=== PATIENT | male | born 1940 | race Caucasian/White ===

== ENCOUNTER 2019-04-10 04:25 | Emergency (ER) | payer BC, MEDICARE ==
[2019-04-10] MEDS ORDERED: PERCOCET TABLET 5/325MG PO STA (05:02)
[2019-04-10] MEDS ORDERED: ZOFRAN ODT 4 MG PO ONE (05:02)
[2019-04-10] MEDS ORDERED: ZOFRAN ODT 4 MG ONE (05:05)
[2019-04-10] MEDS ORDERED: PERCOCET TABLET 5/325MG ONE (05:05)
--- NOTE | 2019-04-10 05:06 | ERPHSYRPT ---
- History of Present Illness Time Seen by Provider: 04/10/19 04:45 Source: patient Exam Limitations: no limitations Patient Subjective Stated Complaint: pt states he fell yesterday morning while outside. states he got tripped by a pile of gravel. states he hit the rt side of his head, denies loc Triage Nursing Assessment: pt alert and oriented, answers questions approp. pt back in wheelchair, transfers to stretcher with assist of 2. slow, unsteady gait noted. respirations nonlabored with lungs cta. pt c/o pain in lower back. lower netbackup admin to palpation. no bruising, abrasions noted. Physician History: Patient has had low back pain that has become severe since falling after tripping on gravel in the morning of 04/09/2019. Patient last tried Excedrin 9 hours ago without any relief of his pain. He also hit his head with the fall. Timing/Duration: yesterday Method of Injury: fall, slipped Quality: sharp Back Pain Location: lumbar spine Severity of Pain-Max: severe Severity of Pain-Current: severe Modifying Factors: Improves With: immobilization. Worsens With: movement Associated Symptoms: No fever, No chills, No sweating, No urinary incontinence, No loss of bowel control, No constipation, No nausea, No vomiting, No problems urinating, No light-headedness, No dizziness, No numbness in legs/feet, No weakness, No sensory/motor loss, No tingling in legs/feet, No lower back pain, No muscle spasms Previous symptoms: no prior history, no recent treatment Allergies/Adverse Reactions: codeine [Codeine] Allergy (Mild, Verified 04/04/14 12:38) Home Medications: Aspirin [Aspir 81] 81 mg PO DAILY 11/06/11 [History] Atenolol 50 mg [Tenormin 50 mg] 50 mg PO DAILY 11/06/11 [History] Finasteride 5 mg [Proscar 5 MG] 5 mg PO DAILY 11/06/11 [History] Oxybutynin Chloride 5 mg [Ditropan 5 MG] 10 mg PO HS 11/06/11 [History] Quinapril HCl 20 mg PO DAILY 11/06/11 [History] Tamsulosin HCl 0.4 mg [Flomax 0.4 MG] 0.4 mg PO DAILY 11/06/11 [History] Alprazolam 0.25 mg [xanAX 0.25 MG] 0.25 mg PO BIDPRN PRN 04/10/19 [History ] Nitroglycerin 0.4 mg/Hr [Nitro-Dur 0.4 MG/HR] 0.4 mg TOP DAILY PRN PRN 12/20 [History] Ropinirole 2Mg [Requip 2Mg Tab] 2 mg PO DAILY 04/10/19 [History] Hx Tetanus, Diphtheria Vaccination/Date Given: No Hx Influenza Vaccination/Date Given: No Hx Pneumococcal Vaccination/Date Given: No Immunizations Up to Date: No - Review of Systems Constitutional: No Fever, No Chills, No Fatigue Eyes: No Eye Pain, No Vision Changes Ears, Nose, & Throat: No Ear Pain, No Nose Pain, No Mouth Pain, No Mouth Swelling, No Throat Pain Respiratory: No Cough, No Dyspnea Cardiac: No Chest Pain, No Palpitations, No Syncope Abdominal/Gastrointestinal: No Abdominal Pain, No Nausea, No Vomiting, No Hematemesis, No Hematochezia, No Melena Genitourinary Symptoms: No Hematuria, No Urinary Retention, No Flank Pain Musculoskeletal: Back Pain, Fall, No Neck Pain, No Deformity, No Joint Pain Neurological: No Focal Weakness, No Headache, No Lethargy, No Parasthesia, No Speech Changes Psychological: No Anxiety Endocrine: No Excessive Sweating Hematologic/Lymphatic: No Easy Bleeding, No Easy Bruising All Other Systems: Reviewed and Negative - Past Medical History Pertinent Past Medical History: Yes Neurological History: No Pertinent History ENT History: No Pertinent History Cardiac History: Coronary Artery Disease, High Cholesterol, Hypertension Respiratory History: No Pertinent History, Sleep Apnea Endocrine Medical History: No Pertinent History Musculoskeletal History: Arthritis, Fractures GI Medical History: No Pertinent History History: No Pertinent History Psycho-Social History: No Pertinent History Male Reproductive Disorders: Prostate Problems - Past Surgical History Past Surgical History: Yes Neuro Surgical History: No Pertinent History Cardiac: Cardiac Catheterization Respiratory: No Pertinent History Gastrointestinal: No Pertinent History, Hernia Repair Musculoskeletal: Joint Replacement, Orthopedic Surgery Other Surgical History: right shoulder cuff,left knee replacement,left heel spur ,umbil.hernior. RIGHT TOTAL KNEE, rt femur - Social History Smoking Status: Former smoker Exposure to second hand smoke: No Drug Use: none Patient Lives Alone: No - Nursing Vital Signs Nursing Vital Signs: Initial Vital Signs Temperature 97.3 F 04/10/19 04:32 Pulse Rate 78 04/10/19 04:32 Respiratory Rate 16 04/10/19 04:32 Blood Pressure 172/87 04/10/19 04:32 O2 Sat by Pulse Oximetry 95 04/10/19 04:32 Pain Scale Pain Intensity 10 - Physical Exam General Appearance: no apparent distress, alert Eye Exam: PERRL/EOMI, eyes nml inspection, No scleral icterus Ears, Nose, Throat Exam: pharynx normal, moist mucous membranes Neck Exam: normal inspection, non-tender, supple, full range of motion, No meningismus, No Brudzinski, No limited range of motion, No midline tenderness Respiratory Exam: normal breath sounds, lungs clear, airway intact, No chest tenderness, No respiratory distress, No diminished breath sounds, No accessory muscle use, No crackles/rales, No rhonchi, No wheezing, No stridor Cardiovascular Exam: regular rate/rhythm, normal heart sounds, normal peripheral pulses, capillary refill <2 sec Gastrointestinal Exam: soft, normal bowel sounds, No tenderness, No guarding Back Exam: vertebral tenderness, decreased range of motion, point tenderness, No CVA tenderness, No rash Extremity Exam: normal inspection, normal range of motion, pelvis stable, tenderness (right lateral posterior mid thigh only), No contusions, No deformities, No lacerations, No penetrations, No swelling Peripheral Pulses: dorsalis-pedis (R): 2+, dorsalis-pedis (L): 2+ Neurologic Exam: alert, oriented x 3, cooperative, 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 claims 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 II-XII nml as tested, normal mood/affect, sensation nml Skin Exam: normal color, warm, dry, abrasion (right periocular area; nose), No rash, No petechiae, No cyanosis, No laceration SpO2 Interpretation: normal SpO2: 95 O2 Delivery: Room Air - Radiology Exams Right Femur X-ray Interpretation: Interpreted by me, Reviewed by me, No Fracture, Nml Alignment, Nml Soft Tissues, Other (athritis at the hip joint; knee arthroplasty hardware intact) - CT Exams Head CT Interpretation: Tele-radiologist Report, No Fracture, No/Intracranial Hemorrhag, Other (per radiologist's interpretation: 9: Age-related cerebral cortical volume loss. No acute intracranial hemorrhage. No intracranial mass or mass effect. The great matter is intact. Mild white matter changes involving the subcortical and periventricular regions consistent with a microvascular leukoencephalopathy. Brainstem and cerebellum are not remarkable. No ventriculomegaly. No acute fracture. Mucoperiosteal thickening of the right mmaxillary sinus. Visualized mastoid air cells are well aerated. Unremarkable soft tissue. Vascular calcification. Overall impression: No acute intracranial hemorrhage. No intracranial mass. No obstructive hydrocephalus.) Lumbar Spine CT Interpretation: Tele-radiologist Report, No Fracture, Other (radiologist's interpretation: Impression: Multilevel degenerative lumbar disc disease and facet disease. Severe central canal stenosis level of L3-L4 and L4-L5. Multilevel neural foraminal narrowing due to a combination of a diffusely bulging disc with hypertrophic changes of facet joints. Fusion of both SI joints.) Ordered Tests: Active Orders 24 hr Category Date Time Status FEMUR Stat Exams 04/10/19 05:12 Taken HEAD WITHOUT CONTRAST [CT] Stat Exams 04/10/19 05:01 Taken LUMBAR SPINE W/O [CT] Stat Exams 04/10/19 05:02 Taken Medication Summary Discontinued Medications Generic Name Dose Route Start Last Admin Trade Name Freq PRN Reason Stop Dose Admin Diphtheria/Tetanus/Acell Pertussis 0.5 ml 04/10/19 05:11 04/10/19 06:21 Adacel Vial IM 04/10/19 05:12 0.5 ml .ONCE ONE Administration Diphtheria/Tetanus/Acell Pertussis Confirm 04/10/19 05:29 Adacel Vial Administered 04/10/19 05:30 Dose 0.5 ml IM .STK-MED ONE Ondansetron HCl 4 mg 04/10/19 05:02 04/10/19 05:06 Zofran Odt 4 Mg PO 04/10/19 05:03 4 mg STAT ONE Administration Ondansetron HCl Confirm 04/10/19 05:05 Zofran Odt 4 Mg Administered 04/10/19 05:06 Dose 4 mg .ROUTE .STK-MED ONE Oxycodone/Acetaminophen 1 tab 04/10/19 05:02 04/10/19 05:06 Percocet Tablet 5/325mg PO 04/10/19 05:03 1 tab STAT STA Administration Oxycodone/Acetaminophen Confirm 04/10/19 05:05 Percocet Tablet 5/325mg Administered 04/10/19 05:06 Dose 1 tab .ROUTE .STK-MED ONE - Progress Progress: improved Progress Note: 04/10/19 06:42 Pain has decreased. Patient has no focal neurologic deficits in the lower extremities bilaterally. Counseled pt/family regarding: diagnosis, need for follow-up, rad results - Departure Departure Disposition: Home Clinical Impression: Acute low back pain due to trauma, Contusion of right thigh, initial encounter , Central stenosis of spinal canal, DDD (degenerative disc disease), lumbosacral , Neural foraminal stenosis of lumbar spine Closed head injury without loss of consciousness Qualifiers: Encounter type: initial encounter Qualified Code(s): S09.90XA - Unspecified injury of head, initial encounter Abrasion of periocular area, right Qualifiers: Encounter type: initial encounter Qualified Code(s): S00.211A - Abrasion of right eyelid and periocular area, initial encounter Condition: Good Critical Care Time: No Referrals: AURY MANZO MD [Primary Care Provider] - 04/11/19 Instructions: Low Back Pain (DC), Contusion (DC), Preventing Falls, Spinal Stenosis (DC), Spinal Stenosis Stretching Exercises, Spinal Stenosis Strengthening Exercises Additional Instructions: Your CT scan of her lumbar spine shows degenerative disc disease, facet arthropathy, central canal stenosis, and neural foraminal narrowing. Return immediately back to the emergency department if you have any new weakness in the lower extremities, loss of sensation lower extremities, difficulty going to the bathroom, he retaining any urine, diarrhea he cannot control, symptoms going down both legs, new bowel pain, or any other concerning signs or symptoms that were not present at the return visit for immediate reevaluation in the emergency department. Prescriptions: Meloxicam 7.5 mg [Mobic 7.5 MG] 7.5 mg PO DAILY PRN #14 tablet PRN Reason: Pain
[2019-04-10] MEDS ORDERED: Adacel Vial IM ONE ×2 (05:11→05:29)
[2019-04-10 06:30] VITALS: BP 141/74
[2019-04-10 06:42] VITALS: O2SAT 95
[2019-04-10 07:07] VITALS: PULSE 87
--- NOTE | 2019-04-10 09:24 | XRAY ---
Indication: Right periorbital abrasion following fall. Multiple contiguous axial images obtained through the head without contrast. Comparison: None Age-appropriate global atrophy and minimal periventricular degenerative micro-ischemia bilaterally. No acute intracranial hemorrhage, abnormal extra-axial fluid collection, or mass effect. Fourth ventricle is midline without hydrocephalus. Bony calvarium intact. There is moderate mucosal thickening of the right maxillary sinus. Impression: Nonacute senile brain. Right maxillary sinus disease. Comment: Preliminary interpretation was made by [facility]. No discrepancy. CTDI 42.19
--- NOTE | 2019-04-10 09:28 | XRAY ---
Indication: Pain following fall. Comparison: None 2 views of the right femur demonstrates osteopenia, mild hip degenerative arthropathy, small distal femur shaft bony exostosis, total knee arthroplasty with intact articulation/prosthesis, scattered vascular calcifications, and previous prostatectomy. No other bony, articular, or soft tissue abnormalities.
--- NOTE | 2019-04-10 09:50 | XRAY ---
Indication: Pain following fall. Multiple contiguous axial images obtained through the lumbar spine. Two-dimensional sagittal and coronal reformatted images obtained. Comparison: None. There is a CT abdomen/pelvis November 06, 2011. Again there is age-related osteopenia with mild progressive worsening multilevel thoracolumbar degenerative spondylosis and L5-S1 degenerative vacuum disc phenomena. New L3-L4 degenerative vacuum disc phenomena and new L3-L5 spinal canal stenosis due to broad-based disc bulge and degenerative facet/ligamentum flavum hypertrophy. Stable L3 vertebral body sclerotic lesion favored to be benign given stability over the years. Sagittal and coronal reformatted images demonstrates normal alignment with vertebral body heights/disc spaces maintained. New incompletely visualized T11 vertebral body fracture with mild sclerotic margins suggesting at least subacute process. No acute compression fracture or subluxation. Visualized noncontrasted soft tissues again demonstrates bilateral renal cysts again largest on the right measuring 5 cm. There remains scattered aortoiliac calcifications. Impression: 1. Incompletely visualized T11 vertebral body fracture probably subacute. 2. Again multilevel degenerative spondylosis worsened at the L3-L5 levels. 3. Stable osteopenia, benign L3 sclerotic lesion, and bilateral renal cysts. Comment: Preliminary interpretation was made by [facility] who does not report T11 fracture and also incidental L3 sclerotic lesion and renal cysts. Telephone report was given to Dr. Kelsey in the ER at 0935 hrs. on April 10, 2019. CT DI 28.98
== END 2019-04-10 07:06 | disposition home or self-care (01) ==
LOC: ED 04:25
DX: S09.90XA Unspecified injury of head, initial encounter (principal); S00.211A Abrasion of right eyelid and periocular area, initial encounter; W01.198A Fall on same level from slipping, tripping and stumbling with subsequent striking against other object, initial encounter; Z79.899 Other long term (current) drug therapy; I25.10 Atherosclerotic heart disease of native coronary artery without angina pectoris; E78.00 Pure hypercholesterolemia, unspecified; I10 Essential (primary) hypertension; M54.5 Low back pain; M79.651 Pain in right thigh
CPT/HCPCS: 70450; 72131; 73552; 90471; 90715; 99284; Q0162; A9270-GY

== ENCOUNTER 2020-06-10 16:48 | Emergency (ER) | payer MEDICARE ==
--- NOTE | 2020-06-10 16:55 | ERPHSYRPT ---
- History of Present Illness Time Seen by Provider: 06/10/20 16:54 Historian: patient Exam Limitations: no limitations Physician History: This is an 79-year-old white male who does have a history of intermittent chest pain as well as hypertension. He is obese. 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 In fact, patient has a cardiac catheterization scheduled for Wednesday, June 24, 2020. Dr. Manzo is the patient's PCP. Patient states that he had sudden onset of left anterior chest pain that radiated into his shoulder. It was sharp in description. Patient states that the pain relieved prior to her arrival to the emergency department. However, he was concerned enough to have it looked at. Again, he has no chest pain at this time. Patient took 2 baby aspirin at home. He is not on any other anticoagulation therapy. Patient denies shortness of breath. He has no nausea or vomiting. He has no abdominal pain. Patient states that he had a recent Covid test that was negative. Timing/Duration: today Activities at Onset: none Quality: sharpness Location: other (Left anterior chest) Chest Pain Radiation: arm (Left shoulder) Severity of Pain-Max: moderate Severity of Pain-Current: none Modifying Factors: Improves With: nothing Associated Symptoms: denies symptoms Aspirin Treatment Today: 81 mg x 2, provided at home Allergies/Adverse Reactions: codeine [Codeine] Allergy (Mild, Verified 06/10/20 17:00) Home Medications: Aspirin [Aspir 81] 81 mg PO DAILY 11/06/11 [History] Atenolol 50 mg [Tenormin 50 mg] 50 mg PO DAILY 11/06/11 [History] Finasteride 5 mg [Proscar 5 MG] 5 mg PO DAILY 11/06/11 [History] Oxybutynin Chloride 5 mg [Ditropan 5 MG] 10 mg PO HS 11/06/11 [History] Quinapril HCl 20 mg PO DAILY 11/06/11 [History] Tamsulosin HCl 0.4 mg [Flomax 0.4 MG] 0.4 mg PO DAILY 11/06/11 [History] Alprazolam 0.25 mg [xanAX 0.25 MG] 0.25 mg PO BIDPRN PRN 11/07/19 [History] Nitroglycerin 0.4 mg/Hr [Nitro-Dur 0.4 MG/HR] 0.4 mg TOP DAILY PRN PRN 04/10/19 [History] Ropinirole 2Mg [Requip 2Mg Tab] 2 mg PO DAILY 04/10/19 [History] Amlodipine Besylate 2.5 mg PO DAILY 06/10/20 [History] Furosemide 20 mg [Lasix 20 mg] 20 mg PO DAILY 06/10/20 [History] Hx Tetanus, Diphtheria Vaccination/Date Given: No Hx Influenza Vaccination/Date Given: No Hx Pneumococcal Vaccination/Date Given: No Travel Risk - International Travel Have you traveled outside of the country in past 3 weeks: No - Coronavirus Screening Are you exhibiting any of the following symptoms?: No Close contact with a COVID-19 positive Pt in past 14-21 Days: No - Review of Systems Constitutional: No Symptoms Eyes: No Symptoms Ears, Nose, & Throat: No Symptoms Respiratory: No Symptoms Cardiac: Chest Pain Abdominal/Gastrointestinal: No Symptoms Genitourinary Symptoms: No Symptoms Musculoskeletal: No Symptoms Skin: No Symptoms Neurological: No Symptoms Psychological: No Symptoms Endocrine: No Symptoms Hematologic/Lymphatic: No Symptoms Immunological/Allergic: No Symptoms All Other Systems: Reviewed and Negative - Past Medical History Pertinent Past Medical History: Yes Neurological History: Other ENT History: No Pertinent History Cardiac History: Hypertension Respiratory History: Sleep Apnea Endocrine Medical History: No Pertinent History Musculoskeletal History: Osteoarthritis GI Medical History: No Pertinent History History: No Pertinent History Psycho-Social History: No Pertinent History Male Reproductive Disorders: Prostate Problems Other Medical History: neuropathy in hands, Pt uses a C-PAP, B TKA - Past Surgical History Past Surgical History: Yes Neuro Surgical History: No Pertinent History Cardiac: Cardiac Catheterization Respiratory: No Pertinent History Gastrointestinal: No Pertinent History, Hernia Repair Musculoskeletal: Joint Replacement, Orthopedic Surgery Other Surgical History: right shoulder cuff,left knee replacement,left heel spur,umbil.hernior. RIGHT TOTAL KNEE, rt femur - Social History Smoking Status: Former smoker Exposure to second hand smoke: No Drug Use: none Patient Lives Alone: No - Nursing Vital Signs Nursing Vital Signs: Initial Vital Signs Temperature 98.2 F 06/10/20 16:49 Pulse Rate 90 06/10/20 16:49 Respiratory Rate 20 06/10/20 16:49 Blood Pressure 133/74 06/10/20 16:49 O2 Sat by Pulse Oximetry 95 06/10/20 16:49 Pain Scale Pain Intensity 0 - Physical Exam General Appearance: no apparent distress, alert, anxiety, obese Eye Exam: PERRL/EOMI, eyes nml inspection Ears, Nose, Throat Exam: normal ENT inspection, moist mucous membranes Neck Exam: normal inspection, non-tender, supple, full range of motion Respiratory Exam: normal breath sounds, lungs clear, airway intact, No chest tenderness, No respiratory distress Cardiovascular Exam: regular rate/rhythm, normal heart sounds, normal peripheral pulses Gastrointestinal/Abdomen Exam: soft, normal bowel sounds, No tenderness Rectal Exam: not done Back Exam: normal inspection, normal range of motion, No CVA tenderness, No vertebral tenderness Extremity Exam: normal inspection, normal range of motion, pelvis stable Neurologic Exam: alert, oriented x 3, cooperative, supervisor filter 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 There is no change from a comparison EKG dated 04/04/2014.) Ordered Tests: Active Orders 24 hr Category Date Time Status Torque Tester STAT Care 06/10/20 16:57 Active EKG-ER Only STAT Care 06/10/20 16:57 Active IV Insertion STAT Care 06/10/20 16:57 Active Pulse Oximetry (ED) STAT Care 06/10/20 16:57 Active CHEST 1 VIEW (PORTABLE) Stat Exams 06/10/20 16:57 Taken CHEST WITH CONTRAST [CT] Stat Exams 06/10/20 18:04 Taken CBC W DIFF Stat Lab 06/10/20 17:15 Completed CMP Stat Lab 06/10/20 17:15 Completed D-DIMER QUANTITATIVE Stat Lab 06/10/20 17:15 Completed NT PRO BNP Stat Lab 06/10/20 17:15 Completed TROPONIN Q3H Lab 06/10/20 17:30 Completed TROPONIN Q3H Lab 06/10/20 20:00 Ordered TROPONIN Q3H Lab 06/10/20 23:00 Ordered TROPONIN Q3H Lab 06/11/20 02:00 Ordered TROPONIN Q3H Lab 06/11/20 05:00 Ordered Medication Summary Discontinued Medications Generic Name Dose Route Start Last Admin Trade Name Juliette PRN Reason Stop Dose Admin Aspirin 162 mg 06/10/20 16:57 06/10/20 17:00 Baby Aspirin 81 Mg Chew PO 06/10/20 16:58 162 mg STAT ONE Administration Aspirin Confirm 06/10/20 17:00 Baby Aspirin 81 Mg Chew Administered 06/10/20 17:01 Dose 162 mg .ROUTE .STK-MED ONE Sodium Chloride 500 mls @ 500 mls/hr 06/10/20 18:04 06/10/20 18:07 Sodium Chloride 0.9% 500 Ml IV 06/10/20 19:03 500 mls/hr .Q1H ONE Administration Sodium Chloride Confirm 06/10/20 18:06 Sodium Chloride 0.9% 500 Ml Administered 06/10/20 18:07 Dose 500 mls @ ud IV .STK-MED ONE Lab/Rad Data: Laboratory Result Diagrams 06/10/20 17:15 06/10/20 17:15 Laboratory Results 06/10/20 06/10/20 06/10/20 Range/Units 17:30 17:15 17:15 WBC (4.0-10.5) K/mm3 RBC (4.1-5.6) M/mm3 Hgb (12.5-18.0) gm/dl Hct (42-50) % MCV (78-100) fl MCH (26-32) pg MCHC (32-36) g/dl RDW (11.5-14.0) % Plt Count (150-450) K/mm3 MPV (7.5-11.0) fl Gran % (36.0-66.0) % Eos # (Auto) (0-0.5) Absolute Lymphs (auto) (1.0-4.6) Absolute Monos (auto) (0.0-1.3) Lymphocytes % (24.0-44.0) % Monocytes % (0.0-12.0) % Eosinophils % (0.00-5.0) % Basophils % (0.0-0.4) % Absolute Granulocytes (1.4-6.9) Basophils # (0-0.4) D-Dimer 790 H* (215-500) ng/mL Sodium 136 L (137-145) mmol/L Potassium 4.7 (3.5-5.1) mmol/L Chloride 100 (98-107) mmol/L Carbon Dioxide 29 (22-30) mmol/L Anion Gap 11.3 (5-15) MEQ/L BUN 28 H (9-20) mg/dL Creatinine 0.97 (0.66-1.25) mg/dL Estimated GFR > 60.0 ML/MIN Glucose 142 H (74-106) mg/dL Calcium 9.3 (8.4-10.2) mg/dL Total Bilirubin 0.50 (0.2-1.3) mg/dL AST 26 (17-59) U/L ALT 15 (0-50) U/L Alkaline Phosphatase 94 (38-126) U/L Troponin I < 0.012 (0.000-0.034) ng/mL NT-Pro-B Natriuret Pep 134 (0-1800) pg/mL Serum Total Protein 7.5 (6.3-8.2) g/dL Albumin 4.0 (3.5-5.0) g/dL 06/10/20 Range/Units 17:15 WBC 8.6 (4.0-10.5) K/mm3 RBC 4.59 (4.1-5.6) M/mm3 Hgb 14.7 (12.5-18.0) gm/dl Hct 45.0 (42-50) % MCV 98.0 (78-100) fl MCH 32.0 (26-32) pg MCHC 32.7 (32-36) g/dl RDW 12.6 (11.5-14.0) % Plt Count 300 (150-450) K/mm3 MPV 10.2 (7.5-11.0) fl Gran % 57.1 (36.0-66.0) % Eos # (Auto) 0.29 (0-0.5) Absolute Lymphs (auto) 2.49 (1.0-4.6) Absolute Monos (auto) 0.88 (0.0-1.3) Lymphocytes % 29.1 (24.0-44.0) % Monocytes % 10.3 (0.0-12.0) % Eosinophils % 3.4 (0.00-5.0) % Basophils % 0.1 (0.0-0.4) % Absolute Granulocytes 4.88 (1.4-6.9) Basophils # 0.01 (0-0.4) D-Dimer (215-500) ng/mL Sodium (137-145) mmol/L Potassium (3.5-5.1) mmol/L Chloride (98-107) mmol/L Carbon Dioxide (22-30) mmol/L Anion Gap (5-15) MEQ/L BUN (9-20) mg/dL Creatinine (0.66-1.25) mg/dL Estimated GFR ML/MIN Glucose (74-106) mg/dL Calcium (8.4-10.2) mg/dL Total Bilirubin (0.2-1.3) mg/dL AST (17-59) U/L ALT (0-50) U/L Alkaline Phosphatase (38-126) U/L Troponin I (0.000-0.034) ng/mL NT-Pro-B Natriuret Pep (0-1800) pg/mL Serum Total Protein (6.3-8.2) g/dL Albumin (3.5-5.0) g/dL - Progress Progress: re-examined, unchanged Air Movement: good Progress Note: 06/10/20 17:59 Chest x-ray shows no acute cardiopulmonary process. 06/10/20 19:21 cta chest-no pulm emboli; no acute process 06/10/20 19:36 Medical decision making: This patient had sudden onset sharp stabbing left anterior chest pain that went into his left shoulder. Patient has a cardiac catheterization scheduled for SundayJune 14, 2020. The pain completely resolved but he was concerned enough that he wanted to have things l ooked at this afternoon. His troponin was normal. His D-dimer was slightly elevated and a CAT scan of the chest with contrast reveals no pulmonary emboli or acute cardiopulmonary process. Patient's electrolytes are also within normal limits. He has no chest pain and has not had chest pain since he has been in this emergency department. I spoke with his refining machine operator, Dr. Quinn, and reviewed the patient's condition, EKG findings, CTA of the chest findings and results of his work-up from the laboratory standpoint. Dr. Quinn feels that the patient can be discharged to home. He is to return to the emergency department if his symptoms recur. He is to continue his medication as prescribed Blood Culture(s) Obtained: No Antibiotics given: No Counseled pt/family regarding: lab results, diagnosis, need for follow-up, rad results - Departure Departure Disposition: Home Clinical Impression: Chest pain Condition: Stable Critical Care Time: No Referrals: AURY MANZO MD [Primary Care Provider] - Additional Instructions: Continue your medication as prescribed. Return to the emergency department if your symptoms recur. If you continue to feel well, keep your appointment on June [address] Quinn for your cardiac catheterization.
[2020-06-10] MEDS ORDERED: BABY ASPIRIN 81 MG CHEW PO ONE (16:57)
[2020-06-10] MEDS ORDERED: BABY ASPIRIN 81 MG CHEW ONE (17:00)
[2020-06-10 17:25] LABS: Absolute Neutrophil Ct (ANC) 4.88 (1.4-6.9); BASOPHIL % 0.1 % (0.0-0.4); Basophil (Absolute #) 0.01 (0-0.4); Eosinophil % 3.4 % (0.00-5.0); Eosinophil (Absolute #) 0.29 (0-0.5); Hemoglobin 14.7 gm/dl (12.5-18.0); Lymphocyte (Absolute #) 2.49 (1.0-4.6); Lymphocytes % 29.1 % (24.0-44.0); Mean Corpuscular Hgb Concent. 32.7 g/dl (32-36); Mean Platelet Volume 10.2 fl (7.5-11.0); Monocyte (Absolute #) 0.88 (0.0-1.3); Monocytes % 10.3 % (0.0-12.0); Neutrophil % 57.1 % (36.0-66.0); Platelet Count 300 K/mm3 (150-450); Red Blood Count 4.59 M/mm3 (4.1-5.6); Red Cell Distribution Width 12.6 % (11.5-14.0); White Blood Count 8.6 K/mm3 (4.0-10.5)
[2020-06-10 17:44] LABS: ALKALINE PHOSPHATASE 94 U/L (38-126); ANION GAP 11.3 MEQ/L (5-15); BLOOD UREA NITROGEN 28 mg/dL (9-20); CHLORIDE 100 mmol/L (98-107); Calcium 9.3 mg/dL (8.4-10.2); Carbon Dioxide 29 mmol/L (22-30); Creatinine 1 0.97 mg/dL (0.66-1.25); EST GLOMERULAR FILTRATION RATE > 60.0 ML/MIN; Glucose 142 mg/dL (74-106); NT PRO BNP 134 pg/mL (0-1800); Potassium 4.7 mmol/L (3.5-5.1); SGOT/AST 26 U/L (17-59); SGPT/ALT 15 U/L (0-50); SODIUM 136 mmol/L (137-145); Total Protein 7.5 g/dL (6.3-8.2)
[2020-06-10] MEDS ORDERED: Sodium Chloride 0.9% 500 ML 500 ML IV ONE ×2 (18:04→18:06)
[2020-06-10 19:39] VITALS: BP 137/74; PULSE 86; O2SAT 94
--- NOTE | 2020-06-11 08:42 | XRAY ---
Indication: Left chest pain. Comparison: May 31, 2020. Portable chest remains hyperinflated and clear. Heart is not enlarged. No new/acute findings.
--- NOTE | 2020-06-11 08:42 | XRAY ---
Indication: Chest pain. Elevated d-dimer. Multiple contiguous axial images obtained through the chest using 100 cc Isovue 370 contrast and PE protocol. Comparison: June 03, 2020. There is good opacification of the pulmonary arteries to include the lobar and segmental branches. No pulmonary embolus. Heart is not enlarged. Aorta remains mildly arteriosclerotic without aneurysm/dissection. No pathologic mediastinal/hilar lymphadenopathy. Lungs inflated with stable 7 mm indeterminant left upper lobe noncalcified nodule and right upper lobe bleb. No infiltrate, consolidation, or effusion. Bony thorax intact again with osteopenia, flowing osteophytes throughout the spine, and old right 5 rib fracture. Limited upper abdomen again demonstrates bilateral renal cysts. Impression: 1. Negative pulmonary embolus. No new/acute findings. 2. Stable indeterminant left upper lobe noncalcified micronodule, bilateral renal cysts, and chronic bony findings.
== END 2020-06-10 19:52 | disposition home or self-care (01) ==
LOC: ED 16:48
DX: R07.89 Other chest pain (principal); I10 Essential (primary) hypertension; E66.9 Obesity, unspecified; Z79.899 Other long term (current) drug therapy
CPT/HCPCS: 36000; 36415; 71045; 71260; 80053; 83880; 84484; 85025; 85379; 93005; 93041; 94760; 99284; A9270-GY

== ENCOUNTER 2021-12-18 19:27 | Emergency (ER) | payer MEDICARE ==
[2021-12-18 20:13] LABS: Appearance CLEAR (CLEAR); Bilirubin NEGATIVE (NEGATIVE); Glucose 250 mg/dL (NEGATIVE); Ketones NEGATIVE (NEGATIVE); RBC TRACE-INTACT Ery/ul (0-5); Specific Gravity 1.025 (1.005-1.025)
[2021-12-18 20:14] LABS: Dipstick done @ ? MAIN LAB; Mucus SLIGHT /HPF (NEGATIVE); Nitrite NEGATIVE (NEGATIVE); Ph 5.5 (5-6); Protein,Urine Dip 30 (Negative); Urobilinogen 0.2 mg/dL (0-1)
[2021-12-18 20:15] LABS: Urine Cultured Indicated? YES
[2021-12-18] MEDS ORDERED: KEFLEX 500 MG PO ONE (21:01)
--- NOTE | 2021-12-18 21:04 | ERPHSYRPT ---
- History of Present Illness Time Seen by Provider: 12/18/21 19:30 Source: patient Exam Limitations: no limitations Patient Subjective Stated Complaint: pt states he has been urinating in small amts and does not feel like he is emptying his bladder. rates pain / Triage Nursing Assessment: pt alert and oriented, answers questions approp. pt ambulatory with slow steady gait noted. respirations nonlabored. skin warm and dry. pt reports dribbling. voided small amt of clear yellow urine Physician History: 81 years old male with history of prostate surgery in the past presented in the ER with difficulty urination since yesterday and since afternoon he is dribbling and having suprapubic discomfort with distention. Patient denies any fever chills nausea or vomiting. Timing/Duration: today, constant, gradual onset, worse Onset Location: suprapubic Pain Radiation: none Severity of Pain-Max: moderate Severity of Pain-Current: moderate Modifying Factors: Improves With: nothing Sexual intercourse history: non-contributory Allergies/Adverse Reactions: codeine [Codeine] Allergy (Mild, Verified 12/18/21 20:00) Home Medications: Aspirin [Aspir 81] 81 mg PO DAILY 11/06/11 [History] Atenolol 50 mg [Tenormin 50 mg] 50 mg PO DAILY 11/06/11 [History] Finasteride 5 mg [Proscar 5 MG] 5 mg PO DAILY 11/06/11 [History] Oxybutynin Chloride 5 mg [Ditropan 5 MG] 10 mg PO HS 11/06/11 [History] Quinapril HCl 20 mg PO DAILY 11/06/11 [History] Tamsulosin HCl 0.4 mg [Flomax 0.4 MG] 0.4 mg PO DAILY 11/06/11 [History] ALPRAZolam 0.25 MG [xanAX 0.25 MG] 0.25 mg PO BIDPRN PRN 04/10/19 [History] Nitroglycerin 0.4 mg/Hr [Nitro-Dur 0.4 MG/HR] 0.4 mg TOP DAILY PRN PRN 04/10/19 [History] Ropinirole 2Mg [Requip 2Mg Tab] 2 mg PO DAILY 04/10/19 [History] Amlodipine Besylate 2.5 mg PO DAILY 06/10/20 [History] Furosemide 20 mg [Lasix 20 mg] 20 mg PO DAILY 06/10/20 [History] Hx Tetanus, Diphtheria Vaccination/Date Given: No Hx Influenza Vaccination/Date Given: No Hx Pneumococcal Vaccination/Date Given: No Immunizations Up to Date: No Travel Risk - International Travel Have you traveled outside of the country in past 3 weeks: No - Coronavirus Screening Are you exhibiting any of the following symptoms?: No Close contact with a COVID-19 positive Pt in past 14-21 Days: No - Vaccine Status Have you recieved a Covid-19 vaccination: Yes 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 - Vaccination Dates Dates if Unknown: 2020 - Past Medical History Pertinent Past Medical History: Yes Neurological History: Other ENT History: No Pertinent History Cardiac History: High Cholesterol, Hypertension Respiratory History: Sleep Apnea Endocrine Medical History: No Pertinent History Musculoskeletal History: Osteoarthritis GI Medical History: No Pertinent History History: No Pertinent History Psycho-Social History: No Pertinent History Male Reproductive Disorders: Prostate Problems Other Medical History: neuropathy in hands, Pt uses a C-PAP, B TKA - Past Surgical History Past Surgical History: Yes Neuro Surgical History: No Pertinent History Cardiac: Cardiac Catheterization Respiratory: No Pertinent History Gastrointestinal: No Pertinent History, Hernia Repair Musculoskeletal: Joint Replacement, Orthopedic Surgery Other Surgical History: right shoulder cuff,left knee replacement,left heel spur,umbil.hernior. RIGHT TOTAL KNEE, rt femur - Social History Smoking Status: Former smoker Exposure to second hand smoke: No Drug Use: none Patient Lives Alone: No - Review of Systems Constitutional: No Symptoms Ears, Nose, & Throat: No Symptoms Respiratory: No Symptoms Cardiac: No Symptoms Abdominal/Gastrointestinal: Abdominal Pain Genitourinary Symptoms: Urinary Retention Musculoskeletal: No Symptoms Neurological: No Symptoms Endocrine: No Symptoms Hematologic/Lymphatic: No Symptoms Immunological/Allergic: No Symptoms - Nursing Vital Signs Nursing Vital Signs: Initial Vital Signs Temperature 98.0 F 12/18/21 19:44 Pulse Rate 98 H 12/18/21 19:44 Respiratory Rate 18 12/18/21 19:44 Blood Pressure 179/97 12/18/21 19:44 O2 Sat by Pulse Oximetry 93 L 12/18/21 19:44 Pain Scale Pain Intensity 10 - Physical Exam General Appearance: no apparent distress, alert Neck Exam: normal inspection, full range of motion Respiratory Exam: normal breath sounds, lungs clear Cardiovascular Exam: regular rate/rhythm, normal heart sounds Gastrointestinal/Abdomen Exam: soft, normal bowel sounds, tenderness (Suprapubic with palpable bladder) Back Exam: normal inspection, normal range of motion Extremity Exam: normal inspection, normal range of motion Neurologic Exam: alert, oriented x 3, cooperative Skin Exam: normal color SpO2 Interpretation: normal SpO2: 92 O2 Delivery: Room Air Ordered Tests: Active Orders 24 hr Category Date Time Status CULTURE,URINE Stat Lab 12/18/21 20:07 Received UA W/RFX CULTURE Stat Lab 12/18/21 20:07 Completed Lab/Rad Data: Laboratory Results 12/18/21 Range/Units 20:07 Urinalys Dipstick Clnc MAIN LAB Urine Color YELLOW (YELLOW) Urine Appearance CLEAR (CLEAR) Urine pH 5.5 (5-6) Ur Specific [place] 1.025 (1.005-1.025) POC Urine Protein Conf 30 (Negative) Urine Ketones NEGATIVE (NEGATIVE) Urine Nitrite NEGATIVE (NEGATIVE) Urine Bilirubin NEGATIVE (NEGATIVE) Urine Urobilinogen 0.2 (0-1) mg/dL Urine Leukocytes NEGATIVE (NEGATIVE) Urine WBC (Auto) NONE (0-5) /HPF Urine RBC (Auto) NONE (0-2) /HPF U Epithel Cells (Auto) NONE (FEW) /HPF Urine Bacteria (Auto) NONE (NEGATIVE) /HPF Urine RBC TRACE-INTACT (0-5) Yong/ul Urine Mucus (Auto) SLIGHT (NEGATIVE) /HPF Ur Culture Indicated? YES Urine Glucose 250 (NEGATIVE) mg/dL - Progress Progress: improved Progress Note: 12/18/21 21:02 Nunes catheter is placed in with almost 1000 urine output. Pain is relieved. Distention is improved. Started on Keflex and outpatient urology follow-up recommended. Counseled pt/family regarding: lab results, diagnosis, need for follow-up - Departure Departure Disposition: Home Clinical Impression: Acute urinary retention Condition: Stable Critical Care Time: No Referrals: AURY MANZO MD [Primary Care Provider] - Follow up/PCP as directed (1-2 days for reevaluation) JENNA RIZZO [COURTESY STAFF] - Follow up/PCP as directed (1-2 days for reevaluation and catheter removal) Instructions: Urinary Retention (DC) Additional Instructions: Take Tylenol as needed. Follow-up with urology for reevaluation. Return to ER for difficulty urination/fever chills etc. Prescriptions: Cephalexin Mh 500 mg [Keflex 500 mg] 500 mg PO TID #21 cap
[2021-12-18] MEDS ORDERED: KEFLEX 500 MG ONE (21:05)
[2021-12-18 21:11] VITALS: BP 135/67; PULSE 87; O2SAT 91
== END 2021-12-18 21:35 | disposition home or self-care (01) ==
LOC: ED 19:27
DX: R33.9 Retention of urine, unspecified (principal); R10.2 Pelvic and perineal pain; E78.5 Hyperlipidemia, unspecified; I10 Essential (primary) hypertension; Z79.899 Other long term (current) drug therapy
CPT/HCPCS: 81015; 87086; 99282; A9270-GY

== ENCOUNTER 2021-12-22 00:08 | Emergency (ER) | payer MEDICARE ==
--- NOTE | 2021-12-22 00:17 | ERPHSYRPT ---
- History of Present Illness Time Seen by Provider: 12/22/21 00:17 Source: patient Exam Limitations: no limitations Physician History: This is an 81-year-old white male patient of Dr. Manzo who does have history of prostate issues in the past. He presents with urinary retention. Patient was seen here on 12/18/2021 with similar symptoms. It required placement of a Nunes catheter which she was sent home with. Patient was also given a prescription for 1 weeks worth of Keflex 500 mg. He still has 3 to 4 days remaining. Patient was seen by his urologist today, Dr. Castro. The Nunes catheter was removed earlier in the day on 12/21/2021. However by the evening patient was having some suprapubic cramping and recurrent urinary retention. Timing/Duration: today Activites at Onset: none Quality: cramping Onset Location: suprapubic (Prepubic) Severity of Pain-Max: moderate Severity of Pain-Current: moderate Associated Symptoms: abdominal pain Sexual intercourse history: non-contributory (Suprapubic cramping) Allergies/Adverse Reactions: codeine [Codeine] Allergy (Mild, Verified 12/18/21 20:00) Home Medications: Aspirin [Aspir 81] 81 mg PO DAILY 11/06/11 [History] Atenolol 50 mg [Tenormin 50 mg] 50 mg PO DAILY 11/06/11 [History] Finasteride 5 mg [Proscar 5 MG] 5 mg PO DAILY 11/06/11 [History] Oxybutynin Chloride 5 mg [Ditropan 5 MG] 10 mg PO HS 11/06/11 [History] Quinapril HCl 20 mg PO DAILY 11/06/11 [History] Tamsulosin HCl 0.4 mg [Flomax 0.4 MG] 0.4 mg PO DAILY 11/06/11 [History] ALPRAZolam 0.25 MG [xanAX 0.25 MG] 0.25 mg PO BIDPRN PRN 04/10/19 [History] Nitroglycerin 0.4 mg/Hr [Nitro-Dur 0.4 MG/HR] 0.4 mg TOP DAILY PRN PRN 04/10/19 [History] Ropinirole 2Mg [Requip 2Mg Tab] 2 mg PO DAILY 04/10/19 [History] Amlodipine Besylate 2.5 mg PO DAILY 06/10/20 [History] Furosemide 20 mg [Lasix 20 mg] 20 mg PO DAILY 06/10/20 [History] Hx Tetanus, Diphtheria Vaccination/Date Given: No Hx Influenza Vaccination/Date Given: No Hx Pneumococcal Vaccination/Date Given: No Travel Risk - International Travel Have you traveled outside of the country in past 3 weeks: No - Coronavirus Screening Are you exhibiting any of the following symptoms?: No Close contact with a COVID-19 positive Pt in past 14-21 Days: No - Vaccine Status Have you recieved a Covid-19 vaccination: Yes 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 - Vaccination Dates Dates if Unknown: 2020 - Past Medical History Pertinent Past Medical History: Yes Neurological History: Other ENT History: No Pertinent History Cardiac History: High Cholesterol, Hypertension Respiratory History: Sleep Apnea Endocrine Medical History: No Pertinent History Musculoskeletal History: Osteoarthritis GI Medical History: No Pertinent History History: No Pertinent History Psycho-Social History: No Pertinent History Male Reproductive Disorders: Prostate Problems Other Medical History: neuropathy in hands, Pt uses a C-PAP, B TKA - Past Surgical History Past Surgical History: Yes Neuro Surgical History: No Pertinent History Cardiac: Cardiac Catheterization Respiratory: No Pertinent History Gastrointestinal: No Pertinent History, Hernia Repair Musculoskeletal: Joint Replacement, Orthopedic Surgery Other Surgical History: right shoulder cuff,left knee replacement,left heel spur,umbil.hernior. RIGHT TOTAL KNEE, rt femur - Social History Smoking Status: Former smoker Exposure to second hand smoke: No Drug Use: none Patient Lives Alone: No - Review of Systems Constitutional: No Symptoms Eyes: No Symptoms Ears, Nose, & Throat: No Symptoms Respiratory: No Symptoms Cardiac: No Symptoms Abdominal/Gastrointestinal: Abdominal Pain (Suprapubic cramping) Genitourinary Symptoms: Urinary Retention Musculoskeletal: No Symptoms Skin: No Symptoms Neurological: No Symptoms Psychological: No Symptoms Endocrine: No Symptoms Hematologic/Lymphatic: No Symptoms Immunological/Allergic: No Symptoms All Other Systems: Reviewed and Negative - Physical Exam General Appearance: no apparent distress, alert, anxiety Eye Exam: PERRL/EOMI, eyes nml inspection Ears, Nose, Throat Exam: normal ENT inspection, moist mucous membranes Neck Exam: normal inspection, non-tender, supple, full range of motion Respiratory Exam: airway intact, No chest tenderness, No respiratory distress Gastrointestinal/Abdomen Exam: soft, normal bowel sounds, tenderness (Mild suprapubic pressure) Rectal Exam: not done Back Exam: normal inspection, normal range of motion, No CVA tenderness, No vertebral tenderness Extremity Exam: normal inspection, normal range of motion, pelvis stable Neurologic Exam: alert, oriented x 3, cooperative, demand inspector II-XII nml as tested, normal mood/affect, nml cerebellar function, nml station & gait, sensation nml Skin Exam: normal color, warm, dry Lymphatic Exam: No adenopathy SpO2 Interpretation: normal O2 Delivery: Room Air - Course Nursing assessment & vital signs reviewed: Yes - Progress Progress: improved Progress Note: 12/22/21 00:33 Patient had a Nunes catheter placed. There was immediate return of approximately 500 mL of urine. There is significant improvement in the patient's symptoms of pain. I did not repeat a urinalysis because the patient was just here on 18 December 2021. He still has 3 to 4 days of antibiotics remaining to take. Counseled pt/family regarding: diagnosis, need for follow-up - Departure Departure Disposition: Home Clinical Impression: Urinary retention Condition: Stable Critical Care Time: No Referrals: AURY MANZO MD [Primary Care Provider] - Follow up/PCP as directed Additional Instructions: Drink plenty of fluids. Take your antibiotics as prescribed. Call your urologist today, 12/22/2021, to make arrangements for a follow-up appointment for further evaluation and management.
[2021-12-22 00:33] VITALS: O2SAT 97
[2021-12-22 00:57] VITALS: BP 146/79; PULSE 67
== END 2021-12-22 00:59 | disposition home or self-care (01) ==
LOC: ED 00:08
DX: R33.9 Retention of urine, unspecified (principal); R10.2 Pelvic and perineal pain; E78.5 Hyperlipidemia, unspecified; I10 Essential (primary) hypertension; Z79.899 Other long term (current) drug therapy
CPT/HCPCS: 51702; 99283

== ENCOUNTER 2022-01-17 07:58 | Day surgery (SDC) | payer MEDICARE ==
[2022-01-17] MEDS ORDERED: LIDOCAINE HCL 1% 50 MG/5 ML VL PF IJ ONE (07:59)
[2022-01-17] MEDS ORDERED: Epinephrine Preservative Free 1 MG/ML IJ ONE (07:59)
[2022-01-17] MEDS ORDERED: cefUROXime sodium 0.005 GM in Sodium Chloride Flush 30 ML*** 0.5 ML IJ ONE (08:00)
[2022-01-17] MEDS ORDERED: Lactated Ringers 1,000 ML IV SCH (08:00)
[2022-01-17] MEDS ORDERED: TETRACAINE 0.5% STERI-UNIT SOL OP ONE ×2 (08:00)
[2022-01-17] MEDS ORDERED: BETADINE 5% OPHTHALMIC 30 ML OP ONE (08:00)
[2022-01-17] MEDS ORDERED: Ak-Dilate OPHTHALMIC*** 1.065 ML, Cyclogyl 1% OPHTH SOL 1.065 ML, GATIFLOXACIN 0.5% OPH... OP ONE ×4 (08:00)
[2022-01-17] MEDS ORDERED: NON-FORMULARY ITEM OP ONE (08:00)
[2022-01-17] MEDS ORDERED: Lactated Ringers 1,000 ML IV ONE (09:28)
[2022-01-17] MEDS ORDERED: ACETAZOLAMIDE 250 MG TABLET PO ONE (10:00)
[2022-01-17] MEDS ORDERED: Zofran 4 MG/2 ML VIAL IV PRN (10:00)
[2022-01-17 12:00] VITALS: O2SAT 93
[2022-01-17 12:08] VITALS: BP 108/63; PULSE 65
== END 2022-01-17 12:08 | disposition home or self-care (01) ==
LOC: SDC 07:58
PROVIDERS: ATTEND Ophthalmology
DX: H25.811 Combined forms of age-related cataract, right eye (principal); E11.9 Type 2 diabetes mellitus without complications
CPT/HCPCS: 82947; C1780; J0171; J2001; A9270-GY

== ENCOUNTER 2023-03-29 22:21 | Observation (INO) | payer MEDICARE ==
[2023-03-29 23:09] LABS: BASOPHIL % 0.1 % (0.0-0.4); Basophil (Absolute #) 0.01 x10^3/uL (0-0.4); Eosinophil % 0.3 % (0.00-5.0); Eosinophil (Absolute #) 0.02 x10^3/uL (0-0.5); Hematocrit 34.2 % (42-50); Hemoglobin 10.8 g/dL (12.5-18.0); IMMATURE GRAN # 0.01 x10^3u/L (0.00-0.03); IMMATURE GRAN % 0.1 % (0.00-0.4); Lymphocyte (Absolute #) 0.62 x10^3/uL (1.0-4.6); Lymphocytes % 9.1 % (24.0-44.0); Mean Cell Volume 93.2 fL (78-100); Mean Corpuscular Hemoglobin 29.4 pg (26-32); Mean Corpuscular Hgb Concent. 31.6 g/dL (32-36); Mean Platelet Volume 9.4 fL (7.5-11.0); Monocyte (Absolute #) 0.88 x10^3/uL (0.0-1.3); Monocytes % 12.9 % (0.0-12.0); Neutrophil % 77.5 % (36.0-66.0); Platelet Count 224 x10^3/uL (150-450); Red Blood Count 3.67 x10^6/uL (4.1-5.6); White Blood Count 6.8 x10^3/uL (4.0-10.5)
--- NOTE | 2023-03-29 23:13 | ERPHSYRPT ---
- History of Present Illness Source: patient, EMS, other (Spouse) Patient Subjective Stated Complaint: pt states fever at home of 101 Triage Nursing Assessment: pt came into the er via ambulance; pt was transferred to cot per ems staff; pt is axo x3; c/o fever; pt was afebrile on arrival, 99.3 oral; coarse lung sounds in tania upper lobes; active bowel sounds in all quads; pt denies N/V/D; pt states last BM was 03/29/23; skin is PDW; no respiratory distress present; no cough present; O2 on arrival was 89% on room air; pt was put on 2L via NC; pt O2 is now 95% on 2L; hypertensive Physician History: Patient is a 82-year-old white male who complains of lethargy and fever starting today. Patient has a mildly productive cough, and nausea and vomiting due to phlegm. He denies chest pain, abdominal pain, dysuria, and hematuria. Patient is mildly short of breath requiring 2 L O2 nasal cannula upon ER presentation. Patient denies any focal weakness. Melena hematochezia are also denied. Additional history per . Timing/Duration: today Fever Severity: mild Fever Therapy JUSTICE COURT JUDGE: none Associated Symptoms: denies symptoms Allergies/Adverse Reactions: codeine [Codeine] Allergy (Mild, Verified 03/29/23 22:23) Home Medications: Aspirin [Aspir 81] 81 mg PO DAILY 11/06/11 [History] Atenolol 50 mg [Tenormin 50 mg] 50 mg PO DAILY 11/06/11 [History] Quinapril HCl 20 mg PO DAILY 11/06/11 [History] Amlodipine Besylate 2.5 mg PO DAILY 06/10/20 [History] Furosemide 20 mg [Lasix 20 mg] 20 mg PO DAILY 06/10/20 [History] Glipizide 5 mg [Glucotrol 5 MG] 5 mg PO DAILY 01/09/22 [History] Metformin HCl 500 mg [Glucophage 500 MG] 500 mg PO BID 01/09/22 [History] Potassium Chloride 10 meq PO DAILY 01/09/22 [History] Pravastatin Sodium 80 mg PO DAILY 01/09/22 [History] Hx Tetanus, Diphtheria Vaccination/Date Given: Yes Hx Influenza Vaccination/Date Given: No (2022) Hx Pneumococcal Vaccination/Date Given: Yes Travel Risk - International Travel Have you traveled outside of the country in past 3 weeks: No - Coronavirus Screening Are you exhibiting any of the following symptoms?: Yes Symptoms: Fever Close contact with a COVID-19 positive Pt in past 14-21 Days: No - Vaccine Status Have you recieved a Covid-19 vaccination: Yes Phosphoric Acid Operator: Moderna - Vaccination Dates Date of 2cond Vaccination (if applicable): 08/02/20 Dates if Unknown: 2020 - Review of Systems Constitutional: No Symptoms, Fever, Chills, Fatigue, Lethargy, Malaise Eyes: No Symptoms Ears, Nose, & Throat: No Symptoms Respiratory: No Symptoms, Cough Cardiac: No Symptoms Abdominal/Gastrointestinal: No Symptoms Genitourinary Symptoms: No Symptoms Musculoskeletal: No Symptoms Skin: No Symptoms Neurological: No Symptoms Psychological: No Symptoms Endocrine: No Symptoms Hematologic/Lymphatic: No Symptoms Immunological/Allergic: No Symptoms - Past Medical History Pertinent Past Medical History: Yes Neurological History: No Pertinent History ENT History: No Pertinent History Cardiac History: Hypertension Respiratory History: No Pertinent History, Sleep Apnea Endocrine Medical History: Diabetes Type II Musculoskeletal History: Osteoarthritis GI Medical History: No Pertinent History History: No Pertinent History Psycho-Social History: No Pertinent History Male Reproductive Disorders: Prostate Problems Other Medical History: RECENT X-RAYS WERE NORMAL - Past Surgical History Past Surgical History: Yes Neuro Surgical History: No Pertinent History Cardiac: Cardiac Catheterization Respiratory: No Pertinent History Gastrointestinal: No Pertinent History, Hernia Repair Genitourinary: No Pertinent History Musculoskeletal: Joint Replacement, Orthopedic Surgery Male Surgical History: Prostate Surgery Other Surgical History: right shoulder cuff,left knee replacement,left heel spur,umbil.hernior. RIGHT TOTAL KNEE, rt femur - Social History Smoking Status: Former smoker Exposure to second hand smoke: No Drug Use: none Patient Lives Alone: No - Nursing Vital Signs Nursing Vital Signs: Initial Vital Signs Temperature 99.3 F 03/29/23 22:21 Pulse Rate 99 H 03/29/23 22:21 Respiratory Rate 14 03/29/23 22:21 Blood Pressure 141/59 03/29/23 22:21 O2 Sat by Pulse Oximetry 89 L 03/29/23 22:21 Pain Scale Pain Intensity 0 Hypertensive/Borderline sats - Physical Exam General Appearance: no apparent distress Eye Exam: PERRL/EOMI, eyes nml inspection ENT Exam: normal ENT inspection, no apparent trauma, hearing grossly normal, TMs normal, pharynx normal, No nasal congestion, No nasal drainage Neck Exam: normal inspection, non-tender, supple, full range of motion, trachea midline Respiratory Exam: no respiratory distress, decreased breath sounds (Decreased BS bases B) Cardiovascular/Chest Exam: normal heart sounds, murmur (2/6 KATIE) Gastrointestinal/Abdominal Exam: soft, non tender, no distention Extremity Exam: non-tender, normal range of motion, normal inspection, normal capillary refill Neurologic Exam: alert, oriented x 3, cooperative, barrel rifler button II-XII nml as tested, normal mood/affect, sensation nml Skin Exam: normal color, warm, dry Lymphatic: No adenopathy SpO2 Interpretation: borderline oxygenation SpO2: 89 O2 Delivery: Room Air - Course Nursing assessment & vital signs reviewed: Yes - CT Exams Chest CT Interpretation: Tele-radiologist Report (Nothing acute) Ordered Tests: Active Orders 24 hr Category Date Time Status Heart-Healthy Diet Diet 03/30/23 Breakfast Active CHEST WITHOUT CONTRAST [CT] Stat Exams 03/29/23 23:40 Completed CBC W DIFF Stat Lab 03/29/23 23:05 Completed CMP Stat Lab 03/29/23 23:05 Completed Lactic Acid Stat Lab 03/29/23 23:10 Completed PROTIME WITH INR Stat Lab 03/29/23 23:05 Completed PTT Stat Lab 03/29/23 23:05 Completed TROPONIN Q4H Lab 03/29/23 23:05 Completed TROPONIN Q4H Lab 03/30/23 02:45 Ordered TROPONIN Q4H Lab 03/30/23 06:45 Ordered UA W/RFX UR CULTURE Stat Lab 03/29/23 23:05 Completed Transfer Order Routine Transfer 03/30/23 Completed Medication Summary Discontinued Medications Generic Name Dose Route Start Last Admin Trade Name Freq PRN Reason Stop Dose Admin Dexamethasone Sodium Phosphate 10 mg 03/30/23 00:29 03/30/23 00:31 Dexamethasone Sod Phosphate 10 Mg/Ml IV 03/30/23 00:30 10 mg STAT ONE Administration Dexamethasone Sodium Phosphate Confirm 03/30/23 00:31 Dexamethasone Sod Phosphate 10 Mg/Ml Administered 03/30/23 00:32 Dose 10 mg .ROUTE .[facility] Lab/Rad Data: Laboratory Result Diagrams 03/29/23 23:05 10/26/23 23:05 Laboratory Results 03/29/23 03/29/23 03/29/23 Range/Units 23:10 23:05 23:05 WBC (4.0-10.5) x10^3/uL RBC (4.1-5.6) x10^6/uL Hgb (12.5-18.0) g/dL Hct (42-50) % MCV (78-100) fL MCH (26-32) pg MCHC (32-36) g/dL RDW (11.5-14.0) % Plt Count (150-450) x10^3/uL MPV (7.5-11.0) fL Gran % (36.0-66.0) % Immature Gran % (Auto) (0.00-0.4) % Nucleat RBC Rel Count (0.00-0.1) % Eos # (Auto) (0-0.5) x10^3/uL Immature Gran # (Auto) (0.00-0.03) x10^3u/L Absolute Lymphs (auto) (1.0-4.6) x10^3/uL Absolute Monos (auto) (0.0-1.3) x10^3/uL Absolute Nucleated RBC (0.00-0.01) x10^3u/L Lymphocytes % (24.0-44.0) % Monocytes % (0.0-12.0) % Eosinophils % (0.00-5.0) % Basophils % (0.0-0.4) % Absolute Granulocytes (1.4-6.9) x10^3/uL Basophils # (0-0.4) x10^3/uL PT (9.4-12.5) SECONDS INR (0.8-3.0) APTT 32.3 (25.1-36.5) SECONDS Sodium (137-145) mmol/L Potassium (3.5-5.1) mmol/L Chloride (98-107) mmol/L Carbon Dioxide (22-30) mmol/L Anion Gap (5-15) MEQ/L BUN (9-20) mg/dL Creatinine (0.66-1.25) mg/dL Estimated GFR ML/MIN Glucose (74-106) mg/dL Lactic Acid 1.3 (0.4-2.0) Calcium (8.4-10.2) mg/dL Total Bilirubin (0.2-1.3) mg/dL AST (17-59) U/L ALT (0-50) U/L Alkaline Phosphatase (38-126) U/L Troponin I (0.000-0.034) ng/mL Serum Total Protein (6.3-8.2) g/dL Albumin (3.5-5.0) g/dL Urine Color (Yellow) Urine Appearance (Clear) Urine pH (4.6-8.0) Ur Specific Bat[place]lor (1.005-1.030) Urine Protein (Negative) Urine Glucose (UA) (Negative) mg/dL Urine Ketones (Negative) Urine Blood (Negative) Urine Nitrite (Negative) Urine Bilirubin (Negative) Urine Urobilinogen (0.2) mg/dL Ur Leukocyte Esterase (Negative) U Hyaline Cast (Auto) (0-2) /LPF Urine Microscopic RBC (0-5) /HPF Urine Microscopic WBC (0-5) /HPF Ur Epithelial Cells (None Seen) /HPF Urine Bacteria (None Seen) /HPF Urine Culture Reflexed (NO) Influenza Type A Ag NEGATIVE (NEGATIVE) Influenza Type B Ag NEGATIVE (NEGATIVE) RSV (PCR) NEGATIVE (NEGATIVE) SARS-CoV-2 (PCR) POSITIVE A (NEGATIVE) 03/29/23 03/29/23 03/29/23 Range/Units 23:05 23:05 23:05 WBC (4.0-10.5) x10^3/uL RBC (4.1-5.6) x10^6/uL Hgb (12.5-18.0) g/dL Hct (42-50) % MCV (78-100) fL MCH (26-32) pg MCHC (32-36) g/dL RDW (11.5-14.0) % Plt Count (150-450) x10^3/uL MPV (7.5-11.0) fL Gran % (36.0-66.0) % Immature Gran % (Auto) (0.00-0.4) % Nucleat RBC Rel Count (0.00-0.1) % Eos # (Auto) (0-0.5) x10^3/uL Immature Gran # (Auto) (0.00-0.03) x10^3u/L Absolute Lymphs (auto) (1.0-4.6) x10^3/uL Absolute Monos (auto) (0.0-1.3) x10^3/uL Absolute Nucleated RBC (0.00-0.01) x10^3u/L Lymphocytes % (24.0-44.0) % Monocytes % (0.0-12.0) % Eosinophils % (0.00-5.0) % Basophils % (0.0-0.4) % Absolute Granulocytes (1.4-6.9) x10^3/uL Basophils # (0-0.4) x10^3/uL PT 11.5 (9.4-12.5) SECONDS INR 1.06 (0.8-3.0) APTT (25.1-36.5) SECONDS Sodium (137-145) mmol/L Potassium (3.5-5.1) mmol/L Chloride (98-107) mmol/L Carbon Dioxide (22-30) mmol/L Anion Gap (5-15) MEQ/L BUN (9-20) mg/dL Creatinine (0.66-1.25) mg/dL Estimated GFR ML/MIN Glucose (74-106) mg/dL Lactic Acid (0.4-2.0) Calcium (8.4-10.2) mg/dL Total Bilirubin (0.2-1.3) mg/dL AST (17-59) U/L ALT (0-50) U/L Alkaline Phosphatase (38-126) U/L Troponin I 0.055 H* (0.000-0.034) ng/mL Serum Total Protein (6.3-8.2) g/dL Albumin (3.5-5.0) g/dL Urine Color Yellow (Yellow) Urine Appearance Clear (Clear) Urine pH 7.0 (4.6-8.0) Ur Specific [place]lor 1.015 (1.005-1.030) Urine Protein 100 A (Negative) Urine Glucose (UA) Negative (Negative) mg/dL Urine Ketones Trace A (Negative) Urine Blood Negative (Negative) Urine Nitrite Negative (Negative) Urine Bilirubin Negative (Negative) Urine Urobilinogen 1.0 A (0.2) mg/dL Ur Leukocyte Esterase Negative (Negative) U Hyaline Cast (Auto) NONE SEEN (0-2) /LPF Urine Microscopic RBC 0-2 (0-5) /HPF Urine Microscopic WBC 0-2 (0-5) /HPF Ur Epithelial Cells None Seen (None Seen) /HPF Urine Bacteria None Seen (None Seen) /HPF Urine Culture Reflexed NO (NO) Influenza Type A Ag (NEGATIVE) Influenza Type B Ag (NEGATIVE) RSV (PCR) (NEGATIVE) SARS-CoV-2 (PCR) (NEGATIVE) 03/29/23 03/29/23 Range/Units 23:05 23:05 WBC 6.8 (4.0-10.5) x10^3/uL RBC 3.67 L (4.1-5.6) x10^6/uL Hgb 10.8 L (12.5-18.0) g/dL Hct 34.2 L (42-50) % MCV 93.2 (78-100) fL MCH 29.4 (26-32) pg MCHC 31.6 L (32-36) g/dL RDW 14.0 (11.5-14.0) % Plt Count 224 (150-450) x10^3/uL MPV 9.4 (7.5-11.0) fL Gran % 77.5 H (36.0-66.0) % Immature Gran % (Auto) 0.1 (0.00-0.4) % Nucleat RBC Rel Count 0.0 (0.00-0.1) % Eos # (Auto) 0.02 (0-0.5) x10^3/uL Immature Gran # (Auto) 0.01 (0.00-0.03) x10^3u/L Absolute Lymphs (auto) 0.62 L (1.0-4.6) x10^3/uL Absolute Monos (auto) 0.88 (0.0-1.3) x10^3/uL Absolute Nucleated RBC 0.00 (0.00-0.01) x10^3u/L Lymphocytes % 9.1 L (24.0-44.0) % Monocytes % 12.9 H (0.0-12.0) % Eosinophils % 0.3 (0.00-5.0) % Basophils % 0.1 (0.0-0.4) % Absolute Granulocytes 5.30 (1.4-6.9) x10^3/uL Basophils # 0.01 (0-0.4) x10^3/uL PT (9.4-12.5) SECONDS INR (0.8-3.0) APTT (25.1-36.5) SECONDS Sodium 136 L (137-145) mmol/L Potassium 4.6 (3.5-5.1) mmol/L Chloride 104 (98-107) mmol/L Carbon Dioxide 25 (22-30) mmol/L Anion Gap 12.1 (5-15) MEQ/L BUN 22 H (9-20) mg/dL Creatinine 1.26 H (0.66-1.25) mg/dL Estimated GFR 58.0 ML/MIN Glucose 110 H (74-106) mg/dL Lactic Acid (0.4-2.0) Calcium 8.3 L (8.4-10.2) mg/dL Total Bilirubin 0.40 (0.2-1.3) mg/dL AST 40 (17-59) U/L ALT 20 (0-50) U/L Alkaline Phosphatase 113 (38-126) U/L Troponin I (0.000-0.034) ng/mL Serum Total Protein 7.0 (6.3-8.2) g/dL Albumin 3.9 (3.5-5.0) g/dL Urine Color (Yellow) Urine Appearance (Clear) Urine pH (4.6-8.0) Ur Specific [place] (1.005-1.030) Urine Protein (Negative) Urine Glucose (UA) (Negative) mg/dL Urine Ketones (Negative) Urine Blood (Negative) Urine Nitrite (Negative) Urine Bilirubin (Negative) Urine Urobilinogen (0.2) mg/dL Ur Leukocyte Esterase (Negative) U Hyaline Cast (Auto) (0-2) /LPF Urine Microscopic RBC (0-5) /HPF Urine Microscopic WBC (0-5) /HPF Ur Epithelial Cells (None Seen) /HPF Urine Bacteria (None Seen) /HPF Urine Culture Reflexed (NO) Influenza Type A Ag (NEGATIVE) Influenza Type B Ag (NEGATIVE) RSV (PCR) (NEGATIVE) SARS-CoV-2 (PCR) (NEGATIVE) - Progress Progress Note: 03/30/23 01:54 Nursing note and vital signs reviewed. No food or housing insecurities noted. Additional history per and later daughter. All lab results reviewed and shared with patient and family. CT of chest result reviewed and shared with patient. Patient has COVID-19 with mild hypoxia requiring 2 L O2 nasal cannula to achieve adequate sats. Obs admit per Dr. Menard. Patient given 10 mg IV Decadron before admit. He is also full code. Counseled pt/family regarding: lab results, diagnosis, rad results Medical Desision Making - Independent Historian Additional History obtained from: Spouse, Child - Discussion of managment Care discussed with:: hospitalist Reviewed:: Test results, Need for additional workup Agreed on:: Treatment plan, place in obs Will see patient: in hospital - Diagnostic Testing Diagnostic test were ordered, analyzed, and reviewed by me: Yes Radiological Interpretation: Reviewed by me - Risk of complications The pt has a high risk of morbidity or mortality based on: Drug therapy requiring intensive monitoring for toxicity - Departure Departure Disposition: Home Clinical Impression: COVID-19, Hypoxia Condition: Stable Critical Care Time: No
[2023-03-29 23:18] LABS: Appearance Clear (Clear); Bacteria None Seen /HPF (None Seen); Bilirubin Negative (Negative); Blood Negative (Negative); Epithelial Cells None Seen /HPF (None Seen); Glucose, Urine Negative (Negative); Hyaline Casts NONE SEEN /LPF (0-2); Ketones Trace (Negative); Leukocyte Esterase Negative (Negative); Nitrite Negative (Negative); Protein,Urine Dip 100 (Negative); RBC 0-2 /HPF (0-5); Specific Gravity 1.015 (1.005-1.030); WBC 0-2 /HPF (0-5)
[2023-03-29 23:22] LABS: ADD URINE CULTURE? NO (NO)
[2023-03-29 23:25] LABS: ALBUMIN 3.9 g/dL (3.5-5.0); ANION GAP 12.1 MEQ/L (5-15); BILIRUBIN,TOTAL 0.4 mg/dL (0.2-1.3); Calcium 8.3 mg/dL (8.4-10.2); Creatinine 1 1.26 mg/dL (0.66-1.25); Potassium 4.6 mmol/L (3.5-5.1)
[2023-03-29 23:27] LABS: INR 1.06 (0.8-3.0); PROTIME 11.5 SECONDS (9.4-12.5)
[2023-03-29 23:46] LABS: INFLUENZA A NEGATIVE (NEGATIVE); INFLUENZA B NEGATIVE (NEGATIVE); RESPIRATORY SYNCTIAL VIRUS NEGATIVE (NEGATIVE)
[2023-03-29 23:51] LABS: SARS-CoV-2 Xpert Express POSITIVE (NEGATIVE)
--- NOTE | 2023-03-30 00:04 | XRAY ---
CLINICAL HISTORY:Fever/cough COMPARISON:02/28/2022 TECHNIQUE:Contiguous 3.[address] images of the chest were acquired without contrast. Coronal and sagittal reconstructions were obtained. FINDINGS: A stable 6 mm soft tissue density nodule was seen in the anterior segment of the left upper lobe. Stable air-filled cyst in the right apex. Interval development of mild posterior pleural thickening in bilateral lower lobes. No definite consolidative lesions. No free or encysted pleural effusion. Heart size is normal, and there is no pericardial effusion. No pathologically enlarged mediastinal, hilar, or axillary lymph node was identified. The thoracic spine shows degenerative changes. Mild osteophyte-related fibrosis was seen in the medial basal segment of the right lower lobe. There is no definite mass lesion in the chest wall. Scanned upper abdomen few bilateral simple renal cortical cysts. IMPRESSION: No definite consolidative lesions. A stable 6 mm soft tissue density nodule was seen in the anterior segment of the left upper lobe. Suggested interval follow-up, high risk as per Fleischner Society guidelines Stable air-filled cyst in the right apex. Interval development of mild posterior pleural thickening in bilateral lower lobes. Electronically Signed by: Jonh Chinchilla MD. (03/29/2023 23:02:45 FRONT [employer])
[2023-03-30] MEDS ORDERED: DECADRON 10MG INJ. IV ONE (00:29)
[2023-03-30] MEDS ORDERED: DECADRON 10MG INJ. ONE (00:31)
--- NOTE | 2023-03-30 02:42 | PCM.HP ---
History of Present Illness - Chief Complaint Chief Complaint: Covid19 Date: 03/23/23 History of Present Illness: Mr. Junior is an 82 year-old gentleman with DM2, HTN, HLD, and CKD who presents with acute hypoxemic respiratory failure and COVID-19. He states having malaise, fatigue, shortness of breath, and cough for a day, and upon arrival to [place], he was noted to be mildly hypoxic in the setting of a positive COVID test, Cr 1.26, and troponin of 0.055 on laboratory data. Imaging data was unrevealing. On my examination, he is on 2L oxygen denying any current fevers, chills, nausea, vomiting, diarrhea, syncope, presyncope, visual changes, orthopnea, PND, odynophagia, dysphagia, chest pain, shortness of breath, belly pain, dysuria, hematuria, melena, hematochezia, or neurological changes. All other systems were reviewed and were negative. - Review of Systems Constitutional: Other ( PER HPI) Medications & Allergies Home Medications: Home Medication List Aspirin [Aspir 81] 81 mg PO DAILY 11/06/11 [History Confirmed 03/29/23] Atenolol 50 mg [Tenormin 50 mg] 50 mg PO DAILY 11/06/11 [History Confirmed 03/29/23] Quinapril HCl 20 mg PO DAILY 11/06/11 [History Confirmed 03/29/23] Amlodipine Besylate 2.5 mg PO DAILY 06/10/20 [History Confirmed 03/29/23] Furosemide 20 mg [Lasix 20 mg] 20 mg PO DAILY 06/10/20 [History Confirmed 03/29/23] Glipizide 5 mg [Glucotrol 5 MG] 5 mg PO DAILY 01/09/22 [History Confirmed 03/29/23] Metformin HCl 500 mg [Glucophage 500 MG] 500 mg PO BID 01/09/22 [History Confirmed 03/29/23] Potassium Chloride 10 meq PO DAILY 01/09/22 [History Confirmed 03/29/23] Pravastatin Sodium 80 mg PO DAILY 01/09/22 [History Confirmed 03/29/23] Allergies/Adverse Reactions: Allergies Allergy/AdvReac Type Severity Reaction Status Date / Time codeine [Codeine] Allergy Mild Verified 03/29/23 22:23 - Past Medical History Past Medical History: Yes Neurological History: No Pertinent History ENT History: No Pertinent History Cardiac History: Hypertension Respiratory History: No Pertinent History, Sleep Apnea Endocrine Medical History: Diabetes Type II Musculoskelatal History: Osteoarthritis GI Medical History: No Pertinent History History: No Pertinent History Pyscho-Social History: No Pertinent History Male Reproductive Disorders: Prostate Problems Comment: RECENT X-RAYS WERE NORMAL - Past Surgical History Past Surgical History: Yes Neuro Surgical History: No Pertinent History Cardiac History: Cardiac Catheterization Respiratory Surgery: No Pertinent History GI Surgical History: No Pertinent History, Hernia Repair Genitourinary Surgical Hx: No Pertinent History Musculskeletal Surgical Hx: Joint Replacement, Orthopedic Surgery Male Surgical History: Prostate Surgery Other Surgical History: right shoulder cuff,left knee replacement,left heel spur,umbil.hernior. RIGHT TOTAL KNEE, rt femur - Social History Smoking Status: Former smoker Exposure to second hand smoke: No Alcohol: None Drug Use: none - Physical Exam Vital Signs: Vital Signs - 24 hr Temp Pulse Resp BP BP Pulse Ox 03/30/23 02:00 16 03/30/23 01:57 89 L 03/30/23 01:00 96 03/30/23 00:53 102.3 F 99 H 160/72 96 03/30/23 00:00 102 H 145/66 97 03/29/23 23:47 134/65 97 03/29/23 23:00 92 H 124/59 96 03/29/23 22:21 99.3 F 99 H 14 141/59 89 L General Appearance: no apparent distress, alert Neurologic Exam: alert, oriented x 3, cooperative, normal mood/affect, nml cerebellar function, nml station & gait, sensation nml, No motor deficits Eye Exam: PERRL/EOMI, eyes nml inspection Ears, Nose, Throat Exam: normal ENT inspection, TMs normal, pharynx normal, moist mucous membranes Neck Exam: normal inspection, non-tender, supple, full range of motion Respiratory Exam: normal breath sounds, lungs clear, No respiratory distress Cardiovascular Exam: regular rate/rhythm, normal heart sounds, normal peripheral pulses Gastrointestinal/Abdomen Exam: soft, normal bowel sounds, No tenderness, No mass Back Exam: normal inspection, normal range of motion, No CVA tenderness, No vertebral tenderness Extremity Exam: normal inspection, normal range of motion, pelvis stable Skin Exam: normal color, warm, dry, No rash Lymphatic Exam: No adenopathy Results - Labs Lab/Micro Results: Lab Results-Last 24 Hours 03/29/23 03/29/23 03/29/23 Range/Units 23:05 23:05 23:05 WBC 6.8 (4.0-10.5) x10^3/uL RBC 3.67 L (4.1-5.6) x10^6/uL Hgb 10.8 L (12.5-18.0) g/dL Hct 34.2 L (42-50) % MCV 93.2 (78-100) fL MCH 29.4 (26-32) pg MCHC 31.6 L (32-36) g/dL RDW 14.0 (11.5-14.0) % Plt Count 224 (150-450) x10^3/uL MPV 9.4 (7.5-11.0) fL Gran % 77.5 H (36.0-66.0) % Immature Gran % (Auto) 0.1 (0.00-0.4) % Nucleat RBC Rel Count 0.0 (0.00-0.1) % Eos # (Auto) 0.02 (0-0.5) x10^3/uL Immature Gran # (Auto) 0.01 (0.00-0.03) x10^3u/L Absolute Lymphs (auto) 0.62 L (1.0-4.6) x10^3/uL Absolute Monos (auto) 0.88 (0.0-1.3) x10^3/uL Absolute Nucleated RBC 0.00 (0.00-0.01) x10^3u/L Lymphocytes % 9.1 L (24.0-44.0) % Monocytes % 12.9 H (0.0-12.0) % Eosinophils % 0.3 (0.00-5.0) % Basophils % 0.1 (0.0-0.4) % Absolute Granulocytes 5.30 (1.4-6.9) x10^3/uL Basophils # 0.01 (0-0.4) x10^3/uL PT 11.5 (9.4-12.5) SECONDS INR 1.06 (0.8-3.0) APTT (25.1-36.5) SECONDS Sodium 136 L (137-145) mmol/L Potassium 4.6 (3.5-5.1) mmol/L Chloride 104 (98-107) mmol/L Carbon Dioxide 25 (22-30) mmol/L Anion Gap 12.1 (5-15) MEQ/L BUN 22 H (9-20) mg/dL Creatinine 1.26 H (0.66-1.25) mg/dL Estimated GFR 58.0 ML/MIN Glucose 110 H (74-106) mg/dL Lactic Acid (0.4-2.0) Calcium 8.3 L (8.4-10.2) mg/dL Total Bilirubin 0.40 (0.2-1.3) mg/dL AST 40 (17-59) U/L ALT 20 (0-50) U/L Alkaline Phosphatase 113 (38-126) U/L Troponin I (0.000-0.034) ng/mL Serum Total Protein 7.0 (6.3-8.2) g/dL Albumin 3.9 (3.5-5.0) g/dL Urine Color (Yellow) Urine Appearance (Clear) Urine pH (4.6-8.0) Ur Specific [place] (1.005-1.030) Urine Protein (Negative) Urine Glucose (UA) (Negative) mg/dL Urine Ketones (Negative) Urine Blood (Negative) Urine Nitrite (Negative) Urine Bilirubin (Negative) Urine Urobilinogen (0.2) mg/dL Ur Leukocyte Esterase (Negative) U Hyaline Cast (Auto) (0-2) /LPF Urine Microscopic RBC (0-5) /HPF Urine Microscopic WBC (0-5) /HPF Ur Epithelial Cells (None Seen) /HPF Urine Bacteria (None Seen) /HPF Urine Culture Reflexed (NO) Influenza Type A Ag (NEGATIVE) Influenza Type B Ag (NEGATIVE) RSV (PCR) (NEGATIVE) SARS-CoV-2 (PCR) (NEGATIVE) 03/29/23 03/29/23 03/29/23 Range/Units 23:05 23:05 23:05 WBC (4.0-10.5) x10^3/uL RBC (4.1-5.6) x10^6/uL Hgb (12.5-18.0) g/dL Hct (42-50) % MCV (78-100) fL MCH (26-32) pg MCHC (32-36) g/dL RDW (11.5-14.0) % Plt Count (150-450) x10^3/uL MPV (7.5-11.0) fL Gran % (36.0-66.0) % Immature Gran % (Auto) (0.00-0.4) % Nucleat RBC Rel Count (0.00-0.1) % Eos # (Auto) (0-0.5) x10^3/uL Immature Gran # (Auto) (0.00-0.03) x10^3u/L Absolute Lymphs (auto) (1.0-4.6) x10^3/uL Absolute Monos (auto) (0.0-1.3) x10^3/uL Absolute Nucleated RBC (0.00-0.01) x10^3u/L Lymphocytes % (24.0-44.0) % Monocytes % (0.0-12.0) % Eosinophils % (0.00-5.0) % Basophils % (0.0-0.4) % Absolute Granulocytes (1.4-6.9) x10^3/uL Basophils # (0-0.4) x10^3/uL PT (9.4-12.5) SECONDS INR (0.8-3.0) APTT (25.1-36.5) SECONDS Sodium (137-145) mmol/L Potassium (3.5-5.1) mmol/L Chloride (98-107) mmol/L Carbon Dioxide (22-30) mmol/L Anion Gap (5-15) MEQ/L BUN (9-20) mg/dL Creatinine (0.66-1.25) mg/dL Estimated GFR ML/MIN Glucose (74-106) mg/dL Lactic Acid (0.4-2.0) Calcium (8.4-10.2) mg/dL Total Bilirubin (0.2-1.3) mg/dL AST (17-59) U/L ALT (0-50) U/L Alkaline Phosphatase (38-126) U/L Troponin I 0.055 H* (0.000-0.034) ng/mL Serum Total Protein (6.3-8.2) g/dL Albumin (3.5-5.0) g/dL Urine Color Yellow (Yellow) Urine Appearance Clear (Clear) Urine pH 7.0 (4.6-8.0) Ur Specific [place] 1.015 (1.005-1.030) Urine Protein 100 A (Negative) Urine Glucose (UA) Negative (Negative) mg/dL Urine Ketones Trace A (Negative) Urine Blood Negative (Negative) Urine Nitrite Negative (Negative) Urine Bilirubin Negative (Negative) Urine Urobilinogen 1.0 A (0.2) mg/dL Ur Leukocyte Esterase Negative (Negative) U Hyaline Cast (Auto) NONE SEEN (0-2) /LPF Urine Microscopic RBC 0-2 (0-5) /HPF Urine Microscopic WBC 0-2 (0-5) /HPF Ur Epithelial Cells None Seen (None Seen) /HPF Urine Bacteria None Seen (None Seen) /HPF Urine Culture Reflexed NO (NO) Influenza Type A Ag NEGATIVE (NEGATIVE) Influenza Type B Ag NEGATIVE (NEGATIVE) RSV (PCR) NEGATIVE (NEGATIVE) SARS-CoV-2 (PCR) POSITIVE A (NEGATIVE) 03/29/23 03/29/23 Range/Units 23:05 23:10 WBC (4.0-10.5) x10^3/uL RBC (4.1-5.6) x10^6/uL Hgb (12.5-18.0) g/dL Hct (42-50) % MCV (78-100) fL MCH (26-32) pg MCHC (32-36) g/dL RDW (11.5-14.0) % Plt Count (150-450) x10^3/uL MPV (7.5-11.0) fL Gran % (36.0-66.0) % Immature Gran % (Auto) (0.00-0.4) % Nucleat RBC Rel Count (0.00-0.1) % Eos # (Auto) (0-0.5) x10^3/uL Immature Gran # (Auto) (0.00-0.03) x10^3u/L Absolute Lymphs (auto) (1.0-4.6) x10^3/uL Absolute Monos (auto) (0.0-1.3) x10^3/uL Absolute Nucleated RBC (0.00-0.01) x10^3u/L Lymphocytes % (24.0-44.0) % Monocytes % (0.0-12.0) % Eosinophils % (0.00-5.0) % Basophils % (0.0-0.4) % Absolute Granulocytes (1.4-6.9) x10^3/uL Basophils # (0-0.4) x10^3/uL PT (9.4-12.5) SECONDS INR (0.8-3.0) APTT 32.3 (25.1-36.5) SECONDS Sodium (137-145) mmol/L Potassium (3.5-5.1) mmol/L Chloride (98-107) mmol/L Carbon Dioxide (22-30) mmol/L Anion Gap (5-15) MEQ/L BUN (9-20) mg/dL Creatinine (0.66-1.25) mg/dL Estimated GFR ML/MIN Glucose (74-106) mg/dL Lactic Acid 1.3 (0.4-2.0) Calcium (8.4-10.2) mg/dL Total Bilirubin (0.2-1.3) mg/dL AST (17-59) U/L ALT (0-50) U/L Alkaline Phosphatase (38-126) U/L Troponin I (0.000-0.034) ng/mL Serum Total Protein (6.3-8.2) g/dL Albumin (3.5-5.0) g/dL Urine Color (Yellow) Urine Appearance (Clear) Urine pH (4.6-8.0) Ur Specific [place] (1.005-1.030) Urine Protein (Negative) Urine Glucose (UA) (Negative) mg/dL Urine Ketones (Negative) Urine Blood (Negative) Urine Nitrite (Negative) Urine Bilirubin (Negative) Urine Urobilinogen (0.2) mg/dL Ur Leukocyte Esterase (Negative) U Hyaline Cast (Auto) (0-2) /LPF Urine Microscopic RBC (0-5) /HPF Urine Microscopic WBC (0-5) /HPF Ur Epithelial Cells (None Seen) /HPF Urine Bacteria (None Seen) /HPF Urine Culture Reflexed (NO) Influenza Type A Ag (NEGATIVE) Influenza Type B Ag (NEGATIVE) RSV (PCR) (NEGATIVE) SARS-CoV-2 (PCR) (NEGATIVE) - Radiology Impressions Radiology Exams & Impressions: Radiology Procedures Category Date Time Status CHEST WITHOUT CONTRAST [CT] Stat Exams 03/29/23 23:40 Completed - Other Procedures and Tests Respiratory Therapy 03/30/23 00:25 Oxygen Nasal Cannula 2 lpm Respiratory Therapy Consult ONCE Assessment/Plan (1) Hypoxia Current Visit: Yes Status: Acute Assessment & Plan: ASSESSMENT 1. Acute Hypoxemic Respiratory Failure 2. SARS-Cov-2 3. Acute Kidney Injury 4. Hypertension 5. Hyperlipidemia 6. Type II Diabetes Mellitus 7. Chronic Anemia PLAN 1. Wean oxygen to maintain SaO2 > 90%; currently on 2L 2. IV steroids 3. Paxlovid 4. Duonebs 5. Will need follow-up CT in 6-8 weeks given RUL fluid filled cyst Lovenox/PPI Critical Care Time: 60 Minutes The entirety of this encounter was done via telemedicine Vel Menard MD Pulmonary and Critical Care Medicine Code(s): R09.02 - HYPOXEMIA Telemedicine Encounter - Telemedicine Encounter Telemedicine Encounter: The entirety of this encounter was performed via Telemedicine"
[2023-03-30] MEDS: Lactated Ringers 1,000 ML IV SCH ×2 (02:50→12:00)
[2023-03-30] MEDS ORDERED: DUONEB 0.5-3 MG/3 ml Neb IH SCH (03:00)
[2023-03-30 06:40] LABS: Absolute Neutrophil Ct (ANC) 4.83 x10^3/uL (1.4-6.9); BASOPHIL % 0.2 % (0.0-0.4); Basophil (Absolute #) 0.01 x10^3/uL (0-0.4); Eosinophil (Absolute #) 0 x10^3/uL (0-0.5); Hemoglobin 10.5 g/dL (12.5-18.0); IMMATURE GRAN # 0.02 x10^3u/L (0.00-0.03); IMMATURE GRAN % 0.4 % (0.00-0.4); Lymphocyte (Absolute #) 0.38 x10^3/uL (1.0-4.6); Lymphocytes % 7.1 % (24.0-44.0); Mean Cell Volume 91.9 fL (78-100); Mean Corpuscular Hemoglobin 29.2 pg (26-32); Mean Corpuscular Hgb Concent. 31.8 g/dL (32-36); Mean Platelet Volume 9.5 fL (7.5-11.0); Monocyte (Absolute #) 0.12 x10^3/uL (0.0-1.3); Monocytes % 2.2 % (0.0-12.0); Neutrophil % 90.1 % (36.0-66.0); Platelet Count 228 x10^3/uL (150-450); Red Blood Count 3.59 x10^6/uL (4.1-5.6); Red Cell Distribution Width 13.9 % (11.5-14.0); White Blood Count 5.4 x10^3/uL (4.0-10.5)
[2023-03-30 07:05] LABS: ALBUMIN 3.7 g/dL (3.5-5.0); ALKALINE PHOSPHATASE 104 U/L (38-126); ANION GAP 15.7 MEQ/L (5-15); BLOOD UREA NITROGEN 22 mg/dL (9-20); CHLORIDE 104 mmol/L (98-107); Calcium 8.2 mg/dL (8.4-10.2); Carbon Dioxide 21 mmol/L (22-30); Creatinine 1 1.14 mg/dL (0.66-1.25); EST GLOMERULAR FILTRATION RATE > 60.0 ML/MIN; Glucose 136 mg/dL (74-106); Potassium 4.4 mmol/L (3.5-5.1); SGOT/AST 40 U/L (17-59); SGPT/ALT 22 U/L (0-50); SODIUM 137 mmol/L (137-145); Total Protein 6.8 g/dL (6.3-8.2)
[2023-03-30 07:54] LABS: Slide Review 1 YES
[2023-03-30] MEDS ORDERED: MEDICATION INTERVENTION MC SCH (09:15)
[2023-03-30] MEDS ORDERED: HUMALOG SQ PRN (09:42)
[2023-03-30] MEDS: ECOTRIN 81 MG PO SCH (09:45)
[2023-03-30] MEDS: TENORMIN 50 MG PO SCH (09:45)
[2023-03-30] MEDS: Glucotrol 5 MG PO SCH (09:45)
[2023-03-30] MEDS: Glucophage 500 MG PO SCH ×2 (09:45→21:16)
[2023-03-30] MEDS: NORVASC 5 MG PO SCH (09:45)
[2023-03-30] MEDS: Zestril 20 MG PO SCH (09:47)
[2023-03-30] MEDS: solu-MEDROL 60 MG, Sterile H2O 10 ml 2 ML IV SCH ×4 (09:47→21:16)
[2023-03-30] MEDS: PAXLOVID 300-100 MG PACK (EUA) PO SCH ×2 (09:49→21:16)
[2023-03-30] MEDS: ENOXAPARIN SODIUM SQ SCH (09:50)
[2023-03-30] MEDS ORDERED: QUINAPRIL HCL 20 MG PO SCH (10:00)
[2023-03-30] MEDS ORDERED: NON-FORMULARY ITEM (Amlodipine Besylate [Amlodipine Besylate] 2.5 MG Tablet) PO SCH (10:00)
[2023-03-30] MEDS ORDERED: NON-FORMULARY ITEM (Pravastatin Sodium [Pravastatin Sodium] 40 MG Tablet) PO SCH (10:00)
[2023-03-30] MEDS: PATIENT OWN MEDICATION PO SCH (12:43)
[2023-03-30] MEDS: APRESOLINE 20 MG/ML INJ IV PRN ×2 (14:29→19:10)
[2023-03-30] MEDS: VENTOLIN COMMON CANISTER IH PRN (18:50)
[2023-03-30] MEDS: Vibramycin 100 MG PO SCH (21:16)
[2023-03-31] MEDS: APRESOLINE 20 MG/ML INJ IV PRN (04:56)
[2023-03-31] MEDS: VENTOLIN COMMON CANISTER IH PRN (06:35)
[2023-03-31 06:39] LABS: Hematocrit 36.9 % (42-50); Mean Cell Volume 91.3 fL (78-100); Mean Corpuscular Hemoglobin 29.7 pg (26-32); Mean Corpuscular Hgb Concent. 32.5 g/dL (32-36); Platelet Count 286 x10^3/uL (150-450); Red Blood Count 4.04 x10^6/uL (4.1-5.6); Red Cell Distribution Width 13.7 % (11.5-14.0); White Blood Count 12.1 x10^3/uL (4.0-10.5)
[2023-03-31 06:57] LABS: ALKALINE PHOSPHATASE 99 U/L (38-126); ANION GAP 14.4 MEQ/L (5-15); BLOOD UREA NITROGEN 26 mg/dL (9-20); CHLORIDE 105 mmol/L (98-107); Calcium 8.6 mg/dL (8.4-10.2); Carbon Dioxide 22 mmol/L (22-30); Creatinine 1 0.95 mg/dL (0.66-1.25); EST GLOMERULAR FILTRATION RATE > 60.0 ML/MIN; Glucose 105 mg/dL (74-106); SGOT/AST 66 U/L (17-59); SGPT/ALT 25 U/L (0-50); SODIUM 137 mmol/L (137-145); Total Protein 7.2 g/dL (6.3-8.2)
[2023-03-31] MEDS: ENOXAPARIN SODIUM SQ SCH (09:10)
[2023-03-31] MEDS: Vibramycin 100 MG PO SCH (09:14)
[2023-03-31] MEDS: Glucotrol 5 MG PO SCH (09:14)
[2023-03-31] MEDS: ECOTRIN 81 MG PO SCH (09:14)
[2023-03-31] MEDS: TENORMIN 50 MG PO SCH (09:14)
[2023-03-31] MEDS: Glucophage 500 MG PO SCH (09:14)
[2023-03-31] MEDS: PAXLOVID 300-100 MG PACK (EUA) PO SCH (09:15)
[2023-03-31] MEDS: Zestril 20 MG PO SCH (09:15)
[2023-03-31] MEDS: NORVASC 5 MG PO SCH (09:15)
[2023-03-31] MEDS: PATIENT OWN MEDICATION PO SCH (09:16)
[2023-03-31] MEDS: solu-MEDROL 60 MG, Sterile H2O 10 ml 2 ML IV SCH ×2 (09:17)
--- NOTE | 2023-03-31 09:58 | PCM.DS ---
Discharge Summary Date of Admission: 03/30/23 00:45 Date of Discharge: 03/31/23 Admitting Physician: BROOKLYN OLMEDO MD Primary Care Provider: AURY MANZO Allergies Allergies codeine [Codeine] Allergy (Mild, Verified 03/29/23 22:23) Hospital Summary - Hospital Course Hospital Course: 03/30/23 Mr. Junior is an 82 year-old gentleman with DM2, HTN, HLD, and CKD who presents with acute hypoxemic respiratory failure and COVID-19. He states having malaise, fatigue, shortness of breath, and cough for a day, and upon arrival to [place], he was noted to be mildly hypoxic in the setting of a positive COVID test, Cr 1.26, and troponin of 0.055 on laboratory data. Imaging data was unrevealing. On my examination, he is on 2L oxygen denying any current fevers, chills, nausea, vomiting, diarrhea, syncope, presyncope, visual changes, orthopnea, PND, odynophagia, dysphagia, chest pain, shortness of breath, belly pain, dysuria, hematuria, melena, hematochezia, or neurological changes. All other systems were reviewed and were negative. 03/31/23 Pt resting in bed. He explains he feels much better and is ready to go home. He has no SOB or wheezing today. He is no longer requiring oxygen. Echo from yesterday shows EJ 74%.Pt is on an aspirin and statin. trops trended down. Pt will need to f/u with cardiology OP. Will continue antibiotics and steroids OP. Will not continue paxlovid as he cannot take the full amount of amlodipine due to interaction and he apparently needs this. He denies CP, SOB, Abd pain, N/V/D. - Vitals & Intake/Output Vital Signs: Vital Signs Temperature 97.3 F 03/31/23 07:20 Pulse Rate 86 03/31/23 09:14 Respiratory Rate 18 03/31/23 09:50 Blood Pressure 162/69 03/31/23 09:14 O2 Sat by Pulse Oximetry 92 L 03/31/23 08:57 Intake & Output: Intake & Output 03/28/23 03/29/23 03/30/23 03/31/23 11:59 11:59 11:59 11:59 Intake Total 462 2027 Output Total 300 350 Balance 162 1678 Weight 85 kg - Lab Result Diagrams: 03/31/23 06:30 03/31/23 06:30 Lab Results-Last 24 Hrs: Lab Results-Last 24 Hours 03/30/23 03/30/23 03/30/23 Range/Units 11:43 15:56 20:40 WBC (4.0-10.5) x10^3/uL RBC (4.1-5.6) x10^6/uL Hgb (12.5-18.0) g/dL Hct (42-50) % MCV (78-100) fL MCH (26-32) pg MCHC (32-36) g/dL RDW (11.5-14.0) % Plt Count (150-450) x10^3/uL MPV (7.5-11.0) fL Sodium (137-145) mmol/L Potassium (3.5-5.1) mmol/L Chloride (98-107) mmol/L Carbon Dioxide (22-30) mmol/L Anion Gap (5-15) MEQ/L BUN (9-20) mg/dL Creatinine (0.66-1.25) mg/dL Estimated GFR ML/MIN Glucose (74-106) mg/dL POC Glucometer 131 H 126 H 139 H (74 to 106) mg/dL Calcium (8.4-10.2) mg/dL Total Bilirubin (0.2-1.3) mg/dL AST (17-59) U/L ALT (0-50) U/L Alkaline Phosphatase (38-126) U/L Serum Total Protein (6.3-8.2) g/dL Albumin (3.5-5.0) g/dL 03/31/23 03/31/23 03/31/23 Range/Units 06:30 06:30 07:10 WBC 12.1 H (4.0-10.5) x10^3/uL RBC 4.04 L (4.1-5.6) x10^6/uL Hgb 12.0 L (12.5-18.0) g/dL Hct 36.9 L (42-50) % MCV 91.3 (78-100) fL MCH 29.7 (26-32) pg MCHC 32.5 (32-36) g/dL RDW 13.7 (11.5-14.0) % Plt Count 286 (150-450) x10^3/uL MPV 10.0 (7.5-11.0) fL Sodium 137 (137-145) mmol/L Potassium 4.0 (3.5-5.1) mmol/L Chloride 105 (98-107) mmol/L Carbon Dioxide 22 (22-30) mmol/L Anion Gap 14.4 (5-15) MEQ/L BUN 26 H (9-20) mg/dL Creatinine 0.95 (0.66-1.25) mg/dL Estimated GFR > 60.0 ML/MIN Glucose 105 (74-106) mg/dL POC Glucometer 107 H (74 to 106) mg/dL Calcium 8.6 (8.4-10.2) mg/dL Total Bilirubin 0.50 (0.2-1.3) mg/dL AST 66 H (17-59) U/L ALT 25 (0-50) U/L Alkaline Phosphatase 99 (38-126) U/L Serum Total Protein 7.2 (6.3-8.2) g/dL Albumin 4.0 (3.5-5.0) g/dL Micro Results-Entire Visit: Accuchecks Date 03/31/23 Date 03/31/23 Date 03/30/23 Date 03/30/23 Date 03/30/23 Time 07:10 Time 07:10 Time 20:45 Time 16:29 Time 12:09 - Radiology Exams Ordered Rad Exams-Entire Visit: Radiology Procedures Category Date Time Status CHEST WITHOUT CONTRAST [CT] Stat Exams 03/29/23 23:40 Completed ECHO W/2D AND DOPPLER [US] Routine Exams 03/30/23 12:10 Taken - Procedures and Test Procedures and Tests throughout Hospitalization: Therapy Orders & Screens 03/30/23 00:25 Oxygen Nasal Cannula 2 lpm Comment: Respiratory Therapy Consult ONCE Comment: Reason For Exam: Discharge Exam General Appearance: no apparent distress, alert Neurologic Exam: alert, oriented x 3, cooperative, normal mood/affect, nml cerebellar function, sensation nml, No motor deficits Eye Exam: PERRL, EOMI, eyes nml inspection Ears, Nose, Throat Exam: normal ENT inspection, pharynx normal, moist mucous membranes Neck Exam: normal inspection, non-tender, supple, full range of motion Respiratory Exam: normal breath sounds, lungs clear, No respiratory distress Cardiovascular Exam: regular rate/rhythm, normal heart sounds Gastrointestinal/Abdomen Exam: soft, No tenderness, No mass Male Genitalia Exam: deferred Rectal Exam: deferred Back Exam: normal inspection, normal range of motion, No CVA tenderness, No vertebral tenderness Extremity Exam: normal inspection, normal range of motion Skin Exam: normal color, warm, dry Final Diagnosis/Problem List - Final Discharge Diagnosis/Problem (1) COVID-19 Current Visit: Yes Status: Acute Assessment & Plan: - Paxlovid - steriods - natanael d/c home with doxy and steriods - Pt did qualify for home o2 when up and walking by RT - Home oxygen ordered Code(s): U07.1 - COVID-19 (2) Elevated troponin Current Visit: Yes Status: Acute Assessment & Plan: - trended down 0.055, 0.044, 0.039 - 2:2 COVID - Pt on ASA and statin - denies CP - EJ 74%- Echo completed and yet to be read by Dr. Hdez - F/U with Dr. Hdez ( cardiology) Op as he does not consult here. Code(s): R79.89 - OTHER SPECIFIED ABNORMAL FINDINGS OF BLOOD CHEMISTRY (3) HTN (hypertension) Current Visit: Yes Status: Acute Assessment & Plan: - PRN hydralizine - Amlodipine 1/2 dose gave IP due to interaction with paxlovid - Will resume home dose OP and stop paxlovid Code(s): I10 - ESSENTIAL (PRIMARY) HYPERTENSION (4) Hypoxia Current Visit: Yes Status: Acute Assessment & Plan: - resolved -pt requires O2 PRN - Rt evalauted and did qualify - Sitting in bed. He is RA and 92% Code(s): R09.02 - HYPOXEMIA (5) Hyperlipidemia Current Visit: Yes Status: Acute Assessment & Plan: - continue statin Code(s): E78.5 - HYPERLIPIDEMIA, UNSPECIFIED (6) Diabetes Current Visit: Yes Status: Acute Assessment & Plan: - oral med controlled- continue Code(s): E11.9 - TYPE 2 DIABETES MELLITUS WITHOUT COMPLICATIONS - Discharge Discharge Date: 03/31/23 Disposition: Home, Self-Care Condition: Stable Prescriptions: New Doxycycline Hyclate 100 mg [Vibramycin 100 MG] 100 mg PO BID 5 Days #10 tablet Dexamethasone 4 mg [Decadron 4 MG] 6 mg PO DAILY 7 Days #7 tablet Continue Aspirin [Aspir 81] 81 mg PO DAILY Atenolol 50 mg [Tenormin 50 mg] 50 mg PO DAILY Quinapril HCl 20 mg PO DAILY Furosemide 20 mg [Lasix 20 mg] 20 mg PO DAILY Amlodipine Besylate 2.5 mg PO DAILY Potassium Chloride 10 meq PO DAILY Metformin HCl 500 mg [Glucophage 500 MG] 500 mg PO BID Glipizide 5 mg [Glucotrol 5 MG] 5 mg PO DAILY Pravastatin Sodium 80 mg PO DAILY Instructions: COVID-19 (DC) Follow up with: AURY MANZO MD [Primary Care Provider] - 04/09/23 10:45 am SHRADDHA AUSTIN [CONSULTING PHYSICIAN] - Call for Appointment (CALL FOR FOLLOW-UP APPOINTMENT.)
[2023-03-31 11:27] VITALS: BP 149/75; TEMP 97.6
[2023-03-31 12:12] VITALS: PULSE 87; RESP 21; O2SAT 92
--- NOTE | 2023-04-03 13:05 | ECHO ---
Transthoracic echocardiographic examination and color Doppler was done on 03/30/2023. INDICATION: Elevated troponin I. Positive COVID. IMPRESSION: 1) NO REGIONAL WALL MOTION ABNORMALITY. ESTIMATED GLOBAL LEFT VENTRICULAR EJECTION FRACTION BETWEEN 65 TO 70%. 2) MILD MITRAL REGURGITATION. 3) SCLEROTIC AORTIC VALVE WITH A PEAK TRANSAORTIC GRADIENT OF 15 MM OF MERCURY. 4) MILD TO MODERATE AORTIC REGURGITATION. 5) MILD TRICUSPID REGURGITATION. RIGHT VENTRICULAR SYSTOLIC PRESSURE OF 23 MM OF MERCURY. 6) LEFT ATRIAL ENLARGEMENT. 7) LEFT VENTRICULAR HYPERTROPHY. 8) LEFT VENTRICLE DIASTOLIC DYSFUNCTION. The left ventricle is visualized and demonstrated adequate motion of all the segments. Estimated global left ventricular ejection fraction between 65 to 70%. The concentric left ventricular hypertrophy. The mitral valve is sclerotic but opens adequately. There is mild mitral regurgitation. Left atrium is enlarged. Tissue Doppler study of the lateral mitral annulus is suggestive of left ventricle diastolic dysfunction. The aortic valve is sclerotic. The peak gradient across the aortic valve is 15 mm of Mercury. There is associated mild to moderate aortic regurgitation. The right side chambers are normal. There is mild tricuspid regurgitation. The right ventricular systolic pressure of 23 mm of Mercury.
== END 2023-03-31 13:55 | disposition home or self-care (01) ==
LOC: ED 22:21 → MED SURG 03-30 00:45
PROVIDERS: ADMIT Internal Medicine Critical Care Medicine; ATTEND Internal Medicine Critical Care Medicine
DX: U07.1 COVID-19 (principal); E11.22 Type 2 diabetes mellitus with diabetic chronic kidney disease; I12.9 Hypertensive chronic kidney disease with stage 1 through stage 4 chronic kidney disease, or unspecified chronic kidney disease; N18.9 Chronic kidney disease, unspecified; N17.9 Acute kidney failure, unspecified; J96.01 Acute respiratory failure with hypoxia; R79.89 Other specified abnormal findings of blood chemistry; E78.5 Hyperlipidemia, unspecified; Z79.899 Other long term (current) drug therapy; D64.9 Anemia, unspecified
CPT/HCPCS: 0241U; 36415; 71250; 80053; 81001; 82947; 83605; 84484; 85025; 85027; 85610; 85730; 93268; 93306; 94640; 94762; 96374; 99284; G0378; J0360; J1100; J1650; J2930; Q3014; A9270-GY

== ENCOUNTER 2023-04-13 05:39 | Emergency (ER) | payer MEDICARE ==
[2023-04-13 06:04] VITALS: TEMP 96.9
[2023-04-13] MEDS ORDERED: Sodium Chloride 0.9% 1000 ML 1,000 ML ONE (06:28)
[2023-04-13] MEDS ORDERED: Sodium Chloride 0.9% 1000 ML 1,000 ML IV SCH (06:30)
--- NOTE | 2023-04-13 06:45 | ERPHSYRPT ---
<ALISE YOUNG - Last Filed: 04/13/23 06:39> - History of Present Illness Time Seen by Provider: 04/13/23 05:50 Historian: patient, family Exam Limitations: no limitations Patient Subjective Stated Complaint: pt states that he woke up from a bad dream and had chest pain Triage Nursing Assessment: pt came into the er via ambulance; pt was transferred to cot per ems staff; c/o chest pain; pt is resting comfortably on the cot; pt denies CP or any other pain Physician History: Patient is an 82-year-old white male very pleasant who presents after he awoke from sleep with a nightmare and had chest pain. He describes the pain as burning. 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 Chest pain did not right radiate he has no heart history. He did have Cardizem a week ago and is still not been eating or drinking well and has had some abdominal pain. He is also been having a decrease in bowel movements. He does have obstructive obstructive sleep apnea but because of the COVID and weight loss he has been unable to use it for a while. His did administer a nitroglycerin and his Xanax after he awoke but they did not seem to be of much help.He does complain of some lower abdominal pain. Timing/Duration: today Activities at Onset: sleep Quality: burning Location: substernal Chest Pain Radiation: no radiation Nitro Today/Relief: 0.4 mg x 1 Aspirin Treatment Today: no aspirin today Allergies/Adverse Reactions: codeine [Codeine] Allergy (Mild, Verified 03/29/23 22:23) Home Medications: Aspirin [Aspir 81] 81 mg PO DAILY 11/06/11 [History] Atenolol 50 mg [Tenormin 50 mg] 50 mg PO DAILY 11/06/11 [History] Quinapril HCl 20 mg PO DAILY 11/06/11 [History] Amlodipine Besylate 2.5 mg PO DAILY 06/10/20 [History] Furosemide 20 mg [Lasix 20 mg] 20 mg PO DAILY 06/10/20 [History] Glipizide 5 mg [Glucotrol 5 MG] 5 mg PO DAILY 01/09/22 [History] Metformin HCl 500 mg [Glucophage 500 MG] 500 mg PO BID 01/09/22 [History] Potassium Chloride 10 meq PO DAILY 01/09/22 [History] Pravastatin Sodium 80 mg PO DAILY 01/09/22 [History] Hx Tetanus, Diphtheria Vaccination/Date Given: Yes Hx Influenza Vaccination/Date Given: No (2022) Hx Pneumococcal Vaccination/Date Given: Yes Travel Risk - International Travel Have you traveled outside of the country in past 3 weeks: No - Coronavirus Screening Are you exhibiting any of the following symptoms?: No Close contact with a COVID-19 positive Pt in past 14-21 Days: No - Vaccine Status Have you recieved a Covid-19 vaccination: Yes [employer]: Moderna - Vaccination Dates Date of 2cond Vaccination (if applicable): 08/02/20 Dates if Unknown: 2020 - Review of Systems Constitutional: No Fever, No Chills Eyes: No Symptoms Ears, Nose, & Throat: No Symptoms Respiratory: No Cough, No Dyspnea Cardiac: Chest Pain, No Edema, No Syncope Abdominal/Gastrointestinal: Abdominal Pain, Nausea, Constipation, No Vomiting, No Diarrhea Genitourinary Symptoms: No Dysuria Musculoskeletal: No Back Pain, No Neck Pain Skin: No Rash Neurological: No Dizziness, No Focal Weakness, No Sensory Changes Psychological: No Symptoms Endocrine: No Symptoms All Other Systems: Reviewed and Negative - Past Medical History Pertinent Past Medical History: Yes Neurological History: No Pertinent History ENT History: No Pertinent History Cardiac History: Hypertension Respiratory History: No Pertinent History, Sleep Apnea Endocrine Medical History: Diabetes Type II Musculoskeletal History: Osteoarthritis GI Medical History: No Pertinent History History: No Pertinent History Psycho-Social History: No Pertinent History Male Reproductive Disorders: Prostate Problems Other Medical History: RECENT X-RAYS WERE NORMAL - Past Surgical History Past Surgical History: Yes Neuro Surgical History: No Pertinent History Cardiac: Cardiac Catheterization Respiratory: No Pertinent History Gastrointestinal: No Pertinent History, Hernia Repair Genitourinary: No Pertinent History Musculoskeletal: Joint Replacement, Orthopedic Surgery Male Surgical History: Prostate Surgery Other Surgical History: right shoulder cuff,left knee replacement,left heel spur ,umbil.hernior. RIGHT TOTAL KNEE, rt femur - Social History Smoking Status: Former smoker Exposure to second hand smoke: No Drug Use: none Patient Lives Alone: No - Physical Exam General Appearance: mild distress, alert Eye Exam: PERRL/EOMI, eyes nml inspection Ears, Nose, Throat Exam: normal ENT inspection, moist mucous membranes Neck Exam: normal inspection, non-tender, supple, full range of motion Respiratory Exam: normal breath sounds, lungs clear, No respiratory distress Cardiovascular Exam: regular rate/rhythm, normal heart sounds Gastrointestinal/Abdomen Exam: normal bowel sounds, tenderness (Tenderness in the lower quadrants bilaterally), No mass Back Exam: normal inspection, No CVA tenderness, No vertebral tenderness Extremity Exam: normal inspection, normal range of motion Neurologic Exam: alert, oriented x 3, cooperative, normal mood/affect, sensation nml, No motor deficits Skin Exam: normal color, warm, dry SpO2 Interpretation: normal SpO2: 97 O2 Delivery: Room Air - Course Nursing assessment & vital signs reviewed: Yes EKG Interpreted by Me: RATE (87), Sinus Rhythm, LAFB, Right Bundle Branch Block, Non-specific ST Changes Medical Desision Making - Independent Historian Additional History obtained from: Spouse - Departure Clinical Impression: NSTEMI (non-ST elevated myocardial infarction) Condition: Stable Critical Care Time: No Referrals: AURY MANZO MD [Primary Care Provider] - Follow up/PCP as directed Instructions: Heart Attack (DC) <JULIEN ALARCON - Last Filed: 04/13/23 09:55> - Nursing Vital Signs Nursing Vital Signs: Initial Vital Signs Temperature 96.9 F 04/13/23 05:41 Pulse Rate 88 04/13/23 05:41 Respiratory Rate 20 04/13/23 05:41 Blood Pressure 102/49 04/13/23 05:41 O2 Sat by Pulse Oximetry 97 04/13/23 05:41 Pain Scale Pain Intensity 0 Ordered Tests: Active Orders 24 hr Category Date Time Status EKG-ER Only STAT Care 04/13/23 06:23 Active EKG-ER Only STAT Care 04/13/23 08:28 Active IV Insertion STAT Care 04/13/23 06:23 Active ABDOMEN AND PELVIS W CONTRAST [CT] Stat Exams 04/13/23 06:54 Ordered CHEST 1 VIEW (PORTABLE) Stat Exams 04/13/23 06:37 Completed CHEST WITH CONTRAST [CT] Stat Exams 04/13/23 06:53 Ordered CBC Q48H Lab 04/14/23 06:00 Ordered CBC Q48H Lab 04/16/23 06:00 Ordered CBC Q48H Lab 04/18/23 06:00 Ordered CBC Q48H Lab 04/20/23 06:00 Ordered CBC Q48H Lab 04/22/23 06:00 Ordered CBC Q48H Lab 04/24/23 06:00 Ordered CBC Q48H Lab 04/26/23 06:00 Ordered CBC W DIFF Stat Lab 04/13/23 07:55 Completed CMP Stat Lab 04/13/23 07:55 Completed D-DIMER QUANTITATIVE Stat Lab 04/13/23 06:00 Completed LIPASE Stat Lab 04/13/23 07:55 Completed Lactic Acid Stat Lab 04/13/23 07:55 Completed MAGNESIUM Stat Lab 04/13/23 07:55 Completed NT PRO BNPII Stat Lab 04/13/23 07:55 Completed PROTIME WITH INR Stat Lab 04/13/23 07:55 Completed PTT Q4H Lab 04/13/23 13:00 Ordered PTT Q4H Lab 04/13/23 17:00 Ordered PTT Q4H Lab 04/13/23 21:00 Ordered PTT Q4H Lab 04/14/23 01:00 Ordered PTT Q4H Lab 04/14/23 05:00 Ordered PTT Q4H Lab 04/14/23 09:00 Ordered PTT Q4H Lab 04/14/23 13:00 Ordered PTT Q4H Lab 04/14/23 17:00 Ordered PTT Q4H Lab 04/14/23 21:00 Ordered PTT Q4H Lab 04/15/23 01:00 Ordered PTT Q4H Lab 04/15/23 05:00 Ordered PTT Stat Lab 04/13/23 07:55 Completed TROPONIN Q4H Lab 04/13/23 07:55 Completed TROPONIN Q4H Lab 04/13/23 10:30 Ordered TROPONIN Q4H Lab 04/13/23 14:30 Ordered UA W/RFX UR CULTURE Stat Lab 04/13/23 08:59 Completed Medication Summary Generic Name Dose Route Start Last Admin Trade Name Freq PRN Reason Stop Dose Admin Sodium Chloride 1,000 mls @ 200 mls/hr 04/13/23 06:30 04/13/23 06:28 Sodium Chloride 0.9% 1000 Ml IV 05/13/23 06:29 200 mls/hr .Q5H TERENCE Administration Heparin Sodium/Dextrose 25,000 units in 250 mls @ 10 mls/hr 04/13/23 09:00 04/13/23 09:06 Heparin 25,000 Units/D5w: Use Order Set Rekha IV 05/13/23 08:59 1,000 units/hr .Q24H TERENCE 10 mls/hr Administration Protocol 1,000 UNITS/HR Discontinued Medications Generic Name Dose Route Start Last Admin Trade Name Juliette PRN Reason Stop Dose Admin Aspirin 324 mg 04/13/23 08:31 04/13/23 08:33 Aspirin 81 Mg Tab.Chew PO 04/13/23 08:32 324 mg STAT ONE Administration Aspirin Confirm 04/13/23 08:32 Aspirin 81 Mg Tab.Chew Administered 04/13/23 08:33 Dose 324 mg .ROUTE .STK-MED ONE Heparin Sodium (Beef Lung) 5,000 unit 04/13/23 08:50 04/13/23 09:04 Heparin 5000 Units/0.5 Ml 5,000 Unit/0.5 Ml Syr IV 04/13/23 08:51 5,000 unit STAT ONE Administration Heparin Sodium (Beef Lung) Confirm 04/13/23 09:02 Heparin 5000 Units/0.5 Ml 5,000 Unit/0.5 Ml Syr Administered 04/13/23 09:03 Dose 5,000 unit .ROUTE .STK-MED ONE Lab/Rad Data: Laboratory Result Diagrams 04/13/23 07:55 04/13/23 07:55 Laboratory Results 04/13/23 04/13/23 04/13/23 Range/Units 08:59 07:55 07:55 WBC (4.0-10.5) x10^3/uL RBC (4.1-5.6) x10^6/uL Hgb (12.5-18.0) g/dL Hct (42-50) % MCV (78-100) fL MCH (26-32) pg MCHC (32-36) g/dL RDW (11.5-14.0) % Plt Count (150-450) x10^3/uL MPV (7.5-11.0) fL Gran % (36.0-66.0) % Immature Gran % (Auto) (0.00-0.4) % Nucleat RBC Rel Count (0.00-0.1) % Eos # (Auto) (0-0.5) x10^3/uL Immature Gran # (Auto) (0.00-0.03) x10^3u/L Absolute Lymphs (auto) (1.0-4.6) x10^3/uL Absolute Monos (auto) (0.0-1.3) x10^3/uL Absolute Nucleated RBC (0.00-0.01) x10^3u/L Lymphocytes % (24.0-44.0) % Monocytes % (0.0-12.0) % Eosinophils % (0.00-5.0) % Basophils % (0.0-0.4) % Absolute Granulocytes (1.4-6.9) x10^3/uL Basophils # (0-0.4) x10^3/uL PT 10.3 (9.4-12.5) SECONDS INR 0.94 (0.8-3.0) APTT 26.4 (25.1-36.5) SECONDS D-Dimer (0.0-0.50) mg/L Sodium (137-145) mmol/L Potassium (3.5-5.1) mmol/L Chloride (98-107) mmol/L Carbon Dioxide (22-30) mmol/L Anion Gap (5-15) MEQ/L BUN (9-20) mg/dL Creatinine (0.66-1.25) mg/dL Estimated GFR ML/MIN Glucose (74-106) mg/dL Lactic Acid (0.4-2.0) Calcium (8.4-10.2) mg/dL Magnesium (1.6-2.3) mg/dL Total Bilirubin (0.2-1.3) mg/dL AST (17-59) U/L ALT (0-50) U/L Alkaline Phosphatase (38-126) U/L Troponin I 1.850 H* (0.000-0.034) ng/mL NT-Pro-B Natriuret Pep (<300) pg/mL Serum Total Protein (6.3-8.2) g/dL Albumin (3.5-5.0) g/dL Lipase (23-300) U/L Urine Color Yellow (Yellow) Urine Appearance Clear (Clear) Urine pH 5.0 (4.6-8.0) Ur Specific [place] 1.015 (1.005-1.030) Urine Protein 30 (Negative) Urine Glucose (UA) Negative (Negative) mg/dL Urine Ketones Negative (Negative) Urine Blood Negative (Negative) Urine Nitrite Negative (Negative) Urine Bilirubin Negative (Negative) Urine Urobilinogen 0.2 (0.2) mg/dL Ur Leukocyte Esterase Negative (Negative) U Hyaline Cast (Auto) NONE SEEN (0-2) /LPF Urine Microscopic RBC 0-2 (0-5) /HPF Urine Microscopic WBC 0-2 (0-5) /HPF Ur Epithelial Cells None Seen (None Seen) /HPF Urine Bacteria None Seen (None Seen) /HPF Urine Culture Reflexed NO (NO) 04/13/23 04/13/23 04/13/23 Range/Units 07:55 07:55 07:55 WBC 11.4 H (4.0-10.5) x10^3/uL RBC 3.03 L (4.1-5.6) x10^6/uL Hgb 9.1 L (12.5-18.0) g/dL Hct 29.0 L (42-50) % MCV 95.7 (78-100) fL MCH 30.0 (26-32) pg MCHC 31.4 L (32-36) g/dL RDW 14.7 H (11.5-14.0) % Plt Count 291 (150-450) x10^3/uL MPV 10.3 (7.5-11.0) fL Gran % 83.4 H (36.0-66.0) % Immature Gran % (Auto) 0.4 (0.00-0.4) % Nucleat RBC Rel Count 0.0 (0.00-0.1) % Eos # (Auto) 0.07 (0-0.5) x10^3/uL Immature Gran # (Auto) 0.05 H (0.00-0.03) x10^3u/L Absolute Lymphs (auto) 0.81 L (1.0-4.6) x10^3/uL Absolute Monos (auto) 0.96 (0.0-1.3) x10^3/uL Absolute Nucleated RBC 0.00 (0.00-0.01) x10^3u/L Lymphocytes % 7.1 L (24.0-44.0) % Monocytes % 8.4 (0.0-12.0) % Eosinophils % 0.6 (0.00-5.0) % Basophils % 0.1 (0.0-0.4) % Absolute Granulocytes 9.50 H (1.4-6.9) x10^3/uL Basophils # 0.01 (0-0.4) x10^3/uL PT (9.4-12.5) SECONDS INR (0.8-3.0) APTT (25.1-36.5) SECONDS D-Dimer (0.0-0.50) mg/L Sodium 134 L (137-145) mmol/L Potassium 4.8 (3.5-5.1) mmol/L Chloride 108 H (98-107) mmol/L Carbon Dioxide 23 (22-30) mmol/L Anion Gap 8.1 (5-15) MEQ/L BUN 44 H (9-20) mg/dL Creatinine 1.46 H (0.66-1.25) mg/dL Estimated GFR 47.1 ML/MIN Glucose 107 H (74-106) mg/dL Lactic Acid 1.1 (0.4-2.0) Calcium 8.3 L (8.4-10.2) mg/dL Magnesium 2.4 H (1.6-2.3) mg/dL Total Bilirubin 0.40 (0.2-1.3) mg/dL AST 32 (17-59) U/L ALT 18 (0-50) U/L Alkaline Phosphatase 108 (38-126) U/L Troponin I (0.000-0.034) ng/mL NT-Pro-B Natriuret Pep 1030 (<300) pg/mL Serum Total Protein 5.7 L (6.3-8.2) g/dL Albumin 2.9 L (3.5-5.0) g/dL Lipase 288 (23-300) U/L Urine Color (Yellow) Urine Appearance (Clear) Urine pH (4.6-8.0) Ur Specific [place] (1.005-1.030) Urine Protein (Negative) Urine Glucose (UA) (Negative) mg/dL Urine Ketones (Negative) Urine Blood (Negative) Urine Nitrite (Negative) Urine Bilirubin (Negative) Urine Urobilinogen (0.2) mg/dL Ur Leukocyte Esterase (Negative) U Hyaline Cast (Auto) (0-2) /LPF Urine Microscopic RBC (0-5) /HPF Urine Microscopic WBC (0-5) /HPF Ur Epithelial Cells (None Seen) /HPF Urine Bacteria (None Seen) /HPF Urine Culture Reflexed (NO) 04/13/23 Range/Units 06:00 WBC (4.0-10.5) x10^3/uL RBC (4.1-5.6) x10^6/uL Hgb (12.5-18.0) g/dL Hct (42-50) % MCV (78-100) fL MCH (26-32) pg MCHC (32-36) g/dL RDW (11.5-14.0) % Plt Count (150-450) x10^3/uL MPV (7.5-11.0) fL Gran % (36.0-66.0) % Immature Gran % (Auto) (0.00-0.4) % Nucleat RBC Rel Count (0.00-0.1) % Eos # (Auto) (0-0.5) x10^3/uL Immature Gran # (Auto) (0.00-0.03) x10^3u/L Absolute Lymphs (auto) (1.0-4.6) x10^3/uL Absolute Monos (auto) (0.0-1.3) x10^3/uL Absolute Nucleated RBC (0.00-0.01) x10^3u/L Lymphocytes % (24.0-44.0) % Monocytes % (0.0-12.0) % Eosinophils % (0.00-5.0) % Basophils % (0.0-0.4) % Absolute Granulocytes (1.4-6.9) x10^3/uL Basophils # (0-0.4) x10^3/uL PT (9.4-12.5) SECONDS INR (0.8-3.0) APTT (25.1-36.5) SECONDS D-Dimer 0.95 H* (0.0-0.50) mg/L Sodium (137-145) mmol/L Potassium (3.5-5.1) mmol/L Chloride (98-107) mmol/L Carbon Dioxide (22-30) mmol/L Anion Gap (5-15) MEQ/L BUN (9-20) mg/dL Creatinine (0.66-1.25) mg/dL Estimated GFR ML/MIN Glucose (74-106) mg/dL Lactic Acid (0.4-2.0) Calcium (8.4-10.2) mg/dL Magnesium (1.6-2.3) mg/dL Total Bilirubin (0.2-1.3) mg/dL AST (17-59) U/L ALT (0-50) U/L Alkaline Phosphatase (38-126) U/L Troponin I (0.000-0.034) ng/mL NT-Pro-B Natriuret Pep (<300) pg/mL Serum Total Protein (6.3-8.2) g/dL Albumin (3.5-5.0) g/dL Lipase (23-300) U/L Urine Color (Yellow) Urine Appearance (Clear) Urine pH (4.6-8.0) Ur Specific [place] (1.005-1.030) Urine Protein (Negative) Urine Glucose (UA) (Negative) mg/dL Urine Ketones (Negative) Urine Blood (Negative) Urine Nitrite (Negative) Urine Bilirubin (Negative) Urine Urobilinogen (0.2) mg/dL Ur Leukocyte Esterase (Negative) U Hyaline Cast (Auto) (0-2) /LPF Urine Microscopic RBC (0-5) /HPF Urine Microscopic WBC (0-5) /HPF Ur Epithelial Cells (None Seen) /HPF Urine Bacteria (None Seen) /HPF Urine Culture Reflexed (NO) - Progress Progress Note: 04/13/23 07:41 Assume care at 7 AM of 82-year-old male who woke up at 3 AM with chest pain he said it was 9 out of 10 and burning. Pain was midsternal with radiation to his back. He denies any nausea vomiting diaphoresis or dyspnea. Nothing s eems to make the pain better or worse. Patient has a history of hypertension, hyperlipidemia, and smoked 2 packs a day until 1991. He denies any stents, bypass surgery, diabetes, or SC. EKG demonstrates a normal sinus rhythm/rate of 87/normal QT but prolonged QTc/right bundle branch block/left anterior fascicular block/nonspecific ST-T wave changes. Patient was diagnosed with COVID 7 to 10 days ago in clinic. Patient is alert and oriented x3 Lungs clear to auscultation bilaterally Heart regular rate and rhythm with 2/6 systolic ejection murmur Abdomen soft/nontender to palpation/normal abdominal sounds. No no cyanosis, clubbing, edema No focal weakness noted/cranial nerves II through XII normal/reflexes symmetric bilaterally 04/13/23 09:02 There is a significant delay in drawing patient's labs and due to inability obtain blood. When labs able to draw blood, his troponin was elevated. EKG repeated demonstrating normal sinus rhythm/rate 84/prolonged QTc/ST segment depression V4 through V5 which is new compared to previous EKG from earlier this morning. Patient given aspirin 324 mg p.o. chewable 1 lab, possible elevated troponin which they later confirmed. Heparin 5000 unit bolus given. Heparin drip started at 1000 units/h. Patient's med list double check to make sure he was not on any anticoagulant. 04/13/23 09:[address] Dominguez at [facility]. Patient is stable at this time without any chest pain. Counseled pt/family regarding: lab results, diagnosis, rad results - Departure Departure Disposition: Transfer Critical Care Time: Yes Critical Care Time(excluding separately billable procedures): Critical 30-74 mins
[2023-04-13 07:56] LABS: BASOPHIL % 0.1 % (0.0-0.4); Basophil (Absolute #) 0.01 x10^3/uL (0-0.4); Eosinophil % 0.6 % (0.00-5.0); Eosinophil (Absolute #) 0.07 x10^3/uL (0-0.5); Hemoglobin 9.1 g/dL (12.5-18.0); IMMATURE GRAN # 0.05 x10^3u/L (0.00-0.03); IMMATURE GRAN % 0.4 % (0.00-0.4); Lymphocyte (Absolute #) 0.81 x10^3/uL (1.0-4.6); Lymphocytes % 7.1 % (24.0-44.0); Mean Cell Volume 95.7 fL (78-100); Mean Corpuscular Hgb Concent. 31.4 g/dL (32-36); Mean Platelet Volume 10.3 fL (7.5-11.0); Monocyte (Absolute #) 0.96 x10^3/uL (0.0-1.3); Monocytes % 8.4 % (0.0-12.0); Neutrophil % 83.4 % (36.0-66.0); Platelet Count 291 x10^3/uL (150-450); Red Blood Count 3.03 x10^6/uL (4.1-5.6); Red Cell Distribution Width 14.7 % (11.5-14.0); White Blood Count 11.4 x10^3/uL (4.0-10.5)
[2023-04-13 08:12] LABS: INR 0.94 (0.8-3.0); PROTIME 10.3 SECONDS (9.4-12.5); PTT 26.4 SECONDS (25.1-36.5)
[2023-04-13 08:19] LABS: ALBUMIN 2.9 g/dL (3.5-5.0); ANION GAP 8.1 MEQ/L (5-15); BILIRUBIN,TOTAL 0.4 mg/dL (0.2-1.3); Calcium 8.3 mg/dL (8.4-10.2); Creatinine 1 1.46 mg/dL (0.66-1.25); EST GLOMERULAR FILTRATION RATE 47.1 ML/MIN; MAGNESIUM 2.4 mg/dL (1.6-2.3); Potassium 4.8 mmol/L (3.5-5.1); Total Protein 5.7 g/dL (6.3-8.2)
[2023-04-13] MEDS ORDERED: BABY ASPIRIN 81 MG CHEW PO ONE (08:31)
[2023-04-13] MEDS ORDERED: BABY ASPIRIN 81 MG CHEW ONE (08:32)
--- NOTE | 2023-04-13 08:45 | XRAY ---
Indication: Chest pain. Comparison: April 09, 2023 Portable apical lordotic chest again hyperinflated and clear. Heart not enlarged for AP portable technique. Bony thorax intact again with osteopenia and mild degenerative changes. Impression: Continued nonacute chest with chronic features.
[2023-04-13] MEDS ORDERED: HEPARIN 5000 UNITS/0.5 ML (HIGH RISK MED) IV ONE (08:50)
[2023-04-13] MEDS ORDERED: Heparin 25,000 units/D5W: USE ORDER SET PROTO 25,000 UNITS/250 ML BAG IV SCH (09:00)
[2023-04-13] MEDS ORDERED: HEPARIN 5000 UNITS/0.5 ML (HIGH RISK MED) ONE (09:02)
[2023-04-13] MEDS ORDERED: Heparin 25,000 units/D5W: USE ORDER SET PROTO 25,000 UNITS/250 ML BAG IV ONE (09:02)
[2023-04-13 09:06] LABS: Appearance Clear (Clear); Bacteria None Seen /HPF (None Seen); Bilirubin Negative (Negative); Blood Negative (Negative); Epithelial Cells None Seen /HPF (None Seen); Glucose, Urine Negative (Negative); Hyaline Casts NONE SEEN /LPF (0-2); Ketones Negative (Negative); Leukocyte Esterase Negative (Negative); Nitrite Negative (Negative); Protein,Urine Dip 30 (Negative); RBC 0-2 /HPF (0-5); Specific Gravity 1.015 (1.005-1.030); Urobilinogen 0.2 mg/dL (0.2); WBC 0-2 /HPF (0-5)
[2023-04-13 09:13] LABS: ADD URINE CULTURE? NO (NO)
[2023-04-13 09:17] VITALS: O2SAT 98
[2023-04-13 10:02] VITALS: BP 136/78; PULSE 86; RESP 21
== END 2023-04-13 10:29 | disposition short-term general hospital (02) ==
LOC: ED 05:39
DX: I21.4 Non-ST elevation (NSTEMI) myocardial infarction (principal); R07.9 Chest pain, unspecified; R10.9 Unspecified abdominal pain; I10 Essential (primary) hypertension; E11.9 Type 2 diabetes mellitus without complications; Z79.84 Long term (current) use of oral hypoglycemic drugs; Z79.899 Other long term (current) drug therapy
CPT/HCPCS: 36000; 36415; 71045; 80053; 81001; 83605; 83690; 83735; 83880; 84484; 85025; 85379; 85610; 85730; 93005; 96365; 96374; 99285; 99291; J1644; A9270-GY

== ENCOUNTER 2023-04-22 15:36 | Emergency (ER) | payer MEDICARE ==
[2023-04-22 16:44] VITALS: TEMP 97.4
[2023-04-22] MEDS ORDERED: Sodium Chloride 0.9% 1000 ML 1,000 ML IV SCH (16:45)
--- NOTE | 2023-04-22 17:00 | ERPHSYRPT ---
- History of Present Illness Time Seen by Provider: 04/22/23 15:38 Historian: patient, family Exam Limitations: no limitations Patient Subjective Stated Complaint: C/O abdominal pain that started today after drinking coffee. States pain has been constant since then. Denies N/V but states no appetite. Had a normal bowel movement today; denies diarrhea or constipation. Triage Nursing Assessment: Patient brought back to ER in a W/C. He is alert and oriented. Hard of hearing; hearing aids present. Patient is pale. Left side of abdomen is tender to palpation. Physician History: 82 years old male with history of hypertension, hyperlipidemia with a recent COVID-19, chronic anemia presented to the ER with chief complaint of left-sided abdominal pain since morning. Patient reports dull aching nonradiating without any significant aggravating or relieving factors moderate intensity. Denies associated nausea or vomiting or diarrhea. Did have a bowel movement this morning. Denies any chest pain palpitations or shortness of breath. Allergies/Adverse Reactions: codeine [Codeine] Allergy (Mild, Verified 04/22/23 16:20) Home Medications: Atenolol 50 mg [Tenormin 50 mg] 50 mg PO DAILY 11/06/11 [History] Quinapril HCl 20 mg PO DAILY 11/06/11 [History] Amlodipine Besylate 2.5 mg PO DAILY 06/10/20 [History] Glipizide 5 mg [Glucotrol 5 MG] 5 mg PO DAILY 01/09/22 [History] Metformin HCl 500 mg [Glucophage 500 MG] 500 mg PO BID 01/09/22 [History] Pravastatin Sodium 80 mg PO DAILY 01/09/22 [History] Aspirin 81 gm Chew [Baby Aspirin 81 mg Chew] 2 tab PO DAILY 04/22/23 [History] Tamsulosin HCl 0.4 mg [Flomax 0.4 MG] 1 cap PO DAILY 04/22/23 [History] Hx Tetanus, Diphtheria Vaccination/Date Given: Yes Hx Influenza Vaccination/Date Given: Yes Hx Pneumococcal Vaccination/Date Given: Yes Immunizations Up to Date: Yes Travel Risk - International Travel Have you traveled outside of the country in past 3 weeks: No - Coronavirus Screening Are you exhibiting any of the following symptoms?: No Close contact with a COVID-19 positive Pt in past 14-21 Days: No - Vaccine Status Have you recieved a Covid-19 vaccination: Yes Serials Librarian: Moderna - Vaccination Dates Date of 2cond Vaccination (if applicable): 08/02/20 Dates if Unknown: 2020 - Review of Systems Constitutional: No Symptoms Eyes: No Symptoms Ears, Nose, & Throat: No Symptoms Respiratory: No Symptoms Cardiac: No Symptoms Abdominal/Gastrointestinal: Abdominal Pain Genitourinary Symptoms: No Symptoms Musculoskeletal: Arthralgias Skin: No Symptoms Neurological: No Symptoms Endocrine: No Symptoms - Past Medical History Pertinent Past Medical History: Yes Neurological History: No Pertinent History ENT History: Cataracts Cardiac History: Hypertension Respiratory History: No Pertinent History, Sleep Apnea Endocrine Medical History: Diabetes Type II Musculoskeletal History: Osteoarthritis GI Medical History: Hernia History: No Pertinent History Psycho-Social History: No Pertinent History Male Reproductive Disorders: Prostate Problems Other Medical History: RECENT X-RAYS WERE NORMAL - Past Surgical History Past Surgical History: Yes Neuro Surgical History: No Pertinent History Cardiac: Cardiac Catheterization Respiratory: No Pertinent History Gastrointestinal: No Pertinent History, Hernia Repair Genitourinary: No Pertinent History Musculoskeletal: Joint Replacement, Orthopedic Surgery Male Surgical History: Prostate Surgery Other Surgical History: right shoulder cuff,left knee replacement,left heel spur,umbil.hernior. RIGHT TOTAL KNEE, rt femur - Social History Smoking Status: Former smoker Exposure to second hand smoke: No Drug Use: none Patient Lives Alone: No - Nursing Vital Signs Nursing Vital Signs: Initial Vital Signs Temperature 97.4 F 04/22/23 16:25 Pulse Rate 91 H 04/22/23 16:25 Respiratory Rate 27 H 04/22/23 16:25 Blood Pressure 91/51 04/22/23 16:25 O2 Sat by Pulse Oximetry 96 04/22/23 16:25 Pain Scale Pain Intensity 3 - Physical Exam General Appearance: no apparent distress Eye Exam: PERRL/EOMI Ears, Nose, Throat Exam: pharynx normal Neck Exam: normal inspection Respiratory Exam: normal breath sounds, lungs clear Cardiovascular Exam: regular rate/rhythm, normal heart sounds Gastrointestinal/Abdomen Exam: soft, normal bowel sounds, tenderness (Mild left lower quadrant tenderness. No guarding or rebound tenderness.) Extremity Exam: normal inspection, normal range of motion Neurologic Exam: alert, oriented x 3, cooperative Skin Exam: normal color SpO2 Interpretation: normal SpO2: 95 O2 Delivery: Room Air Ordered Tests: Active Orders 24 hr Category Date Time Status IV Insertion STAT Care 04/22/23 16:45 Active NPO (ED) STAT Care 04/22/23 16:45 Active ABDOMEN AND PELVIS W/0 CONTRAS [CT] Stat Exams 04/22/23 16:45 Completed CBC W DIFF Stat Lab 04/22/23 16:50 Completed CMP Stat Lab 04/22/23 16:50 Completed LIPASE Stat Lab 04/22/23 16:50 Completed Lactic Acid Stat Lab 04/22/23 16:44 Completed UA W/RFX UR CULTURE Stat Lab 04/22/23 18:30 Completed Medication Summary Generic Name Dose Route Start Last Admin Trade Name Freq PRN Reason Stop Dose Admin Sodium Chloride 1,000 mls @ 100 mls/hr 04/22/23 16:45 04/22/23 18:13 Sodium Chloride 0.9% 1000 Ml IV 05/22/23 16:44 100 mls/hr .Q10H [facility] Infusion Lab/Rad Data: Laboratory Result Diagrams 04/22/23 16:50 04/22/23 16:50 Laboratory Results 04/22/23 04/22/23 04/22/23 Range/Units 18:30 16:50 16:50 WBC 4.1 (4.0-10.5) x10^3/uL RBC 2.57 L (4.1-5.6) x10^6/uL Hgb 7.7 L (12.5-18.0) g/dL Hct 24.7 L (42-50) % MCV 96.1 (78-100) fL MCH 30.0 (26-32) pg MCHC 31.2 L (32-36) g/dL RDW 15.6 H (11.5-14.0) % Plt Count 231 (150-450) x10^3/uL MPV 9.9 (7.5-11.0) fL Gran % 67.6 H (36.0-66.0) % Immature Gran % (Auto) 0.2 (0.00-0.4) % Nucleat RBC Rel Count 0.0 (0.00-0.1) % Eos # (Auto) 0.11 (0-0.5) x10^3/uL Immature Gran # (Auto) 0.01 (0.00-0.03) x10^3u/L Absolute Lymphs (auto) 0.77 L (1.0-4.6) x10^3/uL Absolute Monos (auto) 0.44 (0.0-1.3) x10^3/uL Absolute Nucleated RBC 0.00 (0.00-0.01) x10^3u/L Lymphocytes % 18.6 L (24.0-44.0) % Monocytes % 10.7 (0.0-12.0) % Eosinophils % 2.7 (0.00-5.0) % Basophils % 0.2 (0.0-0.4) % Absolute Granulocytes 2.79 (1.4-6.9) x10^3/uL Basophils # 0.01 (0-0.4) x10^3/uL Sodium 136 L (137-145) mmol/L Potassium 4.9 (3.5-5.1) mmol/L Chloride 107 (98-107) mmol/L Carbon Dioxide 21 L (22-30) mmol/L Anion Gap 12.9 (5-15) MEQ/L BUN 29 H (9-20) mg/dL Creatinine 1.17 (0.66-1.25) mg/dL Estimated GFR 61.5 ML/MIN Glucose 97 (74-106) mg/dL Lactic Acid (0.4-2.0) Calcium 8.7 (8.4-10.2) mg/dL Total Bilirubin 0.30 (0.2-1.3) mg/dL AST 38 (17-59) U/L ALT 39 (0-50) U/L Alkaline Phosphatase 110 (38-126) U/L Serum Total Protein 6.2 L (6.3-8.2) g/dL Albumin 3.1 L (3.5-5.0) g/dL Lipase 146 (23-300) U/L Urine Color Yellow (Yellow) Urine Appearance Clear (Clear) Urine pH 5.0 (4.6-8.0) Ur Specific [place] 1.020 (1.005-1.030) Urine Protein 100 A (Negative) Urine Glucose (UA) Negative (Negative) mg/dL Urine Ketones Trace A (Negative) Urine Blood Negative (Negative) Urine Nitrite Negative (Negative) Urine Bilirubin Negative (Negative) Urine Urobilinogen 0.2 (0.2) mg/dL Ur Leukocyte Esterase Negative (Negative) U Hyaline Cast (Auto) NONE SEEN (0-2) /LPF Urine Microscopic RBC 0-2 (0-5) /HPF Urine Microscopic WBC 0-2 (0-5) /HPF Ur Epithelial Cells None Seen (None Seen) /HPF Urine Bacteria None Seen (None Seen) /HPF Urine Culture Reflexed NO (NO) 04/22/23 Range/Units 16:44 WBC (4.0-10.5) x10^3/uL RBC (4.1-5.6) x10^6/uL Hgb (12.5-18.0) g/dL Hct (42-50) % MCV (78-100) fL MCH (26-32) pg MCHC (32-36) g/dL RDW (11.5-14.0) % Plt Count (150-450) x10^3/uL MPV (7.5-11.0) fL Gran % (36.0-66.0) % Immature Gran % (Auto) (0.00-0.4) % Nucleat RBC Rel Count (0.00-0.1) % Eos # (Auto) (0-0.5) x10^3/uL Immature Gran # (Auto) (0.00-0.03) x10^3u/L Absolute Lymphs (auto) (1.0-4.6) x10^3/uL Absolute Monos (auto) (0.0-1.3) x10^3/uL Absolute Nucleated RBC (0.00-0.01) x10^3u/L Lymphocytes % (24.0-44.0) % Monocytes % (0.0-12.0) % Eosinophils % (0.00-5.0) % Basophils % (0.0-0.4) % Absolute Granulocytes (1.4-6.9) x10^3/uL Basophils # (0-0.4) x10^3/uL Sodium (137-145) mmol/L Potassium (3.5-5.1) mmol/L Chloride (98-107) mmol/L Carbon Dioxide (22-30) mmol/L Anion Gap (5-15) MEQ/L BUN (9-20) mg/dL Creatinine (0.66-1.25) mg/dL Estimated GFR ML/MIN Glucose (74-106) mg/dL Lactic Acid 1.8 (0.4-2.0) Calcium (8.4-10.2) mg/dL Total Bilirubin (0.2-1.3) mg/dL AST (17-59) U/L ALT (0-50) U/L Alkaline Phosphatase (38-126) U/L Serum Total Protein (6.3-8.2) g/dL Albumin (3.5-5.0) g/dL Lipase (23-300) U/L Urine Color (Yellow) Urine Appearance (Clear) Urine pH (4.6-8.0) Ur Specific [place] (1.005-1.030) Urine Protein (Negative) Urine Glucose (UA) (Negative) mg/dL Urine Ketones (Negative) Urine Blood (Negative) Urine Nitrite (Negative) Urine Bilirubin (Negative) Urine Urobilinogen (0.2) mg/dL Ur Leukocyte Esterase (Negative) U Hyaline Cast (Auto) (0-2) /LPF Urine Microscopic RBC (0-5) /HPF Urine Microscopic WBC (0-5) /HPF Ur Epithelial Cells (None Seen) /HPF Urine Bacteria (None Seen) /HPF Urine Culture Reflexed (NO) - Progress Progress: improved, re-examined Progress Note: 04/22/23 19:09 82 years old male is evaluated in the ER for left-sided abdominal pain since morning. Patient has mild tenderness on the left lower quadrant area. Not in any distress. He is offered pain medication but declined. Bowel sounds are positive in all 4 quadrants. No peritoneal signs on repeated evaluations. Work-up showed normal white count, hemoglobin of 7.7 and last time he was discharged from [facility] was 8.0 per daughter. Patient is supposed to take iron pills. Patient chemistries are fairly unremarkable. No UTI. I updated him CT abdomen pelvis without contrast which showed diverticulosis without diverticulitis and does have moderate stool load in left side/sigmoid area. I believe patient has constipation causing him pain. Recommended taking stool softener and MiraLAX daily and outpatient follow-up. Discussed signs symptoms of worsening needing return to ER which he seems understanding. I have discussed the results of work-up with patient and family and plan of discharge and outpatient follow-up which they understand and agree. Also understand the signs symptoms of worsening needing return to ER. Counseled pt/family regarding: lab results, diagnosis, need for follow-up, rad results Medical Desision Making - Independent Historian Additional History obtained from: Spouse, Child - Diagnostic Testing Diagnostic test were ordered, analyzed, and reviewed by me: Yes Radiological Interpretation: Reviewed by me, Teleradiologist Report - Departure Departure Disposition: Home Clinical Impression: Left sided abdominal pain, Constipation Condition: Stable Critical Care Time: No Referrals: AURY MANZO MD [Primary Care Provider] - Follow up with PCP 1 day Instructions: Severe Abdominal Pain, Adult (DC) Additional Instructions: Follow-up with primary care for reevaluation. Daily MiraLAX and stool softener. Return to ER for intractable abdominal pain/vomiting/fever chills/diarrhea etc. Prescriptions: Polyethylene Glycol 3350 17 gm [Miralax Powder 17GM PACKET] 17 gm PO DAILY #30 packet
[2023-04-22 17:05] LABS: Absolute Neutrophil Ct (ANC) 2.79 x10^3/uL (1.4-6.9); BASOPHIL % 0.2 % (0.0-0.4); Basophil (Absolute #) 0.01 x10^3/uL (0-0.4); Eosinophil % 2.7 % (0.00-5.0); Eosinophil (Absolute #) 0.11 x10^3/uL (0-0.5); Hematocrit 24.7 % (42-50); Hemoglobin 7.7 g/dL (12.5-18.0); IMMATURE GRAN # 0.01 x10^3u/L (0.00-0.03); IMMATURE GRAN % 0.2 % (0.00-0.4); Lymphocyte (Absolute #) 0.77 x10^3/uL (1.0-4.6); Lymphocytes % 18.6 % (24.0-44.0); Mean Cell Volume 96.1 fL (78-100); Mean Corpuscular Hgb Concent. 31.2 g/dL (32-36); Mean Platelet Volume 9.9 fL (7.5-11.0); Monocyte (Absolute #) 0.44 x10^3/uL (0.0-1.3); Monocytes % 10.7 % (0.0-12.0); Neutrophil % 67.6 % (36.0-66.0); Platelet Count 231 x10^3/uL (150-450); Red Blood Count 2.57 x10^6/uL (4.1-5.6); Red Cell Distribution Width 15.6 % (11.5-14.0); White Blood Count 4.1 x10^3/uL (4.0-10.5)
[2023-04-22] MEDS ORDERED: Sodium Chloride 0.9% 1000 ML 1,000 ML ONE (17:08)
[2023-04-22 17:24] LABS: ALBUMIN 3.1 g/dL (3.5-5.0); ANION GAP 12.9 MEQ/L (5-15); BILIRUBIN,TOTAL 0.3 mg/dL (0.2-1.3); Calcium 8.7 mg/dL (8.4-10.2); Creatinine 1 1.17 mg/dL (0.66-1.25); EST GLOMERULAR FILTRATION RATE 61.5 ML/MIN; Potassium 4.9 mmol/L (3.5-5.1); Total Protein 6.2 g/dL (6.3-8.2)
--- NOTE | 2023-04-22 17:44 | XRAY ---
CLINICAL HISTORY:left side abd pain , colitis ? COMPARISON:None. TECHNIQUE:A CT scan of the abdomen and pelvis was performed without IV contrast. No oral contrast. Coronal and sagittal reconstructive images were also obtained. CTDI 6.65 mGy, DLP 377.0 mGycm. FINDINGS: Limited organ parenchymal evaluation within the limitations of non-contrast study. A scan through the lower chest reveals unremarkable lung bases and heart. Abdomen: The liver is of average size and measures 16 cm. No focal or diffuse parenchymal abnormality. The portal vein, intrahepatic biliary radicals, and the bile ducts are normal. The gallbladder is distended and shows no definite stones. There is no evidence of wall thickening/ pericholecystic collection. The spleen, pancreas, and adrenal glands are unremarkable. The kidneys are normal in size and shape. There are bilateral round-shaped hypodense areas, most likely corresponding to simple cysts, dominants measuring on the right side 4.8 X 3.7 X 4.2 cm, and on the left side 5.0 X 4.7 X 3.6 cm, and 3.1 X 3.0 X 2.7 cm. There is a tiny exophytic cortical calcification in the left kidney measuring 0.5 cm, nonspecific. No calculi or hydronephrosis. The stomach and the visualized small bowel loops are unremarkable. There is no evidence of significant mesenteric or retroperitoneal lymph node enlargement. No free fluid. Pelvis: The urinary bladder is unremarkable. There are a few focal calcifications noted at the interface between the urinary bladder and the prostate, cannot accurately identify exact location in this non-contrast study. Colonic diverticulosis without CT evidence of acute diverticulitis. No evidence of bowel obstruction. Fecal load in the sigmoid colon. No evidence of colitis in this non-contrast study. Enlarged prostate, measuring 5.8 X 5.8 X 5.4 cm, estimated weight of 94.5 grams. Atherosclerotic calcification of the aorta and major abdominal arteries seen. No evidence of pelvic lymphadenopathy. No definite bony abnormalities could be depicted. Degenerative changes in the visualized spine, with marginal osteophytes. Lumbar multilevel vacuum disc phenomena present. IMPRESSION: 1. Colonic diverticulosis, without acute CT findings of diverticulitis. No CT findings suggesting colitis. Sigmoid colon with fecal load. 2. Enlarged prostate measuring 5.8 X 5.8 X 5.4 cm, estimated weight of 94.5 grams. Further evaluation with Ultrasound and laboratory is recommended. 3. There are a few focal calcifications noted at the interface between the urinary bladder and the prostate, cannot accurately identify exact location in this non-contrast study. 4. Hypodense renal areas, most likely simple cysts. Electronically Signed by: Jonh Chinchilla MD. (04/22/2023 16:42:54 [employer])
[2023-04-22 18:47] LABS: Appearance Clear (Clear); Bacteria None Seen /HPF (None Seen); Bilirubin Negative (Negative); Blood Negative (Negative); Epithelial Cells None Seen /HPF (None Seen); Glucose, Urine Negative (Negative); Hyaline Casts NONE SEEN /LPF (0-2); Ketones Trace (Negative); Leukocyte Esterase Negative (Negative); Nitrite Negative (Negative); Protein,Urine Dip 100 (Negative); RBC 0-2 /HPF (0-5); Urobilinogen 0.2 mg/dL (0.2); WBC 0-2 /HPF (0-5)
[2023-04-22 18:51] LABS: ADD URINE CULTURE? NO (NO)
[2023-04-22 19:38] VITALS: BP 99/58; PULSE 84; RESP 20; O2SAT 98
== END 2023-04-22 19:40 | disposition home or self-care (01) ==
LOC: ED 15:36
DX: K59.00 Constipation, unspecified (principal); R10.12 Left upper quadrant pain; R10.32 Left lower quadrant pain; I10 Essential (primary) hypertension; E78.5 Hyperlipidemia, unspecified; E11.9 Type 2 diabetes mellitus without complications; Z79.84 Long term (current) use of oral hypoglycemic drugs; Z79.899 Other long term (current) drug therapy
CPT/HCPCS: 36000; 36415; 74176; 80053; 81001; 83605; 83690; 85025; 99284

== ENCOUNTER 2023-04-29 17:09 | Emergency (ER) | payer MEDICARE ==
[2023-04-29 18:20] VITALS: TEMP 97.9
[2023-04-29] MEDS ORDERED: Sodium Chloride 0.9% 1000 ML 1,000 ML IV STA (18:38)
[2023-04-29] MEDS ORDERED: SUBLIMAZE 100 MCG/2 ML IV ONE (18:38)
[2023-04-29] MEDS ORDERED: Zofran 4 MG/2 ML VIAL IV ONE (18:38)
--- NOTE | 2023-04-29 18:38 | ERPHSYRPT ---
- History of Present Illness Time Seen by Provider: 04/29/23 18:27 Historian: patient Patient Subjective Stated Complaint: Pt was here on Sunday (5 days ago) and found diverticulitis and fecal matter and gave him polyethylene. pt is still constipated and is having abdominal pain Triage Nursing Assessment: Pt brought to the ER by his , hypotensive, rates pain as 8-9/10, when pt tried to go to the restroom he stated that he was straining hard and caused a lot of pain in his abdomen and back, pt's last bowel movement was yesterday and it was a very small one, active bowel sounds on the right and hypoactive sounds on the left, pulses normal, skin n/w/d, no difficu lty with breathing, required a wheelchair to get him into the ER room Physician History: ., 82 years old male past medical history of type 2 diabetes, hypertension, presenting to the emergency room complaining of abdominal pain nausea and vomiting that started today. The patient states his pain is severe rating it 8 out of 10, crampy and intermittent no relieving or exacerbating factors. He has been having it since 3 PM today The patient has history of constipation, he was seen at our emergency room a week ago and had a CAT scan of abdomen and pelvis, per his he was told that he had a bowel obstruction?. On checking the patient CAT scan results were was no mention of bowel obstruction but only for constipation The patient was prescribed the MiraLAX, he is taking daily basis, he only had a bowel movement 2 days ago which was normal. He is denying any bleeding per rectum. Denies any fever or chills. He is denying any urinary symptoms. Allergies/Adverse Reactions: codeine [Codeine] Allergy (Mild, Verified 04/29/23 18:20) Home Medications: Atenolol 50 mg [Tenormin 50 mg] 50 mg PO DAILY 11/06/11 [History] Quinapril HCl 20 mg PO DAILY 11/06/11 [History] Amlodipine Besylate 2.5 mg PO DAILY 06/10/20 [History] Glipizide 5 mg [Glucotrol 5 MG] 5 mg PO DAILY 01/09/22 [History] Metformin HCl 500 mg [Glucophage 500 MG] 500 mg PO BID 01/09/22 [History] Pravastatin Sodium 80 mg PO DAILY 01/09/22 [History] Aspirin 81 gm Chew [Baby Aspirin 81 mg Chew] 2 tab PO DAILY 04/22/23 [History] Tamsulosin HCl 0.4 mg [Flomax 0.4 MG] 1 cap PO DAILY 04/22/23 [History] Hx Tetanus, Diphtheria Vaccination/Date Given: Yes Hx Influenza Vaccination/Date Given: Yes Hx Pneumococcal Vaccination/Date Given: Yes Travel Risk - International Travel Have you traveled outside of the country in past 3 weeks: No - Coronavirus Screening Are you exhibiting any of the following symptoms?: No Close contact with a COVID-19 positive Pt in past 14-21 Days: No - Vaccine Status Have you recieved a Covid-19 vaccination: Yes Comb Tender: Moderna - Vaccination Dates Date of 2cond Vaccination (if applicable): 08/02/20 Dates if Unknown: 2020 - Review of Systems Constitutional: No Symptoms Eyes: No Symptoms Ears, Nose, & Throat: No Symptoms Respiratory: No Cough, No Dyspnea Cardiac: No Chest Pain, No Edema, No Syncope Abdominal/Gastrointestinal: Abdominal Pain, Nausea, Constipation, No Vomiting, No Diarrhea Genitourinary Symptoms: No Dysuria Musculoskeletal: No Back Pain, No Neck Pain Skin: No Rash Neurological: No Dizziness, No Focal Weakness, No Sensory Changes Psychological: No Symptoms Endocrine: No Symptoms All Other Systems: Reviewed and Negative - Past Medical History Pertinent Past Medical History: Yes Neurological History: No Pertinent History ENT History: Cataracts Cardiac History: Hypertension Respiratory History: No Pertinent History, Sleep Apnea Endocrine Medical History: Diabetes Type II Musculoskeletal History: Osteoarthritis GI Medical History: Hernia History: No Pertinent History Psycho-Social History: No Pertinent History Male Reproductive Disorders: Prostate Problems Other Medical History: . - Past Surgical History Past Surgical History: Yes Neuro Surgical History: No Pertinent History Cardiac: Cardiac Catheterization Respiratory: No Pertinent History Gastrointestinal: No Pertinent History, Hernia Repair Genitourinary: No Pertinent History Musculoskeletal: Joint Replacement, Orthopedic Surgery Male Surgical History: Prostate Surgery Other Surgical History: right shoulder cuff,left knee replacement,left heel spur,umbil.hernior. RIGHT TOTAL KNEE, rt femur - Social History Smoking Status: Former smoker Exposure to second hand smoke: No Drug Use: none Patient Lives Alone: No - Nursing Vital Signs Nursing Vital Signs: Initial Vital Signs Temperature 97.9 F 04/29/23 18:04 Pulse Rate 92 H 04/29/23 18:04 Respiratory Rate 22 04/29/23 18:04 Blood Pressure 90/44 04/29/23 18:04 O2 Sat by Pulse Oximetry 94 L 04/29/23 18:04 Pain Scale Pain Intensity 9 - Physical Exam General Appearance: no apparent distress, alert Eye Exam: PERRL/EOMI, eyes nml inspection Ears, Nose, Throat Exam: normal ENT inspection, pharynx normal, moist mucous membranes Neck Exam: normal inspection, non-tender, supple, full range of motion Respiratory Exam: normal breath sounds, lungs clear, No respiratory distress Cardiovascular Exam: regular rate/rhythm, normal heart sounds Gastrointestinal/Abdomen Exam: soft, tenderness (Left lower quadrant tenderness right upper quadrant tenderness no rebound no guarding no rigidity), No mass Back Exam: normal inspection, normal range of motion, No CVA tenderness, No vertebral tenderness Extremity Exam: normal inspection, normal range of motion, pelvis stable Neurologic Exam: alert, oriented x 3, cooperative, normal mood/affect, nml cerebellar function, sensation nml, No motor deficits Skin Exam: normal color, warm, dry SpO2: 94 Ordered Tests: Active Orders 24 hr Category Date Time Status IV Insertion STAT Care 04/29/23 18:38 Active NPO (ED) STAT Care 04/29/23 18:38 Active ABDOMEN AND PELVIS W/0 CONTRAS [CT] Stat Exams 04/29/23 19:45 Completed CBC W DIFF Stat Lab 04/29/23 19:35 Completed CMP Stat Lab 04/29/23 19:35 Completed LIPASE Stat Lab 04/29/23 19:35 Completed Lactic Acid Stat Lab 04/29/23 19:32 Completed UA W/RFX UR CULTURE Stat Lab 04/29/23 18:38 Ordered Medication Summary Discontinued Medications Generic Name Dose Route Start Last Admin Trade Name Freq PRN Reason Stop Dose Admin Bisacodyl 10 mg 04/29/23 22:00 04/29/23 22:57 Bisacodyl 10 Mg Supp.Rect MO 04/29/23 22:01 10 mg STAT ONE Administration Fentanyl Citrate 50 mcg 04/29/23 18:38 04/29/23 22:27 Fentanyl Citrate 100 Mcg/2 Ml* Vial IV 04/29/23 18:39 Not Given STAT ONE Hydromorphone HCl 0.5 mg 04/29/23 22:01 04/29/23 22:56 Hydromorphone 1 Mg/1ml Inj IM 04/29/23 22:02 0.5 mg STAT ONE Administration Hydromorphone HCl Confirm 04/29/23 22:50 Hydromorphone 1 Mg/1ml Inj Administered 04/29/23 22:51 Dose 1 mg .ROUTE .STK-MED ONE Sodium Chloride 1,000 mls @ 999 mls/hr 04/29/23 18:38 04/29/23 22:27 Sodium Chloride 0.9% 1000 Ml IV 04/29/23 19:38 Not Given .Q1H1M STA Ondansetron HCl 4 mg 04/29/23 18:38 04/29/23 22:28 Ondansetron Hcl 4 Mg/2 Ml Vial IV 04/29/23 18:39 Not Given STAT ONE Lab/Rad Data: Laboratory Result Diagrams 04/29/23 19:35 04/29/23 19:35 Laboratory Results 04/29/23 04/29/23 04/29/23 Range/Units 19:35 19:35 19:32 WBC 5.0 (4.0-10.5) x10^3/uL RBC 2.55 L (4.1-5.6) x10^6/uL Hgb 7.5 L (12.5-18.0) g/dL Hct 23.8 L (42-50) % MCV 93.3 (78-100) fL MCH 29.4 (26-32) pg MCHC 31.5 L (32-36) g/dL RDW 15.0 H (11.5-14.0) % Plt Count 531 H (150-450) x10^3/uL MPV 9.2 (7.5-11.0) fL Gran % 64.9 (36.0-66.0) % Immature Gran % (Auto) 1.0 H (0.00-0.4) % Nucleat RBC Rel Count 0.0 (0.00-0.1) % Eos # (Auto) 0.08 (0-0.5) x10^3/uL Immature Gran # (Auto) 0.05 H (0.00-0.03) x10^3u/L Absolute Lymphs (auto) 0.58 L (1.0-4.6) x10^3/uL Absolute Monos (auto) 1.02 (0.0-1.3) x10^3/uL Absolute Nucleated RBC 0.00 (0.00-0.01) x10^3u/L Lymphocytes % 11.7 L (24.0-44.0) % Monocytes % 20.6 H (0.0-12.0) % Eosinophils % 1.6 (0.00-5.0) % Basophils % 0.2 (0.0-0.4) % Absolute Granulocytes 3.21 (1.4-6.9) x10^3/uL Basophils # 0.01 (0-0.4) x10^3/uL Sodium 131 L (137-145) mmol/L Potassium 4.4 (3.5-5.1) mmol/L Chloride 102 (98-107) mmol/L Carbon Dioxide 21 L (22-30) mmol/L Anion Gap 12.7 (5-15) MEQ/L BUN 19 (9-20) mg/dL Creatinine 1.14 (0.66-1.25) mg/dL Estimated GFR 63.4 ML/MIN Glucose 117 H (74-106) mg/dL Lactic Acid 0.9 (0.4-2.0) Calcium 8.4 (8.4-10.2) mg/dL Total Bilirubin 0.30 (0.2-1.3) mg/dL AST 18 (17-59) U/L ALT 30 (0-50) U/L Alkaline Phosphatase 130 H (38-126) U/L Serum Total Protein 6.3 (6.3-8.2) g/dL Albumin 3.1 L (3.5-5.0) g/dL Lipase 171 (23-300) U/L - Progress Progress: improved Progress Note: 82 years old male past medical history of type 2 diabetes, hypertension, presenting to the emergency room complaining of abdominal pain nausea and vomiting that started today. The patient states his pain is severe rating it 8 out of 10, crampy and intermittent no relieving or exacerbating factors. He has been having it since 3 PM today The patient has history of constipation, he was seen at our emergency room a week ago and had a CAT scan of abdomen and pelvis, per his he was told that he had a bowel obstruction?. On checking the patient CAT scan results were was no mention of bowel obstruction but only for constipation The patient was prescribed the MiraLAX, he is taking daily basis, he only had a bowel movement 2 days ago which was normal. He is denying any bleeding per rectum. Denies any fever or chills. He is denying any urinary symptoms. Emergency room course and medical decision making The patient will be started on IV fluids, for the pain, he will be given Fentanyl 50 mcg IV, Zofran 4 mg for the nausea Will check CBC, CMP, lipase, UA, repeat CT scan of abdomen pelvis with IV contrast. 04/29/23 18:53 04/29/23 22:02 We can The patient's workup revealed a stable hemoglobin at 7.5 The patient has history of anemia currently on iron probably that is causing his constipation. Normal white blood cell count, normal CMP and lipase. CT scan of abdomen and pelvis revealed in comparison to previous study in April 13 no significant interval change is noted. He has colonic diverticulosis but no diverticulitis. There is bilateral renal cortical cyst largest at the upper pole of right kidney measuring 48 x 40 mm and the largest 1 on the left midpole 48 x 35 mm. There is hypertensive and area 24 x 20 mm lower pole of the right kidney might be hemorrhagic cyst. Enlarged prostate. At present the patient is feeling hungry wants something to eat his pain is less he will be given a sandwich and some juice. I will also give him Dulcolax suppository and Dilaudid 0.5 mg IM. The above findings were discussed with the family at bedside both his , and his daughter. 04/29/23 23:39 Patient is feeling better after the Dilaudid shot. He had a Dulcolax suppository but no bowel movement. His vitals are stable he is wanting to go home. His abdominal pain/back pain could be secondary to the large kidney cysts that he has on both kidneys. I did recommend that the patient follow-up with a urologist. He will be prescribed Madison 5 mg to be taken 3 times a day as needed for severe pain only, he is aware that this medication can cause constipation. He will also be given a prescription for both Dulcolax tablets and Dulcolax suppositories to be taken on daily basis so that he can have regular bowel movements. The patient is to follow-up with his family physician, urologist. Follow-up as needed for any worsening symptoms - Departure Clinical Impression: Abdominal pain in male, Constipation by delayed colonic transit, Kidney cysts Condition: Stable Critical Care Time: No Referrals: AURY MANZO MD [Primary Care Provider] - Follow up/PCP as directed Instructions: Severe Abdominal Pain, Adult (DC) Additional Instructions: Rest Follow-up with your urologist in regard to the kidney cyst. Madison 5 mg/325 1 tablet every 6 hours as needed for severe pain for 3 days only. Dulcolax suppository and tablets for the constipation Prescriptions: Hydrocodone/Acetaminophen [Hydrocodone-Acetamin 5-325 mg] 1 tab PO Q6HPRN PRN #12 tablet MDD 4 PRN Reason: Pain Bisacodyl 10 mg [Dulcolax 10 MG SUPP] 10 mg MO STAT #12 supp.rect Bisacodyl 5 mg [Dulcolax 5 mg] 5 mg PO BID PRN 15 Days #30 PRN Reason: Constipation
[2023-04-29 19:37] LABS: Absolute Neutrophil Ct (ANC) 3.21 x10^3/uL (1.4-6.9); BASOPHIL % 0.2 % (0.0-0.4); Basophil (Absolute #) 0.01 x10^3/uL (0-0.4); Eosinophil % 1.6 % (0.00-5.0); Eosinophil (Absolute #) 0.08 x10^3/uL (0-0.5); Hematocrit 23.8 % (42-50); Hemoglobin 7.5 g/dL (12.5-18.0); IMMATURE GRAN # 0.05 x10^3u/L (0.00-0.03); Lymphocyte (Absolute #) 0.58 x10^3/uL (1.0-4.6); Lymphocytes % 11.7 % (24.0-44.0); Mean Cell Volume 93.3 fL (78-100); Mean Corpuscular Hemoglobin 29.4 pg (26-32); Mean Corpuscular Hgb Concent. 31.5 g/dL (32-36); Mean Platelet Volume 9.2 fL (7.5-11.0); Monocyte (Absolute #) 1.02 x10^3/uL (0.0-1.3); Monocytes % 20.6 % (0.0-12.0); Neutrophil % 64.9 % (36.0-66.0); Platelet Count 531 x10^3/uL (150-450); Red Blood Count 2.55 x10^6/uL (4.1-5.6)
[2023-04-29 19:51] LABS: ALBUMIN 3.1 g/dL (3.5-5.0); ANION GAP 12.7 MEQ/L (5-15); BILIRUBIN,TOTAL 0.3 mg/dL (0.2-1.3); Calcium 8.4 mg/dL (8.4-10.2); Creatinine 1 1.14 mg/dL (0.66-1.25); EST GLOMERULAR FILTRATION RATE 63.4 ML/MIN; Potassium 4.4 mmol/L (3.5-5.1); Total Protein 6.3 g/dL (6.3-8.2)
--- NOTE | 2023-04-29 21:03 | XRAY ---
CLINICAL HISTORY:Abdominal pain COMPARISON:Previous CT dated 04/22/2023. TECHNIQUE:CT scan of the abdomen and pelvis was performed without IV contrast. Coronal and sagittal reconstructions were also obtained. FINDINGS: Liver is normal size and shape and with regular margins. It measures 15.5 cm. No focal or diffuse parenchymal abnormality. No hepatic mass is identified. The portal vein, intrahepatic biliary radicals and the bile ducts are normal. Gall bladder appears normal with wall thickness. No radio opaque calculus or pericholecystic fluid is identified. Common bile duct appears normal. Pancreas appears normal. No peripancreatic fat stranding, pancreatic pseudocyst or peripancreatic fluid collection. Spleen normal in size, no mass seen. Both adrenal glands are unremarkable. Both kidneys are normal in size, shape and orientation. Both kidneys show simole unilocular cortical cysts, largest at the upper pole of right kidney measures 48 x 40 mm and the largest one on left at mid pole measures 48 x35 mm. A hyperdense area measuring 24 x 20 mm is noted along lower pole of right kidney medially, it might be a hemorrhagic cyst. An indeterminate 11 mm calcific density along upper pole of left kidney is visualized again. No calculi, mass or hydronephrosis seen on either side. Both ureters and urinary bladder appear normal. Stomach and small bowel loops are unremarkable. Caecum and ileocecal junction appear normal. Uncomplicated diverticulosis, no evidence of bowel obstruction or abnormal wall thickening. Prostate gland appears enlarged measuring 5.8 x 5.8 x 6.2 cm. Multiple phleboliths are identified again in pelvis. No evidence of significant enlargement of the mesenteric or retroperitoneal lymph nodes. Visualized thoracic and lumbar spine show marked degenerative changes in the form of extensive osteophyte formation and vacum phenomenon. No lytic or sclerotic bone lesions in visualized bones. Visualized lung bases are unremarkable. No pleural or pericardial effusion seen. Incidental note is made of marked atherosclerotic changes in major vessels. IMPRESSION: 1. In comparison to previous study dated 04/13/2023, no significant interval cahnge is noted in the radiological findings. 2. Colinic diverticulosis without signs of diverticulitis. 3. Bilateral renal cortical cysts are identified again, largest at upper pole of right kidney measures 48 x 40 mm and the largest one on left at mid pole measures 48 x35 mm. A hyperdense area measuring 24 x 20 mm is noted along lower pole of right kidney medially, it might be a hemorrhagic cyst. US correlation is suggested. 4. Enlarged prostate visualized again measuring 5.8 x 5.8 x 6.2 cm. Please correlate with US. 5. No acute abnormality noted in abdomen and pelvis. Electronically Signed by: Jonh Chinchilla MD. (04/29/2023 20:59:00 EST)
[2023-04-29] MEDS ORDERED: Dulcolax 10 MG SUPP PR ONE (22:00)
[2023-04-29] MEDS ORDERED: Hydromorphone 1 mg/ml Injection IM ONE (22:01)
[2023-04-29] MEDS ORDERED: Hydromorphone 1 mg/ml Injection ONE (22:50)
[2023-04-30 00:01] VITALS: BP 93/56; PULSE 91; RESP 20; O2SAT 90
== END 2023-04-30 00:10 | disposition home or self-care (01) ==
LOC: ED 17:09
DX: K59.01 Slow transit constipation (principal); R10.9 Unspecified abdominal pain; Q61.02 Congenital multiple renal cysts; R11.2 Nausea with vomiting, unspecified; E11.9 Type 2 diabetes mellitus without complications; I10 Essential (primary) hypertension; Z79.84 Long term (current) use of oral hypoglycemic drugs; Z79.891 Long term (current) use of opiate analgesic; Z79.899 Other long term (current) drug therapy
CPT/HCPCS: 36415; 74176; 80053; 83605; 83690; 85025; 96372; 99284; J1170; A9270-GY

== ENCOUNTER 2023-07-28 15:49 | Emergency (ER) | payer MEDICARE ==
--- NOTE | 2023-07-28 15:52 | ERPHSYRPT ---
- History of Present Illness Time Seen by Provider: 07/28/23 15:52 Source: patient, family Exam Limitations: no limitations Physician History: This is an 82-year-old white male patient of Dr. Manzo who was seen by [facility] urgent care earlier today and wrist x-ray and orbit x-ray were performed. I reviewed these outside urgent care facility x-rays. The right wrist x-ray is normal and it was read by the radiologist. The orbit x-ray with also read by the radiologist and I reviewed the report. Suspected fracture of the right zygomatic bone and anterior wall of maxillary sinus. There is right maxillary sinus opacification present. Patient denies any significant headache pain. However he does have ecchymosis around his right periorbital area and the right cheekbone. There is no obvious deformity present. Patient is sent to us to perform CT scan of the head and facial bones. Patient has a history of hypertension, hyperlipidemia, diabetes and prostate issues. Occurred: yesterday Reason for Fall: slipped, fell from standing pos Injuries/Pain Location: head, face Loss of Consciousness: no loss of consciousness Severity of Pain-Max: mild Severity of Pain-Current: mild Modifying Factors: Improves With: nothing Associated Symptoms (Fall): denies symptoms Allergies/Adverse Reactions: codeine [Codeine] Allergy (Mild, Verified 07/28/23 16:00) Home Medications: Atenolol 50 mg [Tenormin 50 mg] 50 mg PO DAILY 11/06/11 [History] Quinapril HCl 20 mg PO DAILY 11/06/11 [History] Amlodipine Besylate 2.5 mg PO DAILY 06/10/20 [History] Glipizide 5 mg [Glucotrol 5 MG] 5 mg PO DAILY 01/09/22 [History] Metformin HCl 500 mg [Glucophage 500 MG] 500 mg PO BID 01/09/22 [History] Pravastatin Sodium 80 mg PO DAILY 01/09/22 [History] Aspirin 81 gm Chew [Baby Aspirin 81 mg Chew] 2 tab PO DAILY 04/22/23 [History] Tamsulosin HCl 0.4 mg [Flomax 0.4 MG] 1 cap PO DAILY 04/22/23 [History] Hx Tetanus, Diphtheria Vaccination/Date Given: Yes Hx Influenza Vaccination/Date Given: Yes Hx Pneumococcal Vaccination/Date Given: Yes Travel Risk - International Travel Have you traveled outside of the country in past 3 weeks: No - Coronavirus Screening Are you exhibiting any of the following symptoms?: No Close contact with a COVID-19 positive Pt in past 14-21 Days: No - Vaccine Status Have you recieved a Covid-19 vaccination: Yes Contamination Consultant: Moderna - Vaccination Dates Date of 2cond Vaccination (if applicable): 08/02/20 Dates if Unknown: 2020 - Review of Systems Constitutional: No Symptoms Eyes: No Symptoms Ears, Nose, & Throat: No Symptoms Respiratory: No Symptoms Cardiac: No Symptoms Abdominal/Gastrointestinal: No Symptoms Genitourinary Symptoms: No Symptoms Musculoskeletal: No Symptoms Skin: Other (Right periorbital and right cheek ecchymosis without deformity) Neurological: No Symptoms Psychological: No Symptoms Endocrine: No Symptoms Hematologic/Lymphatic: No Symptoms Immunological/Allergic: No Symptoms All Other Systems: Reviewed and Negative - Past Medical History Pertinent Past Medical History: Yes Neurological History: No Pertinent History ENT History: Cataracts Cardiac History: Hypertension Respiratory History: No Pertinent History, Sleep Apnea Endocrine Medical History: Diabetes Type II Musculoskeletal History: Osteoarthritis GI Medical History: Hernia History: No Pertinent History Psycho-Social History: No Pertinent History Male Reproductive Disorders: Prostate Problems Other Medical History: . - Past Surgical History Past Surgical History: Yes Neuro Surgical History: No Pertinent History Cardiac: Cardiac Catheterization Respiratory: No Pertinent History Gastrointestinal: No Pertinent History, Hernia Repair Genitourinary: No Pertinent History Musculoskeletal: Joint Replacement, Orthopedic Surgery Male Surgical History: Prostate Surgery Other Surgical History: right shoulder cuff,left knee replacement,left heel spur,umbil.hernior. RIGHT TOTAL KNEE, rt femur - Social History Smoking Status: Former smoker Exposure to second hand smoke: No Drug Use: none Patient Lives Alone: No - Nursing Vital Signs Nursing Vital Signs: Initial Vital Signs Temperature 97.7 F 07/28/23 16:01 Pulse Rate 76 07/28/23 16:01 Respiratory Rate 19 07/28/23 16:01 Blood Pressure 133/53 07/28/23 16:01 O2 Sat by Pulse Oximetry 98 07/28/23 16:01 Pain Scale Pain Intensity 0 - [place] Coma Score Best Eye Response ([place]): (4) open spontaneously Best Verbal Response ([place]): (5) oriented Best Motor Response ([place]): (6) obeys commands [place] Total: 15 - Physical Exam General Appearance: no apparent distress, alert, anxiety Head Injury: no evidence of injury Eye Exam: PERRL/EOMI, eyes nml inspection, other (No evidence of eye muscle entrapment) ENT Exam: airway nml, evidence of ENT injury (Skin overlying the right periorbital and right zygomatic arch area shows ecchymosis without deformity) Neck Exam: supple, trachea midline, full range of motion, normal alignment, normal inspection Respiratory/Chest Exam: No chest tenderness, No respiratory distress Gastrointestinal Exam: No tenderness Rectal Exam: not done Back Exam: normal inspection, normal range of motion, No CVA tenderness, No vertebral tenderness Extremity Exam: normal inspection, normal range of motion, capillary refill <3 sec, pelvis stable Neurologic Exam: alert, oriented x 3, cooperative, keg header II-XII nml as tested, normal mood/affect, nml cerebellar function, nml station & gait, sensation nml Skin Exam: warm, dry, ecchymosis (Of the skin around the right periorbital region and overlying the right zygomatic arch) SpO2 Interpretation: normal O2 Delivery: Room Air - Course Nursing assessment & vital signs reviewed: Yes Ordered Tests: Active Orders 24 hr Category Date Time Status FACIAL BONES WO CONTRAST [CT] Stat Exams 07/28/23 15:54 Completed HEAD WITHOUT CONTRAST [CT] Stat Exams 07/28/23 15:54 Completed - Progress Progress: unchanged, re-examined Progress Note: 07/28/23 16:27 This patient's medical issue is 1 of low to moderate complexity. The level of complexity and the workup performed is based on review of the patient's past medical history, review of the patient's medication list, review the patient drug allergy list, history of present illness and physical findings on examination. CAT scan of the head and facial bones without contrast have been ordered. 07/28/23 17:[address] scan of the head and CT scan of the facial bones, both without contrast, were interpreted by the radiologist and I reviewed the impressions: CT scan of the head shows no intracranial abnormality. There is no skull fractures present. There is evidence of right chronic sinusitis. CT scan of facial bones shows no definite acute fracture of any facial bones. There is a lipoma of the left parotid gland and evidence of chronic mastoiditis. Counseled pt/family regarding: diagnosis, need for follow-up, rad results Medical Desision Making - Independent Historian Additional History obtained from: Spouse - Diagnostic Testing Diagnostic test were ordered, analyzed, and reviewed by me: Yes Radiological Interpretation: Reviewed by me, Teleradiologist Report - Risk of complications The pt has a mod risk of morbidity or mortality based on: Need for prescription drug management - Departure Departure Disposition: Home Clinical Impression: Opacification of right maxillary sinus, Chronic mastoiditis of both sides Condition: Stable Critical Care Time: No Referrals: AURY MANZO MD [Primary Care Provider] - Follow up/PCP as directed Additional Instructions: Take your antibiotics and other medication as prescribed. Call your primary care provider's office on 07/30/2023, to make arrangements for further evaluation management. Prescriptions: Amoxicillin 500 mg Cap [Amoxil 500 mg] 500 mg PO TID #30 cap
[2023-07-28 16:08] VITALS: RESP 19; TEMP 97.7
[2023-07-28 17:13] VITALS: BP 107/59; PULSE 90; O2SAT 95
--- NOTE | 2023-07-28 17:20 | XRAY ---
CLINICAL HISTORY: Fall injury TECHNIQUE: An axial non-contrast CT scan of the brain was performed from the skull base to the high parietal region. COMPARISON: Dx orbits dated 07-28-2023. FINDINGS: Prominent ventricles and extra-axial CSF spaces consistent with age-appropriate brain involutional changes. Bilateral hypodense areas are noted in the subcortical white matter, suggestive of microvascular ischemic changes. The rest of the cerebral parenchyma exhibits normal attenuation. [place]-white differentiation is well preserved. No midline shift was seen. The brainstem and cerebellum are normal in morphology and attenuation. No fracture was seen. 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 Mucosal thickening of the right maxillary sinus is noted, with associated thickening of the abreu. Decreased aeration of the bilateral mastoid cells with sclerotic changes consistent with chronic mastoiditis. IMPRESSION: 1. No acute intra-cranial findings 2. Age-appropriate brain involutional changes with white matter microvascular ischemic changes. 3. 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 4. Mucosal thickening of the right maxillary sinus with thickened abreu, consistent with chronic sinusitis. 5. Decreased aeration of the bilateral mastoid cells, consistent with chronic mastoiditis. Electronically Signed by: Jonh Chinchilla MD. (07/28/2023 17:15:16 EST)
--- NOTE | 2023-07-28 17:30 | XRAY ---
CLINICAL HISTORY: Fall injury TECHNIQUE: A non-contrast CT scan of the paranasal sinuses-facial bones was performed, with sagittal and coronal multiplanar reconstruction. COMPARISON: Dx orbits dated 07-28-2023 FINDINGS: Facial Bones: Unremarkable. Nasal Septum: Midline Turbinates: Thickening of the mucosa covering the left inferior turbinate. No evidence of elias bullosa or paradoxical curvature Uncinate Processes: No deviation or bulla formation O-M UNIT: Infundibula and hiatus semilunaris are widely patent. SINUSES: The frontal, sphenoid, left maxillary sinuses and ethmoid air cells are well pneumatized. Fovea Ethmoidalis: Normal position. Fovea ethmoidalis and cribriform plate are not low-lying Nasopharynx: Unremarkable. 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 Mucosal thickening of the right maxillary sinus is noted with thickened abreu. 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 No definite evidence of acute fracture 2. A well-defined incidental fat density lesion posterior to the left parotid gland, suggestive of lipoma. 3. Mucosal thickening of the right maxillary sinus 4. Decreased aeration of the bilateral mastoid cells, consistent with chronic mastoiditis 5. 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 (07/28/2023 17:25:27 EST)
== END 2023-07-28 17:50 | disposition home or self-care (01) ==
LOC: ED 15:49
DX: H70.13 Chronic mastoiditis, bilateral (principal); R93.0 Abnormal findings on diagnostic imaging of skull and head, not elsewhere classified; I10 Essential (primary) hypertension; E78.5 Hyperlipidemia, unspecified; E11.9 Type 2 diabetes mellitus without complications; Z79.84 Long term (current) use of oral hypoglycemic drugs; Z79.899 Other long term (current) drug therapy
CPT/HCPCS: 70450; 70486; 99283

== ENCOUNTER 2024-01-20 11:00 | Emergency (ER) | payer MEDICARE ==
[2024-01-20 11:26] VITALS: TEMP 98
--- NOTE | 2024-01-20 11:45 | ERPHSYRPT ---
- History of Present Illness Time Seen by Provider: 01/20/24 11:40 Historian: patient, family Exam Limitations: no limitations Patient Subjective Stated Complaint: pt states he has been having a burning sensation to his neck to his abd. pt states it is worse at night Triage Nursing Assessment: pt ambulated into the er; pt is axo x3; c/o epigastri c pain; pt states 1/10 burning pain to epigastric region; pt denies N/V/D; abd round, soft, nontender; active bowel sounds in all quads; skin PDW; no respiratory distress present; Physician History: pt had symptoms diagnosed with reflux after cardiac workup late last year with family reports negative cath for CAD. Saw pulmonary and placed on meds also for COPD. He is on omeprazole and finds that tums relieves this every time it happens. he had again today and resolved with no pain now. No N/V. No sobreath. CHest is clear Ht reg without M<. Abd soft nontender without peritoneal signs or masses, non distended. Tr edema ext. . Spouse is in ER as independent source for Hx confirmation. discussed risks/benefits of testing/Treatment with pt and spouse including EKG, CBC CMP, D Dimer, Trop, BNP, Lactate, lipase, IV, pepcid and protonix, and they wish to [proceed. they wish to [proceed, tehse are ordered. results discussed with pt and family. Timing/Duration: today Activities at Onset: none Quality: burning Abdominal Pain Onset Location: epigastric Severity of Pain-Max: moderate Severity of Pain-Current: none Modifying Factors: Improves With: antacids Previous symptoms: same symptoms as today, recently seen, recently treated Allergies/Adverse Reactions: codeine [Codeine] Allergy (Mild, Verified 01/20/24 11:16) Home Medications: Atenolol 50 mg [Tenormin 50 mg] 50 mg PO DAILY 11/06/11 [History] Quinapril HCl 20 mg PO DAILY 11/06/11 [History] Amlodipine Besylate 2.5 mg PO DAILY 06/10/20 [History] Glipizide 5 mg [Glucotrol 5 MG] 5 mg PO DAILY 01/09/22 [History] Metformin HCl 500 mg [Glucophage 500 MG] 500 mg PO BID 01/09/22 [History] Pravastatin Sodium 80 mg PO DAILY 01/09/22 [History] Aspirin 81 gm Chew [Baby Aspirin 81 mg Chew] 2 tab PO DAILY 04/22/23 [History] Tamsulosin HCl 0.4 mg [Flomax 0.4 MG] 1 cap PO DAILY 04/22/23 [History] Hx Tetanus, Diphtheria Vaccination/Date Given: Yes Hx Influenza Vaccination/Date Given: Yes Hx Pneumococcal Vaccination/Date Given: Yes Immunizations Up to Date: No Travel Risk - International Travel Have you traveled outside of the country in past 3 weeks: No - Emerging Infectious Disease Are you exhibiting symptoms associated with any current EIDs: Yes Symptoms: Abdominal Pain - Review of Systems Constitutional: No Fever, No Chills Eyes: No Symptoms Ears, Nose, & Throat: No Symptoms Respiratory: No Cough, No Dyspnea Cardiac: No Chest Pain, No Edema, No Syncope Abdominal/Gastrointestinal: No Abdominal Pain, No Nausea, No Vomiting, No Diarrhea Genitourinary Symptoms: No Dysuria Musculoskeletal: No Back Pain, No Neck Pain Skin: No Rash Neurological: No Dizziness, No Focal Weakness, No Sensory Changes Psychological: No Symptoms Endocrine: No Symptoms Hematologic/Lymphatic: No Symptoms Immunological/Allergic: No Symptoms All Other Systems: Reviewed and Negative - Past Medical History Pertinent Past Medical History: Yes Neurological History: No Pertinent History ENT History: Cataracts Cardiac History: Hypertension Respiratory History: No Pertinent History, Sleep Apnea Endocrine Medical History: Diabetes Type II Musculoskeletal History: Osteoarthritis GI Medical History: Hernia History: No Pertinent History Psycho-Social History: No Pertinent History Male Reproductive Disorders: Prostate Problems Other Medical History: . - Past Surgical History Past Surgical History: Yes Neuro Surgical History: No Pertinent History Cardiac: Cardiac Catheterization Respiratory: No Pertinent History Gastrointestinal: No Pertinent History, Hernia Repair Genitourinary: No Pertinent History Musculoskeletal: Joint Replacement, Orthopedic Surgery Male Surgical History: Prostate Surgery Other Surgical History: right shoulder cuff,left knee replacement,left heel spur,umbil.hernior. RIGHT TOTAL KNEE, rt femur - Social History Smoking Status: Former smoker Exposure to second hand smoke: No Drug Use: none Patient Lives Alone: No - Social Determinants of Health Will the patient participate in the screening: Yes Do you worry about a steady place to live?: No Do you have any problems with any of the following?: No known problems In the past 12 months,have you had to go without utilities?: No Transportation Issues: No Has anyone in your support network made you feel unsafe?: No Have you or anyone in your house had to go without enough: No - Nursing Vital Signs Nursing Vital Signs: Initial Vital Signs Temperature 98 F 01/20/24 11:17 Pulse Rate 91 H 01/20/24 11:17 Respiratory Rate 18 01/20/24 11:17 Blood Pressure 145/55 01/20/24 11:17 O2 Sat by Pulse Oximetry 98 01/20/24 11:17 Pain Scale Pain Intensity 0 - Physical Exam General Appearance: no apparent distress, alert Eye Exam: PERRL/EOMI, eyes nml inspection Ears, Nose, Throat Exam: normal ENT inspection, pharynx normal, moist mucous membranes Neck Exam: normal inspection, non-tender, supple, full range of motion Respiratory Exam: normal breath sounds, lungs clear, No respiratory distress Cardiovascular Exam: regular rate/rhythm, normal heart sounds Gastrointestinal/Abdomen Exam: soft, No tenderness, No mass Rectal Exam: deferred Back Exam: normal inspection, normal range of motion, No CVA tenderness, No vertebral tenderness Extremity Exam: normal inspection, normal range of motion, pelvis stable Neurologic Exam: alert, oriented x 3, cooperative, normal mood/affect, nml cerebellar function, sensation nml, No motor deficits Skin Exam: normal color, warm, dry SpO2 Interpretation: normal SpO2: 98 O2 Delivery: Room Air - Course Nursing assessment & vital signs reviewed: Yes EKG Interpreted by Me: Sinus Rhythm, Right [place] Deviation, LAFB, Right Bundle Branch Block, Non-specific ST Changes, Other (similar to EKG 2022 with some normalization of t waves now) Ordered Tests: Active Orders 24 hr Category Date Time Status EKG-ER Only STAT Care 01/20/24 11:51 Active IV Insertion STAT Care 01/20/24 11:51 Active BNPII [NT PRO BNPII] Stat Lab 01/20/24 12:10 Completed CBC W DIFF Stat Lab 01/20/24 12:10 Completed CMP Stat Lab 01/20/24 12:10 Completed D-DIMER QUANTITATIVE Stat Lab 01/20/24 12:10 Completed LIPASE Stat Lab 01/20/24 12:10 Completed Lactic Acid Stat Lab 01/20/24 11:51 Completed TROPONIN Q4H Lab 01/20/24 12:10 Completed TROPONIN Q4H Lab 01/20/24 16:00 Ordered TROPONIN Q4H Lab 01/20/24 20:00 Ordered Medication Summary Generic Name Dose Route Start Last Admin Trade Name Juliette PRN Reason Stop Dose Admin Sodium Chloride 1,000 mls @ 50 mls/hr 01/20/24 12:00 01/20/24 12:10 Sodium Chloride 0.9% 1000 Ml IV 02/19/24 11:59 50 mls/hr .Q20H TERENCE Administration Discontinued Medications Generic Name Dose Route Start Last Admin Trade Name Juliette PRN Reason Stop Dose Admin Famotidine 20 mg 01/20/24 11:51 01/20/24 12:10 Famotidine 20 Mg/1 Vial IV 01/20/24 11:52 20 mg STAT ONE Administration Famotidine Confirm 01/20/24 12:00 Famotidine 20 Mg/1 Vial Administered 01/20/24 12:01 Dose 20 mg IV .STK-MED ONE Pantoprazole Sodium 40 mg 01/20/24 11:51 01/20/24 12:10 Pantoprazole 40 Mg Vial IV 01/20/24 11:52 40 mg STAT ONE Administration Pantoprazole Sodium Confirm 01/20/24 12:00 Pantoprazole 40 Mg Vial Administered 01/20/24 12:01 Dose 40 mg IV .STK-MED ONE Lab/Rad Data: Laboratory Result Diagrams 01/20/24 12:10 01/20/24 12:10 Laboratory Results 01/20/24 01/20/24 01/20/24 Range/Units 12:10 12:10 12:10 WBC (4.23-9.07) x10^3/uL RBC (4.63-6.08) x10^6/uL Hgb (13.7-17.5) g/dL Hct (40.1-51.0) % MCV (79.0-92.2) fL MCH (25.7-32.2) pg MCHC (32.3-36.5) g/dL RDW (11.6-14.4) % Plt Count (163-337) x10^3/uL MPV (9.4-12.4) fL Gran % (34.0-67.9) % Immature Gran % (Auto) (0.001-0.429) % Nucleat RBC Rel Count (0.00-0.2) % Eos # (Auto) (0.04-0.54) x10^3/uL Immature Gran # (Auto) (0.001-0.031) x10^3u/L Absolute Lymphs (auto) (1.32-3.57) x10^3/uL Absolute Monos (auto) (0.30-0.82) x10^3/uL Absolute Nucleated RBC (0.00-0.012) x10^3u/L Lymphocytes % (21.8-53.1) % Monocytes % (5.3-12.2) % Eosinophils % (0.8-7.0) % Basophils % (0.2-1.2) % Absolute Granulocytes (1.78-5.38) x10^3/uL Basophils # (0.01-0.08) x10^3/uL D-Dimer 0.87 H* (0.0-0.50) mg/L Sodium (135-145) mmol/L Potassium (3.5-5.1) mmol/L Chloride (98-107) mmol/L Carbon Dioxide (22-30) mmol/L Anion Gap (5-15) MEQ/L BUN (9-20) mg/dL Creatinine (0.66-1.25) mg/dL Estimated GFR ML/MIN Glucose (74-106) mg/dL Lactic Acid (0.4-2.0) Calcium (8.4-10.2) mg/dL Total Bilirubin (0.2-1.3) mg/dL AST (17-59) U/L ALT (0-50) U/L Alkaline Phosphatase (38-126) U/L Troponin I 0.022 (0.000-0.033) ng/mL NT-Pro-B Natriuret Pep 1600 (<300) pg/mL Serum Total Protein (6.3-8.2) g/dL Albumin (3.5-5.0) g/dL Lipase (23-300) U/L 01/20/24 01/20/24 01/20/24 Range/Units 12:10 12:10 11:51 WBC 5.8 (4.23-9.07) x10^3/uL RBC 2.43 L (4.63-6.08) x10^6/uL Hgb 7.8 L (13.7-17.5) g/dL Hct 25.0 L (40.1-51.0) % MCV 102.9 H (79.0-92.2) fL MCH 32.1 (25.7-32.2) pg MCHC 31.2 L (32.3-36.5) g/dL RDW 14.6 H (11.6-14.4) % Plt Count 240 (163-337) x10^3/uL MPV 9.5 (9.4-12.4) fL Gran % 75.8 H (34.0-67.9) % Immature Gran % (Auto) 0.2 (0.001-0.429) % Nucleat RBC Rel Count 0.0 (0.00-0.2) % Eos # (Auto) 0.11 (0.04-0.54) x10^3/uL Immature Gran # (Auto) 0.01 (0.001-0.031) x10^3u/L Absolute Lymphs (auto) 0.91 L (1.32-3.57) x10^3/uL Absolute Monos (auto) 0.35 (0.30-0.82) x10^3/uL Absolute Nucleated RBC 0.00 (0.00-0.012) x10^3u/L Lymphocytes % 15.8 L (21.8-53.1) % Monocytes % 6.1 (5.3-12.2) % Eosinophils % 1.9 (0.8-7.0) % Basophils % 0.2 (0.2-1.2) % Absolute Granulocytes 4.38 (1.78-5.38) x10^3/uL Basophils # 0.01 (0.01-0.08) x10^3/uL D-Dimer (0.0-0.50) mg/L Sodium 139 (135-145) mmol/L Potassium 4.0 (3.5-5.1) mmol/L Chloride 109 H (98-107) mmol/L Carbon Dioxide 21 L (22-30) mmol/L Anion Gap 13.4 (5-15) MEQ/L BUN 38 H (9-20) mg/dL Creatinine 1.58 H (0.66-1.25) mg/dL Estimated GFR 42.6 ML/MIN Glucose 198 H (74-106) mg/dL Lactic Acid 1.8 (0.4-2.0) Calcium 9.1 (8.4-10.2) mg/dL Total Bilirubin 0.20 (0.2-1.3) mg/dL AST 23 (17-59) U/L ALT 15 (0-50) U/L Alkaline Phosphatase 85 (38-126) U/L Troponin I (0.000-0.033) ng/mL NT-Pro-B Natriuret Pep (<300) pg/mL Serum Total Protein 6.3 (6.3-8.2) g/dL Albumin 3.8 (3.5-5.0) g/dL Lipase 93 (23-300) U/L - Progress Progress: improved, re-examined Progress Note: 01/20/24 14:16 Discussed with pt and family elevated trop D dimer and BNP - he has no symptoms now and the trop has been at these levels previously and also may be affected by the RFTs and he has no shortness of breath to correlate to the BNP or D Dimer elevations. I have advised them that even with the hx of cath not requiring interventions and the cp relieved consistently by antacids there still could be a cardiac or PE or other serious cause, so further w/u and at least f/u is advised. They voice understanding and accept this risk in choosing oputpt f/u rather that further w/u in hospital or ER and have the capcity to make these choices. They decline additional GERD meds also at this time and prefer to f/u with their 01/20/24 14:30 Counseled pt/family regarding: lab results, diagnosis, need for follow-up Medical Desision Making - Independent Historian Additional History obtained from: Spouse - Discussion of managment Reviewed:: Test results, Need for additional workup Agreed on:: Treatment plan, need for follow-up - Diagnostic Testing Diagnostic test were ordered, analyzed, and reviewed by me: Yes - Risk of complications The pt has a mod risk of morbidity or mortality based on: Need for prescription drug management The pt has a high risk of morbidity or mortality based on: Decision regarding hospitilization or escalation of hosp level of care - Departure Departure Disposition: Home Clinical Impression: CHest pain resolved, Elevated troponin, Diabetes, Hx of gastroesophageal reflux (GERD) Condition: Good Critical Care Time: No Referrals: AURY MANZO MD [Primary Care Provider] - Follow up/PCP as directed Instructions: Dyspepsia (DC), Chest Pain, Adult ED, Acid Reflux, Adult and Adolescent ED, Chronic kidney disease Additional Instructions: Although you have the history of GERD and it fits the symptoms you have had, we have not yet determined the exact cause for your symptoms today and even though the heart workup has been good by your history, followup is important FAUSTO since that could have changed or another important condition might be found. SOme of the heart tests were elevated but have been before and should be followed up along with the kidney testing. You also should talk to your Dr. about additional meds to help control the stomach / reflux problem better. followup for your blood pressure as well and diabetes. Return meantime if symptoms return of if any other symptoms of concern occur.
[2024-01-20] MEDS ORDERED: Pepcid 20 MG VIAL IV ONE (12:00)
[2024-01-20] MEDS ORDERED: Sodium Chloride 0.9% 1000 ML 1,000 ML ONE (12:00)
[2024-01-20] MEDS ORDERED: PROTONIX 40 MG IV IV ONE (12:00)
[2024-01-20] MEDS: Pepcid 20 MG VIAL IV ONE (12:10)
[2024-01-20] MEDS: Sodium Chloride 0.9% 1000 ML 1,000 ML IV SCH (12:10)
[2024-01-20] MEDS: PROTONIX 40 MG IV IV ONE (12:10)
[2024-01-20 12:12] LABS: Absolute Neutrophil Ct (ANC) 4.38 x10^3/uL (1.78-5.38); BASOPHIL % 0.2 % (0.2-1.2); Basophil (Absolute #) 0.01 x10^3/uL (0.01-0.08); Eosinophil % 1.9 % (0.8-7.0); Eosinophil (Absolute #) 0.11 x10^3/uL (0.04-0.54); Hemoglobin 7.8 g/dL (13.7-17.5); IMMATURE GRAN # 0.01 x10^3u/L (0.001-0.031); IMMATURE GRAN % 0.2 % (0.001-0.429); Lymphocyte (Absolute #) 0.91 x10^3/uL (1.32-3.57); Lymphocytes % 15.8 % (21.8-53.1); Mean Cell Volume 102.9 fL (79.0-92.2); Mean Corpuscular Hemoglobin 32.1 pg (25.7-32.2); Mean Corpuscular Hgb Concent. 31.2 g/dL (32.3-36.5); Mean Platelet Volume 9.5 fL (9.4-12.4); Monocyte (Absolute #) 0.35 x10^3/uL (0.30-0.82); Monocytes % 6.1 % (5.3-12.2); Neutrophil % 75.8 % (34.0-67.9); Platelet Count 240 x10^3/uL (163-337); Red Blood Count 2.43 x10^6/uL (4.63-6.08); Red Cell Distribution Width 14.6 % (11.6-14.4); White Blood Count 5.8 x10^3/uL (4.23-9.07)
[2024-01-20 12:26] LABS: ALBUMIN 3.8 g/dL (3.5-5.0); ANION GAP 13.4 MEQ/L (5-15); BILIRUBIN,TOTAL 0.2 mg/dL (0.2-1.3); Calcium 9.1 mg/dL (8.4-10.2); Creatinine 1 1.58 mg/dL (0.66-1.25); EST GLOMERULAR FILTRATION RATE 42.6 ML/MIN; Total Protein 6.3 g/dL (6.3-8.2)
[2024-01-20 13:05] VITALS: RESP 16
[2024-01-20 14:22] VITALS: O2SAT 98
[2024-01-20 14:36] VITALS: BP 149/69; PULSE 80
== END 2024-01-20 14:50 | disposition home or self-care (01) ==
LOC: ED 11:00
DX: R07.9 Chest pain, unspecified (principal); R77.8 Other specified abnormalities of plasma proteins; E11.9 Type 2 diabetes mellitus without complications; K21.9 Gastro-esophageal reflux disease without esophagitis; I10 Essential (primary) hypertension; Z79.84 Long term (current) use of oral hypoglycemic drugs; Z79.899 Other long term (current) drug therapy
CPT/HCPCS: 36000; 36415; 80053; 83605; 83690; 83880; 84484; 85025; 85379; 93005; 96374; 96375; 99284

== ENCOUNTER 2024-02-04 04:08 | Emergency (ER) | payer MEDICARE ==
[2024-02-04 04:27] VITALS: TEMP 97
[2024-02-04] MEDS ORDERED: BABY ASPIRIN 81 MG CHEW ONE (04:29)
[2024-02-04] MEDS ORDERED: NITRO-BID 2% UD PACKETS ONE (04:30)
--- NOTE | 2024-02-04 04:32 | ERPHSYRPT ---
- History of Present Illness Time Seen by Provider: 02/04/24 04:20 Historian: patient Exam Limitations: no limitations Physician History: 83yo m presents via private vehicle for retrosternal chest pain. 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 Pt reportedly was seen 1wk ago for cp sx, was t ransferred to and had balloon vavluloplasty procedure, pt's daughter reports they were unable to place a stent b/c of the location of the blockage. Pt does endorse one episode of vomiting and diarrhea yesterday, does endorse some diaphoresis today. Timing/Duration: today Activities at Onset: rest Quality: dullness, sharpness Location: substernal Chest Pain Radiation: neck, back Severity of Pain-Max: moderate Severity of Pain-Current: moderate Modifying Factors: Improves With: nothing Prior Chest Pain/Cardiac Workup: cardiac cath, recently seen/treated, recent hospitalization Nitro Today/Relief: no nitro taken today Aspirin Treatment Today: no aspirin today Allergies/Adverse Reactions: codeine [Codeine] Allergy (Mild, Verified 02/04/24 04:27) Home Medications: Atenolol 50 mg [Tenormin 50 mg] 50 mg PO DAILY 11/06/11 [History] Quinapril HCl 20 mg PO DAILY 11/06/11 [History] Amlodipine Besylate 2.5 mg PO DAILY 06/10/20 [History] Glipizide 5 mg [Glucotrol 5 MG] 5 mg PO DAILY 01/09/22 [History] Metformin HCl 500 mg [Glucophage 500 MG] 500 mg PO BID 01/09/22 [History] Pravastatin Sodium 80 mg PO DAILY 01/09/22 [History] Aspirin 81 gm Chew [Baby Aspirin 81 mg Chew] 2 tab PO DAILY 04/22/23 [History] Tamsulosin HCl 0.4 mg [Flomax 0.4 MG] 1 cap PO DAILY 04/22/23 [History] Clopidogrel Bisulfate [Plavix] 75 mg PO DAILY 02/04/24 [History] Ferrous Sulfate 325 mg [Feosol 325 mg] 325 mg PO DAILY 02/04/24 [History] Nitroglycerin 0.4 mg (Ed) [Nitrostat 0.4 MG (ED)] 0.4 mg SL DAILY PRN PRN 02/04/24 [History] Hx Tetanus, Diphtheria Vaccination/Date Given: Yes Hx Influenza Vaccination/Date Given: Yes Hx Pneumococcal Vaccination/Date Given: Yes Travel Risk - Emerging Infectious Disease Are you exhibiting symptoms associated with any current EIDs: Yes Symptoms: Abdominal Pain - Review of Systems Constitutional: No Symptoms Respiratory: No Dyspnea, No Stridor, No Wheezing Cardiac: Chest Pain, No Edema, No Palpitations, No Syncope Abdominal/Gastrointestinal: Vomiting, Diarrhea, No Nausea - Past Medical History Pertinent Past Medical History: Yes Neurological History: No Pertinent History ENT History: Cataracts Cardiac History: Hypertension Respiratory History: No Pertinent History, Sleep Apnea Endocrine Medical History: Diabetes Type II Musculoskeletal History: Osteoarthritis GI Medical History: Hernia History: No Pertinent History Psycho-Social History: No Pertinent History Male Reproductive Disorders: Prostate Problems Other Medical History: . - Past Surgical History Past Surgical History: Yes Neuro Surgical History: No Pertinent History Cardiac: Cardiac Catheterization Respiratory: No Pertinent History Gastrointestinal: No Pertinent History, Hernia Repair Genitourinary: No Pertinent History Musculoskeletal: Joint Replacement, Orthopedic Surgery Male Surgical History: Prostate Surgery Other Surgical History: right shoulder cuff,left knee replacement,left heel spur,umbil.hernior. RIGHT TOTAL KNEE, rt femur - Social History Smoking Status: Former smoker Exposure to second hand smoke: No Drug Use: none Patient Lives Alone: No - Social Determinants of Health Will the patient participate in the screening: Yes Do you worry about a steady place to live?: No In the past 12 months,have you had to go without utilities?: No Transportation Issues: No Has anyone in your support network made you feel unsafe?: No Have you or anyone in your house had to go without enough: No - Nursing Vital Signs Nursing Vital Signs: Initial Vital Signs Temperature 97 F 02/04/24 04:09 Pulse Rate 96 H 02/04/24 04:09 Blood Pressure 131/67 02/04/24 04:09 O2 Sat by Pulse Oximetry 99 02/04/24 04:09 Pain Scale Pain Intensity 6 - Physical Exam General Appearance: no apparent distress, alert Respiratory Exam: normal breath sounds, lungs clear, airway intact, No chest tenderness, No respiratory distress Cardiovascular Exam: normal heart sounds, normal peripheral pulses, tachycardia Gastrointestinal/Abdomen Exam: soft, normal bowel sounds, No tenderness, No distention - Course EKG Interpreted by Me: RATE (99), Sinus Tach, Ischemic ST-T changes (depressions in leads I, V3, V4, V5, V6), Other (qtcb [id number]) Ordered Tests: Active Orders 24 hr Category Date Time Status CHEST 1 VIEW (PORTABLE) Stat Exams 02/04/24 04:25 Taken CBC W DIFF Stat Lab 02/04/24 04:30 Completed CMP Stat Lab 02/04/24 04:30 Completed MAGNESIUM Stat Lab 02/04/24 04:40 Completed NT PRO BNPII Stat Lab 02/04/24 04:30 Completed PROTIME WITH INR Stat Lab 02/04/24 04:30 Completed PTT Q4H Lab 02/04/24 09:15 Ordered PTT Q4H Lab 02/04/24 13:15 Ordered PTT Q4H Lab 02/04/24 17:15 Ordered PTT Q4H Lab 02/04/24 21:15 Ordered PTT Stat Lab 02/04/24 04:30 Completed TROPONIN Q4H Lab 02/04/24 04:30 Completed TROPONIN Q4H Lab 02/04/24 08:30 Ordered TROPONIN Q4H Lab 02/04/24 12:30 Ordered Medication Summary Discontinued Medications Generic Name Dose Route Start Last Admin Trade Name Santosq PRN Reason Stop Dose Admin Aspirin 324 mg 02/04/24 04:24 02/04/24 04:34 Aspirin 81 Mg Tab.Chew PO 02/04/24 04:25 324 mg STAT ONE Administration Aspirin Confirm 02/04/24 04:29 Aspirin 81 Mg Tab.Chew Administered 02/04/24 04:30 Dose 324 mg .ROUTE .STK-MED ONE Heparin Sodium (Beef Lung) 4,800 unit 02/04/24 05:13 02/04/24 05:19 Heparin 5000 Units/0.5 Ml 5,000 Unit/0.5 Ml Syr 60 unit/kg (4800 unit) 02/04/24 05:14 4,800 unit IV Administration STAT STA Heparin Sodium (Beef Lung) Confirm 02/04/24 05:16 Heparin 5000 Units/0.5 Ml 5,000 Unit/0.5 Ml Syr Administered 02/04/24 05:17 Dose 5,000 unit .ROUTE .STK-MED ONE Heparin Sodium/Dextrose 25,000 units in 250 mls @ 9.516 mls/hr 02/04/24 05:30 02/04/24 05:20 Heparin 25,000 Units/D5w: Use Order Set Rekha IV 03/05/24 05:29 12 units/kg/hr .Q24H TERENCE 9.516 mls/hr Administration Protocol 12 UNITS/KG/HR Heparin Sodium/Dextrose Confirm 02/04/24 05:16 Heparin 25,000 Units/D5w: Use Order Set Rekha Administered 02/04/24 05:17 Dose 25,000 units in 250 mls @ ud IV .STK-MED ONE Nitroglycerin 1 gm 02/04/24 04:24 02/04/24 04:38 Nitroglycerin 1 Gm Packet TOP 02/04/24 04:25 1 gm STAT ONE Administration Nitroglycerin Confirm 02/04/24 04:30 Nitroglycerin 1 Gm Packet Administered 02/04/24 04:31 Dose 1 gm .ROUTE .STK-MED ONE Lab/Rad Data: Laboratory Result Diagrams 02/04/24 04:30 02/04/24 04:30 Laboratory Results 02/04/24 02/04/24 02/04/24 Range/Units 04:40 04:30 04:30 WBC (4.23-9.07) x10^3/uL RBC (4.63-6.08) x10^6/uL Hgb (13.7-17.5) g/dL Hct (40.1-51.0) % MCV (79.0-92.2) fL MCH (25.7-32.2) pg MCHC (32.3-36.5) g/dL RDW (11.6-14.4) % Plt Count (163-337) x10^3/uL MPV (9.4-12.4) fL Gran % (34.0-67.9) % Immature Gran % (Auto) (0.001-0.429) % Nucleat RBC Rel Count (0.00-0.2) % Eos # (Auto) (0.04-0.54) x10^3/uL Immature Gran # (Auto) (0.001-0.031) x10^3u/L Absolute Lymphs (auto) (1.32-3.57) x10^3/uL Absolute Monos (auto) (0.30-0.82) x10^3/uL Absolute Nucleated RBC (0.00-0.012) x10^3u/L Lymphocytes % (21.8-53.1) % Monocytes % (5.3-12.2) % Eosinophils % (0.8-7.0) % Basophils % (0.2-1.2) % Absolute Granulocytes (1.78-5.38) x10^3/uL Basophils # (0.01-0.08) x10^3/uL PT 11.1 (9.4-12.5) SECONDS INR 1.02 (0.8-3.0) APTT 28.2 (25.1-36.5) SECONDS Sodium (135-145) mmol/L Potassium (3.5-5.1) mmol/L Chloride (98-107) mmol/L Carbon Dioxide (22-30) mmol/L Anion Gap (5-15) MEQ/L BUN (9-20) mg/dL Creatinine (0.66-1.25) mg/dL Estimated GFR ML/MIN Glucose (74-106) mg/dL Calcium (8.4-10.2) mg/dL Magnesium 1.8 (1.6-2.3) mg/dL Total Bilirubin (0.2-1.3) mg/dL AST (17-59) U/L ALT (0-50) U/L Alkaline Phosphatase (38-126) U/L Troponin I 0.398 H* (0.000-0.033) ng/mL NT-Pro-B Natriuret Pep 4780 (<300) pg/mL Serum Total Protein (6.3-8.2) g/dL Albumin (3.5-5.0) g/dL 02/04/24 02/04/24 Range/Units 04:30 04:30 WBC 9.7 H (4.23-9.07) x10^3/uL RBC 2.27 L (4.63-6.08) x10^6/uL Hgb 7.1 L (13.7-17.5) g/dL Hct 22.5 L (40.1-51.0) % MCV 99.1 H (79.0-92.2) fL MCH 31.3 (25.7-32.2) pg MCHC 31.6 L (32.3-36.5) g/dL RDW 13.8 (11.6-14.4) % Plt Count 300 (163-337) x10^3/uL MPV 9.7 (9.4-12.4) fL Gran % 62.4 (34.0-67.9) % Immature Gran % (Auto) 0.3 (0.001-0.429) % Nucleat RBC Rel Count 0.0 (0.00-0.2) % Eos # (Auto) 0.16 (0.04-0.54) x10^3/uL Immature Gran # (Auto) 0.03 (0.001-0.031) x10^3u/L Absolute Lymphs (auto) 2.36 (1.32-3.57) x10^3/uL Absolute Monos (auto) 1.06 H (0.30-0.82) x10^3/uL Absolute Nucleated RBC 0.00 (0.00-0.012) x10^3u/L Lymphocytes % 24.4 (21.8-53.1) % Monocytes % 11.0 (5.3-12.2) % Eosinophils % 1.7 (0.8-7.0) % Basophils % 0.2 (0.2-1.2) % Absolute Granulocytes 6.04 H (1.78-5.38) x10^3/uL Basophils # 0.02 (0.01-0.08) x10^3/uL PT (9.4-12.5) SECONDS INR (0.8-3.0) APTT (25.1-36.5) SECONDS Sodium 137 (135-145) mmol/L Potassium 5.0 (3.5-5.1) mmol/L Chloride 107 (98-107) mmol/L Carbon Dioxide 18 L (22-30) mmol/L Anion Gap 16.8 H (5-15) MEQ/L BUN 35 H (9-20) mg/dL Creatinine 1.50 H (0.66-1.25) mg/dL Estimated GFR 45.3 ML/MIN Glucose 105 (74-106) mg/dL Calcium 8.8 (8.4-10.2) mg/dL Magnesium (1.6-2.3) mg/dL Total Bilirubin 0.40 (0.2-1.3) mg/dL AST 24 (17-59) U/L ALT 20 (0-50) U/L Alkaline Phosphatase 111 (38-126) U/L Troponin I (0.000-0.033) ng/mL NT-Pro-B Natriuret Pep (<300) pg/mL Serum Total Protein 5.7 L (6.3-8.2) g/dL Albumin 3.5 (3.5-5.0) g/dL - Progress Progress Note: 02/04/24 04:48 pt given 324mg aspirin, 1 inch nitro paste 02/04/24 05:00 initial trop elevated at 0.395 02/04/24 05:14 diagnosed w/ NSTEMI - i discussed ER to ER transfer w/ Dr Chinchilla at [facility] who accepts order placed for weight based heparin bolus and drip will arrange transfer at this time Medical Desision Making - Diagnostic Testing Diagnostic test were ordered, analyzed, and reviewed by me: Yes Radiological Interpretation: Interpreted by me, Reviewed by me - Risk of complications The pt has a high risk of morbidity or mortality based on: Decision regarding hospitilization or escalation of hosp level of care - Departure Departure Disposition: Transfer Clinical Impression: NSTEMI (non-ST elevated myocardial infarction) Anemia Qualifiers: Anemia type: unspecified type Qualified Code(s): D64.9 - Anemia, unspecified Condition: Stable Critical Care Time: No Referrals: AURY MANZO MD [Primary Care Provider] - Follow up/PCP as directed
[2024-02-04 04:33] LABS: Absolute Neutrophil Ct (ANC) 6.04 x10^3/uL (1.78-5.38); BASOPHIL % 0.2 % (0.2-1.2); Basophil (Absolute #) 0.02 x10^3/uL (0.01-0.08); Eosinophil % 1.7 % (0.8-7.0); Eosinophil (Absolute #) 0.16 x10^3/uL (0.04-0.54); Hematocrit 22.5 % (40.1-51.0); Hemoglobin 7.1 g/dL (13.7-17.5); IMMATURE GRAN # 0.03 x10^3u/L (0.001-0.031); IMMATURE GRAN % 0.3 % (0.001-0.429); Lymphocyte (Absolute #) 2.36 x10^3/uL (1.32-3.57); Lymphocytes % 24.4 % (21.8-53.1); Mean Cell Volume 99.1 fL (79.0-92.2); Mean Corpuscular Hemoglobin 31.3 pg (25.7-32.2); Mean Corpuscular Hgb Concent. 31.6 g/dL (32.3-36.5); Mean Platelet Volume 9.7 fL (9.4-12.4); Monocyte (Absolute #) 1.06 x10^3/uL (0.30-0.82); Neutrophil % 62.4 % (34.0-67.9); Platelet Count 300 x10^3/uL (163-337); Red Blood Count 2.27 x10^6/uL (4.63-6.08); Red Cell Distribution Width 13.8 % (11.6-14.4); White Blood Count 9.7 x10^3/uL (4.23-9.07)
[2024-02-04] MEDS: BABY ASPIRIN 81 MG CHEW PO ONE (04:34)
[2024-02-04] MEDS: NITRO-BID 2% UD PACKETS TOP ONE (04:38)
[2024-02-04 04:48] LABS: ALBUMIN 3.5 g/dL (3.5-5.0); ANION GAP 16.8 MEQ/L (5-15); BILIRUBIN,TOTAL 0.4 mg/dL (0.2-1.3); Calcium 8.8 mg/dL (8.4-10.2); Creatinine 1 1.5 mg/dL (0.66-1.25); EST GLOMERULAR FILTRATION RATE 45.3 ML/MIN; Total Protein 5.7 g/dL (6.3-8.2)
[2024-02-04 04:49] LABS: INR 1.02 (0.8-3.0); PROTIME 11.1 SECONDS (9.4-12.5); PTT 28.2 SECONDS (25.1-36.5)
[2024-02-04] MEDS ORDERED: HEPARIN 5000 UNITS/0.5 ML (HIGH RISK MED) ONE (05:16)
[2024-02-04] MEDS ORDERED: Heparin 25,000 units/D5W: USE ORDER SET PROTO 25,000 UNITS/250 ML BAG IV ONE (05:16)
[2024-02-04] MEDS: HEPARIN 5000 UNITS/0.5 ML (HIGH RISK MED) IV STA (05:19)
[2024-02-04] MEDS: Heparin 25,000 units/D5W: USE ORDER SET PROTO 25,000 UNITS/250 ML BAG IV SCH (05:20)
[2024-02-04 05:23] LABS: TROPONIN 0.398 ng/mL (0.000-0.033)
[2024-02-04 06:08] VITALS: BP 112/55; PULSE 92; RESP 27; O2SAT 99
--- NOTE | 2024-02-04 08:18 | XRAY ---
Indication: Chest pain. Comparison: November 29, 2023 Portable chest remains hyperinflated with new minimal left costophrenic angle subsegmental atelectasis/scarring. Remaining heart and right lung unremarkable. Bony thorax intact again with osteopenia, degenerative changes, and old left rib fractures.
== END 2024-02-04 06:34 | disposition short-term general hospital (02) ==
LOC: ED 04:08
DX: I21.4 Non-ST elevation (NSTEMI) myocardial infarction (principal); D64.9 Anemia, unspecified; R07.9 Chest pain, unspecified; I10 Essential (primary) hypertension; E11.9 Type 2 diabetes mellitus without complications; Z79.02 Long term (current) use of antithrombotics/antiplatelets; Z79.84 Long term (current) use of oral hypoglycemic drugs; Z79.899 Other long term (current) drug therapy
CPT/HCPCS: 36415; 71045; 80053; 83735; 83880; 84484; 85025; 85610; 85730; 96374; 99284; J1644; A9270-GY

== ENCOUNTER 2024-03-05 13:32 | Emergency (ER) | payer MEDICARE ==
--- NOTE | 2024-03-05 13:38 | ERPHSYRPT ---
- History of Present Illness Time Seen by Provider: 03/05/24 13:38 Source: patient, family, old records Exam Limitations: no limitations Physician History: This is an obese 83-year-old white male patient of Dr. Manzo who arrives by private vehicle escorted by his . Patient had labs drawn today and was found to have a hemoglobin of 6.1. On 02/22/2024 the patient's hemoglobin was 8.9. I reviewed those outpatient study results. I also reviewed the chest x- ray report from 02/04/2024 and twelve-lead EKG report from 02/05/2024. The patient did notice yesterday an episode of significant central sharp substernal chest pain that did not radiate. He took a nitroglycerin and it resolved his pain and the pain has not returned in his chest. He has no abdominal pain but he did notice a very dark loose stool today. Patient was notified that his hemoglobin was now 6.1. His white blood cell count was normal as was his platelet count. Patient does have a history of chronic anemia. Approximately 2 weeks ago the patient had a gastric ulcer which was repaired surgically per his report. He was then transferred to another hospital ([facility]) where colonoscopy was performed and there was a "cluster" of tissue requiring cauterization. Patient's hemoglobin at discharge was 8.2. In the last 2 to 3 weeks he has received blood transfusions. Patient has a history of hyperlipidemia and hypertension. He is on iron sulfate. He has also been on Plavix in the past. Timing/Duration: today Severity: moderate Associated Symptoms: chest pain (Last night but none today), weakness, No nausea, No vomiting, No abdominal pain, No shortness of breath Allergies/Adverse Reactions: codeine [Codeine] Allergy (Mild, Verified 03/05/24 14:10) Home Medications: Atenolol 50 mg [Tenormin 50 mg] 25 mg PO DAILY 11/06/11 [History] Metformin HCl 500 mg [Glucophage 500 MG] 500 mg PO BID 01/09/22 [History] Aspirin 81 gm Chew [Baby Aspirin 81 mg Chew] 81 mg PO DAILY 04/22/23 [History] Tamsulosin HCl 0.4 mg [Flomax 0.4 MG] 1 cap PO DAILY 04/22/23 [History] Clopidogrel Bisulfate [Plavix] 75 mg PO DAILY 02/04/24 [History] Nitroglycerin 0.4 mg (Ed) [Nitrostat 0.4 MG (ED)] 0.4 mg SL DAILY PRN PRN 02/04/24 [History] Albuterol Sulfate [Proair Digihaler] 2 inh PO Q4H PRN 03/05/24 [History] Atorvastatin Calcium [Lipitor] 80 mg PO DAILY 03/05/24 [History] Docusate Sodium 100 mg PO DAILY 03/05/24 [History] Ferrous Sulfate 325 mg [Feosol 325 mg] 325 mg PO BID 03/05/24 [History] Loratadine 10 mg [Claritin 10 mg] 10 mg PO DAILY 03/05/24 [History] PANTOPRAZOLE 40 mg Tablet [Protonix 40MG Tablet] 40 mg PO BID 03/05/24 [History] Potassium Chloride 10 meq PO DAILY 03/05/24 [History] Sucralfate 1 gm [Carafate 1 GM] 1 g PO QID 03/05/24 [History] Hx Tetanus, Diphtheria Vaccination/Date Given: Yes Hx Influenza Vaccination/Date Given: Yes Hx Pneumococcal Vaccination/Date Given: Yes Travel Risk - International Travel Have you traveled outside of the country in past 3 weeks: No - Emerging Infectious Disease Are you exhibiting symptoms associated with any current EIDs: Yes Symptoms: Abdominal Pain - Review of Systems Constitutional: Weakness (Mild) Eyes: No Symptoms Ears, Nose, & Throat: No Symptoms Respiratory: No Symptoms Cardiac: Chest Pain (Last night but none today) Abdominal/Gastrointestinal: No Symptoms Genitourinary Symptoms: No Symptoms Musculoskeletal: No Symptoms Skin: No Symptoms Neurological: No Symptoms Psychological: No Symptoms Endocrine: No Symptoms Hematologic/Lymphatic: No Symptoms Immunological/Allergic: No Symptoms All Other Systems: Reviewed and Negative - Past Medical History Pertinent Past Medical History: Yes Neurological History: No Pertinent History ENT History: Cataracts Cardiac History: Hypertension Respiratory History: No Pertinent History, Sleep Apnea Endocrine Medical History: Diabetes Type II Musculoskeletal History: Osteoarthritis GI Medical History: Hernia History: No Pertinent History Psycho-Social History: No Pertinent History Male Reproductive Disorders: Prostate Problems Other Medical History: . - Past Surgical History Past Surgical History: Yes Neuro Surgical History: No Pertinent History Cardiac: Cardiac Catheterization Respiratory: No Pertinent History Gastrointestinal: No Pertinent History, Hernia Repair Genitourinary: No Pertinent History Musculoskeletal: Joint Replacement, Orthopedic Surgery Male Surgical History: Prostate Surgery Other Surgical History: right shoulder cuff,left knee replacement,left heel spur,umbil.hernior. RIGHT TOTAL KNEE, rt femur - Social History Smoking Status: Former smoker Exposure to second hand smoke: No Drug Use: none Patient Lives Alone: No - Social Determinants of Health Will the patient participate in the screening: Yes Do you worry about a steady place to live?: No In the past 12 months,have you had to go without utilities?: No Transportation Issues: No Has anyone in your support network made you feel unsafe?: No Have you or anyone in your house had to go without enough: No - Nursing Vital Signs Nursing Vital Signs: Initial Vital Signs Temperature 97.6 F 03/05/24 13:58 Pulse Rate 95 H 03/05/24 13:58 Respiratory Rate 21 03/05/24 13:58 Blood Pressure 119/70 03/05/24 13:58 O2 Sat by Pulse Oximetry 100 03/05/24 13:58 Pain Scale Pain Intensity 0 - Physical Exam General Appearance: no apparent distress, alert, obese Eye Exam: PERRL/EOMI, eyes nml inspection Ears, Nose, Throat Exam: normal ENT inspection, moist mucous membranes Neck Exam: normal inspection, non-tender, supple, full range of motion Respiratory Exam: normal breath sounds, lungs clear, airway intact, No chest tenderness, No respiratory distress Cardiovascular Exam: regular rate/rhythm, normal heart sounds, normal peripheral pulses Gastrointestinal/Abdomen Exam: soft, normal bowel sounds, No tenderness Rectal Exam: not done Back Exam: normal inspection, normal range of motion, No CVA tenderness, No vertebral tenderness Extremity Exam: normal inspection, normal range of motion, pelvis stable Neurologic Exam: alert, oriented x 3, cooperative, oncology physician II-XII nml as tested, sensation nml Skin Exam: normal color, warm, dry Lymphatic Exam: No adenopathy SpO2 Interpretation: normal O2 Delivery: Room Air - Course Nursing assessment & vital signs reviewed: Yes EKG Interpreted by Me: RATE (98), LAFB, prolonged QT interval, Right Bundle Branch Block, Other (Accelerated junctional rhythm. QTc 614. No acute ischemic changes. No change from twelve-lead EKG dated 02/04/2024) Ordered Tests: Active Orders 24 hr Category Date Time Status IV Insertion STAT Care 03/05/24 14:04 Active ABDOMEN AND PELVIS W/0 CONTRAS [CT] Stat Exams 03/05/24 14:19 Completed CBC W DIFF Stat Lab 03/05/24 14:40 Completed CMP Stat Lab 03/05/24 14:40 Completed Occult Blood-Fecal Screen (Diagnostic) [OB-FECAL SCREEN Lab 03/05/24 Ordered ] Stat PROTIME WITH INR Stat Lab 03/05/24 15:45 Completed TROPONIN Q4H Lab 03/05/24 14:30 Completed TROPONIN Q4H Lab 03/05/24 18:30 Ordered TROPONIN Q4H Lab 03/05/24 22:30 Ordered UA W/RFX UR CULTURE Stat Lab 03/05/24 16:29 Completed Medication Summary Generic Name Dose Route Start Last Admin Trade Name Freq PRN Reason Stop Dose Admin Sodium Chloride 1,000 mls @ 50 mls/hr 03/05/24 14:15 Sodium Chloride 0.9% 1000 Ml IV 04/04/24 14:14 .Q20H TERENCE Discontinued Medications Generic Name Dose Route Start Last Admin Trade Name Freq PRN Reason Stop Dose Admin Pantoprazole Sodium 40 mg 03/05/24 18:02 Pantoprazole 40 Mg Vial IV 03/05/24 18:03 STAT ONE Lab/Rad Data: Laboratory Result Diagrams 03/05/24 14:40 03/05/24 14:40 Laboratory Results 03/05/24 03/05/24 03/05/24 Range/Units 16:29 15:50 15:50 WBC (4.23-9.07) x10^3/uL RBC (4.63-6.08) x10^6/uL Hgb (13.7-17.5) g/dL Hct (40.1-51.0) % MCV (79.0-92.2) fL MCH (25.7-32.2) pg MCHC (32.3-36.5) g/dL RDW (11.6-14.4) % Plt Count (163-337) x10^3/uL MPV (9.4-12.4) fL Gran % (34.0-67.9) % Immature Gran % (Auto) (0.001-0.429) % Nucleat RBC Rel Count (0.00-0.2) % Eos # (Auto) (0.04-0.54) x10^3/uL Immature Gran # (Auto) (0.001-0.031) x10^3u/L Absolute Lymphs (auto) (1.32-3.57) x10^3/uL Absolute Monos (auto) (0.30-0.82) x10^3/uL Absolute Nucleated RBC (0.00-0.012) x10^3u/L Lymphocytes % (21.8-53.1) % Monocytes % (5.3-12.2) % Eosinophils % (0.8-7.0) % Basophils % (0.2-1.2) % Absolute Granulocytes (1.78-5.38) x10^3/uL Basophils # (0.01-0.08) x10^3/uL PT (9.4-12.5) SECONDS INR (0.8-3.0) Sodium (135-145) mmol/L Potassium (3.5-5.1) mmol/L Chloride (98-107) mmol/L Carbon Dioxide (22-30) mmol/L Anion Gap (5-15) MEQ/L BUN (9-20) mg/dL Creatinine (0.66-1.25) mg/dL Estimated GFR ML/MIN Glucose (74-106) mg/dL Calcium (8.4-10.2) mg/dL Total Bilirubin (0.2-1.3) mg/dL AST (17-59) U/L ALT (0-50) U/L Alkaline Phosphatase (38-126) U/L Troponin I (0.000-0.033) ng/mL Serum Total Protein (6.3-8.2) g/dL Albumin (3.5-5.0) g/dL Urine Color Yellow (Yellow) Urine Appearance Clear (Clear) Urine pH 5.0 (4.6-8.0) Ur Specific Napoleon 1.015 (1.005-1.030) Urine Protein 30 (Negative) Urine Glucose (UA) Negative (Negative) mg/dL Urine Ketones Negative (Negative) Urine Blood Negative (Negative) Urine Nitrite Negative (Negative) Urine Bilirubin Negative (Negative) Urine Urobilinogen 0.2 (0.2) mg/dL Ur Leukocyte Esterase Negative (Negative) U Hyaline Cast (Auto) NONE SEEN (0-2) /LPF Urine Microscopic RBC 0-2 (0-5) /HPF Urine Microscopic WBC 0-2 (0-5) /HPF Ur Epithelial Cells None Seen (None Seen) /HPF Urine Bacteria None Seen (None Seen) /HPF Urine Culture Reflexed NO (NO) ABO Group Rh Factor Antibody Screen (NEGATIVE) Crossmatch COMPATIBLE COMPATIBLE (COMPATIBLE) 03/05/24 03/05/24 03/05/24 Range/Units 15:50 15:45 14:40 WBC (4.23-9.07) x10^3/uL RBC (4.63-6.08) x10^6/uL Hgb (13.7-17.5) g/dL Hct (40.1-51.0) % MCV (79.0-92.2) fL MCH (25.7-32.2) pg MCHC (32.3-36.5) g/dL RDW (11.6-14.4) % Plt Count (163-337) x10^3/uL MPV (9.4-12.4) fL Gran % (34.0-67.9) % Immature Gran % (Auto) (0.001-0.429) % Nucleat RBC Rel Count (0.00-0.2) % Eos # (Auto) (0.04-0.54) x10^3/uL Immature Gran # (Auto) (0.001-0.031) x10^3u/L Absolute Lymphs (auto) (1.32-3.57) x10^3/uL Absolute Monos (auto) (0.30-0.82) x10^3/uL Absolute Nucleated RBC (0.00-0.012) x10^3u/L Lymphocytes % (21.8-53.1) % Monocytes % (5.3-12.2) % Eosinophils % (0.8-7.0) % Basophils % (0.2-1.2) % Absolute Granulocytes (1.78-5.38) x10^3/uL Basophils # (0.01-0.08) x10^3/uL PT 11.1 (9.4-12.5) SECONDS INR 1.02 (0.8-3.0) Sodium 143 (135-145) mmol/L Potassium 4.1 (3.5-5.1) mmol/L Chloride 116 H (98-107) mmol/L Carbon Dioxide 15 L* (22-30) mmol/L Anion Gap 15.4 H (5-15) MEQ/L BUN 42 H (9-20) mg/dL Creatinine 1.52 H (0.66-1.25) mg/dL Estimated GFR 44.6 ML/MIN Glucose 115 H (74-106) mg/dL Calcium 9.0 (8.4-10.2) mg/dL Total Bilirubin 0.40 (0.2-1.3) mg/dL AST 19 (17-59) U/L ALT 21 (0-50) U/L Alkaline Phosphatase 97 (38-126) U/L Troponin I (0.000-0.033) ng/mL Serum Total Protein 5.7 L (6.3-8.2) g/dL Albumin 3.4 L (3.5-5.0) g/dL Urine Color (Yellow) Urine Appearance (Clear) Urine pH (4.6-8.0) Ur Specific Napoleon (1.005-1.030) Urine Protein (Negative) Urine Glucose (UA) (Negative) mg/dL Urine Ketones (Negative) Urine Blood (Negative) Urine Nitrite (Negative) Urine Bilirubin (Negative) Urine Urobilinogen (0.2) mg/dL Ur Leukocyte Esterase (Negative) U Hyaline Cast (Auto) (0-2) /LPF Urine Microscopic RBC (0-5) /HPF Urine Microscopic WBC (0-5) /HPF Ur Epithelial Cells (None Seen) /HPF Urine Bacteria (None Seen) /HPF Urine Culture Reflexed (NO) ABO Group O Rh Factor POSITIVE Antibody Screen NEGATIVE (NEGATIVE) Crossmatch COMPATIBLE (COMPATIBLE) 03/05/24 03/05/24 Range/Units 14:40 14:30 WBC 7.1 (4.23-9.07) x10^3/uL RBC 1.83 L (4.63-6.08) x10^6/uL Hgb 5.5 L* (13.7-17.5) g/dL Hct 17.6 L (40.1-51.0) % MCV 96.2 H (79.0-92.2) fL MCH 30.1 (25.7-32.2) pg MCHC 31.3 L (32.3-36.5) g/dL RDW 15.1 H (11.6-14.4) % Plt Count 319 (163-337) x10^3/uL MPV 10.4 (9.4-12.4) fL Gran % 74.9 H (34.0-67.9) % Immature Gran % (Auto) 0.4 (0.001-0.429) % Nucleat RBC Rel Count 0.0 (0.00-0.2) % Eos # (Auto) 0.16 (0.04-0.54) x10^3/uL Immature Gran # (Auto) 0.03 (0.001-0.031) x10^3u/L Absolute Lymphs (auto) 1.00 L (1.32-3.57) x10^3/uL Absolute Monos (auto) 0.58 (0.30-0.82) x10^3/uL Absolute Nucleated RBC 0.00 (0.00-0.012) x10^3u/L Lymphocytes % 14.1 L (21.8-53.1) % Monocytes % 8.2 (5.3-12.2) % Eosinophils % 2.3 (0.8-7.0) % Basophils % 0.1 L (0.2-1.2) % Absolute Granulocytes 5.30 (1.78-5.38) x10^3/uL Basophils # 0.01 (0.01-0.08) x10^3/uL PT (9.4-12.5) SECONDS INR (0.8-3.0) Sodium (135-145) mmol/L Potassium (3.5-5.1) mmol/L Chloride (98-107) mmol/L Carbon Dioxide (22-30) mmol/L Anion Gap (5-15) MEQ/L BUN (9-20) mg/dL Creatinine (0.66-1.25) mg/dL Estimated GFR ML/MIN Glucose (74-106) mg/dL Calcium (8.4-10.2) mg/dL Total Bilirubin (0.2-1.3) mg/dL AST (17-59) U/L ALT (0-50) U/L Alkaline Phosphatase (38-126) U/L Troponin I 0.041 H* (0.000-0.033) ng/mL Serum Total Protein (6.3-8.2) g/dL Albumin (3.5-5.0) g/dL Urine Color (Yellow) Urine Appearance (Clear) Urine pH (4.6-8.0) Ur Specific Napoleon (1.005-1.030) Urine Protein (Negative) Urine Glucose (UA) (Negative) mg/dL Urine Ketones (Negative) Urine Blood (Negative) Urine Nitrite (Negative) Urine Bilirubin (Negative) Urine Urobilinogen (0.2) mg/dL Ur Leukocyte Esterase (Negative) U Hyaline Cast (Auto) (0-2) /LPF Urine Microscopic RBC (0-5) /HPF Urine Microscopic WBC (0-5) /HPF Ur Epithelial Cells (None Seen) /HPF Urine Bacteria (None Seen) /HPF Urine Culture Reflexed (NO) ABO Group Rh Factor Antibody Screen (NEGATIVE) Crossmatch (COMPATIBLE) - Progress Progress: unchanged Progress Note: 03/05/24 14:51 My medical decision making of the assignment of moderate to high complexity was based on review of the patient's past medical history, review of outpatient laboratory data results, review of the patient's medication list, reviewed patient drug allergy list, history present illness and physical findings on examination. The workup in this patient includes placement of intravenous line, infusion of low rate intravenous fluid, type and cross for 3 units of packed red blood cells, CBC, CMP, PT/INR, twelve-lead EKG, troponin level and CT scan of the abdomen pelvis without contrast. In addition we will do a occult fecal blood test. The differential diagnosis includes but is not limited to gastric ulcer bleed, colonic bleed, effects of anticoagulation therapy, liver disease 03/05/24 17:29 I interpreted the patient's laboratory data results. Based on the laboratory data results, the patient has a emergent finding of hemoglobin of 5.5. The patient has been taking Plavix per patient's daughter report who arrived later in the emergency department stay. She also states she wants the patient to be transferred to [facility] for further evaluation management and monitoring. The CT scan of the abdomen pelvis without contrast was interpreted by the radiologist and I reviewed the impression. The impression states new, mild diffuse fecal stasis. There is persistent nonspecific hepatic hypodense lesion. There is no free fluid or free air. There is no abdominal aortic aneurysm. No acute findings in this noncontrasted exam 03/05/24 18:[address] Leonard, the director content marketing on-call for at [facility] in [place]. I reviewed the patient history, presenting complaint and physical findings on this patient as well as the workup results. Dr. Leonard was able to review the notes of the most recent hospitalization. He accepts the patient in transfer. However, we need to await the call from the [facility] hospitalist. 03/05/24 18:35 I spoke with nurse practitioner Carmela, from the hospitalist group at [facility]. I reviewed this patient's presenting complaint current vital signs, and results of the workup. She accepts the patient in transfer. The transfer center will contact us when the bed becomes available. Counseled pt/family regarding: lab results, diagnosis, need for follow-up, rad results Medical Desision Making - Independent Historian Additional History obtained from: Spouse, Family - Risk of complications The pt has a high risk of morbidity or mortality based on: Decision regarding hospitilization or escalation of hosp level of care - Departure Departure Disposition: Transfer Clinical Impression: Symptomatic anemia Condition: Fair Critical Care Time: Yes Critical Care Time(excluding separately billable procedures): Critical 30-74 mins Referrals: AURY MANZO MD [Primary Care Provider] - Follow up/PCP as directed
[2024-03-05 15:05] LABS: ALBUMIN 3.4 g/dL (3.5-5.0); ANION GAP 15.4 MEQ/L (5-15); BILIRUBIN,TOTAL 0.4 mg/dL (0.2-1.3); Creatinine 1 1.52 mg/dL (0.66-1.25); EST GLOMERULAR FILTRATION RATE 44.6 ML/MIN; Potassium 4.1 mmol/L (3.5-5.1); Total Protein 5.7 g/dL (6.3-8.2)
[2024-03-05 15:57] LABS: BASOPHIL % 0.1 % (0.2-1.2); Basophil (Absolute #) 0.01 x10^3/uL (0.01-0.08); Eosinophil % 2.3 % (0.8-7.0); Eosinophil (Absolute #) 0.16 x10^3/uL (0.04-0.54); Hematocrit 17.6 % (40.1-51.0); IMMATURE GRAN # 0.03 x10^3u/L (0.001-0.031); IMMATURE GRAN % 0.4 % (0.001-0.429); Lymphocytes % 14.1 % (21.8-53.1); Mean Cell Volume 96.2 fL (79.0-92.2); Mean Corpuscular Hemoglobin 30.1 pg (25.7-32.2); Mean Corpuscular Hgb Concent. 31.3 g/dL (32.3-36.5); Mean Platelet Volume 10.4 fL (9.4-12.4); Monocyte (Absolute #) 0.58 x10^3/uL (0.30-0.82); Monocytes % 8.2 % (5.3-12.2); Neutrophil % 74.9 % (34.0-67.9); Platelet Count 319 x10^3/uL (163-337); Red Blood Count 1.83 x10^6/uL (4.63-6.08); Red Cell Distribution Width 15.1 % (11.6-14.4); White Blood Count 7.1 x10^3/uL (4.23-9.07)
[2024-03-05 15:59] LABS: Hemoglobin 5.5 g/dL (13.7-17.5)
[2024-03-05 16:06] LABS: INR 1.02 (0.8-3.0); PROTIME 11.1 SECONDS (9.4-12.5)
[2024-03-05 16:51] LABS: ABO TYPING O; RH TYPING POSITIVE
[2024-03-05 16:52] LABS: Antibody Screen NEGATIVE (NEGATIVE)
[2024-03-05 16:54] LABS: CROSS MATCH (PRBC) COMPATIBLE (COMPATIBLE)
[2024-03-05 16:56] LABS: CROSS MATCH (PRBC) COMPATIBLE (COMPATIBLE)
[2024-03-05 16:57] LABS: CROSS MATCH (PRBC) COMPATIBLE (COMPATIBLE)
[2024-03-05] MEDS ORDERED: Sodium Chloride 0.9% 1000 ML 1,000 ML ONE (17:03)
--- NOTE | 2024-03-05 17:13 | XRAY ---
Indication: Diarrhea. Multiple contiguous axial images obtained through the abdomen and pelvis without contrast. Comparison: April 29, 2023 Lung bases again demonstrates minimal peripheral fibrosis/scarring. No infiltrate or effusion. Heart not enlarged again with extensive coronary calcifications. Noncontrasted stomach and bowel loops appear nonobstructed with normal appendix. There is now mild diffuse colonic fecal debris throughout including rectum. Again sigmoid and lesser degree descending diverticulosis without diverticulitis. Lateral right lobe liver again demonstrates 1.6 x 2.3 cm nonspecific hypodense lesion unchanged. Stable bilateral renal cysts including right mid renal viscous/hemorrhagic cyst. Again enlarged prostate impresses on base of bladder. No free fluid/air. Remaining liver, gallbladder, pancreas, spleen, adrenal glands, kidneys, ureters, and bladder are unremarkable for noncontrast exam. There remains moderate scattered aortoiliac calcification without AAA. Osseous structures intact again with osteopenia, moderate degenerative changes throughout the spine, and mild degenerative changes both hips. No ventral or inguinal hernias. Impression: 1. New mild diffuse fecal stasis. 2. Again chronic findings including diverticulosis, nonspecific hepatic hypodense lesion, bilateral simple/complex renal cysts, enlarged prostate gland, arteriosclerotic disease, and chronic bony findings. 3. No acute findings on this noncontrast exam.
[2024-03-05 17:22] LABS: Appearance Clear (Clear); Bacteria None Seen /HPF (None Seen); Bilirubin Negative (Negative); Blood Negative (Negative); Epithelial Cells None Seen /HPF (None Seen); Glucose, Urine Negative (Negative); Hyaline Casts NONE SEEN /LPF (0-2); Ketones Negative (Negative); Leukocyte Esterase Negative (Negative); Nitrite Negative (Negative); Protein,Urine Dip 30 (Negative); RBC 0-2 /HPF (0-5); Specific Gravity 1.015 (1.005-1.030); Urobilinogen 0.2 mg/dL (0.2); WBC 0-2 /HPF (0-5)
[2024-03-05] MEDS ORDERED: PROTONIX 40 MG IV IV ONE (20:03)
[2024-03-05] MEDS: PROTONIX 40 MG IV IV ONE (20:22)
[2024-03-05] MEDS: Sodium Chloride 0.9% 1000 ML 1,000 ML IV SCH (20:22)
[2024-03-05 20:51] VITALS: TEMP 97.2
[2024-03-05 22:01] VITALS: BP 101/52; PULSE 90; RESP 15; O2SAT 97
== END 2024-03-05 21:45 | disposition short-term general hospital (02) ==
LOC: ED 13:32
DX: D64.9 Anemia, unspecified (principal); K92.2 Gastrointestinal hemorrhage, unspecified; E78.5 Hyperlipidemia, unspecified; I10 Essential (primary) hypertension; E11.9 Type 2 diabetes mellitus without complications; Z79.02 Long term (current) use of antithrombotics/antiplatelets; Z79.84 Long term (current) use of oral hypoglycemic drugs; Z79.899 Other long term (current) drug therapy
CPT/HCPCS: 36410; 36415; 36430; 74176; 80053; 81001; 84484; 85025; 85610; 86850; 86900; 86901; 86922; 96360; 96374; 99291; P9016; 99285

== ENCOUNTER 2024-04-03 13:11 | Observation (INO) | payer MEDICARE ==
--- NOTE | 2024-04-03 13:20 | ERPHSYRPT ---
- History of Present Illness Time Seen by Provider: 04/03/24 13:19 Source: patient, family Exam Limitations: no limitations Physician History: This is an 83-year-old white male patient of Dr. Manzo who was brought to the emergency room by private vehicle escorted by his because of concern primarily of weakness but also the states that she took his temperature at home and it was 103 F. She also stated that the home health nurse, on her examination, heard crackles in the left lower base of his lungs. The patient and patient's spouse wanted him evaluated. Patient's room air oxygen saturation was 96% and his heart rate is in the mid to high 80s on the monitor. The patient denies chest pain. He has no abdominal pain. He has had no vomiting or diarrhea symptoms. Patient is afebrile upon arrival to the emergency department without intervention. Per patient's spouse report, within the last several weeks the patient has had a few episodes of GI bleed requiring transfusion and endoscopy. Patient also, according to the spouse, had at least 2 myocardial infarction's during this timeframe. I reviewed outside/outpatient labs that were drawn in the last 10 days. On 03/24/2024 the hemoglobin was 9.4. On 03/31/2024, the hemoglobin was 9.2. Patient has a history of gastroesophageal reflux disease, hyperlipidemia, diabetes, osteoarthritis, prostate issues. Patient denies hemoptysis. Patient denies hematuria. Patient states that he is taking iron. His bowel movements have been alternating between brown and black. Timing/Duration: today Fever Severity: gone Fever Therapy RENTAL SALESPERSON: none Associated Symptoms: weakness, No abdominal pain, No chest pain, No cough, No diaphoresis, No shortness of breath Allergies/Adverse Reactions: codeine [Codeine] Allergy (Mild, Verified 04/03/24 13:27) Home Medications: Atenolol 50 mg [Tenormin 50 mg] 50 mg PO DAILY 11/06/11 [History] Tamsulosin HCl 0.4 mg [Flomax 0.4 MG] 0.4 mg PO DAILY 04/22/23 [History] Clopidogrel Bisulfate [Plavix] 75 mg PO DAILY 02/04/24 [History] Albuterol Sulfate [Proair Digihaler] 2 inh PO Q4H PRN 03/05/24 [History] Atorvastatin Calcium [Lipitor] 80 mg PO DAILY 03/05/24 [History] Docusate Sodium 100 mg PO DAILY 03/05/24 [History] Ferrous Sulfate 325 mg [Feosol 325 mg] 325 mg PO BID 03/05/24 [History] PANTOPRAZOLE 40 mg Tablet [Protonix 40MG Tablet] 40 mg PO BID 03/05/24 [History] Acetaminophen 325 mg [Tylenol 325 mg] 650 mg PO Q4H PRN 04/03/24 [History] Fluticasone/Umeclidin/Vilanter [Trelegy Ellipta 200-62.5-25] 1 inh PO DAILY 04/03/24 [History] Hx Tetanus, Diphtheria Vaccination/Date Given: Yes Hx Influenza Vaccination/Date Given: Yes Hx Pneumococcal Vaccination/Date Given: Yes Travel Risk - International Travel Have you traveled outside of the country in past 3 weeks: No - Emerging Infectious Disease Are you exhibiting symptoms associated with any current EIDs: Yes Symptoms: Abdominal Pain - Review of Systems Constitutional: Weakness Eyes: No Symptoms Ears, Nose, & Throat: No Symptoms Respiratory: No Symptoms Cardiac: No Symptoms Abdominal/Gastrointestinal: No Symptoms Genitourinary Symptoms: No Symptoms Musculoskeletal: No Symptoms Skin: No Symptoms Neurological: No Symptoms Psychological: No Symptoms Endocrine: No Symptoms Hematologic/Lymphatic: No Symptoms Immunological/Allergic: No Symptoms All Other Systems: Reviewed and Negative - Past Medical History Pertinent Past Medical History: Yes Neurological History: No Pertinent History ENT History: Cataracts Cardiac History: Hypertension Respiratory History: No Pertinent History, Sleep Apnea Endocrine Medical History: Diabetes Type II Musculoskeletal History: Osteoarthritis GI Medical History: Hernia History: No Pertinent History Psycho-Social History: No Pertinent History Male Reproductive Disorders: Prostate Problems Other Medical History: . - Past Surgical History Past Surgical History: Yes Neuro Surgical History: No Pertinent History Cardiac: Cardiac Catheterization Respiratory: No Pertinent History Gastrointestinal: No Pertinent History, Hernia Repair Genitourinary: No Pertinent History Musculoskeletal: Joint Replacement, Orthopedic Surgery Male Surgical History: Prostate Surgery Other Surgical History: right shoulder cuff,left knee replacement,left heel spur,umbil.hernior. RIGHT TOTAL KNEE, rt femur - Social History Smoking Status: Former smoker Exposure to second hand smoke: No Drug Use: none Patient Lives Alone: No - Social Determinants of Health Will the patient participate in the screening: Yes Do you worry about a steady place to live?: No In the past 12 months,have you had to go without utilities?: No Transportation Issues: No Has anyone in your support network made you feel unsafe?: No Have you or anyone in your house had to go without enough: No - Nursing Vital Signs Nursing Vital Signs: Initial Vital Signs Temperature 98.3 F 04/03/24 13:16 Pulse Rate 103 H 04/03/24 13:16 Blood Pressure 143/71 04/03/24 13:16 O2 Sat by Pulse Oximetry 95 04/03/24 13:16 Pain Scale Pain Intensity 0 - Physical Exam General Appearance: no apparent distress, alert Eye Exam: PERRL/EOMI, eyes nml inspection ENT Exam: normal ENT inspection, no apparent trauma, hearing grossly normal Neck Exam: normal inspection, non-tender, supple, full range of motion Respiratory Exam: normal breath sounds, lungs clear, no respiratory distress, no accessory muscle use, No chest non-tender, No decreased breath sounds, No respiratory distress, No crackles/rales, No rhonchi, No wheezing Cardiovascular/Chest Exam: normal heart sounds, regular rate/rhythm Gastrointestinal/Abdominal Exam: soft, non tender, no distention, no mass, no guarding, no ecchymosis, no organomegaly, no pulsatile mass, normal bowel sounds Rectal Exam: not done Extremity Exam: non-tender, normal range of motion, normal inspection, normal capillary refill, no calf tenderness, no pedal edema, pelvis stable Neurologic Exam: alert, oriented x 3, cooperative, reimbursement auditor II-XII nml as tested, nml cerebellar function, nml station & gait, sensation nml Skin Exam: normal color, warm, dry Lymphatic: No adenopathy SpO2 Interpretation: normal O2 Delivery: Room Air - Course Nursing assessment & vital signs reviewed: Yes EKG Interpreted by Me: RATE (95), Sinus Rhythm, LAFB, NORMAL INTERVALS, Right Bundle Branch Block, Other (No acute ischemic changes on today's twelve-lead EKG. The QTc is 502.) Ordered Tests: Active Orders 24 hr Category Date Time Status EKG-ER Only STAT Care 04/03/24 13:35 Active IV Insertion STAT Care 04/03/24 13:35 Active CHEST 1 VIEW (PORTABLE) Stat Exams 04/03/24 15:01 Completed BLOOD CULTURE Stat Lab 04/03/24 14:00 Received CBC W DIFF Stat Lab 04/03/24 14:00 Completed CMP Stat Lab 04/03/24 14:00 Completed Lactic Acid Stat Lab 04/03/24 13:45 Completed MAGNESIUM Stat Lab 04/03/24 14:00 Completed MONO SCREEN Stat Lab 04/03/24 14:09 Completed NT PRO BNPII Stat Lab 04/03/24 14:00 Completed TROPONIN Q4H Lab 04/03/24 14:00 Completed TROPONIN Q4H Lab 04/03/24 17:45 Ordered TROPONIN Q4H Lab 04/03/24 21:45 Ordered UA W/RFX UR CULTURE Stat Lab 04/03/24 14:29 Completed Medication Summary Generic Name Dose Route Start Last Admin Trade Name Freq PRN Reason Stop Dose Admin Ceftriaxone Sodium 1 gm in 100 mls @ 200 mls/hr 04/03/24 15:40 Rocephin 1 Gm / 100 Ml Nacl IV 04/03/24 16:09 STAT ONE Discontinued Medications Generic Name Dose Route Start Last Admin Trade Name Freq PRN Reason Stop Dose Admin Furosemide 40 mg 04/03/24 15:40 Furosemide 40 Mg/4 Ml Vial IV 04/03/24 15:41 STAT ONE Lab/Rad Data: Laboratory Result Diagrams 04/03/24 14:00 04/03/24 14:00 Laboratory Results 04/03/24 04/03/24 04/03/24 Range/Units 14:29 14:10 14:09 WBC (4.23-9.07) x10^3/uL RBC (4.63-6.08) x10^6/uL Hgb (13.7-17.5) g/dL Hct (40.1-51.0) % MCV (79.0-92.2) fL MCH (25.7-32.2) pg MCHC (32.3-36.5) g/dL RDW (11.6-14.4) % Plt Count (163-337) x10^3/uL MPV (9.4-12.4) fL Gran % (34.0-67.9) % Immature Gran % (Auto) (0.001-0.429) % Nucleat RBC Rel Count (0.00-0.2) % Eos # (Auto) (0.04-0.54) x10^3/uL Immature Gran # (Auto) (0.001-0.031) x10^3u/L Absolute Lymphs (auto) (1.32-3.57) x10^3/uL Absolute Monos (auto) (0.30-0.82) x10^3/uL Absolute Nucleated RBC (0.00-0.012) x10^3u/L Lymphocytes % (21.8-53.1) % Monocytes % (5.3-12.2) % Eosinophils % (0.8-7.0) % Basophils % (0.2-1.2) % Absolute Granulocytes (1.78-5.38) x10^3/uL Basophils # (0.01-0.08) x10^3/uL Sodium (135-145) mmol/L Potassium (3.5-5.1) mmol/L Chloride (98-107) mmol/L Carbon Dioxide (22-30) mmol/L Anion Gap (5-15) MEQ/L BUN (9-20) mg/dL Creatinine (0.66-1.25) mg/dL Estimated GFR ML/MIN Glucose (74-106) mg/dL Lactic Acid (0.4-2.0) Calcium (8.4-10.2) mg/dL Magnesium (1.6-2.3) mg/dL Total Bilirubin (0.2-1.3) mg/dL AST (17-59) U/L ALT (0-50) U/L Alkaline Phosphatase (38-126) U/L Troponin I (0.000-0.033) ng/mL NT-Pro-B Natriuret Pep (<300) pg/mL Serum Total Protein (6.3-8.2) g/dL Albumin (3.5-5.0) g/dL Urine Color Yellow (Yellow) Urine Appearance Clear (Clear) Urine pH 7.0 (4.6-8.0) Ur Specific [place] 1.010 (1.005-1.030) Urine Protein 30 (Negative) Urine Glucose (UA) Negative (Negative) mg/dL Urine Ketones Negative (Negative) Urine Blood Negative (Negative) Urine Nitrite Negative (Negative) Urine Bilirubin Negative (Negative) Urine Urobilinogen 0.2 (0.2) mg/dL Ur Leukocyte Esterase Negative (Negative) U Hyaline Cast (Auto) NONE SEEN (0-2) /LPF Urine Microscopic RBC 0-2 (0-5) /HPF Urine Microscopic WBC 0-2 (0-5) /HPF Ur Epithelial Cells None Seen (None Seen) /HPF Urine Bacteria None Seen (None Seen) /HPF Urine Culture Reflexed NO (NO) Monoscreen NEGATIVE (NEGATIVE) Influenza Type A Ag NEGATIVE (NEGATIVE) Influenza Type B Ag NEGATIVE (NEGATIVE) RSV (PCR) NEGATIVE (NEGATIVE) SARS-CoV-2 (PCR) NEGATIVE (NEGATIVE) 04/03/24 04/03/24 04/03/24 Range/Units 14:00 14:00 14:00 WBC 9.0 (4.23-9.07) x10^3/uL RBC 3.01 L (4.63-6.08) x10^6/uL Hgb 9.4 L (13.7-17.5) g/dL Hct 29.4 L (40.1-51.0) % MCV 97.7 H (79.0-92.2) fL MCH 31.2 (25.7-32.2) pg MCHC 32.0 L (32.3-36.5) g/dL RDW 16.1 H (11.6-14.4) % Plt Count 245 (163-337) x10^3/uL MPV 10.5 (9.4-12.4) fL Gran % 79.7 H (34.0-67.9) % Immature Gran % (Auto) 0.3 (0.001-0.429) % Nucleat RBC Rel Count 0.0 (0.00-0.2) % Eos # (Auto) 0.06 (0.04-0.54) x10^3/uL Immature Gran # (Auto) 0.03 (0.001-0.031) x10^3u/L Absolute Lymphs (auto) 0.70 L (1.32-3.57) x10^3/uL Absolute Monos (auto) 1.02 H (0.30-0.82) x10^3/uL Absolute Nucleated RBC 0.00 (0.00-0.012) x10^3u/L Lymphocytes % 7.8 L (21.8-53.1) % Monocytes % 11.3 (5.3-12.2) % Eosinophils % 0.7 L (0.8-7.0) % Basophils % 0.2 (0.2-1.2) % Absolute Granulocytes 7.18 H (1.78-5.38) x10^3/uL Basophils # 0.02 (0.01-0.08) x10^3/uL Sodium 141 (135-145) mmol/L Potassium 4.2 (3.5-5.1) mmol/L Chloride 106 (98-107) mmol/L Carbon Dioxide 25 (22-30) mmol/L Anion Gap 14.0 (5-15) MEQ/L BUN 16 (9-20) mg/dL Creatinine 1.31 H (0.66-1.25) mg/dL Estimated GFR 53.3 ML/MIN Glucose 101 (74-106) mg/dL Lactic Acid (0.4-2.0) Calcium 8.9 (8.4-10.2) mg/dL Magnesium 1.7 (1.6-2.3) mg/dL Total Bilirubin 0.80 (0.2-1.3) mg/dL AST 15 L (17-59) U/L ALT 13 (0-50) U/L Alkaline Phosphatase 127 H (38-126) U/L Troponin I 0.032 (0.000-0.033) ng/mL NT-Pro-B Natriuret Pep 52227 (<300) pg/mL Serum Total Protein 5.8 L (6.3-8.2) g/dL Albumin 3.5 (3.5-5.0) g/dL Urine Color (Yellow) Urine Appearance (Clear) Urine pH (4.6-8.0) Ur Specific [place] (1.005-1.030) Urine Protein (Negative) Urine Glucose (UA) (Negative) mg/dL Urine Ketones (Negative) Urine Blood (Negative) Urine Nitrite (Negative) Urine Bilirubin (Negative) Urine Urobilinogen (0.2) mg/dL Ur Leukocyte Esterase (Negative) U Hyaline Cast (Auto) (0-2) /LPF Urine Microscopic RBC (0-5) /HPF Urine Microscopic WBC (0-5) /HPF Ur Epithelial Cells (None Seen) /HPF Urine Bacteria (None Seen) /HPF Urine Culture Reflexed (NO) Monoscreen (NEGATIVE) Influenza Type A Ag (NEGATIVE) Influenza Type B Ag (NEGATIVE) RSV (PCR) (NEGATIVE) SARS-CoV-2 (PCR) (NEGATIVE) 04/03/24 Range/Units 13:45 WBC (4.23-9.07) x10^3/uL RBC (4.63-6.08) x10^6/uL Hgb (13.7-17.5) g/dL Hct (40.1-51.0) % MCV (79.0-92.2) fL MCH (25.7-32.2) pg MCHC (32.3-36.5) g/dL RDW (11.6-14.4) % Plt Count (163-337) x10^3/uL MPV (9.4-12.4) fL Gran % (34.0-67.9) % Immature Gran % (Auto) (0.001-0.429) % Nucleat RBC Rel Count (0.00-0.2) % Eos # (Auto) (0.04-0.54) x10^3/uL Immature Gran # (Auto) (0.001-0.031) x10^3u/L Absolute Lymphs (auto) (1.32-3.57) x10^3/uL Absolute Monos (auto) (0.30-0.82) x10^3/uL Absolute Nucleated RBC (0.00-0.012) x10^3u/L Lymphocytes % (21.8-53.1) % Monocytes % (5.3-12.2) % Eosinophils % (0.8-7.0) % Basophils % (0.2-1.2) % Absolute Granulocytes (1.78-5.38) x10^3/uL Basophils # (0.01-0.08) x10^3/uL Sodium (135-145) mmol/L Potassium (3.5-5.1) mmol/L Chloride (98-107) mmol/L Carbon Dioxide (22-30) mmol/L Anion Gap (5-15) MEQ/L BUN (9-20) mg/dL Creatinine (0.66-1.25) mg/dL Estimated GFR ML/MIN Glucose (74-106) mg/dL Lactic Acid 1.5 (0.4-2.0) Calcium (8.4-10.2) mg/dL Magnesium (1.6-2.3) mg/dL Total Bilirubin (0.2-1.3) mg/dL AST (17-59) U/L ALT (0-50) U/L Alkaline Phosphatase (38-126) U/L Troponin I (0.000-0.033) ng/mL NT-Pro-B Natriuret Pep (<300) pg/mL Serum Total Protein (6.3-8.2) g/dL Albumin (3.5-5.0) g/dL Urine Color (Yellow) Urine Appearance (Clear) Urine pH (4.6-8.0) Ur Specific [place] (1.005-1.030) Urine Protein (Negative) Urine Glucose (UA) (Negative) mg/dL Urine Ketones (Negative) Urine Blood (Negative) Urine Nitrite (Negative) Urine Bilirubin (Negative) Urine Urobilinogen (0.2) mg/dL Ur Leukocyte Esterase (Negative) U Hyaline Cast (Auto) (0-2) /LPF Urine Microscopic RBC (0-5) /HPF Urine Microscopic WBC (0-5) /HPF Ur Epithelial Cells (None Seen) /HPF Urine Bacteria (None Seen) /HPF Urine Culture Reflexed (NO) Monoscreen (NEGATIVE) Influenza Type A Ag (NEGATIVE) Influenza Type B Ag (NEGATIVE) RSV (PCR) (NEGATIVE) SARS-CoV-2 (PCR) (NEGATIVE) - Progress Progress: improved, re-examined Progress Note: 04/03/24 14:40 My medical decision making and the assignment of at least moderate complexity to this patient's medical issue today is based on review of the patient's past medical history, review the patient's medication list, reviewed patient drug allergy list, history present illness and physical findings on examination. The workup includes placement of intravenous line, CBC, CMP, urinalysis, chest x- ray, viral swabs, twelve-lead EKG, monotest, BNP level, troponin level. Differential diagnosis includes but is not limited to symptomatic anemia, myocardial infarction, electrolyte abnormalities, dehydration, urinary tract infection, arrhythmias 04/03/24 15:42 I interpreted the patient's laboratory data results. Based on the laboratory data results, the patient has evidence of chronic, stable anemia with a hemoglobin 9.4. He also has evidence of CHF with a significantly elevated BNP of over 13,000. His troponin level is within normal limits. The chest x-ray was interpreted by the radiologist and I reviewed the impression. The impression states developing borderline cardiomegaly with mild bibasilar infiltrate/atelectasis. There is small left pleural effusion. Pneumonia cannot be entirely excluded. 04/03/24 15:51 Spoke with the telehospitalist Dr. Tovar. I reviewed the patient history, presenting complaint, physical findings, the workup and the workup results with him. He agrees that we will place this patient in observation for diuresis and intravenous antibiotics. Counseled pt/family regarding: lab results, diagnosis, rad results Medical Desision Making - Independent Historian Additional History obtained from: Spouse - Diagnostic Testing Diagnostic test were ordered, analyzed, and reviewed by me: Yes Radiological Interpretation: Reviewed by me, Teleradiologist Report - Risk of complications The pt has a high risk of morbidity or mortality based on: Decision regarding hospitilization or escalation of hosp level of care - Departure Departure Disposition: Observation Clinical Impression: CHF (congestive heart failure), Chronic blood loss anemia, Infiltrate of lung present on chest x-ray, Weakness Condition: Stable Critical Care Time: No Referrals: ARUY MANZO MD [Primary Care Provider] - Follow up/PCP as directed Instructions: Heart Failure
[2024-04-03 14:13] LABS: Absolute Neutrophil Ct (ANC) 7.18 x10^3/uL (1.78-5.38); BASOPHIL % 0.2 % (0.2-1.2); Basophil (Absolute #) 0.02 x10^3/uL (0.01-0.08); Eosinophil % 0.7 % (0.8-7.0); Eosinophil (Absolute #) 0.06 x10^3/uL (0.04-0.54); Hematocrit 29.4 % (40.1-51.0); Hemoglobin 9.4 g/dL (13.7-17.5); IMMATURE GRAN # 0.03 x10^3u/L (0.001-0.031); IMMATURE GRAN % 0.3 % (0.001-0.429); Lymphocytes % 7.8 % (21.8-53.1); Mean Cell Volume 97.7 fL (79.0-92.2); Mean Corpuscular Hemoglobin 31.2 pg (25.7-32.2); Mean Platelet Volume 10.5 fL (9.4-12.4); Monocyte (Absolute #) 1.02 x10^3/uL (0.30-0.82); Monocytes % 11.3 % (5.3-12.2); Neutrophil % 79.7 % (34.0-67.9); Platelet Count 245 x10^3/uL (163-337); Red Blood Count 3.01 x10^6/uL (4.63-6.08); Red Cell Distribution Width 16.1 % (11.6-14.4)
[2024-04-03 14:36] LABS: ALBUMIN 3.5 g/dL (3.5-5.0); BILIRUBIN,TOTAL 0.8 mg/dL (0.2-1.3); Calcium 8.9 mg/dL (8.4-10.2); Creatinine 1 1.31 mg/dL (0.66-1.25); EST GLOMERULAR FILTRATION RATE 53.3 ML/MIN; MAGNESIUM 1.7 mg/dL (1.6-2.3); Potassium 4.2 mmol/L (3.5-5.1); Total Protein 5.8 g/dL (6.3-8.2)
[2024-04-03 14:45] LABS: Appearance Clear (Clear); Bacteria None Seen /HPF (None Seen); Bilirubin Negative (Negative); Blood Negative (Negative); Epithelial Cells None Seen /HPF (None Seen); Glucose, Urine Negative (Negative); Hyaline Casts NONE SEEN /LPF (0-2); Ketones Negative (Negative); Leukocyte Esterase Negative (Negative); Nitrite Negative (Negative); Protein,Urine Dip 30 (Negative); RBC 0-2 /HPF (0-5); Urobilinogen 0.2 mg/dL (0.2); WBC 0-2 /HPF (0-5)
[2024-04-03 14:49] LABS: INFLUENZA A NEGATIVE (NEGATIVE); INFLUENZA B NEGATIVE (NEGATIVE); RESPIRATORY SYNCTIAL VIRUS NEGATIVE (NEGATIVE); SARS-CoV-2 Xpert Express NEGATIVE (NEGATIVE)
--- NOTE | 2024-04-03 15:29 | XRAY ---
Indication: Short of breath. Comparison: February 04, 2024 Portable chest demonstrates developing borderline cardiomegaly and mild bibasilar infiltrates/atelectasis and small left effusion. Rule out cardiac decompensation/CHF. Superimposed pneumonia not completely excluded. Bony thorax intact.
[2024-04-03] MEDS ORDERED: ROCEPHIN 1 GM / 100 ML NaCl 1 GM/100 ML IVPB IV ONE (16:25)
[2024-04-03] MEDS: ROCEPHIN 1 GM / 100 ML NaCl 1 GM/100 ML IVPB IV ONE (16:28)
[2024-04-03] MEDS ORDERED: Lasix 40 MG/4 ML ONE (16:44)
[2024-04-03] MEDS: Lasix 40 MG/4 ML IV ONE (16:45)
--- NOTE | 2024-04-03 16:48 | PCM.HP ---
History of Present Illness - Chief Complaint Chief Complaint: fever Date: 04/03/24 History of Present Illness: is a 83 year old male with a pmhx of DMII, COPD (RA at baseline), OA, HUBERT, GERD,HTN,CAD, CHF, HLD, prostate issues, AL, and GI bleed who presented to the ED 04/03/24 with complaints of weakness, shortness of breath, [employer] cough, abdominal pain, and fever. Patient states that symptoms began last night with aching in his abdomen. He states the pain is epigastric with no radiation. No alleviating/aggravating factors. Patient states currently his pain level is at a 0/10. His spouse reports that patient had a temperature of 103 and became so weak he was unable to ambulate. He reports a cough a few ago. Exertional shortness of breath. His spouse and daughter are present during the interview and report that over the past month patient was treated at [facility] for a bleeding ulcer. Following that hospitalization patient had multiple episode of anemia requiring transfusion and was evaluated at [facility] ED and transferred to [facility] for evaluation of GI bleed. During that hospitalization patient had a "cluster" of tissue cauterized and has been stable since. Patient also, according to the spouse, had at least 2 myocardial infarction's during this timeframe. Patient underwent balloon angioplasty. Patient follows with Dr. Quinn - cardiology. Upon exam patient appears comfortable, afebrile, on RA, with noted with 1+ pitting BLE edema. Denies cp, HERNANDEZ, hematuria, dizziness, N/V/D. He does report dark stools -is on ferrous sulfate. No rubén blood or active bleeding. Upon arrival to ED patient tachycardic and tachypneic. EKG NS, RBBB. CXR with developing borderline cardiomegaly with mild bibasilar infiltrates/atelectais and small left effusion with possible superimposed pneumonia. Lab findings remarkable for microcytic anemia with hgb at 9.4., [place] [address], and elevated creat at 1.31 (baseline around 1.3). Trop x 1 negative. Respiratory panel negative. Patient given lasix and Rocephin in ED. Admit for CHF exacerbation and pneumonia. Plan for diuresis and abx. - Review of Systems Constitutional: Fever, Weakness Eyes: No Symptoms Ears, Nose, & Throat: No Symptoms Respiratory: Cough, Short Of Breath Cardiac: No Symptoms Abdominal/Gastrointestinal: Abdominal Pain, Melena Genitourinary Symptoms: No Symptoms Musculoskeletal: No Symptoms Skin: No Symptoms Neurological: No Symptoms Psychological: No Symptoms Endocrine: No Symptoms Hematologic/Lymphatic: Anemia Immunological/Allergic: No Symptoms Medications & Allergies Home Medications: Home Medication List Atenolol 50 mg [Tenormin 50 mg] 50 mg PO DAILY 11/06/11 [History Confirmed 04/03/24] Tamsulosin HCl 0.4 mg [Flomax 0.4 MG] 0.4 mg PO DAILY 04/22/23 [History Confirmed 04/03/24] Clopidogrel Bisulfate [Plavix] 75 mg PO DAILY 02/04/24 [History Confirmed 04/03/24] Albuterol Sulfate [Proair Digihaler] 2 inh PO Q4H PRN 03/05/24 [History Confirmed 04/03/24] Atorvastatin Calcium [Lipitor] 80 mg PO DAILY 03/05/24 [History Confirmed ] Docusate Sodium 100 mg PO DAILY 03/05/24 [History Confirmed 04/03/24] Ferrous Sulfate 325 mg [Feosol 325 mg] 325 mg PO BID 03/05/24 [History Confirmed 04/03/24] PANTOPRAZOLE 40 mg Tablet [Protonix 40MG Tablet] 40 mg PO BID 03/05/24 [History Confirmed 04/03/24] Acetaminophen 325 mg [Tylenol 325 mg] 650 mg PO Q4H PRN 04/03/24 [History Confirmed 04/03/24] Fluticasone/Umeclidin/Vilanter [Trelegy Ellipta 200-62.5-25] 1 inh PO DAILY 04/03/24 [History Confirmed 04/03/24] Allergies/Adverse Reactions: Allergies Allergy/AdvReac Type Severity Reaction Status Date / Time codeine [Codeine] Allergy Mild Verified 04/03/24 13:27 - Past Medical History Past Medical History: Yes Neurological History: No Pertinent History ENT History: Cataracts Cardiac History: Congestive Heart Failure, Coronary Artery Disease, High Cholesterol, Hypertension, Myocardial Infarction (AL) Respiratory History: No Pertinent History, CHF, COPD, Sleep Apnea Endocrine Medical History: Diabetes Type II Musculoskelatal History: Osteoarthritis GI Medical History: GERD, GI Bleed, Hernia History: No Pertinent History Pyscho-Social History: No Pertinent History Male Reproductive Disorders: Prostate Problems Comment: . - Past Surgical History Past Surgical History: Yes Neuro Surgical History: No Pertinent History Cardiac History: Cardiac Catheterization Respiratory Surgery: No Pertinent History GI Surgical History: No Pertinent History, Hernia Repair Genitourinary Surgical Hx: No Pertinent History Musculskeletal Surgical Hx: Joint Replacement, Orthopedic Surgery Male Surgical History: Prostate Surgery Other Surgical History: right shoulder cuff,left knee replacement,left heel spur,umbil.hernior. RIGHT TOTAL KNEE, rt femur Significant Family History: other (Parkinsons) - Social History Smoking Status: Former smoker Exposure to second hand smoke: No Alcohol: None Drug Use: none - Social Determinants of Health Will the patient participate in the screening: Yes Do you worry about a steady place to live?: No Do you have any problems with any of the following?: No known problems In the past 12 months,have you had to go without utilities?: No Have you or anyone in your house had to go without enough: No Transportation Issues: No Has anyone in your support network made you feel unsafe?: No Does the patient want assistance with any of the above?: No - Physical Exam Vital Signs: Vital Signs - 24 hr Temp Pulse Resp BP BP Pulse Ox 04/03/24 16:00 88 22 134/70 04/03/24 15:30 91 H 27 H 140/66 04/03/24 15:17 88 25 H 140/71 04/03/24 15:00 92 H 22 138/74 95 04/03/24 14:30 88 26 H 144/73 04/03/24 14:00 96 H 27 H 146/79 04/03/24 13:30 96 H 31 H 139/72 93 L 04/03/24 13:16 98.3 F 103 H 143/71 95 General Appearance: no apparent distress Neurologic Exam: alert, oriented x 3, cooperative Eye Exam: PERRL/EOMI Ears, Nose, Throat Exam: normal ENT inspection Neck Exam: normal inspection Respiratory Exam: normal breath sounds, lungs clear Cardiovascular Exam: regular rate/rhythm, normal heart sounds Gastrointestinal/Abdomen Exam: soft, normal bowel sounds Rectal Exam: deferred Extremity Exam: swelling (BLE +1 pitting) Skin Exam: pale Results - Labs Lab/Micro Results: Lab Results-Last 24 Hours 04/03/24 04/03/24 04/03/24 Range/Units 13:45 14:00 14:00 WBC 9.0 (4.23-9.07) x10^3/uL RBC 3.01 L (4.63-6.08) x10^6/uL Hgb 9.4 L (13.7-17.5) g/dL Hct 29.4 L (40.1-51.0) % MCV 97.7 H (79.0-92.2) fL MCH 31.2 (25.7-32.2) pg MCHC 32.0 L (32.3-36.5) g/dL RDW 16.1 H (11.6-14.4) % Plt Count 245 (163-337) x10^3/uL MPV 10.5 (9.4-12.4) fL Gran % 79.7 H (34.0-67.9) % Immature Gran % (Auto) 0.3 (0.001-0.429) % Nucleat RBC Rel Count 0.0 (0.00-0.2) % Eos # (Auto) 0.06 (0.04-0.54) x10^3/uL Immature Gran # (Auto) 0.03 (0.001-0.031) x10^3u/L Absolute Lymphs (auto) 0.70 L (1.32-3.57) x10^3/uL Absolute Monos (auto) 1.02 H (0.30-0.82) x10^3/uL Absolute Nucleated RBC 0.00 (0.00-0.012) x10^3u/L Lymphocytes % 7.8 L (21.8-53.1) % Monocytes % 11.3 (5.3-12.2) % Eosinophils % 0.7 L (0.8-7.0) % Basophils % 0.2 (0.2-1.2) % Absolute Granulocytes 7.18 H (1.78-5.38) x10^3/uL Basophils # 0.02 (0.01-0.08) x10^3/uL Sodium 141 (135-145) mmol/L Potassium 4.2 (3.5-5.1) mmol/L Chloride 106 (98-107) mmol/L Carbon Dioxide 25 (22-30) mmol/L Anion Gap 14.0 (5-15) MEQ/L BUN 16 (9-20) mg/dL Creatinine 1.31 H (0.66-1.25) mg/dL Estimated GFR 53.3 ML/MIN Glucose 101 (74-106) mg/dL Lactic Acid 1.5 (0.4-2.0) Calcium 8.9 (8.4-10.2) mg/dL Magnesium 1.7 (1.6-2.3) mg/dL Total Bilirubin 0.80 (0.2-1.3) mg/dL AST 15 L (17-59) U/L ALT 13 (0-50) U/L Alkaline Phosphatase 127 H (38-126) U/L Troponin I (0.000-0.033) ng/mL NT-Pro-B Natriuret Pep 00833 (<300) pg/mL Serum Total Protein 5.8 L (6.3-8.2) g/dL Albumin 3.5 (3.5-5.0) g/dL Urine Color (Yellow) Urine Appearance (Clear) Urine pH (4.6-8.0) Ur Specific [place] (1.005-1.030) Urine Protein (Negative) Urine Glucose (UA) (Negative) mg/dL Urine Ketones (Negative) Urine Blood (Negative) Urine Nitrite (Negative) Urine Bilirubin (Negative) Urine Urobilinogen (0.2) mg/dL Ur Leukocyte Esterase (Negative) U Hyaline Cast (Auto) (0-2) /LPF Urine Microscopic RBC (0-5) /HPF Urine Microscopic WBC (0-5) /HPF Ur Epithelial Cells (None Seen) /HPF Urine Bacteria (None Seen) /HPF Urine Culture Reflexed (NO) Monoscreen (NEGATIVE) Influenza Type A Ag (NEGATIVE) Influenza Type B Ag (NEGATIVE) RSV (PCR) (NEGATIVE) SARS-CoV-2 (PCR) (NEGATIVE) 04/03/24 04/03/24 04/03/24 Range/Units 14:00 14:09 14:10 WBC (4.23-9.07) x10^3/uL RBC (4.63-6.08) x10^6/uL Hgb (13.7-17.5) g/dL Hct (40.1-51.0) % MCV (79.0-92.2) fL MCH (25.7-32.2) pg MCHC (32.3-36.5) g/dL RDW (11.6-14.4) % Plt Count (163-337) x10^3/uL MPV (9.4-12.4) fL Gran % (34.0-67.9) % Immature Gran % (Auto) (0.001-0.429) % Nucleat RBC Rel Count (0.00-0.2) % Eos # (Auto) (0.04-0.54) x10^3/uL Immature Gran # (Auto) (0.001-0.031) x10^3u/L Absolute Lymphs (auto) (1.32-3.57) x10^3/uL Absolute Monos (auto) (0.30-0.82) x10^3/uL Absolute Nucleated RBC (0.00-0.012) x10^3u/L Lymphocytes % (21.8-53.1) % Monocytes % (5.3-12.2) % Eosinophils % (0.8-7.0) % Basophils % (0.2-1.2) % Absolute Granulocytes (1.78-5.38) x10^3/uL Basophils # (0.01-0.08) x10^3/uL Sodium (135-145) mmol/L Potassium (3.5-5.1) mmol/L Chloride (98-107) mmol/L Carbon Dioxide (22-30) mmol/L Anion Gap (5-15) MEQ/L BUN (9-20) mg/dL Creatinine (0.66-1.25) mg/dL Estimated GFR ML/MIN Glucose (74-106) mg/dL Lactic Acid (0.4-2.0) Calcium (8.4-10.2) mg/dL Magnesium (1.6-2.3) mg/dL Total Bilirubin (0.2-1.3) mg/dL AST (17-59) U/L ALT (0-50) U/L Alkaline Phosphatase (38-126) U/L Troponin I 0.032 (0.000-0.033) ng/mL NT-Pro-B Natriuret Pep (<300) pg/mL Serum Total Protein (6.3-8.2) g/dL Albumin (3.5-5.0) g/dL Urine Color (Yellow) Urine Appearance (Clear) Urine pH (4.6-8.0) Ur Specific [place]hler (1.005-1.030) Urine Protein (Negative) Urine Glucose (UA) (Negative) mg/dL Urine Ketones (Negative) Urine Blood (Negative) Urine Nitrite (Negative) Urine Bilirubin (Negative) Urine Urobilinogen (0.2) mg/dL Ur Leukocyte Esterase (Negative) U Hyaline Cast (Auto) (0-2) /LPF Urine Microscopic RBC (0-5) /HPF Urine Microscopic WBC (0-5) /HPF Ur Epithelial Cells (None Seen) /HPF Urine Bacteria (None Seen) /HPF Urine Culture Reflexed (NO) Monoscreen NEGATIVE (NEGATIVE) Influenza Type A Ag NEGATIVE (NEGATIVE) Influenza Type B Ag NEGATIVE (NEGATIVE) RSV (PCR) NEGATIVE (NEGATIVE) SARS-CoV-2 (PCR) NEGATIVE (NEGATIVE) 04/03/24 Range/Units 14:29 WBC (4.23-9.07) x10^3/uL RBC (4.63-6.08) x10^6/uL Hgb (13.7-17.5) g/dL Hct (40.1-51.0) % MCV (79.0-92.2) fL MCH (25.7-32.2) pg MCHC (32.3-36.5) g/dL RDW (11.6-14.4) % Plt Count (163-337) x10^3/uL MPV (9.4-12.4) fL Gran % (34.0-67.9) % Immature Gran % (Auto) (0.001-0.429) % Nucleat RBC Rel Count (0.00-0.2) % Eos # (Auto) (0.04-0.54) x10^3/uL Immature Gran # (Auto) (0.001-0.031) x10^3u/L Absolute Lymphs (auto) (1.32-3.57) x10^3/uL Absolute Monos (auto) (0.30-0.82) x10^3/uL Absolute Nucleated RBC (0.00-0.012) x10^3u/L Lymphocytes % (21.8-53.1) % Monocytes % (5.3-12.2) % Eosinophils % (0.8-7.0) % Basophils % (0.2-1.2) % Absolute Granulocytes (1.78-5.38) x10^3/uL Basophils # (0.01-0.08) x10^3/uL Sodium (135-145) mmol/L Potassium (3.5-5.1) mmol/L Chloride (98-107) mmol/L Carbon Dioxide (22-30) mmol/L Anion Gap (5-15) MEQ/L BUN (9-20) mg/dL Creatinine (0.66-1.25) mg/dL Estimated GFR ML/MIN Glucose (74-106) mg/dL Lactic Acid (0.4-2.0) Calcium (8.4-10.2) mg/dL Magnesium (1.6-2.3) mg/dL Total Bilirubin (0.2-1.3) mg/dL AST (17-59) U/L ALT (0-50) U/L Alkaline Phosphatase (38-126) U/L Troponin I (0.000-0.033) ng/mL NT-Pro-B Natriuret Pep (<300) pg/mL Serum Total Protein (6.3-8.2) g/dL Albumin (3.5-5.0) g/dL Urine Color Yellow (Yellow) Urine Appearance Clear (Clear) Urine pH 7.0 (4.6-8.0) Ur Specific [place] 1.010 (1.005-1.030) Urine Protein 30 (Negative) Urine Glucose (UA) Negative (Negative) mg/dL Urine Ketones Negative (Negative) Urine Blood Negative (Negative) Urine Nitrite Negative (Negative) Urine Bilirubin Negative (Negative) Urine Urobilinogen 0.2 (0.2) mg/dL Ur Leukocyte Esterase Negative (Negative) U Hyaline Cast (Auto) NONE SEEN (0-2) /LPF Urine Microscopic RBC 0-2 (0-5) /HPF Urine Microscopic WBC 0-2 (0-5) /HPF Ur Epithelial Cells None Seen (None Seen) /HPF Urine Bacteria None Seen (None Seen) /HPF Urine Culture Reflexed NO (NO) Monoscreen (NEGATIVE) Influenza Type A Ag (NEGATIVE) Influenza Type B Ag (NEGATIVE) RSV (PCR) (NEGATIVE) SARS-CoV-2 (PCR) (NEGATIVE) - Radiology Impressions Radiology Exams & Impressions: Radiology Procedures Category Date Time Status CHEST 1 VIEW (PORTABLE) Stat Exams 04/03/24 15:01 Completed Assessment/Plan (1) CHF exacerbation Current Visit: Yes Status: Acute Assessment & Plan: -No recent echo on file -ECHO -CXR demonstrating CHF with possible superimposed pneumonia -RA at baseline - supplemental oxygen with goal spo2 > 92% -Lasix 40mg bid -elevate HOB/daily weights/strict I&O -Monitor renal and lytes -tele Code(s): I50.9 - HEART FAILURE, UNSPECIFIED (2) Infiltrate noted on imaging study Current Visit: Yes Status: Acute Assessment & Plan: -RT eval supplemental oxygen with goal spo2>92% -lactic acid WNL - procal -sputum culture -Blood cultures pending -Ceftriaxone/azithromycin -Respiratory viral panel negative Code(s): R93.89 - ABNORMAL FINDINGS ON DX IMAGING OF OTH BODY STRUCTURES (3) HLD (hyperlipidemia) Current Visit: Yes Status: Acute Assessment & Plan: -continue home statin Code(s): E78.5 - HYPERLIPIDEMIA, UNSPECIFIED (4) Type II diabetes mellitus Current Visit: Yes Status: Acute Assessment & Plan: -ADA diet -SSI -A1c (5) BPH (benign prostatic hyperplasia) Current Visit: Yes Status: Acute Assessment & Plan: -continue home flomax Code(s): N40.0 - BENIGN PROSTATIC HYPERPLASIA WITHOUT LOWER URINRY TRACT SYMP (6) Chronic blood loss anemia Current Visit: Yes Status: Acute Assessment & Plan: -Hemoglobin reviewed from 03/05;03/10;03/24; 03/31 and 04/03-stable at 9.4 - trend if hgb< 7 transfuse -Continue ferrous sulfate -iron studies Code(s): D50.0 - IRON DEFICIENCY ANEMIA SECONDARY TO BLOOD LOSS (CHRONIC) (7) Weakness Current Visit: Yes Status: Acute Assessment & Plan: -Secondary to infection -PT/OT eval \\ Code(s): R53.1 - WEAKNESS (8) CAD (coronary artery disease) Current Visit: Yes Status: Acute Assessment & Plan: -Dr. Quinn - cardiology -s/p balloon angioplasty -continue home meds -No chest pain on exam -EKG with LAFB, prolonged QT interval, Right Bundle Branch Block, Other (Accelerated junctional rhythm. QTc 614. No acute ischemic changes. No change from twelve-lead EKG dated 02/04/2024) Code(s): I25.10 - ATHSCL HEART DISEASE OF [place] CORONARY ARTERY W/O ANG PCTRS (9) History of GI bleed Current Visit: Yes Status: Acute Assessment & Plan: -s/p endoscopy with cauterization -continue home meds -monitor hgb closely -stools for occult blood Code(s): Z87.19 - PERSONAL HISTORY OF OTHER DISEASES OF THE DIGESTIVE SYSTEM (10) CKD (chronic kidney disease) Current Visit: Yes Status: Acute Assessment & Plan: -Reviewed previous and current labs, creat baseline around 1.3-1.5 - patient at baseline at 1.31 -Avoid nephrotoxic medications -monitor renal/lytes daily Code(s): N18.9 - CHRONIC KIDNEY DISEASE, UNSPECIFIED (11) COPD (chronic obstructive pulmonary disease) Current Visit: Yes Status: Acute Assessment & Plan: -RA at baseline -continue home trelegy -Supplemental oxygen with goal spo2 > 91% -Nebs prn -ceftriaxone/azith for infiltrates on CXR VTE: plavix PPI: protonix Dispo: 1-2 days Code status: full Telemedicine Encounter - Telemedicine Encounter Telemedicine Encounter: "The entirety of this encounter was performed via Telemedicine" This visit was performed using real-time audio and video connection between my location and thepatients locationwith the assistance of a surrogateat the patients location. Written or verbal consent was obtained from the patient/guardian to perform this visit using[facility] technology. Any patient questions regarding the telemedicine interaction were answered.
[2024-04-03] MEDS ORDERED: HUMALOG SQ PRN (18:02)
[2024-04-03] MEDS ORDERED: NON-FORMULARY ITEM (Albuterol Sulfate [Proair Digihaler] 90 MCG Aer.Pw.Bas) PO PRN (18:11)
[2024-04-03 18:44] LABS: Iron 37 ug/dL (49-181); Iron Saturation 11 % (20-39); TIBC 326 ug/dL (261-497)
[2024-04-03] MEDS ORDERED: VENTOLIN COMMON CANISTER IH PRN (19:00)
[2024-04-03 19:42] LABS: Ferritin 21.7 ng/mL (17.9-464); Folate (Folic Acid) 10.4 ng/mL (2.76 - >20)
[2024-04-03] MEDS: TYLENOL 325 MG PO PRN (19:51)
[2024-04-03] MEDS: Lasix 40 MG/4 ML IV SCH (19:53)
[2024-04-03] MEDS: FEOSOL 325 MG PO SCH (21:39)
[2024-04-03] MEDS: ZOCOR 20MG PO SCH (21:39)
[2024-04-03] MEDS: Protonix 40MG Tablet PO SCH (21:39)
[2024-04-03] MEDS: Docusate Sodium 100 MG PO SCH (21:41)
[2024-04-03] MEDS ORDERED: NON-FORMULARY ITEM (Docusate Sodium 100 MG Capsule) PO SCH (22:00)
[2024-04-03] MEDS ORDERED: NON-FORMULARY ITEM (Atorvastatin Calcium [Lipitor] 80 MG Tablet) PO SCH (22:00)
[2024-04-04 04:39] LABS: Absolute Neutrophil Ct (ANC) 5.74 x10^3/uL (1.78-5.38); BASOPHIL % 0.3 % (0.2-1.2); Basophil (Absolute #) 0.02 x10^3/uL (0.01-0.08); Eosinophil % 2.1 % (0.8-7.0); Eosinophil (Absolute #) 0.16 x10^3/uL (0.04-0.54); Hematocrit 27.2 % (40.1-51.0); Hemoglobin 8.8 g/dL (13.7-17.5); IMMATURE GRAN # 0.03 x10^3u/L (0.001-0.031); IMMATURE GRAN % 0.4 % (0.001-0.429); Lymphocyte (Absolute #) 0.85 x10^3/uL (1.32-3.57); Mean Cell Volume 96.1 fL (79.0-92.2); Mean Corpuscular Hemoglobin 31.1 pg (25.7-32.2); Mean Corpuscular Hgb Concent. 32.4 g/dL (32.3-36.5); Mean Platelet Volume 10.5 fL (9.4-12.4); Monocyte (Absolute #) 0.92 x10^3/uL (0.30-0.82); Monocytes % 11.9 % (5.3-12.2); Neutrophil % 74.3 % (34.0-67.9); Platelet Count 230 x10^3/uL (163-337); Red Blood Count 2.83 x10^6/uL (4.63-6.08); Red Cell Distribution Width 15.9 % (11.6-14.4); White Blood Count 7.7 x10^3/uL (4.23-9.07)
[2024-04-04 05:01] LABS: ALBUMIN 3.4 g/dL (3.5-5.0); ANION GAP 12.2 MEQ/L (5-15); BILIRUBIN,TOTAL 0.9 mg/dL (0.2-1.3); Calcium 8.7 mg/dL (8.4-10.2); Creatinine 1 1.46 mg/dL (0.66-1.25); EST GLOMERULAR FILTRATION RATE 46.8 ML/MIN; Potassium 3.4 mmol/L (3.5-5.1)
[2024-04-04] MEDS: Advair Hfa 115/21 Common canister IH SCH (06:49)
[2024-04-04] MEDS: Klor Con PO SCH (08:05)
--- NOTE | 2024-04-04 09:00 | XRAY ---
Indication: Short of breath. Multiple contiguous axial images obtained through the chest without contrast. Comparison: March 29, 2023 Heart is now borderline enlarged with new small pericardial effusion/thickening. Again scattered coronary calcifications. Aorta remains mildly arteriosclerotic without aneurysm. No pathologic mediastinal lymphadenopathy. Lungs demonstrates new small bilateral pleural effusions with mild bibasilar compressive atelectasis. Stable previous CT proven 6 mm benign left upper lobe noncalcified nodule and small right upper lobe bleb. No new pulmonary mass/nodule. Bony thorax intact again with osteopenia, flowing osteophytes throughout spine, and benign and T8 sclerotic lesion. Limited upper abdomen demonstrates stable incompletely visualized 4 cm right mid renal cyst. Impression: 1. New borderline cardiomegaly with pericardial effusion/thickening. Echocardiogram may yield further information. Also new small bibasilar effusions. Rule out cardiac decompensation/CHF. 2. Again chronic findings including arteriosclerotic disease, benign left upper lobe noncalcified nodule, right renal cyst, and chronic bony findings.
[2024-04-04] MEDS: TENORMIN 50 MG PO SCH (09:28)
[2024-04-04] MEDS: PLAVIX Tablet PO SCH (09:28)
[2024-04-04] MEDS: Flomax 0.4 MG PO SCH (09:28)
[2024-04-04] MEDS: ROCEPHIN 1 GM / 100 ML NaCl 1 GM/100 ML IVPB IV SCH (09:29)
[2024-04-04] MEDS ORDERED: Protonix 40MG Tablet PO SCH (10:00)
[2024-04-04] MEDS ORDERED: NON-FORMULARY ITEM (Fluticasone/Umeclidin/Vilanter [Trelegy Ellipta 200-62.5-25] 1 EACH Bl PO SCH (10:00)
[2024-04-04] MEDS: Zithromax 500 MG/ 250 ML NaCl Premix 500 MG/250 ML IVPB IV SCH (10:18)
--- NOTE | 2024-04-04 11:48 | PCM.NOTE ---
Date and Time: 04/04/24 1140 Subjective Assessment: is a 83 year old male with a pmhx of DMII, COPD (RA at baseline), OA, HUBERT, GERD,HTN,CAD, CHF, HLD, prostate issues, NV, and GI bleed who presented to the ED 04/03/24 with complaints of weakness, shortness of breath, BIN PILER cough, abdominal pain, and fever. Patient states that symptoms began last night with aching in his abdomen. He states the pain is epigastric with no radiation. No alleviating/aggravating factors. Patient states currently his pain level is at a 0/10. His spouse reports that patient had a temperature of 103 and became so weak he was unable to ambulate. He reports a cough a few ago. Exertional shortness of breath. His spouse and daughter are present during the interview and report that over the past month patient was treated at [facility] for a bleeding ulcer. Following that hospitalization patient had multiple episode of anemia requiring transfusion and was evaluated at [facility] ED and transferred to [facility] for evaluation of GI bleed. During that hospitalization patient had a "cluster" of tissue cauterized and has been stable since. Patient also, according to the spouse, had at least 2 myocardial infarction's during this timeframe. Patient underwent balloon angioplasty. Patient follows with Dr. Quinn - cardiology. Upon exam patient appears comfortable, afebrile, on RA, with noted with 1+ pitting BLE edema. Denies cp, HERNANDEZ, hematuria, dizziness, N/V/D. He does report dark stools -is on ferrous sulfate. No rubén blood or active bleeding. Upon arrival to ED patient tachycardic and tachypneic. EKG NS, RBBB. CXR with developing borderline cardiomegaly with mild bibasilar infiltrates/atelectais and small left effusion with possible superimposed pneumonia. CT chest with new cardiomegay with pericardial effusion. Lab findings remarkable for microcytic anemia with hgb at 9.4., [place] [address], and elevated creat at 1.31 (baseline around 1.3). Trop x 1 negative. Respiratory panel negative. Patient given lasix and Rocephin in ED. Admit for CHF exacerbation and pneumonia. Plan for diuresis and abx. 04/04/24: Patient is feeling better today. Dyspnea and abdominal pain have resolved. Troponins x 3 are uptrending. Patient [place] [address]. Diuresis with 5lb weight loss overnight. CT chest with new cardiomegay with pericardial effusion. Hgb remains stable. Will obtain echo and consult cardiology as patient had recent balloon angioplasty. No stent placement. May need transferred to higher level of care for further evaluation. <JB DAWKINS - Last Filed: 04/04/24 11:40> Date and Time: 04/04/242138 <ALISSA CESAR - Last Filed: 04/04/24 21:41> - Review of Systems Constitutional: Weakness Eyes: No Symptoms Ears, Nose, & Throat: No Symptoms Respiratory: No Symptoms Cardiac: No Symptoms Abdominal/Gastrointestinal: No Symptoms Genitourinary Symptoms: No Symptoms Musculoskeletal: No Symptoms Skin: No Symptoms Neurological: No Symptoms Psychological: No Symptoms Endocrine: No Symptoms Hematologic/Lymphatic: No Symptoms Immunological/Allergic: No Symptoms <JB DAWKINS - Last Filed: 04/04/24 11:40> Objective Exam General Appearance: no apparent distress Neurologic Exam: alert, oriented x 3, cooperative Skin Exam: normal color Eye Exam: PERRL Ears, Nose, Throat Exam: normal ENT inspection Neck Exam: normal inspection Respiratory Exam: crackles/rales Cardiovascular Exam: regular rate/rhythm, normal heart sounds, edema (BLE +1) Gastrointestinal/Abdomen Exam: soft, normal bowel sounds Extremity Exam: other (BLE edema +1) <JB DAWKINS - Last Filed: 04/04/24 11:40> Objective Data Vital Signs: Vital Signs - 24 hr Temp Pulse Resp BP BP Pulse Ox 04/04/24 06:53 70 16 93 L 04/04/24 04:00 98.3 F 77 18 130/60 93 L 04/03/24 23:45 98.8 F 75 17 126/58 93 L 04/03/24 20:45 96 04/03/24 20:25 82 18 96 04/03/24 20:00 97.6 F 93 H 16 140/71 95 04/03/24 17:48 97.6 F 93 H 16 140/71 95 04/03/24 17:06 97.6 F 16 140/73 96 04/03/24 16:30 81 138/72 97 04/03/24 16:00 88 22 134/70 04/03/24 15:30 91 H 27 H 140/66 04/03/24 15:17 88 25 H 140/71 04/03/24 15:00 92 H 22 138/74 95 04/03/24 14:30 88 26 H 144/73 04/03/24 14:00 96 H 27 H 146/79 04/03/24 13:30 96 H 31 H 139/72 93 L 04/03/24 13:16 98.3 F 103 H 143/71 95 Pain Assessment - Last Documented Pain Intensity 1 Pain Scale Used 0-10 Pain Scale Intake and Output: Intake & Output 04/01/24 04/02/24 04/03/24 04/04/24 11:59 11:59 11:59 11:59 Intake Total 1080 Output Total 2500 Balance -1420 Weight 77.1 kg Lab Results: Lab Results-Last 24 Hours 04/03/24 04/03/24 04/03/24 Range/Units 13:36 13:36 13:36 WBC (4.23-9.07) x10^3/uL RBC (4.63-6.08) x10^6/uL Hgb (13.7-17.5) g/dL Hct (40.1-51.0) % MCV (79.0-92.2) fL MCH (25.7-32.2) pg MCHC (32.3-36.5) g/dL RDW (11.6-14.4) % Plt Count (163-337) x10^3/uL MPV (9.4-12.4) fL Gran % (34.0-67.9) % Immature Gran % (Auto) (0.001-0.429) % Nucleat RBC Rel Count (0.00-0.2) % Eos # (Auto) (0.04-0.54) x10^3/uL Immature Gran # (Auto) (0.001-0.031) x10^3u/L Absolute Lymphs (auto) (1.32-3.57) x10^3/uL Absolute Monos (auto) (0.30-0.82) x10^3/uL Absolute Nucleated RBC (0.00-0.012) x10^3u/L Lymphocytes % (21.8-53.1) % Monocytes % (5.3-12.2) % Eosinophils % (0.8-7.0) % Basophils % (0.2-1.2) % Absolute Granulocytes (1.78-5.38) x10^3/uL Basophils # (0.01-0.08) x10^3/uL D-Dimer (0.0-0.50) mg/L Sodium (135-145) mmol/L Potassium (3.5-5.1) mmol/L Chloride (98-107) mmol/L Carbon Dioxide (22-30) mmol/L Anion Gap (5-15) MEQ/L BUN (9-20) mg/dL Creatinine (0.66-1.25) mg/dL Estimated GFR ML/MIN Glucose (74-106) mg/dL Hemoglobin A1c 4.52 (4.5-6.0) % Lactic Acid (0.4-2.0) Calcium (8.4-10.2) mg/dL Magnesium (1.6-2.3) mg/dL Iron 37 L (49-181) ug/dL TIBC 326 (261-497) ug/dL Iron Saturation 11 L (20-39) % Ferritin 21.7 (17.9-464) ng/mL Total Bilirubin (0.2-1.3) mg/dL AST (17-59) U/L ALT (0-50) U/L Alkaline Phosphatase (38-126) U/L Troponin I (0.000-0.033) ng/mL NT-Pro-B Natriuret Pep (<300) pg/mL Serum Total Protein (6.3-8.2) g/dL Albumin (3.5-5.0) g/dL Vitamin B12 357 (239-931) pg/mL Folic Acid 10.4 (2.76 - >20) ng/mL Procalcitonin (0.030-0.080) ng/mL Urine Color (Yellow) Urine Appearance (Clear) Urine pH (4.6-8.0) Ur Specific [place] (1.005-1.030) Urine Protein (Negative) Urine Glucose (UA) (Negative) mg/dL Urine Ketones (Negative) Urine Blood (Negative) Urine Nitrite (Negative) Urine Bilirubin (Negative) Urine Urobilinogen (0.2) mg/dL Ur Leukocyte Esterase (Negative) U Hyaline Cast (Auto) (0-2) /LPF Urine Microscopic RBC (0-5) /HPF Urine Microscopic WBC (0-5) /HPF Ur Epithelial Cells (None Seen) /HPF Urine Bacteria (None Seen) /HPF Urine Culture Reflexed (NO) Monoscreen (NEGATIVE) Influenza Type A Ag (NEGATIVE) Influenza Type B Ag (NEGATIVE) RSV (PCR) (NEGATIVE) SARS-CoV-2 (PCR) (NEGATIVE) 04/03/24 04/03/24 04/03/24 Range/Units 13:36 13:45 14:00 WBC 9.0 (4.23-9.07) x10^3/uL RBC 3.01 L (4.63-6.08) x10^6/uL Hgb 9.4 L (13.7-17.5) g/dL Hct 29.4 L (40.1-51.0) % MCV 97.7 H (79.0-92.2) fL MCH 31.2 (25.7-32.2) pg MCHC 32.0 L (32.3-36.5) g/dL RDW 16.1 H (11.6-14.4) % Plt Count 245 (163-337) x10^3/uL MPV 10.5 (9.4-12.4) fL Gran % 79.7 H (34.0-67.9) % Immature Gran % (Auto) 0.3 (0.001-0.429) % Nucleat RBC Rel Count 0.0 (0.00-0.2) % Eos # (Auto) 0.06 (0.04-0.54) x10^3/uL Immature Gran # (Auto) 0.03 (0.001-0.031) x10^3u/L Absolute Lymphs (auto) 0.70 L (1.32-3.57) x10^3/uL Absolute Monos (auto) 1.02 H (0.30-0.82) x10^3/uL Absolute Nucleated RBC 0.00 (0.00-0.012) x10^3u/L Lymphocytes % 7.8 L (21.8-53.1) % Monocytes % 11.3 (5.3-12.2) % Eosinophils % 0.7 L (0.8-7.0) % Basophils % 0.2 (0.2-1.2) % Absolute Granulocytes 7.18 H (1.78-5.38) x10^3/uL Basophils # 0.02 (0.01-0.08) x10^3/uL D-Dimer (0.0-0.50) mg/L Sodium (135-145) mmol/L Potassium (3.5-5.1) mmol/L Chloride (98-107) mmol/L Carbon Dioxide (22-30) mmol/L Anion Gap (5-15) MEQ/L BUN (9-20) mg/dL Creatinine (0.66-1.25) mg/dL Estimated GFR ML/MIN Glucose (74-106) mg/dL Hemoglobin A1c (4.5-6.0) % Lactic Acid 1.5 (0.4-2.0) Calcium (8.4-10.2) mg/dL Magnesium (1.6-2.3) mg/dL Iron (49-181) ug/dL TIBC (261-497) ug/dL Iron Saturation (20-39) % Ferritin (17.9-464) ng/mL Total Bilirubin (0.2-1.3) mg/dL AST (17-59) U/L ALT (0-50) U/L Alkaline Phosphatase (38-126) U/L Troponin I (0.000-0.033) ng/mL NT-Pro-B Natriuret Pep (<300) pg/mL Serum Total Protein (6.3-8.2) g/dL Albumin (3.5-5.0) g/dL Vitamin B12 (239-931) pg/mL Folic Acid (2.76 - >20) ng/mL Procalcitonin 0.099 H (0.030-0.080) ng/mL Urine Color (Yellow) Urine Appearance (Clear) Urine pH (4.6-8.0) Ur Specific [place] (1.005-1.030) Urine Protein (Negative) Urine Glucose (UA) (Negative) mg/dL Urine Ketones (Negative) Urine Blood (Negative) Urine Nitrite (Negative) Urine Bilirubin (Negative) Urine Urobilinogen (0.2) mg/dL Ur Leukocyte Esterase (Negative) U Hyaline Cast (Auto) (0-2) /LPF Urine Microscopic RBC (0-5) /HPF Urine Microscopic WBC (0-5) /HPF Ur Epithelial Cells (None Seen) /HPF Urine Bacteria (None Seen) /HPF Urine Culture Reflexed (NO) Monoscreen (NEGATIVE) Influenza Type A Ag (NEGATIVE) Influenza Type B Ag (NEGATIVE) RSV (PCR) (NEGATIVE) SARS-CoV-2 (PCR) (NEGATIVE) 04/03/24 04/03/24 04/03/24 Range/Units 14:00 14:00 14:09 WBC (4.23-9.07) x10^3/uL RBC (4.63-6.08) x10^6/uL Hgb (13.7-17.5) g/dL Hct (40.1-51.0) % MCV (79.0-92.2) fL MCH (25.7-32.2) pg MCHC (32.3-36.5) g/dL RDW (11.6-14.4) % Plt Count (163-337) x10^3/uL MPV (9.4-12.4) fL Gran % (34.0-67.9) % Immature Gran % (Auto) (0.001-0.429) % Nucleat RBC Rel Count (0.00-0.2) % Eos # (Auto) (0.04-0.54) x10^3/uL Immature Gran # (Auto) (0.001-0.031) x10^3u/L Absolute Lymphs (auto) (1.32-3.57) x10^3/uL Absolute Monos (auto) (0.30-0.82) x10^3/uL Absolute Nucleated RBC (0.00-0.012) x10^3u/L Lymphocytes % (21.8-53.1) % Monocytes % (5.3-12.2) % Eosinophils % (0.8-7.0) % Basophils % (0.2-1.2) % Absolute Granulocytes (1.78-5.38) x10^3/uL Basophils # (0.01-0.08) x10^3/uL D-Dimer (0.0-0.50) mg/L Sodium 141 (135-145) mmol/L Potassium 4.2 (3.5-5.1) mmol/L Chloride 106 (98-107) mmol/L Carbon Dioxide 25 (22-30) mmol/L Anion Gap 14.0 (5-15) MEQ/L BUN 16 (9-20) mg/dL Creatinine 1.31 H (0.66-1.25) mg/dL Estimated GFR 53.3 ML/MIN Glucose 101 (74-106) mg/dL Hemoglobin A1c (4.5-6.0) % Lactic Acid (0.4-2.0) Calcium 8.9 (8.4-10.2) mg/dL Magnesium 1.7 (1.6-2.3) mg/dL Iron (49-181) ug/dL TIBC (261-497) ug/dL Iron Saturation (20-39) % Ferritin (17.9-464) ng/mL Total Bilirubin 0.80 (0.2-1.3) mg/dL AST 15 L (17-59) U/L ALT 13 (0-50) U/L Alkaline Phosphatase 127 H (38-126) U/L Troponin I 0.032 (0.000-0.033) ng/mL NT-Pro-B Natriuret Pep 44184 (<300) pg/mL Serum Total Protein 5.8 L (6.3-8.2) g/dL Albumin 3.5 (3.5-5.0) g/dL Vitamin B12 (239-931) pg/mL Folic Acid (2.76 - >20) ng/mL Procalcitonin (0.030-0.080) ng/mL Urine Color (Yellow) Urine Appearance (Clear) Urine pH (4.6-8.0) Ur Specific [place] (1.005-1.030) Urine Protein (Negative) Urine Glucose (UA) (Negative) mg/dL Urine Ketones (Negative) Urine Blood (Negative) Urine Nitrite (Negative) Urine Bilirubin (Negative) Urine Urobilinogen (0.2) mg/dL Ur Leukocyte Esterase (Negative) U Hyaline Cast (Auto) (0-2) /LPF Urine Microscopic RBC (0-5) /HPF Urine Microscopic WBC (0-5) /HPF Ur Epithelial Cells (None Seen) /HPF Urine Bacteria (None Seen) /HPF Urine Culture Reflexed (NO) Monoscreen NEGATIVE (NEGATIVE) Influenza Type A Ag (NEGATIVE) Influenza Type B Ag (NEGATIVE) RSV (PCR) (NEGATIVE) SARS-CoV-2 (PCR) (NEGATIVE) 04/03/24 04/03/24 04/03/24 Range/Units 14:10 14:29 18:23 WBC (4.23-9.07) x10^3/uL RBC (4.63-6.08) x10^6/uL Hgb (13.7-17.5) g/dL Hct (40.1-51.0) % MCV (79.0-92.2) fL MCH (25.7-32.2) pg MCHC (32.3-36.5) g/dL RDW (11.6-14.4) % Plt Count (163-337) x10^3/uL MPV (9.4-12.4) fL Gran % (34.0-67.9) % Immature Gran % (Auto) (0.001-0.429) % Nucleat RBC Rel Count (0.00-0.2) % Eos # (Auto) (0.04-0.54) x10^3/uL Immature Gran # (Auto) (0.001-0.031) x10^3u/L Absolute Lymphs (auto) (1.32-3.57) x10^3/uL Absolute Monos (auto) (0.30-0.82) x10^3/uL Absolute Nucleated RBC (0.00-0.012) x10^3u/L Lymphocytes % (21.8-53.1) % Monocytes % (5.3-12.2) % Eosinophils % (0.8-7.0) % Basophils % (0.2-1.2) % Absolute Granulocytes (1.78-5.38) x10^3/uL Basophils # (0.01-0.08) x10^3/uL D-Dimer (0.0-0.50) mg/L Sodium (135-145) mmol/L Potassium (3.5-5.1) mmol/L Chloride (98-107) mmol/L Carbon Dioxide (22-30) mmol/L Anion Gap (5-15) MEQ/L BUN (9-20) mg/dL Creatinine (0.66-1.25) mg/dL Estimated GFR ML/MIN Glucose (74-106) mg/dL Hemoglobin A1c (4.5-6.0) % Lactic Acid (0.4-2.0) Calcium (8.4-10.2) mg/dL Magnesium (1.6-2.3) mg/dL Iron (49-181) ug/dL TIBC (261-497) ug/dL Iron Saturation (20-39) % Ferritin (17.9-464) ng/mL Total Bilirubin (0.2-1.3) mg/dL AST (17-59) U/L ALT (0-50) U/L Alkaline Phosphatase (38-126) U/L Troponin I 0.067 H* (0.000-0.033) ng/mL NT-Pro-B Natriuret Pep (<300) pg/mL Serum Total Protein (6.3-8.2) g/dL Albumin (3.5-5.0) g/dL Vitamin B12 (239-931) pg/mL Folic Acid (2.76 - >20) ng/mL Procalcitonin (0.030-0.080) ng/mL Urine Color Yellow (Yellow) Urine Appearance Clear (Clear) Urine pH 7.0 (4.6-8.0) Ur Specific [place] 1.010 (1.005-1.030) Urine Protein 30 (Negative) Urine Glucose (UA) Negative (Negative) mg/dL Urine Ketones Negative (Negative) Urine Blood Negative (Negative) Urine Nitrite Negative (Negative) Urine Bilirubin Negative (Negative) Urine Urobilinogen 0.2 (0.2) mg/dL Ur Leukocyte Esterase Negative (Negative) U Hyaline Cast (Auto) NONE SEEN (0-2) /LPF Urine Microscopic RBC 0-2 (0-5) /HPF Urine Microscopic WBC 0-2 (0-5) /HPF Ur Epithelial Cells None Seen (None Seen) /HPF Urine Bacteria None Seen (None Seen) /HPF Urine Culture Reflexed NO (NO) Monoscreen (NEGATIVE) Influenza Type A Ag NEGATIVE (NEGATIVE) Influenza Type B Ag NEGATIVE (NEGATIVE) RSV (PCR) NEGATIVE (NEGATIVE) SARS-CoV-2 (PCR) NEGATIVE (NEGATIVE) 04/03/24 04/03/24 04/04/24 Range/Units 18:23 21:20 04:30 WBC 7.7 (4.23-9.07) x10^3/uL RBC 2.83 L (4.63-6.08) x10^6/uL Hgb 8.8 L (13.7-17.5) g/dL Hct 27.2 L (40.1-51.0) % MCV 96.1 H (79.0-92.2) fL MCH 31.1 (25.7-32.2) pg MCHC 32.4 (32.3-36.5) g/dL RDW 15.9 H (11.6-14.4) % Plt Count 230 (163-337) x10^3/uL MPV 10.5 (9.4-12.4) fL Gran % 74.3 H (34.0-67.9) % Immature Gran % (Auto) 0.4 (0.001-0.429) % Nucleat RBC Rel Count 0.0 (0.00-0.2) % Eos # (Auto) 0.16 (0.04-0.54) x10^3/uL Immature Gran # (Auto) 0.03 (0.001-0.031) x10^3u/L Absolute Lymphs (auto) 0.85 L (1.32-3.57) x10^3/uL Absolute Monos (auto) 0.92 H (0.30-0.82) x10^3/uL Absolute Nucleated RBC 0.00 (0.00-0.012) x10^3u/L Lymphocytes % 11.0 L (21.8-53.1) % Monocytes % 11.9 (5.3-12.2) % Eosinophils % 2.1 (0.8-7.0) % Basophils % 0.3 (0.2-1.2) % Absolute Granulocytes 5.74 H (1.78-5.38) x10^3/uL Basophils # 0.02 (0.01-0.08) x10^3/uL D-Dimer 0.98 H* (0.0-0.50) mg/L Sodium (135-145) mmol/L Potassium (3.5-5.1) mmol/L Chloride (98-107) mmol/L Carbon Dioxide (22-30) mmol/L Anion Gap (5-15) MEQ/L BUN (9-20) mg/dL Creatinine (0.66-1.25) mg/dL Estimated GFR ML/MIN Glucose (74-106) mg/dL Hemoglobin A1c (4.5-6.0) % Lactic Acid (0.4-2.0) Calcium (8.4-10.2) mg/dL Magnesium (1.6-2.3) mg/dL Iron (49-181) ug/dL TIBC (261-497) ug/dL Iron Saturation (20-39) % Ferritin (17.9-464) ng/mL Total Bilirubin (0.2-1.3) mg/dL AST (17-59) U/L ALT (0-50) U/L Alkaline Phosphatase (38-126) U/L Troponin I 0.096 H* (0.000-0.033) ng/mL NT-Pro-B Natriuret Pep (<300) pg/mL Serum Total Protein (6.3-8.2) g/dL Albumin (3.5-5.0) g/dL Vitamin B12 (239-931) pg/mL Folic Acid (2.76 - >20) ng/mL Procalcitonin (0.030-0.080) ng/mL Urine Color (Yellow) Urine Appearance (Clear) Urine pH (4.6-8.0) Ur Specific [place] (1.005-1.030) Urine Protein (Negative) Urine Glucose (UA) (Negative) mg/dL Urine Ketones (Negative) Urine Blood (Negative) Urine Nitrite (Negative) Urine Bilirubin (Negative) Urine Urobilinogen (0.2) mg/dL Ur Leukocyte Esterase (Negative) U Hyaline Cast (Auto) (0-2) /LPF Urine Microscopic RBC (0-5) /HPF Urine Microscopic WBC (0-5) /HPF Ur Epithelial Cells (None Seen) /HPF Urine Bacteria (None Seen) /HPF Urine Culture Reflexed (NO) Monoscreen (NEGATIVE) Influenza Type A Ag (NEGATIVE) Influenza Type B Ag (NEGATIVE) RSV (PCR) (NEGATIVE) SARS-CoV-2 (PCR) (NEGATIVE) 11/01/24 11/01/24 11/01/24 Range/Units 04:30 05:20 05:20 WBC (4.23-9.07) x10^3/uL RBC (4.63-6.08) x10^6/uL Hgb (13.7-17.5) g/dL Hct (40.1-51.0) % MCV (79.0-92.2) fL MCH (25.7-32.2) pg MCHC (32.3-36.5) g/dL RDW (11.6-14.4) % Plt Count (163-337) x10^3/uL MPV (9.4-12.4) fL Gran % (34.0-67.9) % Immature Gran % (Auto) (0.001-0.429) % Nucleat RBC Rel Count (0.00-0.2) % Eos # (Auto) (0.04-0.54) x10^3/uL Immature Gran # (Auto) (0.001-0.031) x10^3u/L Absolute Lymphs (auto) (1.32-3.57) x10^3/uL Absolute Monos (auto) (0.30-0.82) x10^3/uL Absolute Nucleated RBC (0.00-0.012) x10^3u/L Lymphocytes % (21.8-53.1) % Monocytes % (5.3-12.2) % Eosinophils % (0.8-7.0) % Basophils % (0.2-1.2) % Absolute Granulocytes (1.78-5.38) x10^3/uL Basophils # (0.01-0.08) x10^3/uL D-Dimer (0.0-0.50) mg/L Sodium 139 (135-145) mmol/L Potassium 3.4 L (3.5-5.1) mmol/L Chloride 102 (98-107) mmol/L Carbon Dioxide 29 (22-30) mmol/L Anion Gap 12.2 (5-15) MEQ/L BUN 19 (9-20) mg/dL Creatinine 1.46 H (0.66-1.25) mg/dL Estimated GFR 46.8 ML/MIN Glucose 110 H (74-106) mg/dL Hemoglobin A1c (4.5-6.0) % Lactic Acid (0.4-2.0) Calcium 8.7 (8.4-10.2) mg/dL Magnesium 1.7 (1.6-2.3) mg/dL Iron (49-181) ug/dL TIBC (261-497) ug/dL Iron Saturation (20-39) % Ferritin (17.9-464) ng/mL Total Bilirubin 0.90 (0.2-1.3) mg/dL AST 15 L (17-59) U/L ALT 12 (0-50) U/L Alkaline Phosphatase 109 (38-126) U/L Troponin I 0.125 H* (0.000-0.033) ng/mL NT-Pro-B Natriuret Pep 16746 (<300) pg/mL Serum Total Protein 6.0 L (6.3-8.2) g/dL Albumin 3.4 L (3.5-5.0) g/dL Vitamin B12 (239-931) pg/mL Folic Acid (2.76 - >20) ng/mL Procalcitonin (0.030-0.080) ng/mL Urine Color (Yellow) Urine Appearance (Clear) Urine pH (4.6-8.0) Ur Specific [place] (1.005-1.030) Urine Protein (Negative) Urine Glucose (UA) (Negative) mg/dL Urine Ketones (Negative) Urine Blood (Negative) Urine Nitrite (Negative) Urine Bilirubin (Negative) Urine Urobilinogen (0.2) mg/dL Ur Leukocyte Esterase (Negative) U Hyaline Cast (Auto) (0-2) /LPF Urine Microscopic RBC (0-5) /HPF Urine Microscopic WBC (0-5) /HPF Ur Epithelial Cells (None Seen) /HPF Urine Bacteria (None Seen) /HPF Urine Culture Reflexed (NO) Monoscreen (NEGATIVE) Influenza Type A Ag (NEGATIVE) Influenza Type B Ag (NEGATIVE) RSV (PCR) (NEGATIVE) SARS-CoV-2 (PCR) (NEGATIVE) Radiology Exams: Radiology Procedures Category Date Time Status CHEST 1 VIEW (PORTABLE) Stat Exams 04/03/24 15:01 Completed CHEST WITHOUT CONTRAST [CT] Routine Exams 04/03/24 19:48 Completed ECHO W/2D AND DOPPLER [US] Stat Exams 04/04/24 18:18 Taken Multi-Disciplinary Progress Notes: Multi-Disciplinary Progress Notes 04/04/24 09:44 Case Management Note by Mariola Joyner PATIENT HAS [facility]. THEY WERE NOTIFIED PATIENT HERE OBS. THEY WILL NEED NOTIFIED AT TIME OF DC AT [phone]. THEY WILL NEED FAXED THE DC INSTRUCTIONS, DC MED LIST AND DC SUMMARY TO [phone] Initialized on 04/04/24 09:44 - END OF NOTE <JB DAWKINS - Last Filed: 04/04/24 11:40> Vital Signs: Vital Signs - hr Temp Pulse Resp BP Pulse Ox 04/04/24 19:26 97.8 F 78 20 122/57 93 L 04/04/24 19:00 92 L 04/04/24 18:32 78 18 92 L 04/04/24 16:00 99.2 F 75 18 113/56 92 L 04/04/24 11:46 98.0 F 86 18 109/58 93 L 04/04/24 08:00 98.9 F 71 18 115/55 92 L 04/04/24 06:53 70 16 93 L 04/04/24 04:00 98.3 F 77 18 130/60 93 L 04/03/24 23:45 98.8 F 75 17 126/58 93 L Pain Assessment - Last Documented Pain Intensity 0 Pain Scale Used 0-10 Pain Scale Intake and Output: Intake & Output 04/02/24 04/03/24 04/04/24 04/05/24 11:59 11:59 11:59 11:59 Intake Total 1705 480 Output Total 2500 750 Balance -795 -270 Weight 77.1 kg Lab Results: Lab Results-Last 24 Hours 04/03/24 04/04/24 04/04/24 Range/Units 21:20 04:30 04:30 WBC 7.7 (4.23-9.07) x10^3/uL RBC 2.83 L (4.63-6.08) x10^6/uL Hgb 8.8 L (13.7-17.5) g/dL Hct 27.2 L (40.1-51.0) % MCV 96.1 H (79.0-92.2) fL MCH 31.1 (25.7-32.2) pg MCHC 32.4 (32.3-36.5) g/dL RDW 15.9 H (11.6-14.4) % Plt Count 230 (163-337) x10^3/uL MPV 10.5 (9.4-12.4) fL Gran % 74.3 H (34.0-67.9) % Immature Gran % (Auto) 0.4 (0.001-0.429) % Nucleat RBC Rel Count 0.0 (0.00-0.2) % Eos # (Auto) 0.16 (0.04-0.54) x10^3/uL Immature Gran # (Auto) 0.03 (0.001-0.031) x10^3u/L Absolute Lymphs (auto) 0.85 L (1.32-3.57) x10^3/uL Absolute Monos (auto) 0.92 H (0.30-0.82) x10^3/uL Absolute Nucleated RBC 0.00 (0.00-0.012) x10^3u/L Lymphocytes % 11.0 L (21.8-53.1) % Monocytes % 11.9 (5.3-12.2) % Eosinophils % 2.1 (0.8-7.0) % Basophils % 0.3 (0.2-1.2) % Absolute Granulocytes 5.74 H (1.78-5.38) x10^3/uL Basophils # 0.02 (0.01-0.08) x10^3/uL Sodium 139 (135-145) mmol/L Potassium 3.4 L (3.5-5.1) mmol/L Chloride 102 (98-107) mmol/L Carbon Dioxide 29 (22-30) mmol/L Anion Gap 12.2 (5-15) MEQ/L BUN 19 (9-20) mg/dL Creatinine 1.46 H (0.66-1.25) mg/dL Estimated GFR 46.8 ML/MIN Glucose 110 H (74-106) mg/dL POC Glucometer (74 to 106) mg/dL Calcium 8.7 (8.4-10.2) mg/dL Magnesium (1.6-2.3) mg/dL Total Bilirubin 0.90 (0.2-1.3) mg/dL AST 15 L (17-59) U/L ALT 12 (0-50) U/L Alkaline Phosphatase 109 (38-126) U/L Troponin I 0.096 H* (0.000-0.033) ng/mL NT-Pro-B Natriuret Pep 64869 (<300) pg/mL Serum Total Protein 6.0 L (6.3-8.2) g/dL Albumin 3.4 L (3.5-5.0) g/dL Stl Occult Blood (IFOB) (NEGATIVE) 04/04/24 04/04/24 04/04/24 Range/Units 05:20 05:20 14:00 WBC (4.23-9.07) x10^3/uL RBC (4.63-6.08) x10^6/uL Hgb (13.7-17.5) g/dL Hct (40.1-51.0) % MCV (79.0-92.2) fL MCH (25.7-32.2) pg MCHC (32.3-36.5) g/dL RDW (11.6-14.4) % Plt Count (163-337) x10^3/uL MPV (9.4-12.4) fL Gran % (34.0-67.9) % Immature Gran % (Auto) (0.001-0.429) % Nucleat RBC Rel Count (0.00-0.2) % Eos # (Auto) (0.04-0.54) x10^3/uL Immature Gran # (Auto) (0.001-0.031) x10^3u/L Absolute Lymphs (auto) (1.32-3.57) x10^3/uL Absolute Monos (auto) (0.30-0.82) x10^3/uL Absolute Nucleated RBC (0.00-0.012) x10^3u/L Lymphocytes % (21.8-53.1) % Monocytes % (5.3-12.2) % Eosinophils % (0.8-7.0) % Basophils % (0.2-1.2) % Absolute Granulocytes (1.78-5.38) x10^3/uL Basophils # (0.01-0.08) x10^3/uL Sodium (135-145) mmol/L Potassium (3.5-5.1) mmol/L Chloride (98-107) mmol/L Carbon Dioxide (22-30) mmol/L Anion Gap (5-15) MEQ/L BUN (9-20) mg/dL Creatinine (0.66-1.25) mg/dL Estimated GFR ML/MIN Glucose (74-106) mg/dL POC Glucometer (74 to 106) mg/dL Calcium (8.4-10.2) mg/dL Magnesium 1.7 (1.6-2.3) mg/dL Total Bilirubin (0.2-1.3) mg/dL AST (17-59) U/L ALT (0-50) U/L Alkaline Phosphatase (38-126) U/L Troponin I 0.125 H* (0.000-0.033) ng/mL NT-Pro-B Natriuret Pep (<300) pg/mL Serum Total Protein (6.3-8.2) g/dL Albumin (3.5-5.0) g/dL Stl Occult Blood (IFOB) POSITIVE A (NEGATIVE) 04/04/24 04/04/24 04/04/24 Range/Units 14:05 16:14 21:07 WBC (4.23-9.07) x10^3/uL RBC (4.63-6.08) x10^6/uL Hgb (13.7-17.5) g/dL Hct (40.1-51.0) % MCV (79.0-92.2) fL MCH (25.7-32.2) pg MCHC (32.3-36.5) g/dL RDW (11.6-14.4) % Plt Count (163-337) x10^3/uL MPV (9.4-12.4) fL Gran % (34.0-67.9) % Immature Gran % (Auto) (0.001-0.429) % Nucleat RBC Rel Count (0.00-0.2) % Eos # (Auto) (0.04-0.54) x10^3/uL Immature Gran # (Auto) (0.001-0.031) x10^3u/L Absolute Lymphs (auto) (1.32-3.57) x10^3/uL Absolute Monos (auto) (0.30-0.82) x10^3/uL Absolute Nucleated RBC (0.00-0.012) x10^3u/L Lymphocytes % (21.8-53.1) % Monocytes % (5.3-12.2) % Eosinophils % (0.8-7.0) % Basophils % (0.2-1.2) % Absolute Granulocytes (1.78-5.38) x10^3/uL Basophils # (0.01-0.08) x10^3/uL Sodium (135-145) mmol/L Potassium 3.9 (3.5-5.1) mmol/L Chloride (98-107) mmol/L Carbon Dioxide (22-30) mmol/L Anion Gap (5-15) MEQ/L BUN (9-20) mg/dL Creatinine (0.66-1.25) mg/dL Estimated GFR ML/MIN Glucose (74-106) mg/dL POC Glucometer 117 H 108 H (74 to 106) mg/dL Calcium (8.4-10.2) mg/dL Magnesium (1.6-2.3) mg/dL Total Bilirubin (0.2-1.3) mg/dL AST (17-59) U/L ALT (0-50) U/L Alkaline Phosphatase (38-126) U/L Troponin I (0.000-0.033) ng/mL NT-Pro-B Natriuret Pep (<300) pg/mL Serum Total Protein (6.3-8.2) g/dL Albumin (3.5-5.0) g/dL Stl Occult Blood (IFOB) (NEGATIVE) Radiology Exams: Radiology Procedures Category Date Time Status CHEST 1 VIEW (PORTABLE) Stat Exams 04/03/24 15:01 Completed CHEST WITHOUT CONTRAST [CT] Routine Exams 04/03/24 19:48 Completed ECHO W/2D AND DOPPLER [US] Stat Exams 04/04/24 18:18 Taken Multi-Disciplinary Progress Notes: Multi-Disciplinary Progress Notes 04/04/24 09:44 Case Management Note by Mariola Joyner PATIENT HAS [facility]. THEY WERE NOTIFIED PATIENT HERE OBS. THEY WILL NEED NOTIFIED AT TIME OF DC AT [phone]. THEY WILL NEED FAXED THE DC INSTRUCTIONS, DC MED LIST AND DC SUMMARY TO [phone] Initialized on 04/04/24 09:44 - END OF NOTE <ALISSA CESAR - Last Filed: 04/04/24 21:41> Assessment/Plan (1) CHF exacerbation Current Visit: Yes Status: Acute Assessment & Plan: -No recent echo on file -ECHO -CXR demonstrating CHF with possible superimposed pneumonia -RA at baseline - supplemental oxygen with goal spo2 > 92% -Lasix 40mg bid -elevate HOB/daily weights/strict I&O -Monitor renal and lytes -tele 04/04: -Echo pending -Cards consulted - -[place] [id number] >[id number] -Obtain records from [facility] -Continue Lasix 40mg BID -Vitals reviewed with 5LB weight loss noted -Remains at RA Code(s): I50.9 - HEART FAILURE, UNSPECIFIED (2) Infiltrate noted on imaging study Current Visit: Yes Status: Acute Assessment & Plan: -RT eval supplemental oxygen with goal spo2>92% -lactic acid WNL - procal -sputum culture -Blood cultures pending -Ceftriaxone/azithromycin -Respiratory viral panel negative 04/04: -most likely secondary to CHF VS infective process -CBC reviewed showing normal WBC/ patient remains afebrile -Procal reviewed with elevation at 0.099 -CT chest reviewed with new cardiomegay with pericardial effusion. -no infectious process noted -Blood and sputum pending- will dc abx Code(s): R93.89 - ABNORMAL FINDINGS ON DX IMAGING OF OTH BODY STRUCTURES (3) HLD (hyperlipidemia) Current Visit: Yes Status: Acute Assessment & Plan: -continue home statin Code(s): E78.5 - HYPERLIPIDEMIA, UNSPECIFIED (4) Type II diabetes mellitus Current Visit: Yes Status: Acute Assessment & Plan: -ADA diet -SSI -A1c (5) BPH (benign prostatic hyperplasia) Current Visit: Yes Status: Acute Assessment & Plan: -continue home flomax Code(s): N40.0 - BENIGN PROSTATIC HYPERPLASIA WITHOUT LOWER URINRY TRACT SYMP (6) Chronic blood loss anemia Current Visit: Yes Status: Acute Assessment & Plan: -Hemoglobin reviewed from 03/05;03/10;03/24; 03/31 and 04/03-stable at 9.4 - trend if hgb< 7 transfuse -Continue ferrous sulfate -iron studies 04/04: -Hgb stable at 8.8 -Iron sat at 11% - will continue ferrous sulfate- recommend hematology for iron infusion as OP Code(s): D50.0 - IRON DEFICIENCY ANEMIA SECONDARY TO BLOOD LOSS (CHRONIC) (7) Weakness Current Visit: Yes Status: Acute Assessment & Plan: -Secondary to infection -PT/OT eval \\ Code(s): R53.1 - WEAKNESS (8) CAD (coronary artery disease) Current Visit: Yes Status: Acute Assessment & Plan: -Dr. Quinn - cardiology -s/p balloon angioplasty -continue home meds -No chest pain on exam -EKG with LAFB, prolonged QT interval, Right Bundle Branch Block, Other (Accelerated junctional rhythm. QTc 614. No acute ischemic changes. No change from twelve-lead EKG dated 02/04/2024) Code(s): I25.10 - ATHSCL HEART DISEASE OF [place] CORONARY ARTERY W/O ANG PCTRS (9) History of GI bleed Current Visit: Yes Status: Acute Assessment & Plan: -s/p endoscopy with cauterization -continue home meds -monitor hgb closely -stools for occult blood Code(s): Z87.19 - PERSONAL HISTORY OF OTHER DISEASES OF THE DIGESTIVE SYSTEM (10) CKD (chronic kidney disease) Current Visit: Yes Status: Acute Assessment & Plan: -Reviewed previous and current labs, creat baseline around 1.3-1.5 - patient at baseline at 1.31 -Avoid nephrotoxic medications -monitor renal/lytes daily Code(s): N18.9 - CHRONIC KIDNEY DISEASE, UNSPECIFIED (11) COPD (chronic obstructive pulmonary disease) Current Visit: Yes Status: Acute Assessment & Plan: -RA at baseline -continue home trelegy -Supplemental oxygen with goal spo2 > 91% -Nebs prn -ceftriaxone/azith for infiltrates on CXR 04/04: -No infiltrates on CT - dc abx VTE: plavix PPI: protonix Dispo: 1-2 days Code status: full Code(s): I50.9 - HEART FAILURE, UNSPECIFIED (2) Infiltrate noted on imaging study Current Visit: Yes Status: Acute Code(s): R93.89 - ABNORMAL FINDINGS ON DX IMAGING OF OTH BODY STRUCTURES (3) HLD (hyperlipidemia) Current Visit: Yes Status: Acute Code(s): E78.5 - HYPERLIPIDEMIA, UNSPECIFIED (4) Type II diabetes mellitus Current Visit: Yes Status: Acute (5) BPH (benign prostatic hyperplasia) Current Visit: Yes Status: Acute Code(s): N40.0 - BENIGN PROSTATIC HYPERPL WON WITHOUT LOWER URINRY TRACT SYMP (6) Chronic blood loss anemia Current Visit: Yes Status: Acute Code(s): D50.0 - IRON DEFICIENCY ANEMIA SECONDARY TO BLOOD LOSS (CHRONIC) (7) Weakness Current Visit: Yes Status: Acute Code(s): R53.1 - WEAKNESS (8) CAD (coronary artery disease) Current Visit: Yes Status: Acute Code(s): I25.10 - ATHSCL HEART DISEASE OF [place] CORONARY ARTERY W/O ANG PCTRS (9) History of GI bleed Current Visit: Yes Status: Acute Code(s): Z87.19 - PERSONAL HISTORY OF OTHER DISEASES OF THE DIGESTIVE SYSTEM (10) CKD (chronic kidney disease) Current Visit: Yes Status: Acute Code(s): N18.9 - CHRONIC KIDNEY DISEASE, UNSPECIFIED (11) COPD (chronic obstructive pulmonary disease) Current Visit: Yes Status: Acute <JB DAWKINS - Last Filed: 04/04/24 11:40> JOSE Encounter - JOSE Encounter Attestation JOSE Encounter Attestation: "[email or web address] Ching andhavediscussed pertinent aspects of their care with Jb Briceño agree with the history, physical exam (any modifications based on my personal exam will be noted below), assessment, and plan as outlined in original note. Please see immediately below for my summary of findings and additional assessment and plan along with any meaningful corrections/explanations to the Subjective/Objective portions of the JOSE note will be noted." My portion of the encounter took place via telemedicine. -Patient had an episode of epigastric pain yesterday, slightly uptrending trops. Cardiology consulted but not concerned about ACS. Will continue to treat for CHF. Echo pending. <ALISSA CESAR - Last Filed: 04/04/24 21:41>
[2024-04-04 14:13] LABS: IFOB TEST RESULTS POSITIVE (NEGATIVE)
--- NOTE | 2024-04-04 19:00 | PCM.CONS ---
History of Present Illness - Date of Consult Date of Encounter: 04/04/24 Consulting Coach Tour Driver: LEOBARDO GONZALEZ MD Requesting Provider: Attending Provider: JEANCARLOS DIAS MD Primary Care Provider: PCP: AURY MANZO - Consult Narrative Reason for Consult: CHF HPI: 83 yo male PMH GI bleed s/p EGD and cautery x3 for ulcers, 10 units PRBCs (2-3 wks ago), [place] s/p PCIs, COPD, DM2 who presents for weakness, abdominal pain, shortness of breath. CXR with PNA/CHF picture, BNP 13,800. treated for PNA and acute diastolic CHF. troponins mildly elevated in setting of acute CHF, denies chest pain. no obvious ischemia on EKG. pt given IV lasix and responding well to diuresis. feels much less short of breath and LE edema improving. All other systems have been reviewed and are negative. cc:: The requesting physician will be sent a copy of the consult. Review of Systems - Review of Systems All systems: as per HPI - Past Medical History Past Medical History: Yes Neurological History: No Pertinent History ENT History: Cataracts Cardiac History: Congestive Heart Failure, Coronary Artery Disease, High Cholesterol, Hypertension, Myocardial Infarction ([place]) Respiratory History: No Pertinent History, CHF, COPD, Sleep Apnea Endocrine Medical History: Diabetes Type II Musculoskelatal History: Osteoarthritis GI Medical History: GERD, GI Bleed, Hernia History: No Pertinent History Pyscho-Social History: No Pertinent History Male Reproductive Disorders: Prostate Problems Comment: . - Past Surgical History Past Surgical History: Yes Neuro Surgical History: No Pertinent History Cardiac History: Cardiac Catheterization Respiratory Surgery: No Pertinent History GI Surgical History: No Pertinent History, Hernia Repair Genitourinary Surgical Hx: No Pertinent History Musculskeletal Surgical Hx: Joint Replacement, Orthopedic Surgery Male Surgical History: Prostate Surgery Other Surgical History: right shoulder cuff,left knee replacement,left heel spur,umbil.hernior. RIGHT TOTAL KNEE, rt femur Significant Family History: other (Parkinsons) - Social History Smoking Status: Former smoker Exposure to second hand smoke: No Alcohol: None Drug Use: none - Social Determinants of Health Will the patient participate in the screening: Yes Do you worry about a steady place to live?: No Do you have any problems with any of the following?: No known problems In the past 12 months,have you had to go without utilities?: No Have you or anyone in your house had to go without enough: No Transportation Issues: No Has anyone in your support network made you feel unsafe?: No Does the patient want assistance with any of the above?: No Medications & Allergies Home Medications: Home Medication List Atenolol 50 mg [Tenormin 50 mg] 25 mg PO DAILY 11/06/11 [History Confirmed 04/03/24] Tamsulosin HCl 0.4 mg [Flomax 0.4 MG] 0.4 mg PO DAILY 04/22/23 [History Confirmed 04/03/24] Clopidogrel Bisulfate [Plavix] 75 mg PO DAILY 02/04/24 [History Confirmed 04/03/24] Albuterol Sulfate [Proair Digihaler] 2 inh PO Q4H PRN 03/05/24 [History Confirmed 04/03/24] Atorvastatin Calcium [Lipitor] 80 mg PO HS 03/05/24 [History Confirmed 04/03/24] Docusate Sodium 100 mg PO HS 03/05/24 [History Confirmed 04/03/24] Ferrous Sulfate 325 mg [Feosol 325 mg] 325 mg PO BID 03/05/24 [History Confirmed 04/03/24] PANTOPRAZOLE 40 mg Tablet [Protonix 40MG Tablet] 40 mg PO BID 03/05/24 [History Confirmed 04/03/24] Acetaminophen 325 mg [Tylenol 325 mg] 650 mg PO Q4H PRN 04/03/24 [History Confirmed 04/03/24] Fluticasone/Umeclidin/Vilanter [Trelegy Ellipta 200-62.5-25] 1 inh PO DAILY 04/03/24 [History Confirmed 04/03/24] Allergies/Adverse Reactions: Allergies Allergy/AdvReac Type Severity Reaction Status Date / Time codeine [Codeine] Allergy Mild Verified 04/03/24 13:27 Exam - Vitals Vital Signs: Vital Signs - 24 hr Temp Pulse Resp BP Pulse Ox 04/04/24 18:32 78 18 92 L 04/04/24 16:00 99.2 F 75 18 113/56 92 L 04/04/24 11:46 98.0 F 86 18 109/58 93 L 04/04/24 08:00 98.9 F 71 18 115/55 92 L 04/04/24 06:53 70 16 93 L 04/04/24 04:00 98.3 F 77 18 130/60 93 L 04/03/24 23:45 98.8 F 75 17 126/58 93 L 04/03/24 20:45 96 04/03/24 20:25 82 18 96 04/03/24 20:00 97.6 F 93 H 16 140/71 95 General:: alert and oriented x 4, mild distress HEENT: PERRLA, EOMI Cardiovascular Exam: regular rate/rhythm, normal heart sounds, edema Respiratory Exam: normal breath sounds SpO2: 92 Gastrointestinal/Abdomen Exam: soft Extremity Exam: normal inspection Results Vital Signs: Vital Signs - 24 hr Temp Pulse Resp BP Pulse Ox 04/04/24 18:32 78 18 92 L 04/04/24 16:00 99.2 F 75 18 113/56 92 L 04/04/24 11:46 98.0 F 86 18 109/58 93 L 04/04/24 08:00 98.9 F 71 18 115/55 92 L 04/04/24 06:53 70 16 93 L 04/04/24 04:00 98.3 F 77 18 130/60 93 L 04/03/24 23:45 98.8 F 75 17 126/58 93 L 04/03/24 20:45 96 04/03/24 20:25 82 18 96 04/03/24 20:00 97.6 F 93 H 16 140/71 95 Pain Assessment - Last Documented Pain Intensity 1 Pain Scale Used 0-10 Pain Scale Intake and Output: Intake & Output 04/02/24 04/03/24 04/04/24 04/05/24 11:59 11:59 11:59 11:59 Intake Total 1705 480 Output Total 2500 300 Balance -795 180 Weight 77.1 kg LAB: I have reviewed the Labs in [facility]. Radiology Exams: Radiology Procedures Category Date Time Status CHEST 1 VIEW (PORTABLE) Stat Exams 04/03/24 15:01 Completed CHEST WITHOUT CONTRAST [CT] Routine Exams 04/03/24 19:48 Completed ECHO W/2D AND DOPPLER [US] Stat Exams 04/04/24 18:18 Taken - ECHO Echo: image reviewed by me (preserved LV function) Multi-Disciplinary Progress Notes: Multi-Disciplinary Progress Notes 04/04/24 09:44 Case Management Note by Mariola Joyner PATIENT HAS [facility]. THEY WERE NOTIFIED PATIENT HERE OBS. THEY WILL NEED NOTIFIED AT TIME OF DC AT [phone]. THEY WILL NEED FAXED THE DC INSTRUCTIONS, DC MED LIST AND DC SUMMARY TO [phone] Initialized on 04/04/24 09:44 - END OF NOTE Assessment & Plan (1) CHF (congestive heart failure) Current Visit: Yes Status: Acute Assessment & Plan: Acute diastolic CHF: - c/w IV lasix 40-60 mg BID - monitor I/o, daily weights, electrolytes, renal function - keep K > 4 and Mg > 2, within normal limits - Goal net UOP - 1.5 to -3.5 L per day - C/w plavix and lipitor - c/w atenolol for BP control - close outpatient cardiology f/u Code(s): I50.9 - HEART FAILURE, UNSPECIFIED (2) Elevated troponin Current Visit: No Status: Acute Assessment & Plan: as above Code(s): R79.89 - OTHER SPECIFIED ABNORMAL FINDINGS OF BLOOD CHEMISTRY (3) HTN (hypertension) Current Visit: No Status: Acute Assessment & Plan: as above Code(s): I10 - ESSENTIAL (PRIMARY) HYPERTENSION - Encounter Encounter: "The entirety of this encounter was performed via Telemedicine using audio and visual "
[2024-04-05 06:33] LABS: Absolute Neutrophil Ct (ANC) 4.86 x10^3/uL (1.78-5.38); BASOPHIL % 0.3 % (0.2-1.2); Basophil (Absolute #) 0.02 x10^3/uL (0.01-0.08); Eosinophil % 3.2 % (0.8-7.0); Eosinophil (Absolute #) 0.22 x10^3/uL (0.04-0.54); Hematocrit 29.6 % (40.1-51.0); Hemoglobin 9.4 g/dL (13.7-17.5); IMMATURE GRAN # 0.01 x10^3u/L (0.001-0.031); IMMATURE GRAN % 0.1 % (0.001-0.429); Lymphocyte (Absolute #) 0.98 x10^3/uL (1.32-3.57); Lymphocytes % 14.4 % (21.8-53.1); Mean Cell Volume 95.2 fL (79.0-92.2); Mean Corpuscular Hemoglobin 30.2 pg (25.7-32.2); Mean Corpuscular Hgb Concent. 31.8 g/dL (32.3-36.5); Mean Platelet Volume 10.7 fL (9.4-12.4); Monocyte (Absolute #) 0.71 x10^3/uL (0.30-0.82); Monocytes % 10.4 % (5.3-12.2); Neutrophil % 71.6 % (34.0-67.9); Platelet Count 266 x10^3/uL (163-337); Red Blood Count 3.11 x10^6/uL (4.63-6.08); Red Cell Distribution Width 15.8 % (11.6-14.4); White Blood Count 6.8 x10^3/uL (4.23-9.07)
[2024-04-05 06:54] LABS: ALBUMIN 3.3 g/dL (3.5-5.0); ANION GAP 14.6 MEQ/L (5-15); BILIRUBIN,TOTAL 0.6 mg/dL (0.2-1.3); Calcium 8.9 mg/dL (8.4-10.2); Creatinine 1 1.68 mg/dL (0.66-1.25); EST GLOMERULAR FILTRATION RATE 39.6 ML/MIN; MAGNESIUM 1.8 mg/dL (1.6-2.3); Potassium 4.4 mmol/L (3.5-5.1); Total Protein 5.7 g/dL (6.3-8.2)
[2024-04-05 07:02] VITALS: BP 125/58; TEMP 96.9
[2024-04-05 07:21] VITALS: PULSE 77; RESP 16; O2SAT 94
--- NOTE | 2024-04-05 09:33 | XRAY ---
CLINICAL HISTORY: CHF COMPARISON: Prior CT dated 03/30/2023 for comparison. TECHNIQUE: An X-ray of the chest was performed in AP view. FINDINGS: Small nodule in left parahilar region. Prominent bronchovascular markings seen in bilateral perihilar regions could be due to pulmonary congestion. No evidence of consolidation or collapse. Normal configuration of the mediastinum. The dinah are normal in size and position. The cardiac size can not be commented upon due to AP view. Aortic knuckle calcifications. Spondylotic changes in thoracic spine. Rest of the bony thorax is unremarkable. The costophrenic and cardiophrenic angles are clear. IMPRESSION: 1. No evidence of consolidation or pleural effusion seen. 2. Prominent bronchovascular markings seen in bilateral perihilar regions could be due to pulmonary congestion. 3. Small nodule in left parahilar region. Stable Electronically Signed by: Jonh Chinchilla MD. (04/05/2024 09:28:32 EDT)
[2024-04-05] MEDS: Klor Con PO SCH (10:22)
--- NOTE | 2024-04-05 10:30 | PCM.DS ---
Discharge Summary Date of Admission: 04/03/24 17:04 Date of Discharge: 04/05/24 Admitting Physician: JEANCARLOS DIAS MD Consults: Consults on Case 04/04/24 09:54 Consult Cardiology ROUTINE Primary Care Provider: AURY MANZO LENNIE Allergies Allergies codeine [Codeine] Allergy (Mild, Verified 04/03/24 13:27) Hospital Summary - Hospital Course Hospital Course: is a 83 year old male with a pmhx of DMII, COPD (RA at baseline), OA, HUBERT, GERD,HTN,CAD, CHF, HLD, prostate issues, MO, and GI bleed who presented to the ED 04/03/24 with complaints of weakness, shortness of breath, [employer] cough, a bdominal pain, and fever. Patient states that symptoms began last night with aching in his abdomen. He states the pain is epigastric with no radiation. No alleviating/aggravating factors. Patient states currently his pain level is at a 0/10. His spouse reports that patient had a temperature of 103 and became so weak he was unable to ambulate. He reports a cough a few ago. Exertional shortness of breath. His spouse and daughter are present during the interview and report that over the past month patient was treated at [facility] for a bleeding ulcer. Following that hospitalization patient had multiple episode of anemia requiring transfusion and was evaluated at [facility] and transferred to [facility] for evaluation of GI bleed. During that hospitalization patient had a "cluster" of tissue cauterized and has been stable since. Patient also, according to the spouse, had at least 2 myocardial infarction's during this timeframe. Patient underwent balloon angioplasty. Patient follows with Dr. Quinn - cardiology. Upon exam patient appears comfortable, afebrile, on RA, with noted with 1+ pitting BLE edema. Denies cp, HERNANDEZ, hematuria, dizziness, N/V/D. He does report dark stools -is on ferrous sulfate. No rubén blood or active bleeding. Upon arrival to ED patient tachycardic and tachypneic. EKG NS, RBBB. CXR with developing borderline cardiomegaly with mild bibasilar infi ltrates/atelectais and small left effusion with possible superimposed pneumonia. CT chest with new cardiomegay with pericardial effusion. Lab findings remarkable for microcytic anemia [place] 9.4., [place] [address], and elevated creat at 1.31 (baseline around 1.3). Trops uptrending. Respiratory panel negative. Patient given lasix and Rocephin in ED. Admit for CHF exacerbation and pneumonia. Plan for diuresis and abx. Cardiology consulted and echo reviewed and unremarkable. Troponins mildly elevated in setting of acute CHF, denies chest pain. no obvious ischemia on EKG. Cardiology agrees with diuresis and close follow up as OP with cardiology. Dyspnea has improved. Patient with 12 lb weight loss with diuresis. No edema noted on physical exam. Repeat cxr with no effusion or consolidation. Patient on RA. Discussed iron infusions as OP with iron saturation at 11%. Discussed case with Dr. Henry- he will evaluate patient next week. Discussed case with Dr. 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 Will send home on lasix 40mg daily and potassium supplementation. Patient agreeable to plan and ready for discharge. No need for abx. Pneumonia ruled out. Discharge Note New Diagnosis: CHF exacerbation New Medications:lasix Follow Up: PCP/Kai/Carl -cards/hematology Latest Assessment & Plan (1) CHF exacerbation Current Visit: Yes Status: Acute Assessment & Plan: -No recent echo on file -ECHO -CXR demonstrating CHF with possible superimposed pneumonia -RA at baseline - supplemental oxygen with goal spo2 > 92% -Lasix 40mg bid -elevate HOB/daily weights/strict I&O -Monitor renal and lytes -tele 04/04: -Echo pending -Cards consulted - -[place] with [place] [address] >[address] -Obtain records from [facility] and [facility] -Continue Lasix 40mg BID -Vitals reviewed with 5LB weight loss noted -Remains at Code(s): I50.9 - HEART FAILURE, UNSPECIFIED (2) Infiltrate noted on imaging study Current Visit: Yes Status: Acute Assessment & Plan: -RT eval supplemental oxygen with goal spo2>92% -lactic acid WNL - procal -sputum culture -Blood cultures pending -Ceftriaxone/azithromycin -Respiratory viral panel negative 04/04: -most likely secondary to CHF VS infective process -CBC reviewed showing normal WBC/ patient remains afebrile -Procal reviewed with elevation at 0.099 -CT chest reviewed with new cardiomegay with pericardial effusion. -no infectious process noted -Blood and sputum pending- will dc abx Code(s): R93.89 - ABNORMAL FINDINGS ON DX IMAGING OF OTH BODY STRUCTURES (3) HLD (hyperlipidemia) Current Visit: Yes Status: Acute Assessment & Plan: -continue home statin Code(s): E78.5 - HYPERLIPIDEMIA, UNSPECIFIED (4) Type II diabetes mellitus Current Visit: Yes Status: Acute Assessment & Plan: -ADA diet -SSI -A1c (5) BPH (benign prostatic hyperplasia) Current Visit: Yes Status: Acute Assessment & Plan: -continue home flomax Code(s): N40.0 - BENIGN PROSTATIC HYPERPLASIA WITHOUT LOWER URINRY TRACT SYMP (6) Chronic blood loss anemia Current Visit: Yes Status: Acute Assessment & Plan: -Hemoglobin reviewed from 03/05;03/10;03/24; 03/31 and 04/03-stable at 9.4 - trend if hgb< 7 transfuse -Continue ferrous sulfate -iron studies 04/04: -Hgb stable at 8.8 -Iron sat at 11% - will continue ferrous sulfate- recommend hematology for iron infusion as OP Code(s): D50.0 - IRON DEFICIENCY ANEMIA SECONDARY TO BLOOD LOSS (CHRONIC) (7) Weakness Current Visit: Yes Status: Acute Assessment & Plan: -Secondary to infection -PT/OT eval \\ Code(s): R53.1 - WEAKNESS (8) CAD (coronary artery disease) Current Visit: Yes Status: Acute Assessment & Plan: -Dr. Quinn - cardiology -s/p balloon angioplasty -continue home meds -No chest pain on exam -EKG with LAFB, prolonged QT interval, Right Bundle Branch Block, Other (Accelerated junctional rhythm. QTc 614. No acute ischemic changes. No change from twelve-lead EKG dated 02/04/2024) Code(s): I25.10 - ATHSCL HEART DISEASE OF [place] CORONARY ARTERY W/O ANG PCTRS (9) History of GI bleed Current Visit: Yes Status: Acute Assessment & Plan: -s/p endoscopy with cauterization -continue home meds -monitor hgb closely -stools for occult blood Code(s): Z87.19 - PERSONAL HISTORY OF OTHER DISEASES OF THE DIGESTIVE SYSTEM (10) CKD (chronic kidney disease) Current Visit: Yes Status: Acute Assessment & Plan: -Reviewed previous and current labs, creat baseline around 1.3-1.5 - patient at baseline at 1.31 -Avoid nephrotoxic medications -monitor renal/lytes daily Code(s): N18.9 - CHRONIC KIDNEY DISEASE, UNSPECIFIED (11) COPD (chronic obstructive pulmonary disease) Current Visit: Yes Status: Acute Assessment & Plan: -RA at baseline -continue home trelegy -Supplemental oxygen with goal spo2 > 91% -Nebs prn -ceftriaxone/azith for infiltrates on CXR 04/04: -No infiltrates on CT - dc abx I spent 35 minutes [id number] with the patient on the day of discharge performing discharge exam, discussing hospital stay and discharge instructions with patient and caregivers, preparation of discharge records, prescriptions & referral forms and addressing any questions/concerns the patient had as documented above. - Vitals & Intake/Output Vital Signs: Vital Signs Temperature 96.9 F 04/05/24 07:01 Pulse Rate 77 04/05/24 07:19 Respiratory Rate 16 04/05/24 07:19 Blood Pressure 125/58 04/05/24 07:01 O2 Sat by Pulse Oximetry 94 L 04/05/24 07:19 Intake & Output: Intake & Output 04/02/24 04/03/24 04/04/24 04/05/24 11:59 11:59 11:59 11:59 Intake Total 1705 1160 Output Total 2500 2000 Balance -795 -840 Weight 77.1 kg 74.8 kg - Lab Result Diagrams: 04/05/24 06:06 04/05/24 06:06 Lab Results-Last 24 Hrs: Lab Results-Last 24 Hours 04/04/24 04/04/24 04/04/24 Range/Units 14:00 14:05 16:14 WBC (4.23-9.07) x10^3/uL RBC (4.63-6.08) x10^6/uL Hgb (13.7-17.5) g/dL Hct (40.1-51.0) % MCV (79.0-92.2) fL MCH (25.7-32.2) pg MCHC (32.3-36.5) g/dL RDW (11.6-14.4) % Plt Count (163-337) x10^3/uL MPV (9.4-12.4) fL Gran % (34.0-67.9) % Immature Gran % (Auto) (0.001-0.429) % Nucleat RBC Rel Count (0.00-0.2) % Eos # (Auto) (0.04-0.54) x10^3/uL Immature Gran # (Auto) (0.001-0.031) x10^3u/L Absolute Lymphs (auto) (1.32-3.57) x10^3/uL Absolute Monos (auto) (0.30-0.82) x10^3/uL Absolute Nucleated RBC (0.00-0.012) x10^3u/L Lymphocytes % (21.8-53.1) % Monocytes % (5.3-12.2) % Eosinophils % (0.8-7.0) % Basophils % (0.2-1.2) % Absolute Granulocytes (1.78-5.38) x10^3/uL Basophils # (0.01-0.08) x10^3/uL Sodium (135-145) mmol/L Potassium 3.9 (3.5-5.1) mmol/L Chloride (98-107) mmol/L Carbon Dioxide (22-30) mmol/L Anion Gap (5-15) MEQ/L BUN (9-20) mg/dL Creatinine (0.66-1.25) mg/dL Estimated GFR ML/MIN Glucose (74-106) mg/dL POC Glucometer 117 H (74 to 106) mg/dL Calcium (8.4-10.2) mg/dL Magnesium (1.6-2.3) mg/dL Total Bilirubin (0.2-1.3) mg/dL AST (17-59) U/L ALT (0-50) U/L Alkaline Phosphatase (38-126) U/L Troponin I (0.000-0.033) ng/mL Serum Total Protein (6.3-8.2) g/dL Albumin (3.5-5.0) g/dL Stl Occult Blood (IFOB) POSITIVE A (NEGATIVE) 04/04/24 04/05/24 04/05/24 Range/Units 21:07 06:06 06:06 WBC 6.8 (4.23-9.07) x10^3/uL RBC 3.11 L (4.63-6.08) x10^6/uL Hgb 9.4 L (13.7-17.5) g/dL Hct 29.6 L (40.1-51.0) % MCV 95.2 H (79.0-92.2) fL MCH 30.2 (25.7-32.2) pg MCHC 31.8 L (32.3-36.5) g/dL RDW 15.8 H (11.6-14.4) % Plt Count 266 (163-337) x10^3/uL MPV 10.7 (9.4-12.4) fL Gran % 71.6 H (34.0-67.9) % Immature Gran % (Auto) 0.1 (0.001-0.429) % Nucleat RBC Rel Count 0.0 (0.00-0.2) % Eos # (Auto) 0.22 (0.04-0.54) x10^3/uL Immature Gran # (Auto) 0.01 (0.001-0.031) x10^3u/L Absolute Lymphs (auto) 0.98 L (1.32-3.57) x10^3/uL Absolute Monos (auto) 0.71 (0.30-0.82) x10^3/uL Absolute Nucleated RBC 0.00 (0.00-0.012) x10^3u/L Lymphocytes % 14.4 L (21.8-53.1) % Monocytes % 10.4 (5.3-12.2) % Eosinophils % 3.2 (0.8-7.0) % Basophils % 0.3 (0.2-1.2) % Absolute Granulocytes 4.86 (1.78-5.38) x10^3/uL Basophils # 0.02 (0.01-0.08) x10^3/uL Sodium 141 (135-145) mmol/L Potassium 4.4 (3.5-5.1) mmol/L Chloride 103 (98-107) mmol/L Carbon Dioxide 28 (22-30) mmol/L Anion Gap 14.6 (5-15) MEQ/L BUN 29 H (9-20) mg/dL Creatinine 1.68 H (0.66-1.25) mg/dL Estimated GFR 39.6 ML/MIN Glucose 95 (74-106) mg/dL POC Glucometer 108 H (74 to 106) mg/dL Calcium 8.9 (8.4-10.2) mg/dL Magnesium 1.8 (1.6-2.3) mg/dL Total Bilirubin 0.60 (0.2-1.3) mg/dL AST 16 L (17-59) U/L ALT 10 (0-50) U/L Alkaline Phosphatase 112 (38-126) U/L Troponin I (0.000-0.033) ng/mL Serum Total Protein 5.7 L (6.3-8.2) g/dL Albumin 3.3 L (3.5-5.0) g/dL Stl Occult Blood (IFOB) (NEGATIVE) 04/05/24 04/05/24 Range/Units 06:06 07:06 WBC (4.23-9.07) x10^3/uL RBC (4.63-6.08) x10^6/uL Hgb (13.7-17.5) g/dL Hct (40.1-51.0) % MCV (79.0-92.2) fL MCH (25.7-32.2) pg MCHC (32.3-36.5) g/dL RDW (11.6-14.4) % Plt Count (163-337) x10^3/uL MPV (9.4-12.4) fL Gran % (34.0-67.9) % Immature Gran % (Auto) (0.001-0.429) % Nucleat RBC Rel Count (0.00-0.2) % Eos # (Auto) (0.04-0.54) x10^3/uL Immature Gran # (Auto) (0.001-0.031) x10^3u/L Absolute Lymphs (auto) (1.32-3.57) x10^3/uL Absolute Monos (auto) (0.30-0.82) x10^3/uL Absolute Nucleated RBC (0.00-0.012) x10^3u/L Lymphocytes % (21.8-53.1) % Monocytes % (5.3-12.2) % Eosinophils % (0.8-7.0) % Basophils % (0.2-1.2) % Absolute Granulocytes (1.78-5.38) x10^3/uL Basophils # (0.01-0.08) x10^3/uL Sodium (135-145) mmol/L Potassium (3.5-5.1) mmol/L Chloride (98-107) mmol/L Carbon Dioxide (22-30) mmol/L Anion Gap (5-15) MEQ/L BUN (9-20) mg/dL Creatinine (0.66-1.25) mg/dL Estimated GFR ML/MIN Glucose (74-106) mg/dL POC Glucometer 113 H (74 to 106) mg/dL Calcium (8.4-10.2) mg/dL Magnesium (1.6-2.3) mg/dL Total Bilirubin (0.2-1.3) mg/dL AST (17-59) U/L ALT (0-50) U/L Alkaline Phosphatase (38-126) U/L Troponin I 0.039 H* (0.000-0.033) ng/mL Serum Total Protein (6.3-8.2) g/dL Albumin (3.5-5.0) g/dL Stl Occult Blood (IFOB) (NEGATIVE) Micro Results-Entire Visit: Accuchecks Date 04/05/24 Date 04/04/24 Time 07:08 - Radiology Exams Ordered Rad Exams-Entire Visit: Radiology Procedures Category Date Time Status CHEST 1 VIEW (PORTABLE) Stat Exams 04/03/24 15:01 Completed CHEST 1 VIEW (PORTABLE) Stat Exams 04/05/24 07:53 Completed CHEST WITHOUT CONTRAST [CT] Routine Exams 04/03/24 19:48 Completed ECHO W/2D AND DOPPLER [US] Stat Exams 04/04/24 18:18 Taken - Procedures and Test Procedures and Tests throughout Hospitalization: Therapy Orders & Screens 04/03/24 17:06 EKG REPEAT IN AM Comment: 04/03/24 18:02 Respiratory Therapy Consult ONCE Comment: Reason For Exam: Diagnosis: fever 04/03/24 18:09 RT Screen per Nursing Assess ONCE Comment: Protocol Order Physician Instructions: Greater than 3 points order RT Admission Screen Reason For Exam: Triggered on Admission Diagnosis: fever Diagnosis: fever Pneumonia: No Home O2: No Asthma: No CHF: Yes Home CPAP/BIPAP: Yes Home Nebs/MDI: No Total Points: 8 04/03/24 20:44 Respiratory Therapy Assessment DAILY Comment: Diagnosis: fever 04/03/24 20:56 Respiratory MDI BID Comment: Diagnosis: fever 04/05/24 00:08 BiPap/CPAP ROUTINE Comment: Diagnosis: fever Discharge Exam General Appearance: no apparent distress Neurologic Exam: alert, oriented x 3, cooperative Eye Exam: PERRL Ears, Nose, Throat Exam: normal ENT inspection Neck Exam: normal inspection Respiratory Exam: normal breath sounds, lungs clear Cardiovascular Exam: regular rate/rhythm, normal heart sounds Gastrointestinal/Abdomen Exam: soft, normal bowel sounds Male Genitalia Exam: deferred Rectal Exam: deferred Back Exam: normal inspection Extremity Exam: normal inspection Final Diagnosis/Problem List - Final Discharge Diagnosis/Problem (1) CHF exacerbation Current Visit: Yes Status: Acute Code(s): I50.9 - HEART FAILURE, UNSPECIFIED (2) Infiltrate noted on imaging study Current Visit: Yes Status: Resolved Code(s): R93.89 - ABNORMAL FINDINGS ON DX IMAGING OF OTH BODY STRUCTURES (3) HLD (hyperlipidemia) Current Visit: Yes Status: Chronic Code(s): E78.5 - HYPERLIPIDEMIA, UNSPECI FIED (4) Type II diabetes mellitus Current Visit: Yes Status: Chronic (5) BPH (benign prostatic hyperplasia) Current Visit: Yes Status: Chronic Code(s): N40.0 - BENIGN PROSTATIC HYPERPLASIA WITHOUT LOWER URINRY TRACT SYMP (6) Chronic blood loss anemia Current Visit: Yes Status: Chronic Code(s): D50.0 - IRON DEFICIENCY ANEMIA SECONDARY TO BLOOD LOSS (CHRONIC) (7) Weakness Current Visit: Yes Status: Chronic Code(s): R53.1 - WEAKNESS (8) CAD (coronary artery disease) Current Visit: Yes Status: Chronic Code(s): I25.10 - ATHSCL HEART DISEASE OF [place] CORONARY ARTERY W/O ANG PCTRS (9) History of GI bleed Current Visit: Yes Status: Chronic Code(s): Z87.19 - PERSONAL HISTORY OF OTHER DISEASES OF THE DIGESTIVE SYSTEM (10) CKD (chronic kidney disease) Current Visit: Yes Status: Chronic Code(s): N18.9 - CHRONIC KIDNEY DISEASE, UNSPECIFIED (11) COPD (chronic obstructive pulmonary disease) Current Visit: Yes Status: Chronic - Discharge Disposition: Home, Self-Care Condition: Stable Prescriptions: New Potassium Chloride Tab* [Klor Con] 20 meq PO DAILY 14 Days #14 tablet Furosemide 40 mg [Lasix 40 MG] 40 mg PO DAILY 14 Days #14 tablet Continue Atenolol 50 mg [Tenormin 50 mg] 25 mg PO DAILY Tamsulosin HCl 0.4 mg [Flomax 0.4 MG] 0.4 mg PO DAILY Clopidogrel Bisulfate [Plavix] 75 mg PO DAILY PANTOPRAZOLE 40 mg Tablet [Protonix 40MG Tablet] 40 mg PO BID Atorvastatin Calcium [Lipitor] 80 mg PO HS Ferrous Sulfate 325 mg [Feosol 325 mg] 325 mg PO BID Docusate Sodium 100 mg PO HS Albuterol Sulfate [Proair Digihaler] 2 inh PO Q4H PRN PRN Reason: Shortness Of Breath Acetaminophen 325 mg [Tylenol 325 mg] 650 mg PO Q4H PRN PRN Reason: Pain Fluticasone/Umeclidin/Vilanter [Trelegy Ellipta 200-62.5-25] 1 inh PO DAILY Follow up with: JAYLENE HENRY MD [NON-STAFF PHY W/O PRIVILEGES] - 04/10/24 10:00 am SHRADDHA QUINN [CONSULTING PHYSICIAN] - Call for Appointment (for next week) AURY MANZO MD [Primary Care Provider] - Call for Appointment (for 1-2 weeks)
== END 2024-04-05 12:03 | disposition home or self-care (01) ==
LOC: ED 13:11 → MED SURG 17:04
PROVIDERS: ADMIT Internal Medicine; ATTEND Internal Medicine
DX: I13.0 Hypertensive heart and chronic kidney disease with heart failure and stage 1 through stage 4 chronic kidney disease, or unspecified chronic kidney disease (principal); E11.22 Type 2 diabetes mellitus with diabetic chronic kidney disease; I50.9 Heart failure, unspecified; N18.9 Chronic kidney disease, unspecified; E11.9 Type 2 diabetes mellitus without complications; J44.9 Chronic obstructive pulmonary disease, unspecified; I25.10 Atherosclerotic heart disease of native coronary artery without angina pectoris; E78.5 Hyperlipidemia, unspecified; I25.2 Old myocardial infarction; R50.9 Fever, unspecified; D64.9 Anemia, unspecified; R93.89 Abnormal findings on diagnostic imaging of other specified body structures; N40.0 Benign prostatic hyperplasia without lower urinary tract symptoms; D50.0 Iron deficiency anemia secondary to blood loss (chronic); R53.1 Weakness; Z87.19 Personal history of other diseases of the digestive system; Z79.899 Other long term (current) drug therapy; Z79.01 Long term (current) use of anticoagulants
CPT/HCPCS: 0241U; 36000; 36415; 71045; 71250; 80053; 81001; 82274; 82607; 82728; 82746; 82947; 83036; 83540; 83550; 83605; 83735; 83880; 84132; 84145; 84484; 85025; 85379; 86308; 87040; 93005; 93268; 93306; 94640; 94660; 94760; 96365; 96374; 99285; J0456; J0696; J1940; Q3014; A9270-GY; G0328; G0378

== ENCOUNTER 2024-12-23 09:44 | Emergency (ER) | payer MEDICARE ==
--- NOTE | 2024-12-23 10:21 | ERPHSYRPT ---
- History of Present Illness Source: patient Exam Limitations: physical impairment Patient Subjective Stated Complaint: patient stated his labs are out of wack, was sent over by dr. wilson. patient has had increased fatigue and some SOB lately, states he felt as if his heart was fluttering Triage Nursing Assessment: patient presents to ed with a hemogolbin of 7, patient's skin pink in color, skin N/W/D, vitals WNL Physician History: Patient was told to come in for an evaluation. Evidently his hemoglobin has dropped about a point and a half in the last week. He has a history of GI blood loss.He had an episode about a year ago. He said at that time he lost his blood pretty quickly.[facility] [place] He had a endoscopy and repair of his gastric ulcer there. He has been getting blood transfusions as needed around here lately and once they got it up to an acceptable level they started him on iron supplements. Has been taking iron supplements. He does have some dark stool stools. But he is on iron as well 2.He came into the ER today because he said he has been getting more fatigued than usual lately. He said he went on a walk and got a lot more tired than he usually does this morning. He said he also felt some palpitations in his chest. Allergies/Adverse Reactions: codeine [Codeine] Allergy (Mild, Verified 12/23/24 10:48) Home Medications: Atenolol 50 mg [Tenormin 50 mg] 25 mg PO DAILY 11/06/11 [History] Tamsulosin HCl 0.4 mg [Flomax 0.4 MG] 0.4 mg PO DAILY 04/22/23 [History] Clopidogrel Bisulfate [Plavix] 75 mg PO DAILY 02/04/24 [History] Atorvastatin Calcium [Lipitor] 80 mg PO HS 03/05/24 [History] Docusate Sodium 100 mg PO HS 03/05/24 [History] Ferrous Sulfate 325 mg [Feosol 325 mg] 325 mg PO BID 03/05/24 [History] PANTOPRAZOLE 40 mg Tablet [Protonix 40MG Tablet] 40 mg PO DAILY 03/05/24 [History] Acetaminophen 325 mg [Tylenol 325 mg] 650 mg PO Q4H PRN 04/03/24 [History] Fluticasone/Umeclidin/Vilanter [Trelegy Ellipta 200-62.5-25] 1 inh PO DAILY 04/03/24 [History] Hx Tetanus, Diphtheria Vaccination/Date Given: Yes Hx Influenza Vaccination/Date Given: Yes Hx Pneumococcal Vaccination/Date Given: Yes Travel Risk - International Travel Have you traveled outside of the country in past 3 weeks: No - Emerging Infectious Disease Are you exhibiting symptoms associated with any current EIDs: No Symptoms: Abdominal Pain - Past Medical History Pertinent Past Medical History: Yes Neurological History: No Pertinent History ENT History: Cataracts Cardiac History: Angina, Congestive Heart Failure, Coronary Artery Disease, High Cholesterol, Hypertension, Myocardial Infarction ([place]) Respiratory History: No Pertinent History, CHF, COPD, Pneumonia, Sleep Apnea Endocrine Medical History: Diabetes Type II Musculoskeletal History: Osteoarthritis GI Medical History: GERD, GI Bleed, Hernia History: No Pertinent History Psycho-Social History: No Pertinent History Male Reproductive Disorders: Prostate Problems Other Medical History: hx fx femur left leg, bilateral knee replacement, - Past Surgical History Past Surgical History: Yes Neuro Surgical History: No Pertinent History Cardiac: Cardiac Catheterization Respiratory: No Pertinent History Gastrointestinal: No Pertinent History, Hernia Repair Genitourinary: No Pertinent History Musculoskeletal: Joint Replacement, Orthopedic Surgery Male Surgical History: Prostate Surgery Other Surgical History: right shoulder cuff,left knee replacement,left heel spur,umbil.hernior. RIGHT TOTAL KNEE, rt femur Significant Family History: other (Parkinsons) - Social History Smoking Status: Former smoker Exposure to second hand smoke: No Drug Use: none - Social Determinants of Health Will the patient participate in the screening: Yes Do you worry about a steady place to live?: No Do you have any problems with any of the following?: No known problems In the past 12 months,have you had to go without utilities?: No Transportation Issues: No Has anyone in your support network made you feel unsafe?: No Have you or anyone in your house had to go w/o enough food: No - Nursing Vital Signs Nursing Vital Signs: Initial Vital Signs Pulse Rate 86 12/23/24 09:59 Respiratory Rate 13 12/23/24 09:59 Blood Pressure 111/58 12/23/24 09:59 O2 Sat by Pulse Oximetry 98 12/23/24 09:59 Pain Scale Pain Intensity 2 - Physical Exam SpO2: 98 - Course Nursing assessment & vital signs reviewed: Yes Ordered Tests: Active Orders 24 hr Category Date Time Status Consent,Obtain ROUTINE Care 12/23/24 11:35 Active Consent,Obtain ROUTINE Care 12/23/24 13:23 Active EKG-ER Only STAT Care 12/23/24 10:22 Active H&H 1 Hr Post Transfusion 1 HR POST TRANSFUS Care 12/23/24 11:35 Active H&H 1 Hr Post Transfusion 1 HR POST TRANSFUS Care 12/23/24 13:23 Active CBC W DIFF Stat Lab 12/23/24 10:20 Completed CMP Stat Lab 12/23/24 10:20 Completed MAG [MAGNESIUM] Stat Lab 12/23/24 10:20 Completed Occult Blood-Fecal Screen (Diagnostic) [OB-FECAL SCREEN Lab 12/23/24 Ordered ] Stat TROPONIN Q4H Lab 12/23/24 10:20 Completed TROPONIN Q4H Lab 12/23/24 14:25 Completed TROPONIN Q4H Lab 12/23/24 18:30 Ordered Medication Summary Generic Name Dose Route Start Last Admin Trade Name Freq PRN Reason Stop Dose Admin Sodium Chloride 1,000 mls @ 100 mls/hr 12/23/24 14:45 Sodium Chloride 0.9% 1000 Ml IV 01/22/25 14:44 .Q10H TERENCE Discontinued Medications Generic Name Dose Route Start Last Admin Trade Name Freq PRN Reason Stop Dose Admin Sodium Chloride Confirm 12/23/24 14:29 Sodium Chloride 0.9% 1000 Ml Administered 12/23/24 14:30 Dose 1,000 mls @ ud .ROUTE .K-MED ONE Lab/Rad Data: Laboratory Result Diagrams 12/23/24 10:20 12/23/24 10:20 Laboratory Results 12/23/24 12/23/24 12/23/24 Range/Units 14:25 12:04 12:04 WBC (4.23-9.07) x10^3/uL RBC (4.63-6.08) x10^6/uL Hgb (13.7-17.5) g/dL Hct (40.1-51.0) % MCV (79.0-92.2) fL MCH (25.7-32.2) pg MCHC (32.3-36.5) g/dL RDW (11.6-14.4) % Plt Count (163-337) x10^3/uL MPV (9.4-12.4) fL Gran % (34.0-67.9) % Immature Gran % (Auto) (0.001-0.429) % Nucleat RBC Rel Count (0.00-0.2) % Eos # (Auto) (0.04-0.54) x10^3/uL Immature Gran # (Auto) (0.001-0.031) x10^3u/L Absolute Lymphs (auto) (1.32-3.57) x10^3/uL Absolute Monos (auto) (0.30-0.82) x10^3/uL Absolute Nucleated RBC (0.00-0.012) x10^3u/L Lymphocytes % (21.8-53.1) % Monocytes % (5.3-12.2) % Eosinophils % (0.8-7.0) % Basophils % (0.2-1.2) % Absolute Granulocytes (1.78-5.38) x10^3/uL Basophils # (0.01-0.08) x10^3/uL Sodium (135-145) mmol/L Potassium (3.5-5.1) mmol/L Chloride (98-107) mmol/L Carbon Dioxide (22-30) mmol/L Anion Gap (5-15) MEQ/L BUN (9-20) mg/dL Creatinine (0.66-1.25) mg/dL Estimated GFR ML/MIN Glucose (74-106) mg/dL Calcium (8.4-10.2) mg/dL Magnesium (1.6-2.3) mg/dL Total Bilirubin (0.2-1.3) mg/dL AST (17-59) U/L ALT (0-50) U/L Alkaline Phosphatase (38-126) U/L Troponin I 0.029 (0.000-0.033) ng/mL Serum Total Protein (6.3-8.2) g/dL Albumin (3.5-5.0) g/dL ABO Group Rh Factor Antibody Screen (NEGATIVE) Crossmatch COMPATIBLE COMPATIBLE (COMPATIBLE) 12/23/24 12/23/24 12/23/24 Range/Units 12:04 10:20 10:20 WBC (4.23-9.07) x10^3/uL RBC (4.63-6.08) x10^6/uL Hgb (13.7-17.5) g/dL Hct (40.1-51.0) % MCV (79.0-92.2) fL MCH (25.7-32.2) pg MCHC (32.3-36.5) g/dL RDW (11.6-14.4) % Plt Count (163-337) x10^3/uL MPV (9.4-12.4) fL Gran % (34.0-67.9) % Immature Gran % (Auto) (0.001-0.429) % Nucleat RBC Rel Count (0.00-0.2) % Eos # (Auto) (0.04-0.54) x10^3/uL Immature Gran # (Auto) (0.001-0.031) x10^3u/L Absolute Lymphs (auto) (1.32-3.57) x10^3/uL Absolute Monos (auto) (0.30-0.82) x10^3/uL Absolute Nucleated RBC (0.00-0.012) x10^3u/L Lymphocytes % (21.8-53.1) % Monocytes % (5.3-12.2) % Eosinophils % (0.8-7.0) % Basophils % (0.2-1.2) % Absolute Granulocytes (1.78-5.38) x10^3/uL Basophils # (0.01-0.08) x10^3/uL Sodium 139 (135-145) mmol/L Potassium 4.1 (3.5-5.1) mmol/L Chloride 105 (98-107) mmol/L Carbon Dioxide 25 (22-30) mmol/L Anion Gap 12.3 (5-15) MEQ/L BUN 32 H (9-20) mg/dL Creatinine 1.51 H (0.66-1.25) mg/dL Estimated GFR 44.7 ML/MIN Glucose 144 H (74-106) mg/dL Calcium 8.8 (8.4-10.2) mg/dL Magnesium 1.7 (1.6-2.3) mg/dL Total Bilirubin 0.50 (0.2-1.3) mg/dL AST 27 (17-59) U/L ALT 13 (0-50) U/L Alkaline Phosphatase 119 (38-126) U/L Troponin I 0.025 (0.000-0.033) ng/mL Serum Total Protein 6.3 (6.3-8.2) g/dL Albumin 3.9 (3.5-5.0) g/dL ABO Group O Rh Factor POSITIVE Antibody Screen NEGATIVE (NEGATIVE) Crossmatch (COMPATIBLE) 12/23/24 Range/Units 10:20 WBC 5.9 (4.23-9.07) x10^3/uL RBC 2.25 L (4.63-6.08) x10^6/uL Hgb 7.4 L (13.7-17.5) g/dL Hct 22.5 L (40.1-51.0) % MCV 100.0 H (79.0-92.2) fL MCH 32.9 H (25.7-32.2) pg MCHC 32.9 (32.3-36.5) g/dL RDW 13.6 (11.6-14.4) % Plt Count 232 (163-337) x10^3/uL MPV 10.2 (9.4-12.4) fL Gran % 71.5 H (34.0-67.9) % Immature Gran % (Auto) 0.3 (0.001-0.429) % Nucleat RBC Rel Count 0.0 (0.00-0.2) % Eos # (Auto) 0.18 (0.04-0.54) x10^3/uL Immature Gran # (Auto) 0.02 (0.001-0.031) x10^3u/L Absolute Lymphs (auto) 0.93 L (1.32-3.57) x10^3/uL Absolute Monos (auto) 0.52 (0.30-0.82) x10^3/uL Absolute Nucleated RBC 0.00 (0.00-0.012) x10^3u/L Lymphocytes % 15.9 L (21.8-53.1) % Monocytes % 8.9 (5.3-12.2) % Eosinophils % 3.1 (0.8-7.0) % Basophils % 0.3 (0.2-1.2) % Absolute Granulocytes 4.19 (1.78-5.38) x10^3/uL Basophils # 0.02 (0.01-0.08) x10^3/uL Sodium (135-145) mmol/L Potassium (3.5-5.1) mmol/L Chloride (98-107) mmol/L Carbon Dioxide (22-30) mmol/L Anion Gap (5-15) MEQ/L BUN (9-20) mg/dL Creatinine (0.66-1.25) mg/dL Estimated GFR ML/MIN Glucose (74-106) mg/dL Calcium (8.4-10.2) mg/dL Magnesium (1.6-2.3) mg/dL Total Bilirubin (0.2-1.3) mg/dL AST (17-59) U/L ALT (0-50) U/L Alkaline Phosphatase (38-126) U/L Troponin I (0.000-0.033) ng/mL Serum Total Protein (6.3-8.2) g/dL Albumin (3.5-5.0) g/dL ABO Group Rh Factor Antibody Screen (NEGATIVE) Crossmatch (COMPATIBLE) - Progress Progress: improved Progress Note: Patient was stable throughout stay. We do not have GI here so we could not keep him. I started a unit of blood on him and we are waiting for stool so we can get a Hemoccult he never produced 1. Dr. Talbot from [facility] called and accepted the patient. I think that they will just get GI consultation there. Patient was discharged to [facility] via transfer 12/23/24 16:33 - Departure Departure Disposition: Home Clinical Impression: Anemia, GI bleed Condition: Stable Critical Care Time: No Referrals: AURY WILSON MD [Primary Care Provider, [facility]] - Follow up/PCP as directed
[2024-12-23 10:33] LABS: BASOPHIL % 0.3 % (0.2-1.2); Basophil (Absolute #) 0.02 x10^3/uL (0.01-0.08); Eosinophil (Absolute #) 0.18 x10^3/uL (0.04-0.54); Hematocrit 22.5 % (40.1-51.0); Hemoglobin 7.4 g/dL (13.7-17.5); IMMATURE GRAN # 0.02 x10^3u/L (0.001-0.031); IMMATURE GRAN % 0.3 % (0.001-0.429); Lymphocyte (Absolute #) 0.93 x10^3/uL (1.32-3.57); Mean Corpuscular Hemoglobin 32.9 pg (25.7-32.2); Mean Corpuscular Hgb Concent. 32.9 g/dL (32.3-36.5); Monocyte (Absolute #) 0.52 x10^3/uL (0.30-0.82); NUCLEATED RBC # 0.00 x10^3u/L (0.00-0.012); NUCLEATED RBC % 0.0 % (0.00-0.2); Platelet Count 232 x10^3/uL (163-337); Red Blood Count 2.25 x10^6/uL (4.63-6.08); White Blood Count 5.9 x10^3/uL (4.23-9.07)
[2024-12-23 10:45] LABS: Calcium 8.8 mg/dL (8.4-10.2); Carbon Dioxide 25.0 mmol/L (22-30); Creatinine 1 1.51 mg/dL (0.66-1.25); EST GLOMERULAR FILTRATION RATE 44.7 ML/MIN; Glucose 144.0 mg/dL (74-106); Potassium 4.1 mmol/L (3.5-5.1); SGOT/AST 27.0 U/L (17-59); SGPT/ALT 13.0 U/L (0-50); Total Protein 6.3 g/dL (6.3-8.2)
[2024-12-23 13:58] LABS: CROSS MATCH (PRBC) COMPATIBLE (COMPATIBLE)
[2024-12-23 14:01] LABS: CROSS MATCH (PRBC) COMPATIBLE (COMPATIBLE)
[2024-12-23 15:52] LABS: ABO TYPING O; RH TYPING POSITIVE
[2024-12-23 18:11] VITALS: BP 139/60; PULSE 82; RESP 20; O2SAT 98
[2024-12-23 18:29] LABS: Hematocrit 25.8 % (40.1-51.0); Hemoglobin 8.5 g/dL (13.7-17.5)
== END 2024-12-23 19:01 | disposition short-term general hospital (02) ==
LOC: ED 09:44
DX: D64.9 Anemia, unspecified (principal); K92.2 Gastrointestinal hemorrhage, unspecified; R53.83 Other fatigue; I11.0 Hypertensive heart disease with heart failure; I50.9 Heart failure, unspecified; E11.9 Type 2 diabetes mellitus without complications; Z79.02 Long term (current) use of antithrombotics/antiplatelets; Z79.899 Other long term (current) drug therapy
CPT/HCPCS: 36415; 36430; 80053; 83735; 84484; 85014; 85018; 85025; 86850; 86900; 86901; 86922; 93005; 99285; P9016

== ENCOUNTER 2025-03-07 21:12 | Emergency (ER) | payer MEDICARE ==
--- NOTE | 2025-03-07 21:37 | ERPHSYRPT ---
- History of Present Illness Time Seen by Provider: 03/07/25 21:35 Source: patient, family Exam Limitations: no limitations Patient Subjective Stated Complaint: pt states "I don't feel good." pt states that he is suppose to have a transfusion on Sunday. Triage Nursing Assessment: pt ambulated into the er with assist of cane; pt is axo x3; pt denies pain; no respiratory distress present; clear lung sounds in all lobes; active bowel sounds in all quads; skin PDW; vitals wnl Physician History: This is an 84-year-old white male patient of Dr. Manzo who arrives by private vehicle accompanied by his daughter with the complaint of generalized weakness. He has a known hemoglobin level of 7.1. He has been scheduled for an outpatient blood transfusion. His hemoglobin normally runs around 9 per his report. He has no chest pain and he is not short of breath he just feels weak. He has not noticed any active bleeding. He did have worsening weakness in the last 24 hours and vomited once within 24 hours. He does not have chest pain. He has not having any abdominal pain. He has no diarrhea symptoms. Patient has a history of hypertension, prostate issues, gastroesophageal reflux disease, hyperlipidemia, chronic anemia, CHF, coronary disease, type 2 diabetes and is taking Plavix. Timing/Duration: day(s) (Symptoms over the last few days), worse (Worse in the last 24 hours) Severity: mild (To moderate) Associated Symptoms: vomiting (1 time in 24 hours), weakness, No abdominal pain, No shortness of breath, No chest pain Allergies/Adverse Reactions: codeine [Codeine] Allergy (Mild, Verified 03/07/25 21:20) Home Medications: Atenolol 50 mg [Tenormin 50 mg] 25 mg PO DAILY 11/06/11 [History] Tamsulosin HCl 0.4 mg [Flomax 0.4 MG] 0.4 mg PO DAILY 04/22/23 [History] Clopidogrel Bisulfate [Plavix] 75 mg PO DAILY 02/04/24 [History] Atorvastatin Calcium [Lipitor] 80 mg PO HS 03/05/24 [History] Docusate Sodium 100 mg PO HS 03/05/24 [History] Ferrous Sulfate 325 mg [Feosol 325 mg] 325 mg PO BID 03/05/24 [History] PANTOPRAZOLE 40 mg Tablet [Protonix 40MG Tablet] 40 mg PO DAILY 03/05/24 [History] Acetaminophen 325 mg [Tylenol 325 mg] 650 mg PO Q4H PRN 04/03/24 [History] Fluticasone/Umeclidin/Vilanter [Trelegy Ellipta 200-62.5-25] 1 inh PO DAILY 04/03/24 [History] Fluoxetine HCl 10 mg [Prozac 10 mg] 10 mg PO DAILY 03/07/25 [History] Hx Tetanus, Diphtheria Vaccination/Date Given: Yes Hx Influenza Vaccination/Date Given: No Hx Pneumococcal Vaccination/Date Given: Yes Travel Risk - International Travel Have you traveled outside of the country in past 3 weeks: No - Emerging Infectious Disease Are you exhibiting symptoms associated with any current EIDs: No Symptoms: Abdominal Pain - Review of Systems Constitutional: Weakness Eyes: No Symptoms Ears, Nose, & Throat: No Symptoms Respiratory: No Symptoms Cardiac: No Symptoms Abdominal/Gastrointestinal: No Symptoms Genitourinary Symptoms: No Symptoms Musculoskeletal: No Symptoms Skin: No Symptoms Neurological: No Symptoms Psychological: No Symptoms Endocrine: No Symptoms Hematologic/Lymphatic: No Symptoms Immunological/Allergic: No Symptoms All Other Systems: Reviewed and Negative - Past Medical History Pertinent Past Medical History: Yes Neurological History: No Pertinent History ENT History: Cataracts Cardiac History: Angina, Congestive Heart Failure, Coronary Artery Disease, High Cholesterol, Hypertension, Myocardial Infarction ([place]) Respiratory History: No Pertinent History, CHF, COPD, Pneumonia, Sleep Apnea Endocrine Medical History: Diabetes Type II Musculoskeletal History: Osteoarthritis GI Medical History: GERD, GI Bleed, Hernia History: No Pertinent History Psycho-Social History: No Pertinent History Male Reproductive Disorders: Prostate Problems Other Medical History: hx fx femur left leg, bilateral knee replacement, - Past Surgical History Past Surgical History: Yes Neuro Surgical History: No Pertinent History Cardiac: Cardiac Catheterization Respiratory: No Pertinent History Gastrointestinal: No Pertinent History, Hernia Repair Genitourinary: No Pertinent History Musculoskeletal: Joint Replacement, Orthopedic Surgery Male Surgical History: Prostate Surgery Other Surgical History: right shoulder cuff,left knee replacement,left heel spur,umbil.hernior. RIGHT TOTAL KNEE, rt femur Significant Family History: other (Parkinsons) - Social History Smoking Status: Former smoker Exposure to second hand smoke: No Drug Use: none - Social Determinants of Health Will the patient participate in the screening: Yes Do you worry about a steady place to live?: No Do you have any problems with any of the following?: No known problems In the past 12 months,have you had to go without utilities?: No Transportation Issues: No Has anyone in your support network made you feel unsafe?: No Have you or anyone in your house had to go w/o enough food: No - Nursing Vital Signs Nursing Vital Signs: Initial Vital Signs Temperature 97.8 F 03/07/25 21:21 Pulse Rate 86 03/07/25 21:21 Respiratory Rate 18 03/07/25 21:21 Blood Pressure 131/67 03/07/25 21:21 O2 Sat by Pulse Oximetry 97 03/07/25 21:21 Pain Scale Pain Intensity 0 - Physical Exam General Appearance: no apparent distress, alert Eye Exam: PERRL/EOMI, eyes nml inspection Ears, Nose, Throat Exam: normal ENT inspection, moist mucous membranes Neck Exam: normal inspection, non-tender, supple, full range of motion Respiratory Exam: normal breath sounds, lungs clear, airway intact, No chest tenderness, No respiratory distress Cardiovascular Exam: regular rate/rhythm, normal heart sounds, normal peripheral pulses Gastrointestinal/Abdomen Exam: soft, normal bowel sounds, No tenderness Rectal Exam: not done Back Exam: normal inspection, normal range of motion, No CVA tenderness, No vertebral tenderness Extremity Exam: normal inspection, normal range of motion, pelvis stable Neurologic Exam: alert, oriented x 3, cooperative, rn clinical coordinator II-XII nml as tested, normal mood/affect, nml cerebellar function, nml station & gait, sensation nml Skin Exam: normal color, warm, dry Lymphatic Exam: No adenopathy SpO2 Interpretation: normal SpO2: 97 O2 Delivery: Room Air - Course Nursing assessment & vital signs reviewed: Yes Ordered Tests: Active Orders 24 hr Category Date Time Status Independent Agent Music Education STAT Care 03/07/25 21:38 Active EKG-ER Only STAT Care 03/07/25 21:37 Active IV Insertion STAT Care 03/07/25 21:36 Active Pulse Oximetry (ED) STAT Care 03/07/25 21:37 Active CBC W DIFF Stat Lab 03/07/25 21:53 Completed CMP Stat Lab 03/07/25 21:53 Completed MAGNESIUM Stat Lab 03/07/25 21:53 Completed MONO SCREEN Stat Lab 03/07/25 21:53 Completed NT PRO BNPII Stat Lab 03/07/25 21:53 Completed PROTIME WITH INR Stat Lab 03/07/25 21:53 Completed TROPONIN Q4H Lab 03/07/25 21:53 Completed UA W/RFX UR CULTURE Stat Lab 03/07/25 23:01 Completed Medication Summary Generic Name Dose Route Start Last Admin Trade Name Freq PRN Reason Stop Dose Admin Sodium Chloride 1,000 mls @ 100 mls/hr 03/07/25 21:45 03/07/25 22:05 Sodium Chloride 0.9% 1000 Ml IV 04/06/25 21:44 100 mls/hr .Q10H TERENCE Administration Discontinued Medications Generic Name Dose Route Start Last Admin Trade Name Freq PRN Reason Stop Dose Admin Furosemide 20 mg 03/07/25 22:31 03/07/25 22:45 Furosemide 20 Mg/Vial IV 03/07/25 22:32 20 mg STAT ONE Administration Furosemide 20 mg 03/07/25 22:31 Furosemide 20 Mg/Vial IV 03/07/25 22:32 AFTER LAST UNIT ONE Furosemide Confirm 03/07/25 22:44 Furosemide 20 Mg/Vial Administered 03/07/25 22:45 Dose 20 mg .ROUTE .K-MED ONE Lab/Rad Data: Laboratory Result Diagrams 03/07/25 21:53 03/07/25 21:53 Laboratory Results 03/07/25 03/07/25 03/07/25 Range/Units 23:01 21:53 21:53 WBC (4.23-9.07) x10^3/uL RBC (4.63-6.08) x10^6/uL Hgb (13.7-17.5) g/dL Hct (40.1-51.0) % MCV (79.0-92.2) fL MCH (25.7-32.2) pg MCHC (32.3-36.5) g/dL RDW (11.6-14.4) % Plt Count (163-337) x10^3/uL MPV (9.4-12.4) fL Gran % (34.0-67.9) % Immature Gran % (Auto) (0.001-0.429) % Nucleat RBC Rel Count (0.00-0.2) % Eos # (Auto) (0.04-0.54) x10^3/uL Immature Gran # (Auto) (0.001-0.031) x10^3u/L Absolute Lymphs (auto) (1.32-3.57) x10^3/uL Absolute Monos (auto) (0.30-0.82) x10^3/uL Absolute Nucleated RBC (0.00-0.012) x10^3u/L Lymphocytes % (21.8-53.1) % Monocytes % (5.3-12.2) % Eosinophils % (0.8-7.0) % Basophils % (0.2-1.2) % Absolute Granulocytes (1.78-5.38) x10^3/uL Basophils # (0.01-0.08) x10^3/uL PT (9.4-12.5) SECONDS INR (0.8-3.0) Sodium (135-145) mmol/L Potassium (3.5-5.1) mmol/L Chloride (98-107) mmol/L Carbon Dioxide (22-30) mmol/L Anion Gap (5-15) MEQ/L BUN (9-20) mg/dL Creatinine (0.66-1.25) mg/dL Estimated GFR ML/MIN Glucose (74-106) mg/dL Calcium (8.4-10.2) mg/dL Magnesium (1.6-2.3) mg/dL Total Bilirubin (0.2-1.3) mg/dL AST (17-59) U/L ALT (0-50) U/L Alkaline Phosphatase (38-126) U/L Troponin I < 0.012 (0.000-0.033) ng/mL NT-Pro-B Natriuret Pep (<300) pg/mL Serum Total Protein (6.3-8.2) g/dL Albumin (3.5-5.0) g/dL Urine Color Yellow (Yellow) Urine Appearance Clear (Clear) Urine pH 6.0 (4.6-8.0) Ur Specific [place] 1.010 (1.005-1.030) Urine Protein Negative (Negative) Urine Glucose (UA) Negative (Negative) mg/dL Urine Ketones Negative (Negative) Urine Blood Negative (Negative) Urine Nitrite Negative (Negative) Urine Bilirubin Negative (Negative) Urine Urobilinogen 0.2 (0.2) mg/dL Ur Leukocyte Esterase Negative (Negative) U Hyaline Cast (Auto) NONE SEEN (0-2) /LPF Urine Microscopic RBC 0-2 (0-5) /HPF Urine Microscopic WBC 0-2 (0-5) /HPF Ur Epithelial Cells None Seen (None Seen) /HPF Urine Bacteria None Seen (None Seen) /HPF Urine Culture Reflexed NO (NO) Monoscreen (NEGATIVE) Influenza Type A Ag (NEGATIVE) Influenza Type B Ag (NEGATIVE) RSV (PCR) (NEGATIVE) SARS-CoV-2 (PCR) (NEGATIVE) ABO Group Rh Factor Antibody Screen (NEGATIVE) Crossmatch COMPATIBLE (COMPATIBLE) 03/07/25 03/07/25 03/07/25 Range/Units 21:53 21:53 21:53 WBC (4.23-9.07) x10^3/uL RBC (4.63-6.08) x10^6/uL Hgb (13.7-17.5) g/dL Hct (40.1-51.0) % MCV (79.0-92.2) fL MCH (25.7-32.2) pg MCHC (32.3-36.5) g/dL RDW (11.6-14.4) % Plt Count (163-337) x10^3/uL MPV (9.4-12.4) fL Gran % (34.0-67.9) % Immature Gran % (Auto) (0.001-0.429) % Nucleat RBC Rel Count (0.00-0.2) % Eos # (Auto) (0.04-0.54) x10^3/uL Immature Gran # (Auto) (0.001-0.031) x10^3u/L Absolute Lymphs (auto) (1.32-3.57) x10^3/uL Absolute Monos (auto) (0.30-0.82) x10^3/uL Absolute Nucleated RBC (0.00-0.012) x10^3u/L Lymphocytes % (21.8-53.1) % Monocytes % (5.3-12.2) % Eosinophils % (0.8-7.0) % Basophils % (0.2-1.2) % Absolute Granulocytes (1.78-5.38) x10^3/uL Basophils # (0.01-0.08) x10^3/uL PT (9.4-12.5) SECONDS INR (0.8-3.0) Sodium (135-145) mmol/L Potassium (3.5-5.1) mmol/L Chloride (98-107) mmol/L Carbon Dioxide (22-30) mmol/L Anion Gap (5-15) MEQ/L BUN (9-20) mg/dL Creatinine (0.66-1.25) mg/dL Estimated GFR ML/MIN Glucose (74-106) mg/dL Calcium (8.4-10.2) mg/dL Magnesium (1.6-2.3) mg/dL Total Bilirubin (0.2-1.3) mg/dL AST (17-59) U/L ALT (0-50) U/L Alkaline Phosphatase (38-126) U/L Troponin I (0.000-0.033) ng/mL NT-Pro-B Natriuret Pep (<300) pg/mL Serum Total Protein (6.3-8.2) g/dL Albumin (3.5-5.0) g/dL Urine Color (Yellow) Urine Appearance (Clear) Urine pH (4.6-8.0) Ur Specific [place] (1.005-1.030) Urine Protein (Negative) Urine Glucose (UA) (Negative) mg/dL Urine Ketones (Negative) Urine Blood (Negative) Urine Nitrite (Negative) Urine Bilirubin (Negative) Urine Urobilinogen (0.2) mg/dL Ur Leukocyte Esterase (Negative) U Hyaline Cast (Auto) (0-2) /LPF Urine Microscopic RBC (0-5) /HPF Urine Microscopic WBC (0-5) /HPF Ur Epithelial Cells (None Seen) /HPF Urine Bacteria (None Seen) /HPF Urine Culture Reflexed (NO) Monoscreen NEGATIVE (NEGATIVE) Influenza Type A Ag NEGATIVE (NEGATIVE) Influenza Type B Ag NEGATIVE (NEGATIVE) RSV (PCR) NEGATIVE (NEGATIVE) SARS-CoV-2 (PCR) NEGATIVE (NEGATIVE) ABO Group O Rh Factor POSITIVE Antibody Screen NEGATIVE (NEGATIVE) Crossmatch (COMPATIBLE) 1003/07/25 03/07/25 Range/Units 21:53 21:53 21:53 WBC 8.9 (4.23-9.07) x10^3/uL RBC 2.57 L (4.63-6.08) x10^6/uL Hgb 7.8 L (13.7-17.5) g/dL Hct 25.4 L (40.1-51.0) % MCV 98.8 H (79.0-92.2) fL MCH 30.4 (25.7-32.2) pg MCHC 30.7 L (32.3-36.5) g/dL RDW 15.3 H (11.6-14.4) % Plt Count 266 (163-337) x10^3/uL MPV 10.1 (9.4-12.4) fL Gran % 75.1 H (34.0-67.9) % Immature Gran % (Auto) 0.5 H (0.001-0.429) % Nucleat RBC Rel Count 0.0 (0.00-0.2) % Eos # (Auto) 0.12 (0.04-0.54) x10^3/uL Immature Gran # (Auto) 0.04 H (0.001-0.031) x10^3u/L Absolute Lymphs (auto) 1.09 L (1.32-3.57) x10^3/uL Absolute Monos (auto) 0.94 H (0.30-0.82) x10^3/uL Absolute Nucleated RBC 0.00 (0.00-0.012) x10^3u/L Lymphocytes % 12.3 L (21.8-53.1) % Monocytes % 10.6 (5.3-12.2) % Eosinophils % 1.4 (0.8-7.0) % Basophils % 0.1 L (0.2-1.2) % Absolute Granulocytes 6.65 H (1.78-5.38) x10^3/uL Basophils # 0.01 (0.01-0.08) x10^3/uL PT 11.7 (9.4-12.5) SECONDS INR 1.05 (0.8-3.0) Sodium 140 (135-145) mmol/L Potassium 3.7 (3.5-5.1) mmol/L Chloride 105 (98-107) mmol/L Carbon Dioxide 25 (22-30) mmol/L Anion Gap 12.8 (5-15) MEQ/L BUN 22 H (9-20) mg/dL Creatinine 1.54 H (0.66-1.25) mg/dL Estimated GFR 43.7 ML/MIN Glucose 112 H (74-106) mg/dL Calcium 8.4 (8.4-10.2) mg/dL Magnesium 1.5 L (1.6-2.3) mg/dL Total Bilirubin 0.40 (0.2-1.3) mg/dL AST 18 (17-59) U/L ALT 12 (0-50) U/L Alkaline Phosphatase 159 H (38-126) U/L Troponin I (0.000-0.033) ng/mL NT-Pro-B Natriuret Pep 2580 (<300) pg/mL Serum Total Protein 6.4 (6.3-8.2) g/dL Albumin 3.8 (3.5-5.0) g/dL Urine Color (Yellow) Urine Appearance (Clear) Urine pH (4.6-8.0) Ur Specific [place] (1.005-1.030) Urine Protein (Negative) Urine Glucose (UA) (Negative) mg/dL Urine Ketones (Negative) Urine Blood (Negative) Urine Nitrite (Negative) Urine Bilirubin (Negative) Urine Urobilinogen (0.2) mg/dL Ur Leukocyte Esterase (Negative) U Hyaline Cast (Auto) (0-2) /LPF Urine Microscopic RBC (0-5) /HPF Urine Microscopic WBC (0-5) /HPF Ur Epithelial Cells (None Seen) /HPF Urine Bacteria (None Seen) /HPF Urine Culture Reflexed (NO) Monoscreen (NEGATIVE) Influenza Type A Ag (NEGATIVE) Influenza Type B Ag (NEGATIVE) RSV (PCR) (NEGATIVE) SARS-CoV-2 (PCR) (NEGATIVE) ABO Group Rh Factor Antibody Screen (NEGATIVE) Crossmatch (COMPATIBLE) - Progress Progress Note: 03/07/25 22:00 My medical decision making and the assignment of moderate complexity is based on review of the patient's past medical history, reviewed patient's medication list, reviewed patient drug allergy list, history of present illness and physical findings on examination. The workup in this patient includes placement of an intravenous line, CBC, CMP, PT/INR, twelve-lead EKG, troponin level, type and screen, urinalysis, viral swabs, monotest. Differential diagnosis includes but is not limited to myocardial infarction, arrhythmia, anemia, electrolyte abnormalities, dehydration, urinary tract infection 03/07/25 23:37 I am transferring care of this patient to Dr. Perez at 1140 on 03/07/2025. He will assess the patient, monitor the patient and make final disposition when the patient completes his blood transfusion Medical Desision Making - Independent Historian Additional History obtained from: Family - Departure Departure Disposition: Home Clinical Impression: Symptomatic anemia, Weakness Condition: Stable Critical Care Time: No Referrals: AURY MANZO MD [Primary Care Provider, [facility]] - Follow up/PCP as directed
[2025-03-07 22:01] LABS: BASOPHIL % 0.1 % (0.2-1.2); Basophil (Absolute #) 0.01 x10^3/uL (0.01-0.08); Eosinophil (Absolute #) 0.12 x10^3/uL (0.04-0.54); Hematocrit 25.4 % (40.1-51.0); Hemoglobin 7.8 g/dL (13.7-17.5); IMMATURE GRAN # 0.04 x10^3u/L (0.001-0.031); IMMATURE GRAN % 0.5 % (0.001-0.429); Lymphocyte (Absolute #) 1.09 x10^3/uL (1.32-3.57); Mean Corpuscular Hemoglobin 30.4 pg (25.7-32.2); Mean Corpuscular Hgb Concent. 30.7 g/dL (32.3-36.5); Monocyte (Absolute #) 0.94 x10^3/uL (0.30-0.82); NUCLEATED RBC # 0.00 x10^3u/L (0.00-0.012); NUCLEATED RBC % 0.0 % (0.00-0.2); Platelet Count 266 x10^3/uL (163-337); Red Blood Count 2.57 x10^6/uL (4.63-6.08); White Blood Count 8.9 x10^3/uL (4.23-9.07)
[2025-03-07 22:15] LABS: INR 1.05 (0.8-3.0); PROTIME 11.7 SECONDS (9.4-12.5)
[2025-03-07 22:25] LABS: Calcium 8.4 mg/dL (8.4-10.2); Carbon Dioxide 25.0 mmol/L (22-30); Creatinine 1 1.54 mg/dL (0.66-1.25); EST GLOMERULAR FILTRATION RATE 43.7 ML/MIN; Glucose 112.0 mg/dL (74-106); NT PRO BNPII 2580.0 pg/mL (<300); Potassium 3.7 mmol/L (3.5-5.1); SGOT/AST 18.0 U/L (17-59); SGPT/ALT 12.0 U/L (0-50); Total Protein 6.4 g/dL (6.3-8.2)
[2025-03-07 22:40] LABS: INFLUENZA A NEGATIVE (NEGATIVE); INFLUENZA B NEGATIVE (NEGATIVE); RESPIRATORY SYNCTIAL VIRUS NEGATIVE (NEGATIVE); SARS-CoV-2 Xpert Express NEGATIVE (NEGATIVE)
[2025-03-07] MEDS ORDERED: Lasix 20 MG/2 ML ONE (22:44)
[2025-03-07] MEDS: Lasix 20 MG/2 ML IV ONE (22:45)
[2025-03-07 23:10] LABS: Glucose, Urine Negative (Negative); Protein,Urine Dip Negative (Negative); RBC 0-2 /HPF (0-5); WBC 0-2 /HPF (0-5)
[2025-03-07 23:34] LABS: ABO TYPING O; RH TYPING POSITIVE
[2025-03-07 23:36] LABS: CROSS MATCH (PRBC) COMPATIBLE (COMPATIBLE)
[2025-03-08 00:07] VITALS: PULSE 86
[2025-03-08] MEDS ORDERED: Lasix 20 MG/2 ML ONE (00:51)
[2025-03-08] MEDS: Lasix 20 MG/2 ML IV ONE (01:00)
[2025-03-08 01:08] VITALS: BP 131/64; RESP 16; TEMP 98.6; O2SAT 97
== END 2025-03-08 01:20 | disposition home or self-care (01) ==
LOC: ED 21:12
DX: D64.9 Anemia, unspecified (principal); R53.1 Weakness; I11.0 Hypertensive heart disease with heart failure; I50.9 Heart failure, unspecified; E11.9 Type 2 diabetes mellitus without complications; Z79.02 Long term (current) use of antithrombotics/antiplatelets; Z79.899 Other long term (current) drug therapy
CPT/HCPCS: 36415; 36430; 80053; 81001; 83735; 83880; 84484; 85025; 85610; 86308; 86850; 86900; 86901; 86922; 87637; 93005; 93041; 94760; 96374; 96376; 99285; P9016